=== PATIENT | female | born 1955 | race Two or more races ===

== ENCOUNTER → 2016-10-26 | Day surgery (SDC) | payer OTHER ==
[~2016-10-26] MED LIST: LIDOCAINE 2% INJ (20 MG/ML) 20 ML MDV ONE
== END ==
LOC: WI 07:59
PROVIDERS: ATTEND Surgery
PROC: 0HBT3ZX Excision of Right Breast, Percutaneous Approach, Diagnostic (ICD-10-PCS; principal; 2016-10-26)
PROC: 0HBU3ZX Excision of Left Breast, Percutaneous Approach, Diagnostic (ICD-10-PCS; 2016-10-26)
DX: C50.912 Malignant neoplasm of unspecified site of left female breast (principal); C50.911 Malignant neoplasm of unspecified site of right female breast; C77.3 Secondary and unspecified malignant neoplasm of axilla and upper limb lymph nodes; Z17.0 Estrogen receptor positive status [ER+]
CPT/HCPCS: 88342 ×2; 88341 ×2; 88305 ×2; 19083; 19084; J3490

== ENCOUNTER → 2016-11-01 | Outpatient (CLI) | payer BC, OTHER | LOC: RAD 08:26 | PROVIDERS: ATTEND Specialist | DX: C50.512 Malignant neoplasm of lower-outer quadrant of left female breast (principal) | CPT/HCPCS: 71260; 74177; 82565 ==

== ENCOUNTER → 2016-11-05 | Outpatient (CLI) | payer OTHER | LOC: RAD 08:05 | PROVIDERS: ATTEND Internal Medicine | DX: C50.512 Malignant neoplasm of lower-outer quadrant of left female breast (principal) | CPT/HCPCS: 78306; A9503; Q9969 ==

== ENCOUNTER → 2016-11-08 | Outpatient (CLI) | payer OTHER | LOC: WI 09:05 | PROVIDERS: ATTEND Surgery | DX: C50.911 Malignant neoplasm of unspecified site of right female breast (principal); K76.9 Liver disease, unspecified | CPT/HCPCS: 76705 ==

== ENCOUNTER → 2016-11-11 | Outpatient (CLI) | payer OTHER | LOC: RAD 18:44 | PROVIDERS: ATTEND Surgery | DX: C50.512 Malignant neoplasm of lower-outer quadrant of left female breast (principal) | CPT/HCPCS: 78815; A9552 ==

== ENCOUNTER 2016-11-13 09:13 | Day surgery (SDC) | payer OTHER ==
[2016-11-09 11:18] LABS: HEMATOCRIT 41.1 % (36.0-47.0); HEMOGLOBIN 14.4 g/dL (12.0-15.5); HGB HCT DIFFERENCE 2.1; MEAN CORPUSCULAR HEMOGLOBIN 29.7 pg (27.0-33.4); MEAN CORPUSCULAR HGB CONC 35.1 g/dL (32.0-36.0); MEAN CORPUSCULAR VOLUME 85 fl (80-97); RED BLOOD COUNT 4.85 10^6/uL (3.72-5.28); RED CELL DISTRIBUTION WIDTH 13.5 % (11.5-14.0); WHITE BLOOD COUNT 6.5 10^3/uL (4.0-10.5)
[2016-11-09 11:43] LABS: ANION GAP 14 (5-19); BLOOD UREA NITROGEN 12 mg/dL (7-20); CALCIUM 9.4 mg/dL (8.4-10.2); CARBON DIOXIDE 28 mmol/L (22-30); CHLORIDE 101 mmol/L (98-107); CREATININE RESULT 0.52 mg/dL (0.52-1.25); GLUCOSE 175 mg/dL (75-110); SODIUM 142.9 mmol/L (137-145)
[~2016-11-13 09:13] MED LIST changes: +ACETAMINOPHEN 325 MG TABLET PO PRN; +BUPIVACAINE HCL 0.25 % INJ/PF (2.5 MG/1 ML) 30 ML VIAL ONE; +CLINDAMYCIN 600 MG/D5W RTU 600 MG/50 ML RTUPB IV PRN; +LACTATED RINGERS 1000 ML IV PRN; +LIDOCAINE 0.5% INJ-PF (5 MG/ML) 50 ML SDV SUBCUT PRN; -LIDOCAINE 2% INJ (20 MG/ML) 20 ML MDV ONE
[2016-11-13] MEDS ORDERED: MORPHINE SULFATE 10 MG/ML INJ IV PRN ×3 (10:40→14:29)
[2016-11-13] MEDS ORDERED: MEPERIDINE HCL/PF INJ 25 MG/1 ML DISP.SYRIN IV PRN ×2 (10:40→13:42)
[2016-11-13] MEDS ORDERED: PROMETHAZINE HCL INJ 25 MG/1 ML VIAL IV PRN ×4 (10:40→13:42)
[2016-11-13] MEDS ORDERED: FENTANYL CITRATE INJ/PF 100 MCG/2 ML AMPUL IV PRN ×6 (10:40→13:42)
[2016-11-13] MEDS ORDERED: OXYCODONE-ACETAMINOPHEN 5-325 MG TABLET PO PRN ×4 (10:40→13:42)
[2016-11-13] MEDS ORDERED: DIPHENHYDRAMINE HCL 50 MG/ML VIAL IV PRN ×2 (10:40→13:42)
[2016-11-13 10:42] LABS: ALANINE AMINOTRANSFERASE 35 U/L (9-52); ALBUMIN 4.3 g/dL (3.5-5.0); ALKALINE PHOSPHATASE 79 U/L (38-126); ANION GAP 12 (5-19); ASPARTATE AMINO TRANSFERASE 28 U/L (14-36); BILIRUBIN,DIRECT 0.3 mg/dL (0.0-0.4); BILIRUBIN,TOTAL 0.9 mg/dL (0.2-1.3); BLOOD UREA NITROGEN 12 mg/dL (7-20); CALCIUM 9.3 mg/dL (8.4-10.2); CARBON DIOXIDE 27 mmol/L (22-30); CHLORIDE 105 mmol/L (98-107); CREATININE RESULT 0.47 mg/dL (0.52-1.25); GLUCOSE 146 mg/dL (75-110); POTASSIUM 3.9 mmol/L (3.6-5.0); SODIUM 144.3 mmol/L (137-145); TOTAL PROTEIN 7.6 g/dL (6.3-8.2)
--- NOTE | 2016-11-13 11:09 | EKG REPORT ---
SEVERITY:- ABNORMAL ECG - SINUS RHYTHM PROBABLE LEFT ATRIAL ABNORMALITY ANTERIOR INFARCT, OLD : Confirmed by: Mary Castle 13-Nov-2016 11:08:47
[2016-11-13] MEDS ORDERED: ONDANSETRON HCL INJ/PF 4 MG/2 ML SDV ONE ×2 (12:41→20:06)
[2016-11-13] MEDS ORDERED: MIDAZOLAM 2 MG/2 ML INJ ONE (12:55)
[2016-11-13] MEDS ORDERED: PROPOFOL INJ 200 MG/20 ML VIAL IV ONE (12:55)
[2016-11-13] MEDS ORDERED: FENTANYL CITRATE INJ/PF 100 MCG/2 ML AMPUL ONE (12:55)
--- NOTE | 2016-11-13 14:26 | Operative Report ---
Operative Report DATE OF SURGERY: 11/13/16 PREOPERATIVE DIAGNOSIS: Bilateral breast cancer POSTOPERATIVE DIAGNOSIS: Same OPERATION: Right internal jugular single-lumen power port placement (permanent implanted central venous access placed with ultrasound assistance under fluoroscopic guidance) SURGEON: SHIRA PICKETT ANESTHESIA: LMAC TISSUE REMOVED OR ALTERED: None COMPLICATIONS: None ESTIMATED BLOOD LOSS: minimal INTRAOPERATIVE FINDINGS: None PROCEDURE: Informed consent was obtained. Patient was brought to the operating room placed on the operating table in the supine position. Procedure was done under LMAC. Her right neck and chest were prepped and draped in usual sterile fashion. Local anesthetic was administered. The right internal jugular vein was identified with the ultrasound. Using the ultrasound as a guide the right internal jugular vein was cannulated. Guidewire was placed into the central circulation under fluoroscopic guidance. Local anesthetic was injected at the right upper chest and the along the anticipated path of the catheter in the neck. Subcutaneous pocket was created in the patient's right upper chest. The 2 incisions were connected using a tunneling device tunneling the single- lumen catheter. Introducer catheter was fed through the guidewire. The PowerPort catheter was then the fed through the introducer catheter into the right atrium. The catheter was then pulled back with the tip residing in the superior vena cava right atrial junction. The catheter was then attached to the PowerPort device which was implanted into the subcutaneous pocket. It withdrew blood and flushed easily. Hemostasis appeared excellent. The wounds were closed with deep dermal interrupted Vicryl sutures followed by running subcuticular Monocryl suture.
[2016-11-13] MEDS ORDERED: RINGERS SOLUTION,LACTATED 1,000 ML IV PRN (14:29)
--- NOTE | 2016-11-13 14:29 | PDOC DISCHARGE SUMMARY ---
Discharge Summary (SDC) - Discharge Final Diagnosis: Bilateral breast cancer Date of Surgery: 11/13/16 Discharge Date: 11/13/16 Condition: Good Treatment or Instructions: Right internal jugular single-lumen power port placement. December discharge patient home when met discharge criteria. Follow-up with me in 2 weeks. Prescriptions: Oxycodone HCl/Acetaminophen [Percocet 5-325 mg Tablet] 1 tab PO ASDIR PRN #15 tablet PRN Reason: Discharge Diet: As Tolerated Discharge Activity: Activity As Tolerated Report the Following to Your Physician Immediately: Shortness of Breath, Fever over 101 Degrees, Unusual Bleeding, Redness
[2016-11-13] MEDS ORDERED: ACETAMINOPHEN 100 ML IV ONE (14:33)
[2016-11-13 16:55] VITALS: BP 138/72
[2016-11-13] MEDS ORDERED: LIDOCAINE 2% INJ-PF (20 MG/ML) 10 ML AMPUL ONE (20:06)
[2016-11-13] MEDS ORDERED: GLYCOPYRROLATE INJ 0.4 MG/2 ML VIAL ONE (20:06)
[2016-11-13] MEDS ORDERED: METOCLOPRAMIDE HCL INJ/PF 10 MG/2 ML SDV ONE (20:06)
== END 2016-11-13 16:58 | disposition home or self-care (01) ==
LOC: OROUT 09:13
PROVIDERS: ATTEND Surgery
PROC: 05H533Z Insertion of Infusion Device into Right Subclavian Vein, Percutaneous Approach (ICD-10-PCS; principal; 2016-11-13 11:30)
DX: C50.912 Malignant neoplasm of unspecified site of left female breast (principal); C50.911 Malignant neoplasm of unspecified site of right female breast; M17.10 Unilateral primary osteoarthritis, unspecified knee; I10 Essential (primary) hypertension; E11.9 Type 2 diabetes mellitus without complications; Z88.1 Allergy status to other antibiotic agents; Z88.6 Allergy status to analgesic agent; Z88.0 Allergy status to penicillin; Z85.3 Personal history of malignant neoplasm of breast; Z87.891 Personal history of nicotine dependence; Z79.1 Long term (current) use of non-steroidal anti-inflammatories (NSAID)
CPT/HCPCS: 36415 ×2; 82962; 85027; 80048; 80053; 71010; 77001; 93005; 93010; 36561; C1788; J2250; J3010; J2765; J2550; J2405; J2704; J3490; J1642; J0131; 532

== ENCOUNTER → 2017-04-29 | Outpatient (CLI) | payer OTHER ==
--- NOTE | 2017-04-29 12:38 | RADIOLOGY REPORT (SQ) ---
EXAM DESCRIPTION: VENOUS BILATERAL LOWER COMPLETED DATE/TIME: 04/29/2017 12:26 pm REASON FOR STUDY: BLE SWELLING M79.89 OTHER SPECIFIED SOFT TISSUE DISORDERS COMPARISON: None. TECHNIQUE: Dynamic and static moran scale and color images acquired of both lower extremity venous sy stems. Selected spectral images acquired with additional compression and augmentation maneuvers. Imag es stored on PACS. LIMITATIONS: None. FINDINGS: RIGHT LEG COMMON FEMORAL AND FEMORAL: Normal phasicity, compression and augmentation. No visualized echogenic m aterial on moran scale. No defects on color images. POPLITEAL: Normal compression and augmentation. No visualized echogenic material on moran scale. No de fects on color images. CALF VESSELS: Normal compression and augmentation. No visualized echogenic material on moran scale. No defects on color image. GSV AND SSV: Normal compression. No visualized echogenic material on moran scale. No defects on color images. ANY DEEP VENOUS INSUFFICIENCY: Not evaluated. ANY EVIDENCE OF POPLITEAL CYST: No. OTHER: No other significant finding. LEFT LEG COMMON FEMORAL AND FEMORAL: Normal phasicity, compression and augmentation. No visualized echogenic m aterial on moran scale. No defects on color images. POPLITEAL: Normal compression and augmentation. No visualized echogenic material on moran scale. No de fects on color images. CALF VESSELS: Normal compression and augmentation. No visualized echogenic material on moran scale. No defects on color images. GSV AND SSV: Normal compression. No visualized echogenic material on moran scale. No defects on color images. ANY DEEP VENOUS INSUFFICIENCY: Not evaluated. ANY EVIDENCE POPLITEAL CYST: No. OTHER: No other significant finding. IMPRESSION: NO EVIDENCE DVT OR SVT IN EITHER LEG. TECHNICAL DOCUMENTATION: JOB ID: [id number] [employer]- All Rights Reserved
== END ==
LOC: SP 11:38
PROVIDERS: ATTEND Surgery
DX: M79.605 Pain in left leg (principal); M79.89 Other specified soft tissue disorders
CPT/HCPCS: 93970

== ENCOUNTER 2017-05-07 08:33 | Day surgery (SDC) | payer OTHER ==
[2017-05-03 11:40] LABS: HEMATOCRIT 33.6 % (36.0-47.0); HEMOGLOBIN 11.7 g/dL (12.0-15.5); HGB HCT DIFFERENCE 1.5; MEAN CORPUSCULAR HEMOGLOBIN 31.7 pg (27.0-33.4); MEAN CORPUSCULAR VOLUME 91 fl (80-97); RED CELL DISTRIBUTION WIDTH 15.2 % (11.5-14.0); WHITE BLOOD COUNT 3.2 10^3/uL (4.0-10.5)
[2017-05-03 12:10] LABS: ANION GAP 8 (5-19); BLOOD UREA NITROGEN 12 mg/dL (7-20); CALCIUM 9.1 mg/dL (8.4-10.2); CARBON DIOXIDE 29 mmol/L (22-30); CHLORIDE 102 mmol/L (98-107); CREATININE RESULT 0.47 mg/dL (0.52-1.25); GLUCOSE 193 mg/dL (75-110); POTASSIUM 3.3 mmol/L (3.6-5.0); SODIUM 139.4 mmol/L (137-145)
--- NOTE | 2017-05-03 17:26 | EKG REPORT ---
SEVERITY:- ABNORMAL ECG - SINUS RHYTHM LEFT ATRIAL ABNORMALITY CONSIDER ANTEROSEPTAL INFARCT : Confirmed by: Mary Castle 03-May-2017 17:25:54
[~2017-05-07 08:33] MED LIST changes: -BUPIVACAINE HCL 0.25 % INJ/PF (2.5 MG/1 ML) 30 ML VIAL ONE; -CLINDAMYCIN 600 MG/D5W RTU 600 MG/50 ML RTUPB IV PRN; +DEXAMETHASONE SOD PHOSPHATE INJ 4 MG/1 ML VIAL ONE; +LIDOCAINE 2% INJ-PF (20 MG/ML) 10 ML AMPUL ONE; +ONDANSETRON HCL INJ/PF 4 MG/2 ML SDV ONE; +RINGERS SOLUTION,LACTATED 1,000 ML IV PRN; +SCOPOLAMINE HYDROBROMIDE 1.5 MG PATCH.TD72 TD PRN; +SUCCINYLCHOLINE CHLORIDE INJ 200 MG/10 ML VIAL ONE; +VANCOMYCIN HCL 1,000 MG in DEXTROSE 5%-WATER 250 ML IV PRN
[2017-05-07 10:39] LABS: POTASSIUM 3.3 mmol/L (3.6-5.0)
[2017-05-07] MEDS ORDERED: MIDAZOLAM 2 MG/2 ML INJ ONE (11:39)
[2017-05-07] MEDS ORDERED: FENTANYL CITRATE INJ/PF 100 MCG/2 ML AMPUL ONE ×2 (11:39→16:27)
[2017-05-07] MEDS ORDERED: FENTANYL CITRATE INJ/PF 250 MCG/5 ML AMPULE ONE (11:39)
[2017-05-07] MEDS ORDERED: EPHEDRINE SULFATE INJ 50 MG/1 ML AMPULE ONE (11:40)
[2017-05-07] MEDS ORDERED: PROPOFOL INJ 200 MG/20 ML VIAL IV ONE (11:40)
[2017-05-07] MEDS ORDERED: ACETAMINOPHEN 100 ML IV ONE (11:40)
[2017-05-07] MEDS ORDERED: DIPHENHYDRAMINE HCL 50 MG/ML VIAL IV PRN ×2 (13:27→16:43)
[2017-05-07] MEDS ORDERED: PROMETHAZINE HCL INJ 25 MG/1 ML VIAL IV PRN ×2 (13:27→16:43)
[2017-05-07] MEDS ORDERED: MORPHINE SULFATE 10 MG/ML INJ IV PRN ×4 (13:27→19:55)
[2017-05-07] MEDS ORDERED: FENTANYL CITRATE INJ/PF 100 MCG/2 ML AMPUL IV PRN ×6 (13:27→16:43)
[2017-05-07] MEDS ORDERED: MEPERIDINE HCL/PF INJ 25 MG/1 ML DISP.SYRIN IV PRN (13:27)
[2017-05-07] MEDS ORDERED: MORPHINE SULFATE 10 MG/ML INJ ONE (14:47)
[2017-05-07] MEDS ORDERED: HYDROMORPHONE HCL INJ/PF 2 MG/ML AMPULE ONE (14:55)
[2017-05-07] MEDS ORDERED: OXYCODONE-ACETAMINOPHEN 5-325 MG TABLET PO PRN ×2 (16:05→19:55)
[2017-05-07] MEDS ORDERED: NORMAL SALINE 1000 ML 1,000 ML IV PRN (16:05)
[2017-05-07] MEDS ORDERED: ONDANSETRON HCL INJ/PF 4 MG/2 ML SDV IV PRN (16:05)
--- NOTE | 2017-05-07 16:05 | Operative Report ---
Operative Report DATE OF SURGERY: 05/07/17 PREOPERATIVE DIAGNOSIS: Bilateral breast cancer POSTOPERATIVE DIAGNOSIS: Bilateral breast cancer OPERATION: Right simple mastectomy. Left modified radical mastectomy. SURGEON: SHIRA PICKETT ANESTHESIA: GA TISSUE REMOVED OR ALTERED: Right breast. Left breast and axillary dissection. COMPLICATIONS: None ESTIMATED BLOOD LOSS: 300 cc INTRAOPERATIVE FINDINGS: None PROCEDURE: Informed consent was obtained. Patient was brought to the operating room placed on the operating room table in the supine position. After satisfactory induction of general anesthesia patient's bilateral breasts and axilla were prepped and draped in usual sterile fashion. A ellipse of skin encompassing the nipple areolar complex was taken taking more skin at the lateral mid aspect of the breast to ensure good margins around the cancer. Superior, inferior then finally lateral flaps were raised. The breast was taken off the pectoralis along with the pectoralis fascia. Specimen was oriented with a short stitch marking the superior border long stitch marking the lateral border. Hemostasis appeared excellent. Robert-Mera drain was placed at the mastectomy bed and brought out through separate stab incision in the inferior flap. It was sutured in place. The skin was closed with deep dermal interrupted Vicryl sutures followed by judit. Patient's tumor had laid at the central aspect of the left breast more so at the upper outer region prior to her neoadjuvant therapy. The mass was no longer palpable. Ellipse of skin encompassing the nipple areolar complex taking more skin at the central and upper outer region than normal to ensure good margins around where the cancer used to be was taken. Superior flap followed by inferior flap and lateral flap was raised. The breast was taken off the pectoralis along with the pectoralis fascia. The axillary dissection was taken in continuity with the breast. Critical structures were identified. The axillary vein, long thoracic nerve, and the thoracodorsal nerves were all identified and preserved during the dissection. Complete level 1 and level 2 dissection was performed. Hemostasis appeared excellent. Robert-Mera drain was placed at the axilla and at the mastectomy site and brought out through separate stab incisions at the inferior flap and sutured in place. The operative field was irrigated with sterile water. Hemostasis appeared excellent. The wound was closed with deep dermal interrupted Vicryl sutures followed by staple closure of the skin. Patient tolerated procedure well with no apparent complications and was taken to the recovery area in stable condition.
[2017-05-07] MEDS ORDERED: PROMETHAZINE HCL INJ 25 MG/1 ML VIAL ONE (16:27)
--- NOTE | 2017-05-07 18:42 | PDOC PROGRESS REPORT ---
Subjective Progress Note for:: 05/07/17 Subjective:: Feels okay. Some incision related pain at the right side. Physical Exam Vital Signs: Temp Pulse Resp BP Pulse Ox 97.7 F 80 14 128/65 H 96 05/07/17 18:28 05/07/17 18:28 05/07/17 18:28 05/07/17 18:28 05/07/17 18:28 Intake & Output 05/06/17 05/07/17 05/08/17 06:59 06:59 06:59 Intake Total 3550 Output Total 1305 Balance 2245 General appearance: PRESENT: no acute distress, cooperative Respiratory exam: PRESENT: clear to auscultation reji, other - Wounds are clean dry and intact with no swelling. Drains are blood-tinged output. Cardiovascular exam: PRESENT: RRR Results Laboratory Results: 05/03/17 10:07 05/07/17 10:00 05/07/17 10:00 Potassium 3.3 L Glucose 126 H Assessment & Plan - Diagnosis (1) Bilateral breast cancer Is this a current diagnosis for this admission?: Yes Plan: Status post right simple mastectomy and left modified radical mastectomy. Patient looks good postoperatively. Will likely discharge patient home in the morning.
[2017-05-07] MEDS ORDERED: ACETAMINOPHEN 325 MG TABLET PO PRN (19:55)
--- NOTE | 2017-05-08 09:23 | PDOC DISCHARGE SUMMARY ---
Discharge Summary (SDC) - Discharge Final Diagnosis: Bilateral breast cancer Date of Surgery: 05/07/17 Discharge Date: 05/08/17 Condition: Good Treatment or Instructions: Underwent bilateral mastectomy and left axillary dissection. May discharge patient home. Follow-up with me next week. Stay active. But avoid strenuous activity. Do range of motion exercises of both of her arms. May shower. Change dressings around the drain as needed when it gets wet. Please instruct patient on Robert-Mera drain care at home. Keep left arm elevated when sitting down or laying in bed. Prescriptions: Oxycodone HCl/Acetaminophen [Percocet 5-325 mg Tablet] 1 tab PO ASDIR PRN #25 tablet PRN Reason: Referrals: ANAI SPEARS FNP [Primary Care Provider] - Discharge Diet: As Tolerated Discharge Activity: Activity As Tolerated Report the Following to Your Physician Immediately: Fever over 101 Degrees, Unusual Bleeding, Redness, Drainage-Foul Smelling
--- NOTE | 2017-05-08 09:24 | PDOC PROGRESS REPORT ---
Subjective Progress Note for:: 05/08/17 Subjective:: Feels well. Pain of the good control. Physical Exam Vital Signs: Temp Pulse Resp BP Pulse Ox 98.2 F 72 18 118/45 L 96 05/08/17 07:18 05/08/17 07:18 05/08/17 07:18 05/08/17 07:18 05/08/17 07:18 Intake & Output 05/07/17 05/08/17 05/09/17 06:59 06:59 06:59 Intake Total 4770 Output Total 1965 Balance 2805 Weight 81.2 kg General appearance: PRESENT: no acute distress, cooperative Respiratory exam: PRESENT: clear to auscultation reji, other - Wound clean dry and intact with no swelling. Drain output is serosanguineous. Cardiovascular exam: PRESENT: RRR Extremities exam: PRESENT: other - No swelling. Results Laboratory Results: 05/03/17 10:07 05/07/17 10:00 05/07/17 10:00 Potassium 3.3 L Glucose 126 H Assessment & Plan - Diagnosis (1) Bilateral breast cancer Is this a current diagnosis for this admission?: Yes Plan: Status post right simple mastectomy and left modified radical mastectomy. Patient looks good postoperatively. DC home.
[2017-05-08] MEDS ORDERED: NYSTATIN/TRIAMCIN CREAM 15 GM TOP SCH (10:00)
[2017-05-08] MEDS ORDERED: GABAPENTIN 300 MG CAPSULE PO SCH (10:00)
[2017-05-08 14:39] VITALS: BP 122/65
== END 2017-05-08 15:24 | disposition home or self-care (01) ==
LOC: UNDOADMIN 08:33 → INOR 08:33 → OROUT 08:33 → EDSTATUS 12:00 → INOR 18:28 → 4S 18:28 → OROUT 05-08 15:24 → UNDODISIN 05-08 15:24
PROVIDERS: ATTEND Surgery
PROC: 0HTT0ZZ Resection of Right Breast, Open Approach (ICD-10-PCS; 2017-05-07)
PROC: 0HTU0ZZ Resection of Left Breast, Open Approach (ICD-10-PCS; 2017-05-07)
PROC: 07B60ZX Excision of Left Axillary Lymphatic, Open Approach, Diagnostic (ICD-10-PCS; principal; 2017-05-07 12:00)
DX: C50.812 Malignant neoplasm of overlapping sites of left female breast (principal); D05.91 Unspecified type of carcinoma in situ of right breast; C77.3 Secondary and unspecified malignant neoplasm of axilla and upper limb lymph nodes; Z17.0 Estrogen receptor positive status [ER+]; I10 Essential (primary) hypertension; M17.10 Unilateral primary osteoarthritis, unspecified knee; E11.9 Type 2 diabetes mellitus without complications; Z88.0 Allergy status to penicillin; Z88.6 Allergy status to analgesic agent; Z88.1 Allergy status to other antibiotic agents; Z87.891 Personal history of nicotine dependence
CPT/HCPCS: 19303; 19307; 93005; 36415 ×2; 82962; 82947; 84132; 85027; 80048; 88309 ×2; 93010; J2250; J1100; J3010 ×2; J2270; J1170; J2550; J0330; J2405; J7060; J7030; J2704; J3370; J3490; J0131; 1610

== ENCOUNTER 2017-05-12 18:38 | Emergency (ER) | payer OTHER ==
--- NOTE | 2017-05-12 18:58 | ER Document Report ---
ED Medical Screen (RME) - General Chief Complaint: Fever Stated Complaint: FEVER Time Seen by Provider: 05/12/17 18:52 Mode of Arrival: Ambulatory Information source: Patient Notes: 62-year-old female who had double mastectomy performed on the presents with complaints of fever 102.4 I have greeted and performed a rapid initial assessment of this patient. A comprehensive ED assessment and evaluation of the patient, analysis of test results and completion of the medical decision making process will be conducted by additional ED providers. PHYSICAL EXAMINATION: GENERAL: Well-appearing, well-nourished and in no acute distress. HEAD: Atraumatic, normocephalic. EYES: Pupils equal round extraocular movements intact, conjunctiva are normal. ENT: Nares patent NECK: Normal range of motion LUNGS: No respiratory distress Musculoskeletal: Normal range of motion NEUROLOGICAL: Normal speech, normal gait. PSYCH: Normal mood, normal affect. SKIN: bilateral surgical chest wall incisions with drains TRAVEL OUTSIDE OF THE [place] IN LAST 30 DAYS: No - Related Data Allergies/Adverse Reactions: Penicillins Allergy (Severe, Verified 05/12/17 18:44) rash,photosensitive erythromycin base [From Erythrocin] Allergy (Mild, Verified 05/12/17 18:44) "Rash with sores" aspirin Adverse Reaction (Intermediate, Verified 05/12/17 18:44) "It irritates my stomach" and nausea METAL Allergy (Uncoded 05/12/17 18:44) Past Medical History - Past Medical History Cardiac Medical History: Reports: Hx Hypertension Denies: Hx Atrial Fibrillation, Hx Congestive Heart Failure, Hx Coronary Artery Disease, Hx Heart Attack, Hx Hypercholesterolemia, Hx Peripheral Vascular Disease, Hx Pulmonary Embolism, Hx Heart Murmur Pulmonary Medical History: Reports: Hx Bronchitis Denies: Hx Asthma, Hx COPD, Hx Pneumonia, Hx Respiratory Failure, Hx Sleep Apnea, Hx Tuberculosis Neurological Medical History: Endocrine Medical History: Reports: Hx Diabetes Mellitus Type 2. Denies: Hx Graves' Disease, Hx Hyperthyroidism, Hx Hypothyroidism Renal/ Medical History: Denies: Hx End Stage Renal Disease, Hx Kidney Stones, Hx Ovarian Cysts, Hx Peritoneal Dialysis, Hx Pelvic Inflammatory Disease Malignancy Medical History: Reports: Hx Breast Cancer. Denies: Hx Cervical Cancer, Hx Leukemia, Hx Lung Cancer, Hx Ovarian Cancer GI Medical History: Denies: Hx Crohn's Disease, Hx Gastroesophageal Reflux Disease, Hx Hiatal Hernia, Hx Irritable Bowel, Hx Liver Failure, Hx Ulcer Musculoskeltal Medical History: Reports Hx Arthritis, Denies Hx Fibromyalgia, Denies Hx Muscular Dystrophy Psychiatric Medical History: Denies: Hx Bipolar Disorder, Hx Depression, Hx Post Traumatic Stress Disorder , Hx Schizophrenia Traumatic Medical History: Reports: Hx Fractures Infectious Medical History: Denies: Hx HIV Past Surgical History: Reports: Hx Breast Surgery - Right breast lumpectomy, Hx Cholecystectomy. Denies: Hx Appendectomy, Hx Bowel Surgery, Hx Colostomy, Hx Coronary Artery Bypass Graft, Hx Gastric Bypass Surgery, Hx Herniorrhaphy, Hx Hysterectomy, Hx Mastectomy, Hx Pacemaker, Hx Tonsillectomy, Hx Tubal Ligation - Immunizations Hx Diphtheria, Pertussis, Tetanus Vaccination: Yes - 09/07/13 at [facility] Physical Exam - Vital signs Vitals: Temp Pulse Resp BP Pulse Ox 99.8 F 103 H 20 186/93 H 97 05/12/17 18:43 05/12/17 18:43 05/12/17 18:43 05/12/17 18:43 05/12/17 18:43 Course - Vital Signs Vital signs: Temp Pulse Resp BP Pulse Ox 99.8 F 103 H 20 186/93 H 97 05/12/17 18:43 05/12/17 18:43 05/12/17 18:43 05/12/17 18:43 05/12/17 18:43
--- NOTE | 2017-05-12 20:02 | ER Document Report ---
ED Fever - General Chief Complaint: Fever Stated Complaint: FEVER Time Seen by Provider: 05/12/17 18:52 Mode of Arrival: Ambulatory Notes: Patient is a 62-year-old female that comes emergency department for chief complaint of fever, she is status post double mastectomy on 05/07/[address] Warren , she states she believes she started running a fever yesterday, today she checked her temperature at 102.4. She has a past medical history of type 2 diabetes, cholecystectomy, hypertension. She states that her wounds have been doing great, they are not painful, she denies discolored drainage in her NATE drains, she denies difficulty breathing, abdominal pain, neck stiffness, headache, vomiting, dysuria, flank pain. She had her final chemotherapy dose 2 weeks ago. She does have a port and states it has not been used since 2 weeks ago. The area of the port is not red or inflamed. TRAVEL OUTSIDE OF THE [place] IN LAST 30 DAYS: No - Related Data Allergies/Adverse Reactions: Penicillins Allergy (Severe, Verified 05/12/17 18:44) rash,photosensitive erythromycin base [From Erythrocin] Allergy (Mild, Verified 05/12/17 18:44) "Rash with sores" aspirin Adverse Reaction (Intermediate, Verified 05/12/17 18:44) "It irritates my stomach" and nausea METAL Allergy (Uncoded 05/12/17 18:44) Past Medical History - General Information source: Patient - Social History Smoking Status: Former Smoker Chew tobacco use (# tins/day): No Frequency of alcohol use: Occasional Drug Abuse: None Lives with: Family Family History: Reviewed & Not Pertinent - Past Medical History Cardiac Medical History: Reports: Hx Hypertension Denies: Hx Atrial Fibrillation, Hx Congestive Heart Failure, Hx Coronary Artery Disease, Hx Heart Attack, Hx Hypercholesterolemia, Hx Peripheral Vascular Disease, Hx Pulmonary Embolism, Hx Heart Murmur Pulmonary Medical History: Reports: Hx Bronchitis Denies: Hx Asthma, Hx COPD, Hx Pneumonia, Hx Respiratory Failure, Hx Sleep Apnea, Hx Tuberculosis Neurological Medical History: Endocrine Medical History: Reports: Hx Diabetes Mellitus Type 2. Denies: Hx Graves' Disease, Hx Hyperthyroidism, Hx Hypothyroidism Renal/ Medical History: Denies: Hx End Stage Renal Disease, Hx Kidney Stones, Hx Ovarian Cysts, Hx Peritoneal Dialysis, Hx Pelvic Inflammatory Disease Malignancy Medical History: Reports: Hx Breast Cancer. Denies: Hx Cervical Cancer, Hx Leukemia, Hx Lung Cancer, Hx Ovarian Cancer GI Medical History: Denies: Hx Crohn's Disease, Hx Gastroesophageal Reflux Disease, Hx Hiatal Hernia, Hx Irritable Bowel, Hx Liver Failure, Hx Ulcer Musculoskeltal Medical History: Reports Hx Arthritis, Denies Hx Fibromyalgia, Denies Hx Muscular Dystrophy Psychiatric Medical History: Denies: Hx Bipolar Disorder, Hx Depression, Hx Post Traumatic Stress Disorder , Hx Schizophrenia Traumatic Medical History: Reports: Hx Fractures Infectious Medical History: Denies: Hx HIV Past Surgical History: Reports: Hx Breast Surgery - Right breast lumpectomy, Hx Cholecystectomy. Denies: Hx Appendectomy, Hx Bowel Surgery, Hx Colostomy, Hx Coronary Artery Bypass Graft, Hx Gastric Bypass Surgery, Hx Herniorrhaphy, Hx Hysterectomy, Hx Mastectomy, Hx Pacemaker, Hx Tonsillectomy, Hx Tubal Ligation - Immunizations Hx Diphtheria, Pertussis, Tetanus Vaccination: Yes - 09/07/13 at [facility] Review of Systems - Review of Systems Constitutional: See HPI EENT: No symptoms reported Cardiovascular: No symptoms reported Respiratory: No symptoms reported Gastrointestinal: No symptoms reported Genitourinary: No symptoms reported Female Genitourinary: No symptoms reported Musculoskeletal: No symptoms reported Skin: No symptoms reported Hematologic/Lymphatic: No symptoms reported Neurological/Psychological: No symptoms reported Physical Exam - Vital signs Vitals: Temp Pulse Resp BP Pulse Ox 99.8 F 103 H 20 186/93 H 97 05/12/17 18:43 05/12/17 18:43 05/12/17 18:43 05/12/17 18:43 05/12/17 18:43 Interpretation: Normal - General General appearance: Appears well, Alert In distress: None - Patient alert, smiling, talkative, well-appearing - HEENT Head: Normocephalic, Atraumatic Eyes: Normal Conjunctiva: Normal Extraocular movements intact: Yes Eyelashes: Normal Pupils: PERRL Sinus: Normal Nasal: Normal Mouth/Lips: Normal Mucous membranes: Normal Pharynx: Normal Neck: Normal - Respiratory Respiratory status: No respiratory distress. No: Respiratory distress Chest status: Other - Bilateral mastectomy wounds with clean dressings over the areas, no significant erythema, no induration, no fluctuance. No significant tenderness to the areas. NATE drains in place, 2 on each side, all of the drains have serous and blood fluids mixed. Breath sounds: Normal. No: Decreased air movement, Wheezing Chest palpation: Normal - Cardiovascular Rhythm: Regular. No: Tachycardia - Patient is not tachycardic on my exam Heart sounds: Normal auscultation, S1 appreciated, S2 appreciated Murmur: No - Abdominal Inspection: Normal Distension: No distension Bowel sounds: Normal Tenderness: Nontender Organomegaly: No organomegaly - Back Back: Normal, Nontender - Extremities General upper extremity: Normal inspection, Nontender, Normal color, Normal ROM , Normal temperature General lower extremity: Normal inspection, Nontender, Normal color, Normal ROM , Normal temperature, Normal weight bearing. No: Antonio's sign - Neurological Neuro grossly intact: Yes Cognition: Normal Orientation: AAOx4 Russell Coma Scale Eye Opening: Spontaneous Grant Coma Scale Verbal: Oriented Russell Coma Scale Motor: Obeys Commands Russell Coma Scale Total: 15 Speech: Normal Motor strength normal: LUE, RUE, LLE, RLE Sensory: Normal - Psychological Associated symptoms: Normal affect, Normal mood - Skin Skin Temperature: Warm Skin Moisture: Dry Skin Color: Normal Course - Re-evaluation Re-evalutation: Patient is actually very well-appearing. She has no complaints on my evaluation. Wound does not appear to be infected, although the NATE drains are draining well and have serous and slight blood appearance to them with no purulent abnormalities. Patient's port does not appear to be infected, has not been used recently. Patient is clear lungs, soft abdomen, chest x-ray and urinalysis are unremarkable. Lactic acid is not elevated. Blood cultures pending. Called and spoke with surgeon on-call, Dr. Hudson, he recommends that patient be discharged home on oral antibiotics and close follow-up in the office with return precautions. I did discuss this with Dr. Tijerina as well. Suggests possible clindamycin antibiotic coverage. Discussed this with patient, patient does not want clindamycin because of concerns of her bowel, discussed options for both skin and broad-spectrum coverage, after discussion patient will be placed on Bactrim and doxycycline. Patient is very pleased with going home, however she states that she will return immediately if she worsens in any way. - Vital Signs Vital signs: Temp Pulse Resp BP Pulse Ox 98.4 F 98 16 170/84 H 98 05/12/17 22:38 05/12/17 22:38 05/12/17 22:38 05/12/17 22:38 05/12/17 22:38 - Laboratory Result Diagrams: 05/12/17 20:45 05/12/17 20:45 Laboratory results interpreted by me: 05/12/17 05/12/17 05/12/17 20:15 20:45 20:45 WBC 12.1 H RBC 3.42 L Hgb 10.9 L Hct 30.6 L RDW 14.3 H Seg Neutrophils % 84.6 H Lymphocytes % 5.8 L Absolute Neutrophils 10.3 H VBG pH Sodium 134.8 L Potassium 3.1 L Creatinine 0.48 L Glucose 158 H Total Protein 5.4 L Albumin 3.0 L Urine Glucose (UA) 50 H Urine Urobilinogen 4.0 H 05/12/17 20:45 WBC RBC Hgb Hct RDW Seg Neutrophils % Lymphocytes % Absolute Neutrophils VBG pH 7.45 H Sodium Potassium Creatinine Glucose Total Protein Albumin Urine Glucose (UA) Urine Urobilinogen Discharge - Discharge Clinical Impression: Postoperative fever Condition: Stable Disposition: HOME, SELF-CARE Additional Instructions: The wounds and drains look good. Chest x-ray is negative, urine does not show infection, At this time I am not sure of the source of your fever. Please take the prescribed antibiotics as directed, call tomorrow and follow-up closely in the office for a reevaluation at the surgical clinic. Please return if you worsen in anyway including developing abdominal pain, vomiting, severe headache, shortness of breath, swelling or redness at the wound sites, lack of drainage into the drains or discolored drainage, or any other concerning symptoms. Prescriptions: Doxycycline Hyclate 100 mg PO BID #14 capsule Sulfamethoxazole/Trimethoprim [Bactrim Ds Tablet] 1 each PO BID #14 tablet Forms: Elevated Blood Pressure Referrals: SHIRA PICKETT MD [ACTIVE STAFF] - Follow up tomorrow
--- NOTE | 2017-05-12 20:14 | RADIOLOGY REPORT (SQ) ---
EXAM DESCRIPTION: CHEST PA/LAT COMPLETED DATE/TIME: 05/12/2017 7:56 pm REASON FOR STUDY: fever post op COMPARISON: 11/13/2016 EXAM PARAMETERS: NUMBER OF VIEWS: two views TECHNIQUE: Digital Frontal and Lateral radiographic views of the chest acquired. RADIATION DOSE: NA LIMITATIONS: none FINDINGS: LUNGS AND PLEURA: No opacities, masses or pneumothorax. No pleural effusion. MEDIASTINUM AND HILAR STRUCTURES: No masses or contour abnormalities. HEART AND VASCULAR STRUCTURES: Heart normal size. No evidence for failure. BONES: Scoliosis. HARDWARE: Bilateral surgical drains overlie the chest. Multiple judit across the chest. . Bilate ral axillary clips. Venous access catheter. OTHER: No other significant finding. IMPRESSION: No acute opacities. Postsurgical changes. TECHNICAL DOCUMENTATION: JOB ID: [id number] [employer]- All Rights Reserved
[2017-05-12 20:31] LABS: APPEARANCE,URINE CLEAR; BILIRUBIN,URINE NEGATIVE (NEGATIVE); GLUCOSE, URINE 50 mg/dL (NEGATIVE); KETONES,URINE NEGATIVE (NEGATIVE); LEUKOCYTE ESTERASE,URINE NEGATIVE (NEGATIVE); NITRITE,URINE NEGATIVE (NEGATIVE); PROTEIN,URINE NEGATIVE (NEGATIVE); URINE SPECIFIC GRAVITY 1.019
[2017-05-12 20:59] LABS: ABSOLUTE EOSINOPHILS # (AUTO) 0.1 10^3/uL (0.0-0.6); ABSOLUTE LYMPHOCYTES (AUTO) 0.7 10^3/uL (0.5-4.7); ABSOLUTE NEUT (AUTO) 10.3 10^3/uL (1.7-8.2); BASOPHILS % (AUTO) 0.2 % (0-2); HEMATOCRIT 30.6 % (36.0-47.0); HEMOGLOBIN 10.9 g/dL (12.0-15.5); HGB HCT DIFFERENCE 2.1; LYMPHOCYTES % (AUTO) 5.8 % (13-45); MEAN CORPUSCULAR HEMOGLOBIN 31.8 pg (27.0-33.4); MEAN CORPUSCULAR HGB CONC 35.5 g/dL (32.0-36.0); MEAN CORPUSCULAR VOLUME 90 fl (80-97); MONOCYTES % (AUTO) 8.4 % (3-13); RED BLOOD COUNT 3.42 10^6/uL (3.72-5.28); RED CELL DISTRIBUTION WIDTH 14.3 % (11.5-14.0); SEGMENTED NEUTROPHILS % (AUTO) 84.6 % (42-78); WHITE BLOOD COUNT 12.1 10^3/uL (4.0-10.5)
[2017-05-12 21:08] LABS: VENOUS BLOOD BASE EXCESS 2.2 mmol/L; VENOUS BLOOD HCO3 26.3 mmol/L (20-32); VENOUS BLOOD PCO2 39.2 mmHg (35-63); VENOUS BLOOD PH 7.45 (7.30-7.42)
[2017-05-12 21:17] LABS: PROTHROMBIN TIME 14.5 SEC (11.4-15.4)
[2017-05-12 21:20] LABS: ALANINE AMINOTRANSFERASE 23 U/L (9-52); ALKALINE PHOSPHATASE 48 U/L (38-126); ANION GAP 9 (5-19); ASPARTATE AMINO TRANSFERASE 20 U/L (14-36); BILIRUBIN,DIRECT 0.3 mg/dL (0.0-0.4); BILIRUBIN,TOTAL 1.1 mg/dL (0.2-1.3); BLOOD UREA NITROGEN 9 mg/dL (7-20); CALCIUM 8.7 mg/dL (8.4-10.2); CARBON DIOXIDE 26 mmol/L (22-30); CHLORIDE 100 mmol/L (98-107); CREATININE RESULT 0.48 mg/dL (0.52-1.25); GLUCOSE 158 mg/dL (75-110); POTASSIUM 3.1 mmol/L (3.6-5.0); SODIUM 134.8 mmol/L (137-145); TOTAL PROTEIN 5.4 g/dL (6.3-8.2)
[2017-05-12] MEDS ORDERED: SULFAMETHOXAZOLE/TRIMETHOPRIM 800-160 MG TABLET PO ONE (21:36)
[2017-05-12] MEDS ORDERED: DOXYCYCLINE HYCLATE 100 MG TABLET PO ONE (21:36)
[2017-05-12 22:42] VITALS: BP 170/84
--- NOTE | 2017-05-13 08:06 | EKG REPORT ---
SEVERITY:- BORDERLINE ECG - SINUS RHYTHM PROBABLE LEFT ATRIAL ABNORMALITY BORDERLINE R WAVE PROGRESSION, ANTERIOR LEADS : Confirmed by: Meagan Dominique MD 13-May-2017 08:06:19
== END 2017-05-12 22:42 | disposition home or self-care (01) ==
LOC: ER 18:38
DX: R50.9 Fever, unspecified (principal); I10 Essential (primary) hypertension; E11.9 Type 2 diabetes mellitus without complications; Z90.13 Acquired absence of bilateral breasts and nipples; Z98.890 Other specified postprocedural states; Z88.0 Allergy status to penicillin; Z88.3 Allergy status to other anti-infective agents; Z88.6 Allergy status to analgesic agent; Z87.891 Personal history of nicotine dependence; Z90.49 Acquired absence of other specified parts of digestive tract
CPT/HCPCS: 36415; 36591; 71020; 80053; 81001; 82803; 83605; 85025; 85610; 87040; 87086; 87088; 87186; 93005; 93010; 99284

== ENCOUNTER → 2017-08-30 | Day surgery (SDC) | payer OTHER ==
[~2017-08-30] MED LIST changes: -ACETAMINOPHEN 325 MG TABLET PO PRN; -DEXAMETHASONE SOD PHOSPHATE INJ 4 MG/1 ML VIAL ONE; -LACTATED RINGERS 1000 ML IV PRN; -LIDOCAINE 0.5% INJ-PF (5 MG/ML) 50 ML SDV SUBCUT PRN; +LIDOCAINE 2% INJ (20 MG/ML) 20 ML MDV ONE; -LIDOCAINE 2% INJ-PF (20 MG/ML) 10 ML AMPUL ONE; -ONDANSETRON HCL INJ/PF 4 MG/2 ML SDV ONE; -RINGERS SOLUTION,LACTATED 1,000 ML IV PRN; -SCOPOLAMINE HYDROBROMIDE 1.5 MG PATCH.TD72 TD PRN; -SUCCINYLCHOLINE CHLORIDE INJ 200 MG/10 ML VIAL ONE; -VANCOMYCIN HCL 1,000 MG in DEXTROSE 5%-WATER 250 ML IV PRN
--- NOTE | 2017-09-04 16:11 | WOMENS IMAGING REPORT ---
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 The patient was scanned and the area of interest in the left axilla/anterior chest wall was localized . This correlates with the area of concern on prior imaging studies. This area was targeted for ultr asound-guided core biopsy. After sterile skin prep and 3.5 mL local lidocaine 1% for skin and deep tissue anesthesia, a 14 gauge coaxial core biopsy needle was used to obtain several cores of tissue from the lesion. Under ultras ound guidance, a ribbon clip was placed in the areas sampled. There were no immediate post-procedure complications. MAMMOGRAM: Post procedure mammogram was not obtained Pathology yields a diagnosis of inflamed granulation and fibrous tissue with remote hemorrhage. No c arcinoma identified by special stains. Pathology is concordant. LIMITATIONS: None. FINDINGS: Ultrasound guided breast biopsy as described above. POST PROCEDURE MAMMOGRAMS FOR MARKER PLACEMENT: No IMPRESSION: ULTRASOUND-GUIDED CORE BIOPSY OF THE LEFT AXILLA/CHEST WALL BREAST YIELDS A DIAGNOSIS OF INFLAMED GRANULATION AND FIBROUS TISSUE WITH REMOTE HEMORRHAGE. NO CARCINOMA IDENTIFIED. COMMENT: COMMUNICATION: Findings discussed with the patient 09/03/2017, 0900 hours Patient medication list reviewed: Yes- Quality ID# [id number]:Eligible professional attests to documenting i n the medical record they obtained, updated, or reviewed the patient's current medications. TECHNICAL DOCUMENTATION: JOB ID: [id number] [employer]- All Rights Reserved
== END ==
LOC: RAD 08:12
PROVIDERS: ATTEND Physician Assistant Surgical
PROC: 0HBU3ZX Excision of Left Breast, Percutaneous Approach, Diagnostic (ICD-10-PCS; principal; 2017-08-30)
DX: C50.919 Malignant neoplasm of unspecified site of unspecified female breast (principal)
CPT/HCPCS: 88342 ×2; 88305 ×2; 19083; J3490

== ENCOUNTER 2018-02-20 09:15 | Day surgery (SDC) | payer OTHER ==
[~2018-02-20 09:15] MED LIST changes: +BUPIVACAINE HCL 0.25 % INJ/PF (2.5 MG/1 ML) 30 ML VIAL ONE; +LIDOCAINE 1% INJ-PF (10 MG/ML) 30 ML SDV ONE; -LIDOCAINE 2% INJ (20 MG/ML) 20 ML MDV ONE
[2018-02-20 09:59] LABS: HEMATOCRIT 39.5 % (36.0-47.0); HEMOGLOBIN 13.8 g/dL (12.0-15.5); MEAN CORPUSCULAR HGB CONC 34.8 g/dL (32.0-36.0); MEAN CORPUSCULAR VOLUME 86 fl (80-97); PLATELET COUNT 235 10^3/uL (150-450); RED CELL DISTRIBUTION WIDTH 13.2 % (11.5-14.0); WHITE BLOOD COUNT 5.1 10^3/uL (4.0-10.5)
--- NOTE | 2018-02-20 10:07 | RADIOLOGY REPORT (SQ) ---
EXAM DESCRIPTION: CHEST SINGLE VIEW COMPLETED DATE/TIME: 02/20/2018 9:41 am REASON FOR STUDY: PREOP COMPARISON: Chest films 05/12/2017, 11/13/2016 EXAM PARAMETERS: NUMBER OF VIEWS: One view. TECHNIQUE: Single frontal radiographic view of the chest acquired. RADIATION DOSE: NA LIMITATIONS: None. FINDINGS: LUNGS AND PLEURA: No opacities, masses or pneumothorax. No pleural effusion. MEDIASTINUM AND HILAR STRUCTURES: No masses. Contour normal. HEART AND VASCULAR STRUCTURES: Heart normal in size. Normal vasculature. BONES: No acute findings. HARDWARE: Right jugular central line tip superior vena cava. Post bilateral mastectomies with bilate ral axillary dissection OTHER: No other significant finding. IMPRESSION: NO ACUTE RADIOGRAPHIC FINDING IN THE CHEST. TECHNICAL DOCUMENTATION: JOB ID: [id number] [employer]- All Rights Reserved Reading location - IP/workstation name: [email or web address]
[2018-02-20 10:16] LABS: ANION GAP 10 (5-19); BLOOD UREA NITROGEN 13 mg/dL (7-20); CARBON DIOXIDE 27 mmol/L (22-30); CHLORIDE 107 mmol/L (98-107); GLUCOSE 188 mg/dL (75-110); POTASSIUM 4.3 mmol/L (3.6-5.0)
[2018-02-20] MEDS ORDERED: FENTANYL CITRATE INJ/PF 100 MCG/2 ML AMPUL ONE ×4 (10:54→13:43)
[2018-02-20] MEDS ORDERED: PROPOFOL INJ 200 MG/20 ML VIAL IV ONE ×3 (10:55→12:33)
[2018-02-20] MEDS ORDERED: MIDAZOLAM 2 MG/2 ML INJ ONE ×3 (10:55→12:33)
[2018-02-20] MEDS ORDERED: ACETAMINOPHEN 1,000 MG/100 ML RTUPB IV ONE (12:14)
[2018-02-20] MEDS ORDERED: DEXMEDETOMIDINE INJ 80 MCG/20 ML VIAL IV ONE (12:14)
[2018-02-20] MEDS ORDERED: KETAMINE HCL INJ 500 MG/10 ML VIAL ONE (12:37)
[2018-02-20] MEDS ORDERED: DIPHENHYDRAMINE HCL 50 MG/ML VIAL IV PRN (13:05)
[2018-02-20] MEDS ORDERED: FENTANYL CITRATE INJ/PF 100 MCG/2 ML AMPUL IV PRN ×3 (13:05)
[2018-02-20] MEDS ORDERED: PROMETHAZINE HCL INJ 25 MG/1 ML VIAL IV PRN (13:05)
--- NOTE | 2018-02-20 13:32 | EKG REPORT ---
SEVERITY:- ABNORMAL ECG - SINUS RHYTHM CONSIDER ANTEROSEPTAL INFARCT : Confirmed by: Jerson Barnhart MD 20-Feb-2018 13:31:41
--- NOTE | 2018-02-20 13:49 | Discharge Summary ---
Discharge Summary (SDC) - Discharge Final Diagnosis: Abscess of the left axilla Date of Surgery: 02/20/18 Discharge Date: 02/20/18 Condition: Stable Treatment or Instructions: Damp to dry dressing changes twice daily. Okay to shower. [place] 5/325 mg p.o. every 6 hours as needed pain. Continue oral antibiotics. Referrals: ANAI SPEARS FNP [Primary Care Provider] - Discharge Diet: As Tolerated Respiratory Treatments at Home: Deep Breathing/Coughing, Incentive Spirometer Discharge Activity: Slowly Increase Activity Home Care Assistance: None Needed Report the Following to Your Physician Immediately: Shortness of Breath, Nausea , Vomiting, Increase in Pain, Fever over 101 Degrees, Swelling, Warmth
[2018-02-20] MEDS ORDERED: KETOROLAC TROMETHAMINE INJ/PF 30 MG/1 ML SDV ONE (14:00)
--- NOTE | 2018-02-20 14:00 | Operative Report ---
Nonrecallable Operative Report DATE OF SURGERY: 02/20/18 PREOPERATIVE DIAGNOSIS: Left axillary abscess POSTOPERATIVE DIAGNOSIS: Same as above OPERATION: 1. Incision and drainage of a left axillary abscess. 2. Sharp, excisional debridement of necrotic/infected left axillary tissue including skin and fatty subcutaneous tissue. SURGEON: AYSHA SELLERS ANESTHESIA: LMAC TISSUE REMOVED OR ALTERED: Wound culture COMPLICATIONS: None apparent ESTIMATED BLOOD LOSS: Minimal PROCEDURE: Drains/implants: Kerlix. Procedure in detail: After informed consent was obtained, the patient was laid in the supine position in the operating room. The area of the left axilla was prepped and draped in a normal sterile fashion. There were 2 separate draining wounds. One was at the lateral aspect of the mastectomy scar, and one was at the lateral-most aspect of the axilla, on the underside of the left arm. The wounds were probed with a Kristine clamp. There was a large subcutaneous cavity with a fistulous connection between the 2 wounds. The skin was laid open. This was done with a 15 blade scalpel. The wound was opened completely. Wound cultures were taken. All infected/unhealthy skin and fatty soft tissue were debrided away sharply with a 15 blade scalpel. The wound was then cleaned. Hemostasis was achieved using Bovie electrocautery. The wound was then packed with a Kerlix. The wound measured 10 x 4 x 2 cm. A dressing was fashioned, and the procedure was concluded. All sponge, instrument, and needle counts were correct 2. Condition: Stable.
[2018-02-20 15:31] VITALS: BP 140/71
== END 2018-02-20 15:52 | disposition home or self-care (01) ==
LOC: OROUT 09:15
PROVIDERS: ATTEND Surgery
DX: L02.412 Cutaneous abscess of left axilla (principal); C50.919 Malignant neoplasm of unspecified site of unspecified female breast; E11.9 Type 2 diabetes mellitus without complications; I10 Essential (primary) hypertension; Z01.818 Encounter for other preprocedural examination; Z88.0 Allergy status to penicillin; Z88.1 Allergy status to other antibiotic agents; Z88.6 Allergy status to analgesic agent; Z87.891 Personal history of nicotine dependence; M17.10 Unilateral primary osteoarthritis, unspecified knee; Z85.3 Personal history of malignant neoplasm of breast; Z79.899 Other long term (current) drug therapy
CPT/HCPCS: 36415; 87070; 87205; 85027; 87075; 87077; 80048; 87186; 71045; 93005; 93010; 11042; 11045; J2250; J3010; J3490 ×2; J1885; J2704; J0131; 400

== ENCOUNTER 2018-08-11 23:21 | Emergency (ER) | payer OTHER ==
[2018-08-11] MEDS ORDERED: NORMAL SALINE 1000 ML 1,000 ML IV ONE (23:41)
[2018-08-11] MEDS ORDERED: KETOROLAC TROMETHAMINE INJ/PF 30 MG/1 ML SDV IV ONE (23:42)
[2018-08-11] MEDS ORDERED: ONDANSETRON HCL INJ/PF 4 MG/2 ML SDV IV ONE (23:42)
[2018-08-12 00:44] LABS: ABSOLUTE LYMPHOCYTES (AUTO) 0.6 10^3/uL (0.5-4.7); ABSOLUTE MONOCYTES (AUTO) 0.6 10^3/uL (0.1-1.4); ABSOLUTE NEUT (AUTO) 9.4 10^3/uL (1.7-8.2); BASOPHILS % (AUTO) 0.1 % (0-2); EOSINOPHILS % (AUTO) 0.4 % (0-6); HEMATOCRIT 43.4 % (36.0-47.0); HEMOGLOBIN 15.2 g/dL (12.0-15.5); LYMPHOCYTES % (AUTO) 5.4 % (13-45); MEAN CORPUSCULAR HEMOGLOBIN 30.1 pg (27.0-33.4); MEAN CORPUSCULAR VOLUME 86 fl (80-97); MONOCYTES % (AUTO) 5.8 % (3-13); PLATELET COUNT 141 10^3/uL (150-450); RED BLOOD COUNT 5.04 10^6/uL (3.72-5.28); RED CELL DISTRIBUTION WIDTH 13.8 % (11.5-14.0); SEGMENTED NEUTROPHILS % (AUTO) 88.3 % (42-78); TOTAL CELLS COUNTED % (AUTO) 100 %; WHITE BLOOD COUNT 10.7 10^3/uL (4.0-10.5)
[2018-08-12 00:50] LABS: ALANINE AMINOTRANSFERASE 37 U/L (9-52); ALBUMIN 4.2 g/dL (3.5-5.0); ALKALINE PHOSPHATASE 65 U/L (38-126); ANION GAP 8 (5-19); ASPARTATE AMINO TRANSFERASE 32 U/L (14-36); BILIRUBIN,DIRECT 0.3 mg/dL (0.0-0.4); BILIRUBIN,TOTAL 1.1 mg/dL (0.2-1.3); BLOOD UREA NITROGEN 14 mg/dL (7-20); CALCIUM 9.7 mg/dL (8.4-10.2); CARBON DIOXIDE 27 mmol/L (22-30); CHLORIDE 103 mmol/L (98-107); GLUCOSE 294 mg/dL (75-110); LIPASE 166.1 U/L (23-300); POTASSIUM 3.8 mmol/L (3.6-5.0); SODIUM 137.9 mmol/L (137-145); TOTAL PROTEIN 7.5 g/dL (6.3-8.2)
[2018-08-12 00:50] LABS: APPEARANCE,URINE CLOUDY; BILIRUBIN,URINE NEGATIVE (NEGATIVE); GLUCOSE, URINE >=500 mg/dL (NEGATIVE); KETONES,URINE 20 mg/dL (NEGATIVE); LEUKOCYTE ESTERASE,URINE MODERATE (NEGATIVE); NITRITE,URINE POSITIVE (NEGATIVE); PROTEIN,URINE 100 mg/dL (NEGATIVE); UROBILINOGEN,URINE NEGATIVE mg/dL (<2.0)
[2018-08-12 00:52] LABS: COLOR,URINE DARK YELLOW
[2018-08-12] MEDS ORDERED: CEFTRIAXONE 1 GM/D5W RTU 1 GM/50 ML RTUPB IV ONE (01:33)
--- NOTE | 2018-08-12 01:50 | RADIOLOGY REPORT (SQ) ---
EXAM DESCRIPTION: CT ABDOMEN WITHOUT IV CONTRAST COMPLETED DATE/TME: 08/11/2018 23:41 CLINICAL HISTORY: 63 years, Female, right flank pain COMPARISON: None. TECHNIQUE: [id number] Images stored on PACS. All CT scanners at this facility use dose modulation, iterative reconstruction, and/or weight based dosing when appropriate to reduce radiation dose to as low as reasonably achievable (ALARA). [facility]: Dose Right [facility]: CareDose [facility]: Dose Right [facility]: Teradose 4D [facility]: Manas [employer] LIMITATIONS: None. FINDINGS: Limited evaluation of the lung bases is unremarkable. Osseous structures are grossly intact. Fatty infiltrative change to the liver. Status post cholecystectomy. The spleen, adrenal glands, pancreas, left kidney are unremarkable. Mild right-sided hydronephrosis and hydroureter with surrounding inflammatory change, however no discrete obstructing calculus. Findings could reflect a recently passed stone. Superimposed infectious or inflammatory process not excluded based on this exam. Urinary bladder is not distended, limiting its evaluation. Abundant stool in the colon. Normal appendix. No gross evidence for bowel obstruction. Sigmoid diverticulosis without CT evidence for diverticulitis. IMPRESSION: Mild right-sided hydronephrosis and hydroureter with minor surrounding inflammation. However no discrete obstructing calculus. Findings could reflect a recently passed stone. Infectious or inflammatory process is not excluded. Fatty infiltrative change to the liver. Sigmoid diverticulosis without CT evidence for diverticulitis. TECHNICAL DOCUMENTATION: Quality ID # [id number]: Final reports with documentation of one or more dose reduction techniques (e.g., Automated exposure control, adjustment of the mA and/or kV according to patient size, use of iterative reconstruction technique) copyright 2010 [employer]- All Rights Reserved
[2018-08-12] MEDS ORDERED: CIPROFLOXACIN HCL 500 MG TABLET PO ONE ×2 (01:59→02:32)
[2018-08-12] MEDS ORDERED: ONDANSETRON ODT 4 MG TAB (6 TAB/ER DISP) PO PRN (02:32)
[2018-08-12] MEDS ORDERED: METOCLOPRAMIDE HCL 10 MG TABLET PO ONE (02:32)
--- NOTE | 2018-08-12 02:40 | ER Document Report ---
ED General - General Chief Complaint: Nausea/Vomiting Stated Complaint: VOMITING Time Seen by Provider: 08/11/18 23:33 TRAVEL OUTSIDE OF THE [place] IN LAST 30 DAYS: No - HPI Patient complains to provider of: Right flank pain Notes: Patient coming in for right flank pain nausea vomiting dysuria ongoing since earlier this she denies a history kidney stones. Patient states early this morning burning sensation when she urinated think that she had a urinary tract infection however the pain now has increased to the right flank. Patient states also multiple episodes of nausea vomiting. Denies any fevers or chills patient otherwise resting comfortably upon my evaluation. A brief review of the patient's medical records available in [employer] was performed - Related Data Allergies/Adverse Reactions: Penicillins Allergy (Severe, Verified 05/12/17 18:44) rash,photosensitive erythromycin base [From Erythrocin] Allergy (Mild, Verified 05/12/17 18:44) "Rash with sores" aspirin Adverse Reaction (Intermediate, Verified 05/12/17 18:44) "It irritates my stomach" and nausea METAL Allergy (Severe, Uncoded 02/18/18 16:05) Cellulitis Past Medical History - Social History Smoking Status: Former Smoker Frequency of alcohol use: Occasional Family History: Reviewed & Not Pertinent Patient has suicidal ideation: No Patient has homicidal ideation: No - Past Medical History Cardiac Medical History: Reports: Hx Hypertension Denies: Hx Atrial Fibrillation, Hx Congestive Heart Failure, Hx Coronary Artery Disease, Hx Heart Attack, Hx Hypercholesterolemia, Hx Peripheral Vascular Disease, Hx Pulmonary Embolism, Hx Heart Murmur Pulmonary Medical History: Reports: Hx Bronchitis Denies: Hx Asthma, Hx COPD, Hx Pneumonia, Hx Respiratory Failure, Hx Sleep Apnea, Hx Tuberculosis Neurological Medical History: Denies: Hx Cerebrovascular Accident, Hx Seizures Endocrine Medical History: Reports: Hx Diabetes Mellitus Type 2. Denies: Hx Graves' Disease, Hx Hyperthyroidism, Hx Hypothyroidism Renal/ Medical History: Denies: Hx End Stage Renal Disease, Hx Kidney Stones, Hx Ovarian Cysts, Hx Peritoneal Dialysis, Hx Pelvic Inflammatory Disease Malignancy Medical History: Reports: Hx Breast Cancer. Denies: Hx Cervical Cancer, Hx Leukemia, Hx Lung Cancer, Hx Ovarian Cancer GI Medical History: Denies: Hx Crohn's Disease, Hx Gastroesophageal Reflux Disease, Hx Hiatal Hernia, Hx Irritable Bowel, Hx Liver Failure, Hx Pancreatitis, Hx Ulcer Musculoskeletal Medical History: Reports Hx Arthritis - KNEE, Denies Hx Fibromyalgia, Denies Hx Muscular Dystrophy Psychiatric Medical History: Denies: Hx Bipolar Disorder, Hx Depression, Hx Post Traumatic Stress Disorder, Hx Schizophrenia Traumatic Medical History: Reports: Hx Fractures Infectious Medical History: Denies: Hx HIV Past Surgical History: Reports: Hx Breast Surgery - double mastectomy, Hx Cholecystectomy. Denies: Hx Appendectomy, Hx Bowel Surgery, Hx Colostomy, Hx Coronary Artery Bypass Graft, Hx Gastric Bypass Surgery, Hx Herniorrhaphy, Hx Hysterectomy, Hx Mastectomy, Hx Pacemaker, Hx Tonsillectomy, Hx Tubal Ligation - Immunizations Hx Diphtheria, Pertussis, Tetanus Vaccination: Yes - 09/07/13 at [facility] Review of Systems - Review of Systems Constitutional: No symptoms reported EENT: No symptoms reported Cardiovascular: No symptoms reported Respiratory: No symptoms reported Gastrointestinal: Nausea, Vomiting Genitourinary: Dysuria, Flank pain Female Genitourinary: No symptoms reported Musculoskeletal: No symptoms reported Skin: No symptoms reported Hematologic/Lymphatic: No symptoms reported Neurological/Psychological: No symptoms reported -: Yes All other systems reviewed and negative Physical Exam - Vital signs Vitals: Temp Pulse Resp BP Pulse Ox 98.7 F 92 24 H 187/100 H 99 08/11/18 23:27 08/11/18 23:27 08/11/18 23:27 08/11/18 23:27 08/11/18 23:27 Interpretation: Normal - General General appearance: Appears well, Alert - HEENT Head: Normocephalic, Atraumatic Eyes: Normal Pupils: PERRL - Respiratory Respiratory status: No respiratory distress Chest status: Nontender Breath sounds: Normal Chest palpation: Normal - Cardiovascular Rhythm: Regular Heart sounds: Normal auscultation Murmur: No - Abdominal Inspection: Normal Distension: No distension Bowel sounds: Normal Tenderness: Nontender Organomegaly: No organomegaly - Back Back: Normal, Nontender, CVA tenderness - Mild right-sided - Extremities General upper extremity: Normal inspection, Nontender, Normal color, Normal ROM, Normal temperature General lower extremity: Normal inspection, Nontender, Normal color, Normal ROM, Normal temperature, Normal weight bearing. No: Antonio's sign - Neurological Neuro grossly intact: Yes Cognition: Normal Orientation: AAOx4 Grant Coma Scale Eye Opening: Spontaneous Grant Coma Scale Verbal: Oriented Grant Coma Scale Motor: Obeys Commands Grant Coma Scale Total: 15 Speech: Normal Motor strength normal: LUE, RUE, LLE, RLE Sensory: Normal - Psychological Associated symptoms: Normal affect, Normal mood - Skin Skin Temperature: Warm Skin Moisture: Dry Skin Color: Normal Course - Re-evaluation Re-evalutation: 08/12/18 02:57 CT scans not reveal any obstructive uropathy but does show some hydronephrosis and stranding around the kidney consistent with possible pyelonephritis which is consistent with the patient's urinalysis. Patient's urine will be sent for culture we did receive a dose of Rocephin here in the ER and a dose of ciprofloxacin. Will discharge patient home with a ciprofloxacin and Reglan for her nausea and vomiting. Did recommend continue with Tylenol and anti- inflammatory medications for her pain. Patient agrees with this plan will be discharged home follow-up or return to ER if symptoms worsen. - Vital Signs Vital signs: Temp Pulse Resp BP Pulse Ox 98.7 F 92 24 H 187/100 H 99 08/11/18 23:27 08/11/18 23:27 08/11/18 23:27 08/11/18 23:27 08/11/18 23:27 - Laboratory Result Diagrams: 08/12/18 00:28 08/12/18 00:28 Laboratory results interpreted by me: 08/12/18 08/12/18 08/12/18 00:28 00:28 00:34 WBC 10.7 H Plt Count 141 L Seg Neutrophils % 88.3 H Lymphocytes % 5.4 L Absolute Neutrophils 9.4 H Creatinine 0.47 L Glucose 294 H Urine Protein 100 H Urine Glucose (UA) >=500 H Urine Ketones 20 H Urine Blood LARGE H Urine Nitrite POSITIVE H Ur Leukocyte Esterase MODERATE H Discharge - Discharge Clinical Impression: Nausea & vomiting Qualifiers: Vomiting type: unspecified Vomiting Intractability: non-intractable Qualified Code(s): R11.2 - Nausea with vomiting, unspecified Urinary tract infection Qualifiers: Urinary tract infection type: acute pyelonephritis Qualified Code(s): N10 - Acute pyelonephritis Disposition: HOME, SELF-CARE Instructions: Urinary Tract Infection ([facility]), Ciprofloxacin ([facility]), Pyelonephritis ([facility]) Additional Instructions: Your evaluation today shows signs of tract infection concern for possible pyelonephritis. This is a urinary tract infection that has gone into your kidneys. I would recommend treatment course of antibiotics with ciprofloxacin. He may take the Zofran given to you here in ER for nausea I would recommend prescription for Reglan for nausea at home. Return to ER if symptoms worsen. Prescriptions: Ciprofloxacin HCl [Cipro 500 mg Tablet] 500 mg PO BID #20 tablet Metoclopramide HCl [Reglan] 5 mg PO Q6 #30 tablet Referrals: ANAI SPEARS FNP [Primary Care Provider] - Follow up in 3-5 days
[2018-08-12 03:53] VITALS: BP 141/65
== END 2018-08-12 04:00 | disposition home or self-care (01) ==
LOC: ER 23:21
DX: N10 Acute pyelonephritis (principal); R11.2 Nausea with vomiting, unspecified; K57.30 Diverticulosis of large intestine without perforation or abscess without bleeding; N13.30 Unspecified hydronephrosis; R10.9 Unspecified abdominal pain; I10 Essential (primary) hypertension; I25.10 Atherosclerotic heart disease of native coronary artery without angina pectoris; E11.9 Type 2 diabetes mellitus without complications; K76.0 Fatty (change of) liver, not elsewhere classified; Z85.3 Personal history of malignant neoplasm of breast; Z88.6 Allergy status to analgesic agent; Z88.3 Allergy status to other anti-infective agents; Z88.0 Allergy status to penicillin; Z91.048 Other nonmedicinal substance allergy status; Z87.891 Personal history of nicotine dependence; M13.869 Other specified arthritis, unspecified knee; Z90.13 Acquired absence of bilateral breasts and nipples
CPT/HCPCS: 99284; 96361; 96375; 96365; 36415; 87086; 83690; 85025; 87088; 80053; 81001; 87186; 76380; J1885; J2405; J7030; J0696

== ENCOUNTER → 2019-01-18 | Outpatient (CLI) | payer OTHER ==
--- NOTE | 2019-01-19 09:43 | RADIOLOGY REPORT (SQ) ---
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 TECHNIQUE: Blood glucose level was verified. Above dose of FDG was injected intravenously. 2-D seg mented attenuation correction images were obtained from the base of the skull to the midthighs. Nonc ontrast CT images were obtained for attenuation correction and fusion with emission images. CT image s were performed without oral or intravenous contrast and are not sensitive for parenchymal lesions. A series of overlapping emission PET images were obtained. Images reviewed and manipulated at [facility] work station by the radiologist. Images stored on PACS. LIMITATIONS: None. FINDINGS: HEAD AND NECK: No areas of abnormal metabolic activity in the soft tissues of the head and neck. CHEST: No significant areas of abnormal metabolic activity in the chest. Low level uptake anterior c hest wall in the surgical bed. ABDOMEN AND PELVIS: No areas of abnormal metabolic activity in the abdomen or pelvis. Expected physi ologic activity is present in the genitourinary system and bowel. PROXIMAL LOWER EXTREMITIES: No areas of abnormal metabolic activity in the soft tissues of the lower extremities. BONES: No abnormal metabolic activity in the visualized skeleton. ADDITIONAL CT FINDINGS: No additional significant findings on the noncontrast CT images. OTHER: No other significant findings. IMPRESSION: No evidence of local recurrence or metastatic disease. TECHNICAL DOCUMENTATION: JOB ID: [id number] [employer]- All Rights Reserved Reading location - IP/workstation name: [email or web address]
== END ==
LOC: RAD 15:59
PROVIDERS: ATTEND Internal Medicine
DX: C50.512 Malignant neoplasm of lower-outer quadrant of left female breast (principal)
CPT/HCPCS: 78815; A9552

== ENCOUNTER → 2019-04-26 | Outpatient (CLI) | payer OTHER ==
--- NOTE | 2019-04-27 09:04 | RADIOLOGY REPORT (SQ) ---
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 TECHNIQUE: Blood glucose level was verified. Above dose of FDG was injected intravenously. 2-D seg mented attenuation correction images were obtained from the base of the skull to the midthighs. Nonc ontrast CT images were obtained for attenuation correction and fusion with emission images. CT image s were performed without oral or intravenous contrast and are not sensitive for parenchymal lesions. A series of overlapping emission PET images were obtained. Images reviewed and manipulated at [facility] work station by the radiologist. Images stored on PACS. LIMITATIONS: None. FINDINGS: HEAD AND NECK: No areas of abnormal metabolic activity in the soft tissues of the head and neck. CHEST: Patient is post bilateral mastectomies and radiation therapy to the anterior chest wall. Ther e is diffuse anterior chest wall skin thickening, and stranding of the subcutaneous fat. Asymmetric thickening of the right pectoralis muscle is present. Morphologically, these changes are similar com pared to previous studies, with low level activity along the anterior chest wall on today's PET image s with SUV of 1.8 to 2.0 (blood pool activity 1.8 SUV, liver background activity 2.2 SUV). There are multiple surgical clips in the right and left axilla. No metabolically active soft tissue in the right axilla. On the left side, a small skin defect is present adjacent to several clips, whi ch could represent a chronic healing wound. This is best shown on axial image 65 with SUV of 2.9. N o discernible measurable mass. There is bandlike scarring in the anterior aspect of the left upper lobe from prior radiation therapy , non metabolic, with SUV 1.1. ABDOMEN AND PELVIS: No areas of abnormal metabolic activity in the abdomen or pelvis. Expected physi ologic activity is present in the genitourinary system and bowel. PROXIMAL LOWER EXTREMITIES: No areas of abnormal metabolic activity in the soft tissues of the lower extremities. BONES: No abnormal metabolic activity in the visualized skeleton. ADDITIONAL CT FINDINGS: Post cholecystectomy and hysterectomy. Colonic diverticuli are present OTHER: Liver background activity 2.2 SUV. Blood pool background activity 1.8 SUV. IMPRESSION: Single punctate focus of increased activity, left anterior axilla along a skin wound adj acent to surgical clips. This could be related to chronic infection rather than tumor. Mild diffuse increased uptake anterior chest wall along an area of prior radiation therapy. SUV valu es are at, and slightly above, background blood pool activity. TECHNICAL DOCUMENTATION: JOB ID: [id number] [employer]- All Rights Reserved Reading location - IP/workstation name: [email or web address]
== END ==
LOC: RAD 14:24
PROVIDERS: ATTEND Physician Assistant Medical
DX: C50.512 Malignant neoplasm of lower-outer quadrant of left female breast (principal)
CPT/HCPCS: 78815; A9552

== ENCOUNTER → 2019-07-07 | Outpatient (CLI) | payer OTHER ==
--- NOTE | 2019-07-08 12:17 | RADIOLOGY REPORT (SQ) ---
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 RADIONUCLIDE AND DOSE: 6.43 mCi F18 FDG The route of agent administration: Intravenous FASTING BLOOD SUGAR: 232 mg/dl CONTRAST TYPE AND DOSE: No CT contrast given. TECHNIQUE: Blood glucose level was verified. Above dose of FDG was injected intravenously. 2-D seg mented attenuation correction images were obtained from the base of the skull to the midthighs. Nonc ontrast CT images were obtained for attenuation correction and fusion with emission images. CT image s were performed without oral or intravenous contrast and are not sensitive for parenchymal lesions. A series of overlapping emission PET images were obtained. [facility] by the radiologist. Images stored on PACS. LIMITATIONS: None. FINDINGS: HEAD AND NECK: No areas of abnormal metabolic activity in the soft tissues of the head and neck. CHEST: The patient is status post bilateral mastectomies and axillary lymph node dissection ; the dif fuse skin thickening, stranding of the subcutaneous fat, and mild low level FDG uptake (that equals t hat of the blood pool) in the anterior thorax is unchanged from the prior PET. The skin defect in th e left axilla adjacent to the surgical clips (image 75 of series 3) is also unchanged from the prior PET and could represent a chronic wound. There are no areas of abnormal metabolic activity in the ch est. ABDOMEN AND PELVIS: The liver demonstrates heterogeneous non focal FDG uptake with an average SUV of 2.4. There is a focus of increased FDG uptake (maximum SUV of 8.3) in the right lower quadrant at th e tip of the appendix that on the CT corresponds to an area of abnormal fat stranding. No other area s of abnormal metabolic activity are identified in the soft tissues of the abdomen and pelvis. PROXIMAL LOWER EXTREMITIES: No areas of abnormal metabolic activity in the soft tissues of the lower extremities. BONES: No areas of abnormal metabolic activity in the imaged axial and appendicular skeleton. ADDITIONAL CT FINDINGS: There is no enlarged cervical, supraclavicular or mediastinal adenopathy. Ev aluation of the ju for adenopathy is limited due to the absence of intravenous contrast. The left ventricle is enlarged. There is no pericardial effusion. There is an area of postradiation pneumoni tis in the anterior aspect of the left upper lobe. There is no consolidation, pleural effusion or di screte nodule. The diffuse low attenuation of the hepatic parenchyma is consistent with hepatic stea tosis. The gallbladder surgically absent. The spleen is normal in size. There is no abnormality of the kidneys or adrenal glands. There is no hydronephrosis, nephrolithiasis, hydroureter or ureterol ithiasis. The urinary bladder is partially distended. There is no abnormality of the uterus and adn exa that is apparent on CT. There is colonic diverticulosis without diverticulitis. There is no chris e intraperitoneal fluid. OTHER: No other findings. IMPRESSION: 1. No metabolic evidence of recurrent or metastatic disease. 2. Focal uptake in the right lower quadrant at the tip of the appendix. Correlate with clinical find ings to exclude an acute appendicitis. 3. Unchanged postoperative and post treatment findings in the anterior thorax including diffuse skin thickening, stranding of the subcutaneous fat, and mild low level FDG uptake. 4. Unchanged skin defect in the left axilla adjacent to the surgical clips (image 75 of series 3) th at could represent a chronic bone. TECHNICAL DOCUMENTATION: JOB ID: [id number] [employer]- All Rights Reserved Reading location - IP/workstation name: [email or web address]
== END ==
LOC: RAD 09:42
PROVIDERS: ATTEND Physician Assistant Medical
DX: C50.512 Malignant neoplasm of lower-outer quadrant of left female breast (principal)
CPT/HCPCS: 78815; A9552

== ENCOUNTER 2019-07-08 14:16 | Observation (INO) | payer MEDICARE, OTHER ==
[~2019-07-08 14:16] MED LIST changes: -BUPIVACAINE HCL 0.25 % INJ/PF (2.5 MG/1 ML) 30 ML VIAL ONE; +GLYCOPYRROLATE 1 MG/5 ML VIAL ONE; -LIDOCAINE 1% INJ-PF (10 MG/ML) 30 ML SDV ONE; +NEOSTIGMINE METHYLSULFATE 10 MG/10 ML VIAL ONE
[2019-07-08] MEDS ORDERED: CEFTRIAXONE 1 GM/D5W RTU 1 GM/50 ML RTUPB IV ONE (15:08)
[2019-07-08] MEDS ORDERED: NORMAL SALINE 1000 ML 1,000 ML IV ONE (15:08)
--- NOTE | 2019-07-08 15:09 | ER Document Report ---
ED Medical Screen (RME) - General Chief Complaint: Abdominal Pain Stated Complaint: ABDOMINAL PAIN Time Seen by Provider: 07/08/19 15:01 Primary Care Provider: JADON PRAKASH PA-C [Primary Care Provider] - Follow up as needed Notes: Patient is a 64-year-old female who presents to the emergency department with right lower quadrant abdominal pain. Patient is a breast cancer patient and she was sent in for a PET scan yesterday. The PET scan showed that she had appendicitis. Patient states that she did not think anything of it, but 3 days ago she ended up having left lower quadrant pain. She also had some back pain. She thought it was possibly her cancer and was sent for the PET scan. Exam: Tender right lower quadrant abdomen. I have greeted and performed a rapid initial assessment of this patient. A comprehensive ED assessment and evaluation of the patient, analysis of test results and completion of medical decision making process will be conducted by an additional ED providers. TRAVEL OUTSIDE OF THE [place] IN LAST 30 DAYS: No - Related Data Allergies/Adverse Reactions: Penicillins Allergy (Severe, Verified 07/08/19 15:00) rash,photosensitive erythromycin base [From Erythrocin] Allergy (Mild, Verified 07/08/19 15:00) "Rash with sores" aspirin Adverse Reaction (Intermediate, Verified 07/08/19 15:00) "It irritates my stomach" and nausea METAL Allergy (Severe, Uncoded 02/18/18 16:05) Cellulitis Past Medical History - Social History Frequency of alcohol use: Rare Drug Abuse: None - Past Medical History Cardiac Medical History: Reports: Hx Hypertension Denies: Hx Atrial Fibrillation, Hx Congestive Heart Failure, Hx Coronary Artery Disease, Hx Heart Attack, Hx Hypercholesterolemia, Hx Peripheral Vascular Disease, Hx Pulmonary Embolism, Hx Heart Murmur Pulmonary Medical History: Reports: Hx Bronchitis Denies: Hx Asthma, Hx COPD, Hx Pneumonia, Hx Respiratory Failure, Hx Sleep Apnea, Hx Tuberculosis Neurological Medical History: Denies: Hx Cerebrovascular Accident, Hx Seizures Endocrine Medical History: Reports: Hx Diabetes Mellitus Type 2. Denies: Hx Graves' Disease, Hx Hyperthyroidism, Hx Hypothyroidism Renal/ Medical History: Denies: Hx End Stage Renal Disease, Hx Kidney Stones, Hx Ovarian Cysts, Hx Peritoneal Dialysis, Hx Pelvic Inflammatory Disease Malignancy Medical History: Reports: Hx Breast Cancer. Denies: Hx Cervical Cancer, Hx Leukemia, Hx Lung Cancer, Hx Ovarian Cancer GI Medical History: Denies: Hx Crohn's Disease, Hx Gastroesophageal Reflux Disease, Hx Hiatal Hernia, Hx Irritable Bowel, Hx Liver Failure, Hx Pancreatitis, Hx Ulcer Musculoskeltal Medical History: Reports Hx Arthritis - KNEE, Denies Hx Fibromyalgia, Denies Hx Muscular Dystrophy, Denies Hx Systemic Lupus Erythematosus Psychiatric Medical History: Denies: Hx Bipolar Disorder, Hx Depression, Hx Post Traumatic Stress Disorder, Hx Schizophrenia Traumatic Medical History: Reports: Hx Fractures Infectious Medical History: Denies: Hx HIV Past Surgical History: Reports: Hx Breast Surgery - double mastectomy, Hx Cholecystectomy. Denies: Hx Appendectomy, Hx Bowel Surgery, Hx Colostomy, Hx Coronary Artery Bypass Graft, Hx Gastric Bypass Surgery, Hx Herniorrhaphy, Hx Hysterectomy, Hx Mastectomy, Hx Pacemaker, Hx Tonsillectomy, Hx Tubal Ligation - Immunizations Hx Diphtheria, Pertussis, Tetanus Vaccination: Yes - 09/07/13 at [facility] Physical Exam - Vital signs Vitals: Temp Pulse Resp BP Pulse Ox 98.3 F 96 18 138/75 H 93 07/08/19 14:26 07/08/19 14:26 07/08/19 14:26 07/08/19 14:26 07/08/19 14:26 Course - Vital Signs Vital signs: Temp Pulse Resp BP Pulse Ox 98.3 F 96 18 138/75 H 93 07/08/19 14:26 07/08/19 14:26 07/08/19 14:26 07/08/19 14:26 07/08/19 14:26 Doctor's Discharge - Discharge Referrals: JADON PRAKASH PA-C [Primary Care Provider] - Follow up as needed
[2019-07-08 15:48] LABS: ABSOLUTE EOSINOPHILS # (AUTO) 0.1 10^3/uL (0.0-0.6); ABSOLUTE LYMPHOCYTES (AUTO) 0.7 10^3/uL (0.5-4.7); ABSOLUTE MONOCYTES (AUTO) 0.2 10^3/uL (0.1-1.4); ABSOLUTE NEUT (AUTO) 2.8 10^3/uL (1.7-8.2); EOSINOPHILS % (AUTO) 2.9 % (0-6); HEMATOCRIT 40.1 % (36.0-47.0); HEMOGLOBIN 14.4 g/dL (12.0-15.5); LYMPHOCYTES % (AUTO) 18.5 % (13-45); MEAN CORPUSCULAR HEMOGLOBIN 33.7 pg (27.0-33.4); MEAN CORPUSCULAR HGB CONC 35.8 g/dL (32.0-36.0); MEAN CORPUSCULAR VOLUME 94 fl (80-97); MONOCYTES % (AUTO) 5.8 % (3-13); PLATELET COUNT 202 10^3/uL (150-450); RED BLOOD COUNT 4.26 10^6/uL (3.72-5.28); RED CELL DISTRIBUTION WIDTH 14.7 % (11.5-14.0); SEGMENTED NEUTROPHILS % (AUTO) 71.8 % (42-78); TOTAL CELLS COUNTED % (AUTO) 100 %; WHITE BLOOD COUNT 3.9 10^3/uL (4.0-10.5)
[2019-07-08 16:02] LABS: APPEARANCE,URINE SLIGHTLY-CLOUDY; BILIRUBIN,URINE NEGATIVE (NEGATIVE); COLOR,URINE AMBER; GLUCOSE, URINE >=500 mg/dL (NEGATIVE); KETONES,URINE TRACE mg/dL (NEGATIVE); PROTEIN,URINE 30 mg/dL (NEGATIVE); URINE SPECIFIC GRAVITY 1.033
[2019-07-08 16:09] LABS: ALKALINE PHOSPHATASE 45 U/L (38-126); ANION GAP 11 (5-19); ASPARTATE AMINO TRANSFERASE 38 U/L (14-36); BILIRUBIN,DIRECT 0.2 mg/dL (0.0-0.4); BILIRUBIN,TOTAL 1.1 mg/dL (0.2-1.3); BLOOD UREA NITROGEN 13 mg/dL (7-20); CARBON DIOXIDE 26 mmol/L (22-30); CHLORIDE 102 mmol/L (98-107); GLUCOSE 252 mg/dL (75-110); POTASSIUM 3.8 mmol/L (3.6-5.0); TOTAL PROTEIN 7.6 g/dL (6.3-8.2)
--- NOTE | 2019-07-08 16:20 | ER Document Report ---
ED GI/ - General Chief Complaint: Abdominal Pain Stated Complaint: ABDOMINAL PAIN Time Seen by Provider: 07/08/19 15:01 Mode of Arrival: Ambulatory Information source: Patient Notes: Patient presents with complaint of right lower quadrant pain for the past 10 days. Patient states she has had fever at home. Patient had a CT PET scan as an outpatient for further evaluation as she is currently being treated for stage IV breast cancer. Patient states that her oncologist advised her that i ncidentally on her PET scan she was found to have appendicitis. Patient states she has had pain in this location. Patient has already been evaluated by the surgeon who plans to admit her at this time. Patient is agreeable with this plan of care. TRAVEL OUTSIDE OF THE [place] IN LAST 30 DAYS: No - HPI Patient complains to provider of: Abdominal pain. No: Vomiting Onset: Other - 10 days Timing/Duration: Persistent Quality of pain: Achy, Sharp Pain Level: 3 Location: RLQ Vaginal bleeding (Compared to normal period): None Associated symptoms: Nausea. denies: Urinary hesitancy, Urinary frequency, Urinary retention, Urinary urgency, Vaginal discharge Exacerbated by: Denies Relieved by: Denies Similar symptoms previously: No Recently seen / treated by doctor: Yes - Related Data Allergies/Adverse Reactions: Penicillins Allergy (Severe, Verified 07/08/19 15:00) rash,photosensitive erythromycin base [From Erythrocin] Allergy (Mild, Verified 07/08/19 15:00) "Rash with sores" aspirin Adverse Reaction (Intermediate, Verified 07/08/19 15:00) "It irritates my stomach" and nausea METAL Allergy (Severe, Uncoded 02/18/18 16:05) Cellulitis Past Medical History - General Information source: Patient - Social History Smoking Status: Former Smoker Frequency of alcohol use: Rare Drug Abuse: None Occupation: None Family History: Reviewed & Not Pertinent Patient has suicidal ideation: No Patient has homicidal ideation: No - Past Medical History Cardiac Medical History: Reports: Hx Hypertension Pulmonary Medical History: Reports: Hx Bronchitis Neurological Medical History: Endocrine Medical History: Reports: Hx Diabetes Mellitus Type 2 Malignancy Medical History: Reports: Hx Breast Cancer Musculoskeletal Medical History: Reports Hx Arthritis - KNEE Psychiatric Medical History: Traumatic Medical History: Reports: Hx Fractures Past Surgical History: Reports: Hx Breast Surgery - double mastectomy, Hx Cholecystectomy - Immunizations Hx Diphtheria, Pertussis, Tetanus Vaccination: Yes - 09/07/13 at [facility] Review of Systems - Review of Systems Constitutional: Fever. denies: Recent illness EENT: No symptoms reported Cardiovascular: No symptoms reported. denies: Chest pain Respiratory: No symptoms reported. denies: Cough, Short of breath Gastrointestinal: Abdominal pain, Nausea, Poor appetite. denies: Diarrhea, Vomiting Genitourinary: No symptoms reported. denies: Dysuria, Flank pain Female Genitourinary: No symptoms reported Musculoskeletal: No symptoms reported. denies: Back pain Skin: No symptoms reported Hematologic/Lymphatic: No symptoms reported Neurological/Psychological: No symptoms reported Physical Exam - Vital signs Vitals: Temp Pulse Resp BP Pulse Ox 98.3 F 96 18 138/75 H 93 07/08/19 14:26 07/08/19 14:26 07/08/19 14:26 07/08/19 14:26 07/08/19 14:26 - General General appearance: Alert In distress: None - HEENT Head: Normocephalic, Atraumatic Eyes: Normal Conjunctiva: Normal Nasal: Normal Mouth/Lips: Normal Mucous membranes: Normal Neck: Normal, Supple. No: Lymphadenopathy - Respiratory Respiratory status: No respiratory distress Breath sounds: Normal - Cardiovascular Rhythm: Regular Heart sounds: S1 appreciated, S2 appreciated Murmur: No - Abdominal Inspection: Obese Distension: No distension Bowel sounds: Normal Tenderness: Tender - RLQ - Back Back: Normal, Nontender. No: CVA tenderness - Extremities General upper extremity: Normal inspection, Normal strength General lower extremity: Normal inspection, Normal strength - Neurological Neuro grossly intact: Yes Cognition: Normal [place] Coma Scale Eye Opening: Spontaneous [place] Coma Scale Verbal: Oriented [place] Coma Scale Motor: Obeys Commands [place] Coma Scale Total: 15 - Psychological Associated symptoms: Normal affect, Normal mood - Skin Skin Temperature: Warm Skin Moisture: Dry Skin Color: Normal Course - Re-evaluation Re-evalutation: 07/08/19 16:00 Dr Bhakta to ER and states that patient's oncologist had called him notifying him of patient's status. Dr. Bhakta states that patient will receive IV Flagyl and that she is on the surgical schedule although they are very busy at this time. Dr. Bhakta feels that patient is stable to be admitted to a medical floor at this time. 07/08/19 16:21 Patient updated regarding plan of care. Patient advised of need to remain n.p.o. at this time. Patient is requesting pain medication for her right lower quadrant tenderness. - Vital Signs Vital signs: Temp Pulse Resp BP Pulse Ox 98.3 F 76 18 131/63 H 97 07/08/19 18:30 07/08/19 18:30 07/08/19 14:26 07/08/19 18:30 07/08/19 18:30 - Laboratory Result Diagrams: 07/08/19 15:25 07/08/19 15:25 Laboratory results interpreted by me: 07/08/19 07/08/19 07/08/19 15:25 15:25 15:25 WBC 3.9 L MCH 33.7 H RDW 14.7 H Glucose 252 H AST 38 H Urine Protein 30 H Urine Glucose (UA) >=500 H Urine Ketones TRACE H Urine Blood SMALL H Urine Urobilinogen 2.0 H Leukocyte Esterase Rfl MODERATE H 07/08/19 23:12 Labs- Entire Visit 07/08/19 07/08/19 07/08/19 15:25 15:25 15:25 WBC 3.9 L RBC 4.26 Hgb 14.4 Hct 40.1 MCV 94 MCH 33.7 H MCHC 35.8 RDW 14.7 H Plt Count 202 Lymph % (Auto) 18.5 [place] % (Auto) 5.8 Eos % (Auto) 2.9 Baso % (Auto) 1.0 Absolute Neuts (auto) 2.8 Absolute Lymphs (auto) 0.7 Absolute Monos (auto) 0.2 Absolute Eos (auto) 0.1 Absolute Basos (auto) 0.0 Seg Neutrophils % 71.8 Sodium 139.4 Potassium 3.8 Chloride 102 Carbon Dioxide 26 Anion Gap 11 BUN 13 Creatinine 0.54 Est GFR ( Amer) > 60 Est GFR (MDRD) Non-Af > 60 Glucose 252 H Calcium 9.0 Total Bilirubin 1.1 Direct Bilirubin 0.2 Neonat Total Bilirubin Not Reportable Neonat Direct Bilirubin Not Reportable Neonat Indirect Bili Not Reportable AST 38 H ALT 28 Alkaline Phosphatase 45 Total Protein 7.6 Albumin 4.0 Urine Color CASSIDY Urine Appearance SLIGHTLY-CLOUDY Urine pH 6.0 Ur Specific [place] 1.033 Urine Protein 30 H Urine Glucose (UA) >=500 H Urine Ketones TRACE H Urine Blood SMALL H Urine Nitrite (Reflex) NEGATIVE Urine Bilirubin NEGATIVE Urine Urobilinogen 2.0 H Leukocyte Esterase Rfl MODERATE H Urine RBC (Auto) 15 Urine Bacteria (Auto) TRACE Urine WBC (Reflex) 5 Squamous Epi Cells Auto 8 Urine Mucus (Auto) OCC Urine Ascorbic Acid NEGATIVE Discharge - Discharge Clinical Impression: Bilateral breast cancer, Abdominal pain Appendicitis Qualifiers: Appendicitis type: acute appendicitis Acute appendicitis type: with localized peritonitis Appendicitis gangrene presence: unspecified whether gangrene present Appendicitis perforation presence: unspecified whether perforation present Appendicitis abscess presence: without abscess Qualified Code(s): K35.30 - Acute appendicitis with localized peritonitis, without perforation or gangrene Condition: Fair Disposition: ADMITTED INPATIENT Admitting Provider: Surgicalist Unit Admitted: Medical Floor
[2019-07-08] MEDS ORDERED: FENTANYL CITRATE INJ/PF 100 MCG/2 ML AMPUL IV ONE (16:21)
[2019-07-08] MEDS ORDERED: METRONIDAZOLE 500 MG/NS RTU 500 MG/100 ML RTUPB IV ONE (17:00)
[2019-07-08] MEDS ORDERED: NORMAL SALINE 1000 ML 1,000 ML IV PRN (17:11)
[2019-07-08] MEDS ORDERED: ONDANSETRON HCL INJ/PF 4 MG/2 ML SDV IV PRN (17:11)
[2019-07-08] MEDS ORDERED: DEXTROSE 50%-WATER 25 GM/50 ML DISP.SYRIN IV PRN ×2 (17:11)
[2019-07-08] MEDS ORDERED: DEXTROSE 40% GEL 15 GM TUBE PO PRN ×2 (17:11)
[2019-07-08] MEDS ORDERED: GLUCAGON,HUMAN RECOMB 1 MG INJ SUBCUT PRN (17:11)
[2019-07-08] MEDS ORDERED: MORPHINE SULFATE 10 MG/ML INJ IV PRN (17:11)
--- NOTE | 2019-07-08 20:29 | EKG REPORT ---
SEVERITY:- ABNORMAL ECG - SINUS RHYTHM PROBABLE LEFT ATRIAL ABNORMALITY PROBABLE ANTEROSEPTAL INFARCT, AGE INDETERM : Confirmed by: Jerson Barnhart MD 08-Jul-2019 20:28:49
[2019-07-08] MEDS ORDERED: MIDAZOLAM 2 MG/2 ML INJ ONE (20:32)
[2019-07-08] MEDS ORDERED: DEXAMETHASONE SOD PHOSPHATE INJ 4 MG/1 ML VIAL ONE (20:32)
[2019-07-08] MEDS ORDERED: ONDANSETRON HCL INJ/PF 4 MG/2 ML SDV ONE (20:32)
[2019-07-08] MEDS ORDERED: PROPOFOL INJ 200 MG/20 ML VIAL IV ONE (20:32)
[2019-07-08] MEDS ORDERED: KETOROLAC TROMETHAMINE 60 MG/2 ML SDV ONE (20:32)
[2019-07-08] MEDS ORDERED: FENTANYL CITRATE INJ/PF 100 MCG/2 ML AMPUL ONE (20:32)
--- NOTE | 2019-07-08 20:57 | PDOC H&P ---
History of Present Illness Admission Date/PCP: 07/08/19 16:31 SKINNY DE SANTIAGO Patient complains of: Right lower quadrant pain, fevers, chills History of Present Illness: ELIAN MAXWELL is a 64 year old female with a 2 to 3-day history of right lower quadrant pain, fevers, and chills. Her pain is sharp and stabbing. It started out as a dull ache, and has intensified significantly. The patient was seen by her oncologist, who ordered a PET CT for oncologic purposes. On the PET CT, she was found to have acute appendicitis. The patient was sent to the emergency department for further work-up. Patient is currently neutropenic, likely related to her chemotherapy. She reports abdominal pain, fevers, nausea, malaise, and fatigue. She denies vomiting, melena, hematochezia, dizziness, orthostasis, blurry vision. Past Medical History Cardiac Medical History: Reports: Hypertension Denies: Atrial Fibrillation, Congestive Heart Failure, Coronary Artery Disease, Myocardial Infarction, Hyperlipidema, Peripheral Vascular Disease, Pulmonary Embolism, Heart Murmur Pulmonary Medical History: Reports: Bronchitis Denies: Asthma, Chronic Obstructive Pulmonary Disease (COPD), Pneumonia, Respiratory Failure, Sleep Apnea, Tuberculosis Neurological Medical History: Denies: Seizures Endocrine Medical History: Reports: Diabetes Mellitus Type 2 Denies: Hyperthyroidism, Hypothyroidism Renal/ Medical History: Denies: End Stage Renal Disease Malignancy Medical History: Reports: Breast Cancer Denies: Cervical Cancer, Leukemia, Lung Cancer, Ovarian Cancer GI Medical History: Denies: Crohn's Disease, Gastroesophageal Reflux Disease, Hiatal Hernia Musculoskeltal Medical History: Reports: Arthritis - KNEE Denies: Fibromyalgia Psychiatric Medical History: Denies: Bipolar Disorder, Depression, Post Traumatic Stress Disorder Hematology: Reports: Anemia Denies: Hemophilia, Sickle Cell Disease Infectious Medical History: Denies: HIV Past Surgical History Past Surgical History: Reports: Cholecystectomy Denies: Amputation, Appendectomy, Colostomy, Coronary Artery Bypass Graft, Gastric Bypass Surgery, Herniorrhaphy, Hysterectomy, Mastectomy, Pacemaker, Tonsillectomy, Tubal Ligation Social History Smoking Status: Former Smoker Hx Recreational Drug Use: No Hx Prescription Drug Abuse: No - Advance Directive Resuscitation Status: Full Code Family History Family History: Reviewed & Not Pertinent Parental Family History Reviewed: Yes Children Family History Reviewed: Yes Sibling(s) Family History Reviewed.: Yes Medication/Allergy Allergies/Adverse Reactions: Penicillins Allergy (Severe, Verified 07/08/19 15:00) rash,photosensitive erythromycin base [From Erythrocin] Allergy (Mild, Verified 07/08/19 15:00) "Rash with sores" aspirin Adverse Reaction (Intermediate, Verified 07/08/19 15:00) "It irritates my stomach" and nausea METAL Allergy (Severe, Uncoded 02/18/18 16:05) Cellulitis Review of Systems Constitutional: PRESENT: chills, fatigue, fever(s). ABSENT: anorexia, headache(s), weakness Eyes: ABSENT: visual disturbances Ears: ABSENT: hearing changes Nose, Mouth, and Throat: ABSENT: headache(s), sore throat Cardiovascular: ABSENT: chest pain Respiratory: ABSENT: cough, dyspnea Gastrointestinal: PRESENT: abdominal pain, bloating, nausea. ABSENT: hematochezia, melena, vomiting Genitourinary: ABSENT: dysuria Musculoskeletal: ABSENT: back pain Integumentary: ABSENT: pruritus, rash Neurological: ABSENT: confusion, convulsions, dizziness, numbness, paresthesias Psychiatric: ABSENT: anxiety, depression Endocrine: ABSENT: cold intolerance, heat intolerance Hematologic/Lymphatic: ABSENT: easy bleeding, easy bruising Physical Exam Vital Signs: Temp Pulse Resp BP Pulse Ox 98.3 F 96 18 138/75 H 93 07/08/19 14:26 07/08/19 14:26 07/08/19 14:26 07/08/19 14:26 07/08/19 14:26 Intake & Output 07/07/19 07/08/19 07/09/19 06:59 06:59 06:59 Intake Total 50 Balance 50 Weight 83.6 kg General appearance: PRESENT: mild distress - abdominal pain Head exam: PRESENT: atraumatic, normocephalic Eye exam: PRESENT: EOMI, PERRLA. ABSENT: scleral icterus Mouth exam: PRESENT: moist, neck supple Neck exam: ABSENT: meningismus, tenderness, thyromegaly, tracheal deviation Respiratory exam: PRESENT: clear to auscultation reji, unlabored. ABSENT: chest wall tenderness, tachypnea, wheezes Cardiovascular exam: PRESENT: RRR Pulses: PRESENT: normal radial pulses GI/Abdominal exam: PRESENT: guarding - right lower quadrant, soft, tenderness - right lower quadrant. ABSENT: distended, firm Rectal exam: PRESENT: deferred Extremities exam: ABSENT: clubbing Musculoskeletal exam: ABSENT: deformity Neurological exam: PRESENT: alert, awake, oriented to person, oriented to place, oriented to time, oriented to situation Psychiatric exam: ABSENT: agitated, anxious, depressed Focused psych exam: ABSENT: delusional Skin exam: ABSENT: cyanosis, erythema, jaundice Results Laboratory Results: 07/08/19 15:25 07/08/19 15:25 07/08/19 07/08/19 07/08/19 15:25 15:25 15:25 WBC 3.9 L RBC 4.26 Hgb 14.4 Hct 40.1 MCV 94 MCH 33.7 H MCHC 35.8 RDW 14.7 H Plt Count 202 Seg Neutrophils % 71.8 Sodium 139.4 Potassium 3.8 Chloride 102 Carbon Dioxide 26 Anion Gap 11 BUN 13 Creatinine 0.54 Est GFR ( Amer) > 60 Glucose 252 H Calcium 9.0 Total Bilirubin 1.1 AST 38 H Alkaline Phosphatase 45 Total Protein 7.6 Albumin 4.0 Urine Color CASSIDY Urine Appearance SLIGHTLY-CLOUDY Urine pH 6.0 Ur Specific [place] 1.033 Urine Protein 30 H Urine Glucose (UA) >=500 H Urine Ketones TRACE H Urine Blood SMALL H Urine RBC (Auto) 15 Assessment & Plan - Diagnosis (1) Appendicitis Qualifiers: Appendicitis type: acute appendicitis Acute appendicitis type: with localized peritonitis Appendicitis gangrene presence: unspecified whether gangrene present Appendicitis perforation presence: unspecified whether perforation present Appendicitis abscess presence: without abscess Qualified Code(s): K35.30 - Acute appendicitis with localized peritonitis, without perforation or gangrene Is this a current diagnosis for this admission?: Yes - Plan Summary Plan Summary: This is a 64-year-old female with a 2 to 3-day history of sharp right lower quadrant pain. It has worsened significantly over the last few days. The patient underwent PET CT scanning at her oncologist, and was found to have acute appendicitis. The patient was sent to the emergency department for evaluation. She is neutropenic. I have reviewed her CT scan, which shows no obvious signs of perforation. The patient's physical exam is also consistent with acute appendicitis. Plan to take the patient to the operating room for definitive surgical treatment. The plan has been discussed at length with the patient, and she is in agreement. Risks/benefits discussed, informed consent obtained, and all questions answered.
[2019-07-08] MEDS ORDERED: BUPIVACAINE HCL 0.25 % INJ/PF (2.5 MG/1 ML) 30 ML VIAL ONE (21:13)
[2019-07-08] MEDS ORDERED: BUPIVACAINE HCL 0.25 % INJ/PF (2.5 MG/1 ML) 30 ML VIAL INJ ONE (21:28)
[2019-07-08] MEDS ORDERED: HYDROCODONE/ACETAMINOPHEN 10-325 MG TABLET PO PRN (22:25)
--- NOTE | 2019-07-08 23:31 | Operative Report ---
Nonrecallable Operative Report DATE OF SURGERY: 07/08/19 PREOPERATIVE DIAGNOSIS: Acute appendicitis POSTOPERATIVE DIAGNOSIS: Acute, nonperforated appendicitis OPERATION: Laparoscopic appendectomy SURGEON: AYSHA SELLERS ANESTHESIA: GA TISSUE REMOVED OR ALTERED: Appendix COMPLICATIONS: None apparent ESTIMATED BLOOD LOSS: Minimal PROCEDURE: Drains/implants: None. Procedure in detail: After informed consent was obtained, the patient was brought to the operating room and laid in the supine position. The area of the abdomen was prepped and draped in a normal sterile fashion. A supraumbilical incision was created with a 15 blade scalpel. Dissection was carried through the subcutaneous tissues using sharp and blunt dissection. The linea alba fascia was incised sharply, the abdomen was entered sharply. The balloon trocar was inserted, and pneumoperitoneum was achieved. A suprapubic 5 mm port was placed under direct laparoscopic visualization. Another left lower quadrant 5 mm port was placed also under direct laparoscopic visualization. Atraumatic graspers were placed through the 5 mm ports. The navjot endix was identified and found to be in a retrocecal location. The right colon was mobilized somewhat. The appendix was freed from the surrounding tissues very carefully. There was a large amount of inflammation surrounding the appendix. Due to the excessive inflammation, it was felt prudent to use an Endo ENID stapler to secure and divide the base of the appendix. After the appendix was ligated and divided, it was placed into an Endo Catch bag and pulled out through the umbilicus. The camera was reinserted. The right lower quadrant was inspected. There was no active bleeding. The staple line appeared in good order. A small amount of blood was suctioned from the right lower quadrant. No irrigation was used. Next, the 5 mm trochars were removed under direct laparoscopic visualization. The 12 mm trocar was removed, and pneumoperitoneum was relieved. The supraumbilical fascia was closed using 0 Vicryl suture in [id number] fashion. The overlying skin was closed using 4-0 Vicryl Rapide suture in subcuticular fashion. Dressings were placed, and the procedure was concluded. All sponge, instrument, and needle counts were correct x2. Condition: Stable.
[2019-07-09] MEDS: METRONIDAZOLE 500 MG/NS RTU 500 MG/100 ML RTUPB IV SCH ×3 (01:55→17:18)
[2019-07-09 06:46] LABS: ABSOLUTE LYMPHOCYTES (AUTO) 0.5 10^3/uL (0.5-4.7); ABSOLUTE MONOCYTES (AUTO) 0.2 10^3/uL (0.1-1.4); ABSOLUTE NEUT (AUTO) 4.9 10^3/uL (1.7-8.2); BASOPHILS % (AUTO) 0.2 % (0-2); EOSINOPHILS % (AUTO) 0.1 % (0-6); HEMOGLOBIN 13.5 g/dL (12.0-15.5); LYMPHOCYTES % (AUTO) 8.9 % (13-45); MEAN CORPUSCULAR HEMOGLOBIN 33.9 pg (27.0-33.4); MEAN CORPUSCULAR HGB CONC 36.5 g/dL (32.0-36.0); MEAN CORPUSCULAR VOLUME 93 fl (80-97); PLATELET COUNT 178 10^3/uL (150-450); RED BLOOD COUNT 3.98 10^6/uL (3.72-5.28); RED CELL DISTRIBUTION WIDTH 14.5 % (11.5-14.0); SEGMENTED NEUTROPHILS % (AUTO) 87.8 % (42-78); TOTAL CELLS COUNTED % (AUTO) 100 %; WHITE BLOOD COUNT 5.6 10^3/uL (4.0-10.5)
[2019-07-09 07:10] LABS: ANION GAP 11 (5-19); BLOOD UREA NITROGEN 12 mg/dL (7-20); CARBON DIOXIDE 23 mmol/L (22-30); CHLORIDE 106 mmol/L (98-107); GLUCOSE 230 mg/dL (75-110); POTASSIUM 3.9 mmol/L (3.6-5.0)
--- NOTE | 2019-07-09 13:06 | PDOC PROGRESS REPORT ---
Subjective Progress Note for:: 07/09/19 Reason For Visit: ACUTE APPENDICITIS Physical Exam Vital Signs: Temp Pulse Resp BP Pulse Ox 98.4 F 85 20 122/66 96 07/09/19 08:21 07/09/19 08:21 07/09/19 08:21 07/09/19 08:21 07/09/19 08:21 Intake & Output 07/08/19 07/09/19 07/10/19 06:59 06:59 06:59 Intake Total 3550 Balance 3550 Weight 86.7 kg Results Laboratory Results: 07/09/19 06:24 07/09/19 06:24 07/08/19 07/08/19 07/08/19 15:25 15:25 15:25 WBC 3.9 L RBC 4.26 Hgb 14.4 Hct 40.1 MCV 94 MCH 33.7 H MCHC 35.8 RDW 14.7 H Plt Count 202 Seg Neutrophils % 71.8 Sodium 139.4 Potassium 3.8 Chloride 102 Carbon Dioxide 26 Anion Gap 11 BUN 13 Creatinine 0.54 Est GFR ( Amer) > 60 Glucose 252 H Calcium 9.0 Total Bilirubin 1.1 AST 38 H Alkaline Phosphatase 45 Total Protein 7.6 Albumin 4.0 Urine Color CASSIDY Urine Appearance SLIGHTLY-CLOUDY Urine pH 6.0 Ur Specific [place] 1.033 Urine Protein 30 H Urine Glucose (UA) >=500 H Urine Ketones TRACE H Urine Blood SMALL H Urine RBC (Auto) 15 07/09/19 07/09/19 06:24 06:24 WBC 5.6 RBC 3.98 Hgb 13.5 Hct 37.0 MCV 93 MCH 33.9 H MCHC 36.5 H RDW 14.5 H Plt Count 178 Seg Neutrophils % 87.8 H Sodium 139.5 Potassium 3.9 Chloride 106 Carbon Dioxide 23 Anion Gap 11 BUN 12 Creatinine 0.44 L Est GFR ( Amer) > 60 Glucose 230 H Calcium 8.0 L Total Bilirubin AST Alkaline Phosphatase Total Protein Albumin Urine Color Urine Appearance Urine pH Ur Specific [place] Urine Protein Urine Glucose (UA) Urine Ketones Urine Blood Urine RBC (Auto) Assessment & Plan - Diagnosis (1) Appendicitis Qualifiers: Appendicitis type: acute appendicitis Acute appendicitis type: with localized peritonitis Appendicitis gangrene presence: unspecified whether gangrene present Appendicitis perforation presence: unspecified whether perforation present Appendicitis abscess presence: without abscess Qualified Code(s): K35.30 - Acute appendicitis with localized peritonitis, without perforation or gangrene Is this a current diagnosis for this admission?: Yes - Time Time Spent with patient: Less than 15 minutes - Plan Summary Plan Summary: This is a 64-year-old female with acute appendicitis status post laparoscopic appendectomy. The patient reports significant pain in the right lower quadrant, even after surgery. She denies fevers or chills. She denies chest pain or shortness of breath. Her lab work is normal today. I will keep her in the hospital today, and monitor her pain response. At present she is not febrile or tachycardic. Continue with current pain medications. Continue antibiotics. If her pain improves, likely discharge tomorrow.
[2019-07-09] MEDS ORDERED: CEFTRIAXONE 1 GM/D5W RTU 1 GM/50 ML RTUPB IV ONE (16:51)
[2019-07-09] MEDS: CEFTRIAXONE 1 GM/D5W RTU 1 GM/50 ML RTUPB IV SCH (17:11)
[2019-07-10] MEDS: METRONIDAZOLE 500 MG/NS RTU 500 MG/100 ML RTUPB IV SCH ×3 (01:36→10:17)
--- NOTE | 2019-07-10 08:48 | PDOC CONSULTATION ---
Consultation Consult Date: 07/10/19 Attending physician:: AYSHA BHAKTA Provider Consulted: DALILA ZULETA Consult reason:: Patient with recent acute appendicitis with known history of stage IV breast cancer History of Present Illness Admission Date/PCP: 07/08/19 16:31 SKINNY DE SANTIAGO Patient complains of: Stage IV breast cancer History of Present Illness: ELIAN MAXWELL is a 64 year old female with known history of stage IV breast cancer, presented with acute appendicitis. She recently had a PET/CT for restaging of her breast cancer, this indicated that the chest wall disease that we know about is stable in appearance however there was a new finding of stranding and inflammation around the appendix. We called her at home with this information, and she told us that since this past Saturday she was having increasing right lower quadrant pain and she was starting to have fevers. We instructed her to go to the ED, she came to the ED and I called Dr. Bhakta to let them know of the results of the PET/CT. She was taken a few hours later for laparoscopic appendectomy, this went uncomplicated, there was a lot of inflammat ion in the appendix. Pathology is pending but I would expect that to be only appendicitis, as this would be an unlikely location for metastatic spread. She is doing better now. Past Medical History Cardiac Medical History: Reports: Hypertension Denies: Atrial Fibrillation, Congestive Heart Failure, Coronary Artery Disease, Myocardial Infarction, Hyperlipidema, Peripheral Vascular Disease, Pulmonary Embolism, Heart Murmur Pulmonary Medical History: Reports: Bronchitis Denies: Asthma, Chronic Obstructive Pulmonary Disease (COPD), Pneumonia, Respiratory Failure, Sleep Apnea, Tuberculosis Neurological Medical History: Denies: Seizures Endocrine Medical History: Reports: Diabetes Mellitus Type 2 Denies: Hyperthyroidism, Hypothyroidism Renal/ Medical History: Denies: End Stage Renal Disease Malignancy Medical History: Reports: Breast Cancer Denies: Cervical Cancer, Leukemia, Lung Cancer, Ovarian Cancer GI Medical History: Denies: Crohn's Disease, Gastroesophageal Reflux Disease, Hiatal Hernia Musculoskeltal Medical History: Reports: Arthritis - KNEE Denies: Fibromyalgia Psychiatric Medical History: Denies: Bipolar Disorder, Depression, Post Traumatic Stress Disorder Hematology: Reports: Anemia Denies: Hemophilia, Sickle Cell Disease Infectious Medical History: Denies: HIV Past Surgical History Past Surgical History: Reports: Cholecystectomy Denies: Amputation, Appendectomy, Colostomy, Coronary Artery Bypass Graft, Gastric Bypass Surgery, Herniorrhaphy, Hysterectomy, Mastectomy, Pacemaker, Tonsillectomy, Tubal Ligation Social History Information Source: Patient Smoking Status: Former Smoker Hx Recreational Drug Use: No Drugs: None Hx Prescription Drug Abuse: No - Advance Directive Resuscitation Status: Full Code Family History Family History: Reviewed & Not Pertinent Parental Family History Reviewed: Yes Children Family History Reviewed: Yes Sibling(s) Family History Reviewed.: Yes Medication/Allergy Home Medications: Hydrocodone/Acetaminophen [[place] 5-325 mg Tablet] 1 tab PO Q6HP PRN 07/09/19 Palbociclib [Ibrance] 125 mg PO .21DAYS 07/09/19 Allergies/Adverse Reactions: Penicillins Allergy (Severe, Verified 07/08/19 15:00) rash,photosensitive erythromycin base [From Erythrocin] Allergy (Mild, Verified 07/08/19 15:00) "Rash with sores" aspirin Adverse Reaction (Intermediate, Verified 07/08/19 15:00) "It irritates my stomach" and nausea METAL Allergy (Severe, Uncoded 02/18/18 16:05) Cellulitis Review of Systems Constitutional: ABSENT: chills, fever(s), headache(s), weight gain, weight loss Eyes: ABSENT: visual disturbances Ears: ABSENT: hearing changes Cardiovascular: ABSENT: chest pain, dyspnea on exertion, edema, orthropnea, palpitations Respiratory: ABSENT: cough, hemoptysis Gastrointestinal: ABSENT: abdominal pain, constipation, diarrhea, hematemesis, hematochezia, nausea, vomiting Genitourinary: ABSENT: dysuria, hematuria Musculoskeletal: ABSENT: joint swelling Integumentary: ABSENT: rash, wounds Neurological: ABSENT: abnormal gait, abnormal speech, confusion, dizziness, focal weakness, syncope Psychiatric: ABSENT: anxiety, depression, homidical ideation, suicidal ideation Endocrine: ABSENT: cold intolerance, heat intolerance, polydipsia, polyuria Hematologic/Lymphatic: ABSENT: easy bleeding, easy bruising Physical Exam Vital Signs: Temp Pulse Resp BP Pulse Ox 98.6 F 88 17 133/50 H 94 07/09/19 23:57 07/09/19 23:57 07/09/19 23:57 07/09/19 23:57 07/09/19 23:57 Intake & Output 07/09/19 07/10/19 07/11/19 06:59 06:59 06:59 Intake Total 3550 1100 Balance 3550 1100 Weight 86.7 kg 87.4 kg General appearance: PRESENT: no acute distress, well-developed, well-nourished Head exam: PRESENT: atraumatic, normocephalic Eye exam: PRESENT: conjunctiva pink, EOMI, PERRLA. ABSENT: scleral icterus Ear exam: PRESENT: normal external ear exam Mouth exam: PRESENT: moist, tongue midline Neck exam: ABSENT: carotid bruit, JVD, lymphadenopathy, thyromegaly Respiratory exam: PRESENT: clear to auscultation reji. ABSENT: rales, rhonchi, wheezes Cardiovascular exam: PRESENT: RRR. ABSENT: diastolic murmur, rubs, systolic murmur Pulses: PRESENT: normal dorsalis pedis pul Vascular exam: PRESENT: normal capillary refill GI/Abdominal exam: PRESENT: normal bowel sounds, soft. ABSENT: distended, guarding, mass, organolmegaly, rebound, tenderness Rectal exam: PRESENT: deferred Extremities exam: PRESENT: full ROM. ABSENT: calf tenderness, clubbing, pedal e moisés Neurological exam: PRESENT: alert, awake, oriented to person, oriented to place, oriented to time, oriented to situation, CN II-XII grossly intact. ABSENT: motor sensory deficit Psychiatric exam: PRESENT: appropriate affect, normal mood. ABSENT: homicidal ideation, suicidal ideation Skin exam: PRESENT: dry, intact, warm. ABSENT: cyanosis, rash Results Laboratory Results: 07/09/19 06:24 07/09/19 06:24 Assessment & Plan - Diagnosis (1) Bilateral breast cancer Qualifiers: Breast location: overlapping sites of breast Estrogen receptor status: positive Patient sex: female Qualified Code(s): C50.811 - Malignant neoplasm of overlapping sites of right female breast; C50.812 - Malignant neoplasm of overlapping sites of left female breast; Z17.0 - Estrogen receptor positive status [ER+] Is this a current diagnosis for this admission?: Yes Plan: Stage IV breast cancer, chest wall metastasis. I told her to hold all of her oral therapy including the ibrance, she will see us back on July 20. I went over the PET results at length with her. I went over next steps of care. - Time Time Spent: Greater than 70 Minutes
[2019-07-10] MEDS ORDERED: METRONIDAZOLE 500 MG TABLET PO SCH (11:30)
[2019-07-10] MEDS ORDERED: CIPROFLOXACIN HCL 500 MG TABLET PO SCH (12:30)
--- NOTE | 2019-07-10 18:56 | PDOC DISCHARGE SUMMARY ---
General - Admit/Disc Date/PCP Admission Date/Primary Care Provider: 07/08/19 16:31 ANAI SPEARSSKINNY Discharge Date: 07/10/19 - Discharge Diagnosis Final Diagnosis: Acute appendicitis - Assessment Summary: This is a 64-year-old female with a several day history of right lower quadrant abdominal pain. She presented to her oncologist where a PET CT was performed. Acute appendicitis was found on the PET/CT. Patient was a [facility] and taken for laparoscopic appendectomy. The patient had a large amount of inflammation in the right lower quadrant. The appendectomy was performed successfully. The patient was taken to the floor in stable condition. On postoperative day #1, the patient had a large amount of right lower quadrant abdominal pain, but her heart rate and temperature were normal. The patient was maintained in the hospital under observation due to her large amount of pain. On postoperative day #2, her pain improved significantly. She remained afeb rile. Her heart rate was normal. By 07/10/2019, the patient was felt to have reached maximal hospital benefit. At this time she is fit for discharge. - Additional Information Resuscitation Status: Full Code Discharge Diet: As Tolerated Discharge Activity: Balance Activity w/Rest, No Lifting Over 10 Pounds, No Lifting/Push/Pulling Referrals: AYSHA SELLERS MD [ACTIVE STAFF] - 07/21/19 10:45 am () Home Medications: Hydrocodone/Acetaminophen [[place] 5-325 mg Tablet] 1 tab PO Q6HP PRN 07/09/19 Palbociclib [Ibrance] 125 mg PO .21DAYS 07/09/19 Additional Information: Discharge home. Diet as tolerated. Activity: No lifting greater than 10 pounds x 2 weeks. Follow-up with me in 7 to 10 days. Cipro 500 mg p.o. twice daily. Flagyl 5 g p.o. 3 times daily. Resume all other home medications. History of Present Illiness History of Present Illness: ELIAN MAXWELL is a 64 year old female with a 2 to 3-day history of right lower quadrant pain, fevers, and chills. Her pain is sharp and stabbing. It started out as a dull ache, and has intensified significantly. The patient was seen by her oncologist, who ordered a PET CT for oncologic purposes. On the PET CT, she was found to have acute appendicitis. The patient was sent to the emergency department for further work-up. Patient is currently neutropenic, likely related to her chemotherapy. She reports abdominal pain, fevers, nausea, malaise, and fatigue. She denies vomiting, melena, hematochezia, dizziness, orthostasis, blurry vision. Physical Exam Vital Signs: Temp Pulse Resp BP Pulse Ox 98.8 F 80 20 120/50 L 96 07/10/19 17:03 07/10/19 17:03 07/10/19 17:03 07/10/19 17:03 07/10/19 17:03 Intake & Output 07/09/19 07/10/19 07/11/19 06:59 06:59 06:59 Intake Total 3550 1100 360 Balance 3550 1100 360 Weight 86.7 kg 87.4 kg Results Laboratory Results: WBC 5.6 10^3/uL (4.0-10.5) 07/09/19 06:24 RBC 3.98 10^6/uL (3.72-5.28) 07/09/19 06:24 Hgb 13.5 g/dL (12.0-15.5) 07/09/19 06:24 Hct 37.0 % (36.0-47.0) 07/09/19 06:24 MCV 93 fl (80-97) 07/09/19 06:24 MCH 33.9 pg (27.0-33.4) H 07/09/19 06:24 MCHC 36.5 g/dL (32.0-36.0) H 07/09/19 06:24 RDW 14.5 % (11.5-14.0) H 07/09/19 06:24 Plt Count 178 10^3/uL (150-450) 07/09/19 06:24 Lymph % (Auto) 8.9 % (13-45) L 07/09/19 06:24 Payne % (Auto) 3.0 % (3-13) 07/09/19 06:24 Eos % (Auto) 0.1 % (0-6) 07/09/19 06:24 Baso % (Auto) 0.2 % (0-2) 07/09/19 06:24 Absolute Neuts (auto) 4.9 10^3/uL (1.7-8.2) 07/09/19 06:24 Absolute Lymphs (auto) 0.5 10^3/uL (0.5-4.7) 07/09/19 06:24 Absolute Monos (auto) 0.2 10^3/uL (0.1-1.4) 07/09/19 06:24 Absolute Eos (auto) 0.0 10^3/uL (0.0-0.6) 07/09/19 06:24 Absolute Basos (auto) 0.0 10^3/uL (0.0-0.2) 07/09/19 06:24 Seg Neutrophils % 87.8 % (42-78) H 07/09/19 06:24 Sodium 139.5 mmol/L (137-145) 07/09/19 06:24 Potassium 3.9 mmol/L (3.6-5.0) 07/09/19 06:24 Chloride 106 mmol/L (98-107) 07/09/19 06:24 Carbon Dioxide 23 mmol/L (22-30) 07/09/19 06:24 Anion Gap 11 (5-19) 07/09/19 06:24 BUN 12 mg/dL (7-20) 07/09/19 06:24 Creatinine 0.44 mg/dL (0.52-1.25) L 07/09/19 06:24 Est GFR ( Amer) > 60 (>60) 07/09/19 06:24 Est GFR (MDRD) Non-Af > 60 (>60) 07/09/19 06:24 Glucose 230 mg/dL (75-110) H 07/09/19 06:24 Calcium 8.0 mg/dL (8.4-10.2) L 07/09/19 06:24 Total Bilirubin 1.1 mg/dL (0.2-1.3) 07/08/19 15:25 Direct Bilirubin 0.2 mg/dL (0.0-0.4) 07/08/19 15:25 Neonat Total Bilirubin Not Reportable 07/08/19 15:25 Neonat Direct Bilirubin Not Reportable 07/08/19 15:25 Neonat Indirect Bili Not Reportable 07/08/19 15:25 AST 38 U/L (14-36) H 07/08/19 15:25 ALT 28 U/L (<35) 07/08/19 15:25 Alkaline Phosphatase 45 U/L (38-126) 07/08/19 15:25 Total Protein 7.6 g/dL (6.3-8.2) 07/08/19 15:25 Albumin 4.0 g/dL (3.5-5.0) 07/08/19 15:25 Urine Color CASSIDY 07/08/19 15:25 Urine Appearance SLIGHTLY-CLOUDY 07/08/19 15:25 Urine pH 6.0 (5.0-9.0) 07/08/19 15:25 Ur Specific [place] 1.033 07/08/19 15:25 Urine Protein 30 mg/dL (NEGATIVE) H 07/08/19 15:25 Urine Glucose (UA) >=500 mg/dL (NEGATIVE) H 07/08/19 15:25 Urine Ketones TRACE mg/dL (NEGATIVE) H 07/08/19 15:25 Urine Blood SMALL (NEGATIVE) H 07/08/19 15:25 Urine Nitrite (Reflex) NEGATIVE (NEGATIVE) 07/08/19 15:25 Urine Bilirubin NEGATIVE (NEGATIVE) 07/08/19 15:25 Urine Urobilinogen 2.0 mg/dL (<2.0) H 07/08/19 15:25 Leukocyte Esterase Rfl MODERATE (NEGATIVE) H 07/08/19 15:25 Urine RBC (Auto) 15 /HPF 07/08/19 15:25 Urine Bacteria (Auto) TRACE /HPF 07/08/19 15:25 Urine WBC (Reflex) 5 /HPF 07/08/19 15:25 Squamous Epi Cells Auto 8 /HPF 07/08/19 15:25 Urine Mucus (Auto) OCC /LPF 07/08/19 15:25 Urine Ascorbic Acid NEGATIVE (NEGATIVE) 07/08/19 15:25
[2019-07-10] MEDS: CEFTRIAXONE 1 GM/D5W RTU 1 GM/50 ML RTUPB IV SCH (19:03)
[2019-07-10 20:12] VITALS: BP 138/75
== END 2019-07-10 20:49 | disposition home or self-care (01) ==
LOC: OROUT 14:16 → EH 16:31 → INTOOBSV 16:31 → 5 19:07
PROVIDERS: ATTEND Surgery
PROC: 0DTJ4ZZ Resection of Appendix, Percutaneous Endoscopic Approach (ICD-10-PCS; principal; 2019-07-08 21:00)
DX: K35.32 Acute appendicitis with perforation, localized peritonitis, and gangrene, without abscess (principal); G89.18 Other acute postprocedural pain; D70.9 Neutropenia, unspecified; C50.811 Malignant neoplasm of overlapping sites of right female breast; C50.812 Malignant neoplasm of overlapping sites of left female breast; Z17.0 Estrogen receptor positive status [ER+]; C79.89 Secondary malignant neoplasm of other specified sites; E66.9 Obesity, unspecified; M54.9 Dorsalgia, unspecified; Z90.49 Acquired absence of other specified parts of digestive tract; Z79.899 Other long term (current) drug therapy; Z87.891 Personal history of nicotine dependence; Z90.13 Acquired absence of bilateral breasts and nipples
CPT/HCPCS: 93005; 99284; 96374; 36415 ×2; 85025 ×2; 80048; 80053; 81001; 88304 ×2; 93010; 00840; 44970; G0378 ×4; J2250; A9270 ×2; J1100; J1885; J3010; J3490 ×4; J2270; J2710; J2405; J7030; J2704; J0696 ×2; 840

== ENCOUNTER → 2019-11-03 | Outpatient (CLI) | payer MEDICARE, BC ==
--- NOTE | 2019-11-03 16:14 | RADIOLOGY REPORT (SQ) ---
EXAM DESCRIPTION: PET CT SKULL/THIGH COMPLETED DATE/TIME: 11/03/2019 1:48 pm REASON FOR STUDY: (C50.512)MALIG NEOPLASM OF LOWER-OUTER QUADRANT OF LEFT FEMALE BREAST C50.512 MAL IG NEOPLASM OF LOWER-OUTER QUADRANT OF LEFT FEMAL COMPARISON: Prior PET-CT 07/07/2019, 04/26/2019, 01/18/2019 RADIONUCLIDE AND DOSE: 8.98 mCi F18 FDG The route of agent administration: Intravenous FASTING BLOOD SUGAR: 241 mg/dl CONTRAST TYPE AND DOSE: No CT contrast given. TECHNIQUE: Blood glucose level was verified. Above dose of FDG was injected intravenously. 2-D seg mented attenuation correction images were obtained from the base of the skull to the midthighs. Nonc ontrast CT images were obtained for attenuation correction and fusion with emission images. CT image s were performed without oral or intravenous contrast and are not sensitive for parenchymal lesions. A series of overlapping emission PET images were obtained. Images reviewed and manipulated at [facility] work station by the radiologist. Images stored on PACS. LIMITATIONS: None. FINDINGS: HEAD AND NECK: No areas of abnormal metabolic activity in the soft tissues of the head and neck. CHEST: No areas of abnormal metabolic activity in the chest. Old post radiation manager of change the ante rior chest wall double mastectomy site, with low level activity equal to blood pool. ABDOMEN AND PELVIS: No areas of abnormal metabolic activity in the abdomen or pelvis. Expected physi ologic activity is present in the genitourinary system and bowel. PROXIMAL LOWER EXTREMITIES: No areas of abnormal metabolic activity in the soft tissues of the lower extremities. BONES: No abnormal metabolic activity in the visualized skeleton. ADDITIONAL CT FINDINGS: Post cholecystectomy, hysterectomy, and appendectomy. Small fat containing u mbilical hernia. Old bilateral mastectomies with axillary dissection. Post radiation changes in the bilateral lung apices and anterior left upper lobe. OTHER: No other significant findings. IMPRESSION: No PET-CT evidence of metastatic disease over the skullbase neck chest abdomen or pelvis . TECHNICAL DOCUMENTATION: JOB ID: [id number] [employer]- All Rights Reserved Reading location - IP/workstation name: [email or web address]
== END ==
LOC: RAD 09:53
PROVIDERS: ATTEND Physician Assistant Medical
DX: C50.512 Malignant neoplasm of lower-outer quadrant of left female breast (principal)
CPT/HCPCS: 78815; A9552

== ENCOUNTER → 2019-12-30 | Outpatient (CLI) | payer MEDICARE, BC ==
--- NOTE | 2019-12-30 17:50 | RADIOLOGY REPORT (SQ) ---
EXAM DESCRIPTION: MRI HEAD COMBO IMAGES COMPLETED DATE/TIME: 12/30/2019 2:12 pm REASON FOR STUDY: C50.512 MALIG NEOPLASM OF LOWER-OUTER QUADRANT OF LEFT FEMALE BREAST C50.512 REGI G NEOPLASM OF LOWER-OUTER QUADRANT OF LEFT FEMAL COMPARISON: None. TECHNIQUE: Multiplanar imaging includes noncontrasted T1, T2, FLAIR, and Diffusion with ADC map seq uences. Contrast enhanced T1 images. Images stored on PACS. CONTRAST TYPE AND DOSE: 15 mL Prohance. RENAL FUNCTION: Not indicated. ACR Type II contrast agent associated with few, if any, unconfounded cases of NSF LIMITATIONS: None. FINDINGS: ANATOMY: No anomalies. Normal vascular flow voids. Pituitary fossa normal. CSF SPACES: Normal size and contour. No hemorrhage. CEREBRUM: A few high-signal intensity lesions scattered throughout the white matter on FLAIR imaging with distribution suggesting chronic microvascular ischemic change. Sulci and gyri normal in size and contour. No evidence of hemorrhage, mass or extraaxial fluid collection. No enhancing lesions. POSTERIOR FOSSA: No signal alteration. No hemorrhage. No edema, masses or mass effect. Internal audit ory canals, cerebello-pontine angles, mastoids normal. DIFFUSION: Negative for acute or subacute infarction. ORBITS: No masses. Globes normal. PARANASAL SINUSES: No fluid levels. Mucosa normal. OTHER: No other significant finding. IMPRESSION: No evidence of metastatic disease. EVIDENCE OF ACUTE STROKE: NO. TECHNICAL DOCUMENTATION: JOB ID: [id number] 2010 [employer]- All Rights Reserved Reading location - IP/workstation name: [email or web address]
== END ==
LOC: RAD 12:22
PROVIDERS: ATTEND Physician Assistant Medical
DX: C50.512 Malignant neoplasm of lower-outer quadrant of left female breast (principal)
CPT/HCPCS: 82565; 70553; A9576

== ENCOUNTER 2020-06-15 10:20 | Day surgery (SDC) | payer MEDICARE, BC ==
[~2020-06-15 10:20] MED LIST changes: +CHONDR SU A NA/HYALUR INTRAOC KIT (SURGICARE) ONE; +DORZOLAMIDE HCL 2%/TIMOLOL MALEAT 0.5% OPH SOLN 10 ML OD PRN; +EPINEPHRINE INJ/PF 1 MG/1 ML AMPULE ONE; +FENTANYL CITRATE INJ/PF 100 MCG/2 ML AMPUL ONE; -GLYCOPYRROLATE 1 MG/5 ML VIAL ONE; +KETOROLAC TROMETHAMINE 0.45% 4 DROP/0.4 ML DROPERETTE OD PRN; +LIDOCAINE 1%/PHENYLEPHRINE 1.5% 1 ML VIAL ONE; +MIDAZOLAM 2 MG/2 ML INJ ONE; -NEOSTIGMINE METHYLSULFATE 10 MG/10 ML VIAL ONE; +ONDANSETRON HCL INJ/PF 4 MG/2 ML SDV ONE; +PREDNISOLONE ACETATE 1% OPH SUSP 5 ML OD PRN
[2020-06-15] MEDS: TROPICAMIDE 1% OPH SOLN 15 ML OD PRN ×3 (10:48→11:15)
[2020-06-15] MEDS: TETRACAINE HCL 0.5% OPH SOLN 4 ML OD PRN ×3 (10:48→11:21)
[2020-06-15] MEDS: BESIFLOXACIN HCL 0.6% OPH SUSP 5 ML BOTTLE OD PRN ×3 (10:49→11:42)
[2020-06-15] MEDS: CYCLOPENTOLATE 0.2%/PHENYLEPHRINE 1% OPH SOLN 2 ML OD PRN ×3 (10:49→11:15)
--- NOTE | 2020-06-15 14:29 | Operative Report ---
Operative Report-[facility] Operative Report: DATE OF SURGERY: June 15, 2020 PREOPERATIVE DIAGNOSIS: NUCLEAR CATARACT, RIGHT EYE. POSTOPERATIVE DIAGNOSIS: NUCLEAR CATARACT, RIGHT EYE. PROCEDURE PERFORMED: PHACOEMULSIFICATION WITH POSTERIOR CHAMBER INTRAOCULAR LENS IMPLANT, RIGHT EYE. SURGEON: Bhavesh Pichardo DO MEDICATIONS AND ANESTHESIA: Versed: IV Versed Tetracaine drops: 1 to 2 drops given as needed COMPLICATION: None INDICATIONS FOR SURGERY: Medical necessity: Best corrected visual acuity worse than 20/40 secondary to cataracts with impairment of ability to carry out needs or desired activities, blurred vision, visual distortion, reduced contrast sensitivity and/or glare with association functional impairment and supporting documentation/testing, and cataracts causing symptomatic impairment of visual functions not corrected with tolerable changes in glasses or contact lenses interfering with activities of daily life. PROCEDURE: Consent: The risks, benefits and alternatives of this procedures was discussed with the patient. The patient read and signed the consent forms, was identified and was seated in the exam chair. IOL: MX 60 E 17.0 IOL Diopters: Phacoemulsification with posterior chamber intraocular lens implant: The face was prepped with 5% povidone iodine solution, and a few drops of 5% povidone iodine solution was instilled into the inferior fornix. A non-fenestrated drape was placed over the eye and the lids were parted with the speculum. A paracentesis was made with a 15 degree blade, and 1% lidocaine MPF followed by viscoelastic was injected into the anterior chamber. A 2.4 mm metal micro- keratome was used to create a temporal clear corneal incision. A circular anterior capsulorrhexis was created, followed by hydro-dissection and hydro- delineation. The phacoemulsification hand piece was inserted and the nucleus was removed with the Phaco chop technique. The irrigation-aspiration hand piece was used to remove the residual cortex, and vacuum the posterior capsule. The capsular bag was inflated and viscoelastic and the above-mentioned IOL was injected into the eye with care to insert both leaning and trailing haptics in the capsular bag. The irrigation/aspiration hand piece was reinserted to remove residual viscoelastic from the capsular bag and anterior chamber. The corneal incision was hydrated, and anterior chamber was inflated with sterile BSS via the paracentesis site, and found to be watertight. Postop medication: 1 drop of prednisolone into operative by followed by 1 drop of Cosopt into operative eye followed by 1 drop of Besivance intraoperative by other:
== END 2020-06-15 12:15 | disposition home or self-care (01) ==
LOC: SC 10:20
PROVIDERS: ATTEND Ophthalmology
DX: H25.11 Age-related nuclear cataract, right eye (principal); E11.36 Type 2 diabetes mellitus with diabetic cataract; Z79.84 Long term (current) use of oral hypoglycemic drugs; Z87.891 Personal history of nicotine dependence; I10 Essential (primary) hypertension; M19.90 Unspecified osteoarthritis, unspecified site; D64.9 Anemia, unspecified
CPT/HCPCS: 66984; 82962; V2632; J2250; J3490 ×2; A9270; J0171; J3010; J2405; 142

== ENCOUNTER 2020-06-29 08:38 | Day surgery (SDC) | payer MEDICARE, BC ==
[~2020-06-29 08:38] MED LIST changes: -DORZOLAMIDE HCL 2%/TIMOLOL MALEAT 0.5% OPH SOLN 10 ML OD PRN; -FENTANYL CITRATE INJ/PF 100 MCG/2 ML AMPUL ONE; -KETOROLAC TROMETHAMINE 0.45% 4 DROP/0.4 ML DROPERETTE OD PRN; +KETOROLAC TROMETHAMINE 0.45% 4 DROP/0.4 ML DROPERETTE OS PRN; -MIDAZOLAM 2 MG/2 ML INJ ONE; -ONDANSETRON HCL INJ/PF 4 MG/2 ML SDV ONE; -PREDNISOLONE ACETATE 1% OPH SUSP 5 ML OD PRN
[2020-06-29] MEDS ORDERED: MIDAZOLAM 2 MG/2 ML INJ ONE (08:54)
[2020-06-29] MEDS ORDERED: ONDANSETRON HCL INJ/PF 4 MG/2 ML SDV ONE (08:54)
[2020-06-29] MEDS ORDERED: FENTANYL CITRATE INJ/PF 100 MCG/2 ML AMPUL ONE (08:54)
[2020-06-29] MEDS: TETRACAINE HCL 0.5% OPH SOLN 4 ML OS PRN ×3 (09:17→09:52)
[2020-06-29] MEDS: CYCLOPENTOLATE 0.2%/PHENYLEPHRINE 1% OPH SOLN 2 ML OS PRN ×3 (09:18→09:41)
[2020-06-29] MEDS: BESIFLOXACIN HCL 0.6% OPH SUSP 5 ML BOTTLE OS PRN ×4 (09:18→10:12)
[2020-06-29] MEDS: TROPICAMIDE 1% OPH SOLN 15 ML OS PRN ×3 (09:18→09:41)
[2020-06-29] MEDS: DORZOLAMIDE HCL 2%/TIMOLOL MALEAT 0.5% OPH SOLN 10 ML OS PRN ×2 (10:12)
[2020-06-29] MEDS: PREDNISOLONE ACETATE 1% OPH SUSP 5 ML OS PRN ×2 (10:12)
--- NOTE | 2020-06-29 11:05 | Operative Report ---
Operative Report-[facility] Operative Report: DATE OF SURGERY: June 29, 2020 PREOPERATIVE DIAGNOSIS: NUCLEAR CATARACT, LEFT EYE. POSTOPERATIVE DIAGNOSIS: NUCLEAR CATARACT, LEFT EYE. PROCEDURE PERFORMED: PHACOEMULSIFICATION WITH POSTERIOR CHAMBER INTRAOCULAR LENS IMPLANT, LEFT EYE. SURGEON: Bhavesh Pichardo DO MEDICATIONS AND ANESTHESIA: Versed: IV Versed Tetracaine drops: 1 to 2 drops given as needed COMPLICATION: None INDICATIONS FOR SURGERY: Medical necessity: Best corrected visual acuity worse than 20/40 secondary to cataracts with impairment of ability to carry out needs or desired activities, blurred vision, visual distortion, reduced contrast sensitivity and/or glare with association functional impairment and supporting documentation/testing, and cataracts causing symptomatic impairment of visual functions not corrected with tolerable changes in glasses or contact lenses interfering with activities of daily life. PROCEDURE: Consent: The risks, benefits and alternatives of this procedures was discussed with the patient. The patient read and signed the consent forms, was identified and was seated in the exam chair. IOL: MX 60 E 16.0 IOL Diopters: Phacoemulsification with posterior chamber intraocular lens implant: The face was prepped with 5% povidone iodine solution, and a few drops of 5% povidone iodine solution was instilled into the inferior fornix. A non-fenestrated drape was placed over the eye and the lids were parted with the speculum. A paracentesis was made with a 15 degree blade, and 1% lidocaine MPF followed by viscoelastic was injected into the anterior chamber. A 2.4 mm metal micro- keratome was used to create a temporal clear corneal incision. A circular anterior capsulorrhexis was created, followed by hydro-dissection and hydro- delineation. The phacoemulsification hand piece was inserted and the nucleus was removed with the Phaco chop technique. The irrigation-aspiration hand piece was used to remove the residual cortex, and vacuum the posterior capsule. The capsular bag was inflated and viscoelastic and the above-mentioned IOL was injected into the eye with care to insert both leaning and trailing haptics in the capsular bag. The irrigation/aspiration hand piece was reinserted to remove residual viscoelastic from the capsular bag and anterior chamber. The corneal incision was hydrated, and anterior chamber was inflated with sterile BSS via the paracentesis site, and found to be watertight. Postop medication:1 drop of prednisolone into operative by followed by 1 drop of Cosopt into operative eye followed by 1 drop of Besivance intraoperative by Other:
--- OUTSIDE RECORDS SUMMARY | 2020-06-30 18:06 | XMS REPORT ---
:1955 [facility] [place] [facility] [place] [address] [place] [address] Care Team Providers Name Role Phone Billy Aguilar M.D. Attending Clinician Unavailable Allergies, Adverse Reactions, Alerts Allergy Name Allergy Status Severity Reaction(s) Onset Inactive Treat ing Comments Type Date Date Clinician Erythromycin Allergy Active to Drug (Finding) Penicillins Allergy Active to Drug (Finding) Medications Ordered Filled Start Stop Current Ordering Indication Dosage Frequency Signature Comments Components Medication Medication Date Date Medication? Clinician (SIG) Name Name Denosumab 2020-0 No 60mg Denosumab 9-30 00:00: 00 [place] 2020-0 Yes 1 9-04 00:00: 00 Lynparza 2020-0 Yes 2 8-07 00:00: 00 Dexamethaso 2020-0 No 10mg Dexamethas ne Sodium 7-31 one Sodium Phosphate 00:00: Phosphate 00 Sodium 2020-0 No 40mL Sodium Chloride 7-31 Chloride 00:00: 00 Dexamethaso 2020-0 No 10mg Dexamethas ne Sodium 7-24 one Sodium Phosphate 00:00: Phosphate 00 Sodium 2020-0 No 40mL Sodium Chloride 7-24 Chloride 00:00: 00 Dexamethaso 2020-0 No 10mg Dexamethas ne Sodium 7-10 one Sodium Phosphate 00:00: Phosphate 00 Sodium 2020-0 No 40mL Sodium Chloride 7-10 Chloride 00:00: 00 Reglan 2020-0 Yes 1 7-07 00:00: 00 Leukine 2020-0 No 500 Leukine 6-30 00:00: 00 Leukine 2020-0 No 500 Leukine 6-29 00:00: 00 Dexamethaso 2020-0 No 10mg Dexamethas ne Sodium 6-26 one Sodium Phosphate 00:00: Phosphate 00 Sodium 2020-0 No 40mL Sodium Chloride 6-26 Chloride 00:00: 00 Leukine 2020-0 No 500 Leukine 6-24 00:00: 00 Leukine 2020-0 No 500 Leukine 6-22 00:00: 00 Leukine 2020-0 No 500 Leukine 6-19 00:00: 00 Leukine 2020-0 No 500 Leukine 6-18 00:00: 00 Leukine 2020-0 No 500 Leukine 6-17 00:00: 00 Leukine 2020-0 No 500 Leukine 6-16 00:00: 00 Leukine 2020-0 No 500 Leukine 6-15 00:00: 00 Dexamethaso 2020-0 No 10mg Dexamethas ne Sodium 6-12 one Sodium Phosphate 00:00: Phosphate 00 Sodium 2020-0 No 40mL Sodium Chloride 6-12 Chloride 00:00: 00 Leukine 2020-0 No 500 Leukine 6-10 00:00: 00 Leukine 2020-0 No 500 Leukine 6-09 00:00: 00 Leukine 2020-0 No 500 Leukine 6-08 00:00: 00 Dexamethaso 2020-0 No 10mg Dexamethas ne Sodium 6-05 one Sodium Phosphate 00:00: Phosphate 00 Sodium 2020-0 No 40mL Sodium Chloride 6-05 Chloride 00:00: 00 Leukine 2020-0 No 500 Leukine 6-03 00:00: 00 Leukine 2020-0 No 500 Leukine 6-02 00:00: 00 Leukine 2020-0 No 500 Leukine 6-01 00:00: 00 Leukine 2020-0 No 500 Leukine 5-29 00:00: 00 Leukine 2020-0 No 500 Leukine 5-28 00:00: 00 Leukine 2020-0 No 500 Leukine 5-27 00:00: 00 Dexamethaso 2020-0 No 10mg Dexamethas ne Sodium 5-22 one Sodium Phosphate 00:00: Phosphate 00 Sodium 2020-0 No 40mL Sodium Chloride 5-22 Chloride 00:00: 00 Leukine 2020-0 No 500 Leukine 5-20 00:00: 00 Leukine 2020-0 No 500 Leukine 5-19 00:00: 00 Leukine 2020-0 No 500 Leukine 5-18 00:00: 00 Dexamethaso 2020-0 No 10mg Dexamethas ne Sodium 5-15 one Sodium Phosphate 00:00: Phosphate 00 Sodium 2020-0 No 40mL Sodium Chloride 5-15 Chloride 00:00: 00 Leukine 2020-0 No 500 Leukine 5-06 00:00: 00 Leukine 2020-0 No 500 Leukine 5-05 00:00: 00 Leukine 2020-0 No 500 Leukine 5-04 00:00: 00 Dexamethaso 2020-0 No 10mg Dexamethas ne Sodium 4-24 one Sodium Phosphate 00:00: Phosphate 00 Sodium 2020-0 No 40mL Sodium Chloride 4-24 Chloride 00:00: 00 Leukine 2020-0 No 500 Leukine 4-21 00:00: 00 Leukine 2020-0 2020- No 500 Leukine 4-20 06-30 00:00: 00:00 00 :00 Dexamethaso 2020-0 No 10mg Dexamethas ne Sodium 4-03 one Sodium Phosphate 00:00: Phosphate 00 Denosumab 2020-0 No 60mg Denosumab 4-03 00:00: 00 Sodium 2020-0 No 40mL Sodium Chloride 4-03 Chloride 00:00: 00 [place] 2020-0 2020- No 1.8mg (eribulin 4-03 07-31 mesylate) 00:00: 00:00 00 :00 Gemcitabine 2020-0 No 855mg Gemcitabin HCl 3-20 e HCl 00:00: 00 Sodium 2020-0 No 20mL Sodium Chloride 3-20 Chloride 00:00: 00 Dexamethaso 2020-0 No 5mg Dexamethas ne Sodium 3-13 one Sodium Phosphate 00:00: Phosphate 00 Sodium 2020-0 No 40mL Sodium Chloride 3-13 Chloride 00:00: 00 Gemcitabine 2020-0 No 1710mg Gemcitabin HCl 3-13 e HCl 00:00: 00 Dexamethaso 2020-0 No 10mg Dexamethas ne Sodium 2-28 one Sodium Phosphate 00:00: Phosphate 00 Sodium 2020-0 No 40mL Sodium Chloride 2-28 Chloride 00:00: 00 Gemcitabine 2020-0 No 1700mg Gemcitabin HCl 2-28 e HCl 00:00: 00 Dexamethaso 2020-0 No 10mg Dexamethas ne Sodium 2-21 one Sodium Phosphate 00:00: Phosphate 00 Sodium 2020-0 No 40mL Sodium Chloride 2-21 Chloride 00:00: 00 Gemcitabine 2020-0 No 1720mg Gemcitabin HCl 2-21 e HCl 00:00: 00 hydrOXYzine 2020-0 Yes 1 HCl 2-21 00:00: 00 Dexamethaso 2020-0 No 10mg Dexamethas ne Sodium 2-07 one Sodium Phosphate 00:00: Phosphate 00 Sodium 2020-0 No 40mL Sodium Chloride 2-07 Chloride 00:00: 00 Gemcitabine 2020-0 No 1720mg Gemcitabin HCl 2-07 e HCl 00:00: 00 Ondansetron 2020-0 No 16mg Ondansetro HCl 2-06 n HCl 00:00: 00 Dexamethaso 2020-0 No 10mg Dexamethas ne Sodium 1-31 one Sodium Phosphate 00:00: Phosphate 00 Sodium 2020-0 No 50mL Sodium Chloride 1-31 Chloride 00:00: 00 Gemcitabine 2020-0 No 1720mg Gemcitabin HCl 1-31 e HCl 00:00: 00 Dexamethaso 2020-0 No 10mg Dexamethas ne Sodium 1-17 one Sodium Phosphate 00:00: Phosphate 00 Sodium 2020-0 No 40mL Sodium Chloride 1-17 Chloride 00:00: 00 Gemcitabine 2020-0 No 1720mg Gemcitabin HCl 1-17 e HCl 00:00: 00 Dexamethaso 2020-0 No 10mg Dexamethas ne Sodium 1-10 one Sodium Phosphate 00:00: Phosphate 00 Sodium 2020-0 No 20mL Sodium Chloride 1-10 Chloride 00:00: 00 Gemcitabine 2020-0 No 1710mg Gemcitabin HCl 1-10 e HCl 00:00: 00 Dexamethaso 2019-1 No 10mg Dexamethas ne Sodium 2-27 one Sodium Phosphate 00:00: Phosphate 00 Sodium 2019-1 No 50mL Sodium Chloride 2-27 Chloride 00:00: 00 Gemcitabine 2019-1 No 1730mg Gemcitabin HCl 2-27 e HCl 00:00: 00 Dexamethaso 2019-1 No 10mg Dexamethas ne Sodium 2-18 one Sodium Phosphate 00:00: Phosphate 00 Sodium 2019-1 No 40mL Sodium Chloride 2-18 Chloride 00:00: 00 Fulvestrant 2019-1 No 500mg Fulvestran 2-18 t 00:00: 00 Gemcitabine 2019-1 2020- No 1720mg Gemcitabin HCl 2-18 03-20 e HCl 00:00: 00:00 00 :00 Fulvestrant 2019-1 No 500mg Fulvestran 1-05 t 00:00: 00 HYDROcodone 2019-1 2020- No 1 -Acetaminop 0-08 02-21 hen 00:00: 12:34 00 :30 Fulvestrant 2019-1 2019- No 500mg Fulvestran 0-08 12-18 t 00:00: 00:00 00 :00 Denosumab 2019-0 No 60mg Denosumab 9 00:00: 00 Faslodex 2019-0 No 500mg Faslodex 9- 00:00: 00 Potassium 2019-0 2020- No 20meq Chloride ER 9-10 04-03 00:00: 11:44 00 :16 Faslodex 2019-0 No 500mg Faslodex 8-13 00:00: 00 Ibrance 2019-0 2019- No 1 8-07 12- 00:00: 11:41 00 :40 Faslodex 2019-0 No 500mg Faslodex 7-16 00:00: 00 Faslodex 2019-0 No 500mg Faslodex 7- 00:00: 00 Faslodex 2019-0 2019- No 500mg Faslodex 618 09- 00:00: 00:00 00 :00 Ondansetron 2019-0 Yes 1 HCl 6-14 00:00: 00 Denosumab 2019-0 No 60mg Denosumab 3 00:00: 00 Denosumab 2018-0 2020- No 60mg Denosumab 05-12 00:00: 00:00 00 :00 TraMADol 2018-0 2020- No 1 HCl 05-12 00:00: 12:34 00 :30 Venlafaxine 2018-0 2020- No HCl 05-12 00:00: 12:34 00 :30 Keflex 2018-0 2018- No 1 6 07- 00:00: 00:00 00 :00 Femara 2018-0 2019- No 1 12-13 06-05 00:00: 17:40 00 :38 Nystatin 2017-0 2018- No 9-15 04-27 00:00: 10:07 00 :40 Ondansetron 2017-0 No 16mg Ondansetro HCl 9-06 n HCl 00:00: 00 Dexamethaso 2017-0 No 10mg Dexamethas ne Sodium 9-06 one Sodium Phosphate 00:00: Phosphate 00 Famotidine 2016-0 No 20mg Famotidine 04-24 00:00: 00 Sodium 2017-0 No 50mL Sodium Chloride 9-06 Chloride 00:00: 00 Furosemide 2017-0 2017- No 1 04-24 09-29 00:00: 00:00 00 :00 Ondansetron 2017-0 No 16mg Ondansetro HCl 8-30 n HCl 00:00: 00 Dexamethaso 2017-0 No 10mg Dexamethas ne Sodium 8-30 one Sodium Phosphate 00:00: Phosphate 00 Famotidine 2017-0 No 20mg Famotidine 8-30 00:00: 00 Sodium 2017-0 No 60mL Sodium Chloride 8-30 Chloride 00:00: 00 Ondansetron 2017-0 No 16mg Ondansetro HCl 8-23 n HCl 00:00: 00 Dexamethaso 2017-0 No 10mg Dexamethas ne Sodium 8-23 one Sodium Phosphate 00:00: Phosphate 00 Famotidine 2017-0 No 20mg Famotidine 8-23 00:00: 00 Sodium 2017-0 No 50mL Sodium Chloride 8-23 Chloride 00:00: 00 Ondansetron 2017-0 No 16mg Ondansetro HCl 8-16 n HCl 00:00: 00 Dexamethaso 2017-0 No 10mg Dexamethas ne Sodium 8-16 one Sodium Phosphate 00:00: Phosphate 00 Famotidine 2017-0 No 20mg Famotidine 8-16 00:00: 00 Sodium 2017-0 No 50mL Sodium Chloride 8-16 Chloride 00:00: 00 Dexamethaso 2017-0 No 10mg Dexamethas ne Sodium 8-09 one Sodium Phosphate 00:00: Phosphate 00 Ondansetron 2017-0 No 16mg Ondansetro HCl 8-09 n HCl 00:00: 00 Famotidine 2017-0 No 20mg Famotidine 8-09 00:00: 00 Sodium 2017-0 No 50mL Sodium Chloride 8-09 Chloride 00:00: 00 Gabapentin 2017-0 2018- No 8-09 04-27 00:00: 10:07 00 :40 Ondansetron 2017-0 No 16mg Ondansetro HCl 8-02 n HCl 00:00: 00 Dexamethaso 2017-0 No 10mg Dexamethas ne Sodium 8-02 one Sodium Phosphate 00:00: Phosphate 00 Famotidine 2017-0 No 20mg Famotidine 8-02 00:00: 00 Sodium 2017-0 No 50mL Sodium Chloride 8-02 Chloride 00:00: 00 Dexamethaso 2017-0 No 10mg Dexamethas ne Sodium 7-26 one Sodium Phosphate 00:00: Phosphate 00 Famotidine 2017-0 No 20mg Famotidine 7-26 00:00: 00 Ondansetron 2017-0 No 16mg Ondansetro HCl 7-26 n HCl 00:00: 00 Sodium 2017-0 No 50mL Sodium Chloride 7-26 Chloride 00:00: 00 Dexamethaso 2017-0 No 10mg Dexamethas ne Sodium 7-19 one Sodium Phosphate 00:00: Phosphate 00 Ondansetron 2017-0 No 16mg Ondansetro HCl 7-19 n HCl 00:00: 00 Famotidine 2017-0 No 20mg Famotidine 7-19 00:00: 00 Sodium 2017-0 No 60mL Sodium Chloride 7-19 Chloride 00:00: 00 Dexamethaso 2017-0 No 10mg Dexamethas ne Sodium 7-12 one Sodium Phosphate 00:00: Phosphate 00 Ondansetron 2017-0 No 16mg Ondansetro HCl 7-12 n HCl 00:00: 00 Famotidine 2017-0 No 20mg Famotidine 7-12 00:00: 00 Sodium 2017-0 No 60mL Sodium Chloride 7-12 Chloride 00:00: 00 Ondansetron 2017-0 No 16mg Ondansetro HCl 7-05 n HCl 00:00: 00 Dexamethaso 2017-0 No 10mg Dexamethas ne Sodium 7-05 one Sodium Phosphate 00:00: Phosphate 00 Famotidine 2017-0 No 20mg Famotidine 7-05 00:00: 00 Sodium 2017-0 No 60mL Sodium Chloride 7-05 Chloride 00:00: 00 Ondansetron 2017-0 No 16mg Ondansetro HCl 6-28 n HCl 00:00: 00 Dexamethaso 2017-0 No 10mg Dexamethas ne Sodium 6-28 one Sodium Phosphate 00:00: Phosphate 00 Famotidine 2017-0 No 20mg Famotidine 6-28 00:00: 00 Sodium 2017-0 No 60mL Sodium Chloride 6-28 Chloride 00:00: 00 Dexamethaso 2017-0 No 10mg Dexamethas ne Sodium 6-21 one Sodium Phosphate 00:00: Phosphate 00 Sodium 2017-0 2020- No 60mL Sodium Chloride 6-21 07-31 Chloride 00:00: 00:00 00 :00 Ondansetron 2017-0 2020- No 16mg Ondansetro HCl 02-06 02-06 n HCl 00:00: 00:00 00 :00 DiphenhydrA 2016-0 2017- No 50mg MINE HCl 02-06 00:00: 00:00 00 :00 Famotidine 2017-0 2017- No 20mg Famotidine 02-06 00:00: 00:00 00 :00 Paclitaxel 2017-0 2017- No 90mg 02-06 00:00: 00:00 00 :00 Palonosetro 2017-0 No .25mg Palonosetr n HCl 5-31 on HCl 00:00: 00 Dexamethaso 2017-0 No 10mg Dexamethas ne Sodium 5-31 one Sodium Phosphate 00:00: Phosphate 00 DOXOrubicin 2016-0 No 90mg DOXOrubici HCl 5-31 n HCl 00:00: 00 Dexamethaso 2017-0 2018- No ne 5-31 04-27 00:00: 10:07 00 :40 Palonosetro 2017-0 No .25mg Palonosetr n HCl 5-10 on HCl 00:00: 00 Dexamethaso 2017-0 No 10mg Dexamethas ne Sodium 5-10 one Sodium Phosphate 00:00: Phosphate 00 DOXOrubicin 2017-0 No 99mg DOXOrubici HCl 5-10 n HCl 00:00: 00 Palonosetro 2017-0 No .25mg Palonosetr n HCl 4-19 on HCl 00:00: 00 Dexamethaso 2017-0 No 10mg Dexamethas ne Sodium 4-19 one Sodium Phosphate 00:00: Phosphate 00 DOXOrubicin 2017-0 No 100mg DOXOrubici HCl 4-19 n HCl 00:00: 00 Dexamethaso 2017-0 No 8mg Dexamethas ne Sodium 4-05 one Sodium Phosphate 00:00: Phosphate 00 Hydration 2017-0 2020- No 1000mL 1000mL NS 4-05 07-07 00:00: 00:00 00 :00 Levaquin 2017-0 2017- No 500mg 4-05 05-29 00:00: 00:00 00 :00 Dexamethaso 2017-0 2020- No 10mg Dexamethas ne Sodium 3-29 07-31 one Sodium Phosphate 00:00: 00:00 Phosphate 00 :00 Cytoxan 2017-0 2017- No 560mg 11-14 00:00: 00:00 00 :00 DOXOrubicin 2017- No 107mg DOXOrubici HCl 11-14 n HCl 00:00: 00:00 00 :00 Emend IV 2016- No 150mg 11-14 00:00: 00:00 00 :00 Hydration 2016- No 500mL 500mL NS 11-14 00:00: 00:00 00 :00 Palonosetro 2017- No .25mg Palonosetr n HCl 11-14 on HCl 00:00: 00:00 00 :00 Pegfilgrast 2016- No 6mg in On-Body 11-14 Injector 00:00: 00:00 Kit 00 :00 Promethazin Yes 1 e HCl 11-06 00:00: 00 Zofran 2018- No 1 11-06 00:00: 10:07 00 :40 Aleve Yes 1 Glimepiride Yes 1 Glucotrol Yes 1 Problems Condition Condition Condition Status Onset Resolution Last Treatin g Comments Name Details Category Date Date Treatment Clinician Date Vertigo Vertigo Diagnosis active 02-22 00:00: 00 Dysuria Dysuria Diagnosis active 02-22 00:00: 00 Vertigo Vertigo Diagnosis active 12-24 00:00: 00 Headache Headache Diagnosis active 12-24 00:00: 00 Flushing Flushing Diagnosis active 03-31 00:00: 00 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 00:00: 00 Osteopenia Osteopenia Diagnosis active 03-19 00:00: 00 Drug Drug Diagnosis active therapy therapy 12-13 finding finding 00:00: 00 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 00:00: 00 Dehydration Dehydration Diagnosis active 11-21 00:00: 00 Nausea Nausea Diagnosis active 11-21 00:00: 00 Chemotherap Chemotherap 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 00:00: 00 Patient Patient Diagnosis active encounter encounter 3-29 status status 00:00: 00 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 Procedures Procedure Date / Time Performed Performing Clinician Abad poole mastectomy 2017-05-07 00:00:00 Right Lumpectomy Gallbladder surgery Results Test Description Test Time Test Comments Text Results Atomic Results Result Comments WBC 2020-06-28 10:00:00 Test Item Value Reference Range Comments WBC (test code = WBC) 3.4000 4.0000-10.0000 Lymphocytes % (test code = Lymphocytes %) 24.4000 % 22.400 0-43.6000 MID% (test code = MID%) 6.9000 % 1.2000-11.2000 Neutrophils % (test code = Neutrophils %) 68.7000 % 48.900 0-69.9000 Lymphocytes (test code = Lymphocytes) 0.8000 1.2000-3.2 000 MID (test code = MID) 0.3000 0.1000-1.1000 Neutrophils (test code = Neutrophils) 2.3000 1.5000-6.7 000 RBC (test code = RBC) 4.2200 3.7000-4.9000 HGB (test code = HGB) 13.2000 g/dL 11.2000-18.0000 HCT (test code = HCT) 38.0000 % 34.0000-44.0000 MCV (test code = MCV) 90.1000 fL 80.0000-94.0000 MCH (test code = MCH) 31.3000 pg 27.0000-34.0000 MCHC (test code = MCHC) 34.7000 g/dL 31.5000-36.0000 RDW (test code = RDW) 19.1000 11.0000-18.0000 PLT (test code = PLT) 150.0000 140.0000-440.0000 MPV (test code = MPV) 7.2000 fL 6.8000-10.6000 [id number] 10:00:00 Test Item Value Reference Range Comments Creatinine (test code = Creatinine) 0.5000 mg/dL 0.5000-1.200 0 Cr Clearance (Est) (test code = Cr 143.7000 75.0000-115.0 000 Clearance (Est)) Glucose (test code = Glucose) 176.0000 mg/dL 70.0000-118.0000 BUN (test code = BUN) 12.0000 mg/dL 7.0000-22.0000 Sodium (test code = Sodium) 139.0000 mmol/L 128.0000-145.0000 Potassium (test code = Potassium) 3.6000 mmol/L 3.6000-5.1000 Chloride (test code = Chloride) 102.0000 mmol/L 96.0000-108.0000 CO2 (test code = CO2) 32.0000 mmol/L 18.0000-33.0000 Calcium (test code = Calcium) 8.7500 mg/dL 8.0000-10.3000 Alkaline Phosphatase (test code = Alkaline 43.0000 42.00 00-141.0000 Phosphatase) ALT (SGPT) (test code = ALT (SGPT)) 19.0000 10.0000-47.0 000 AST (SGOT) (test code = AST (SGOT)) 27.0000 11.0000-37.0 000 Bilirubin, Total (test code = Bilirubin, 1.1000 mg/dL 0.0000- 1.6000 Total) Albumin (test code = Albumin) 4.2000 g/dL 3.5000-5.5000 Protein, Total (test code = Protein, 6.9000 g/dL 6.4000-8.10 00 Total) eGFR -Macedonian (test code = eGFR 149.0000 60.0000- 200.0000 -Macedonian) eGFR Xmb-Nhymhec-Tbcwyyze (test code = 123.0000 60.0000-2 00.0000 eGFR Hyr-Guqlqwh-Yoeeuvfq) [id number] 14:32:00 Test Item Value Reference Range Comments WBC (test code = WBC) 4.0000 4.0000-10.0000 Lymphocytes % (test code = Lymphocytes %) 25.3000 % 22.400 0-43.6000 MID% (test code = MID%) 6.9000 % 1.2000-11.2000 Neutrophils % (test code = Neutrophils %) 67.8000 % 48.900 0-69.9000 Lymphocytes (test code = Lymphocytes) 1.0000 1.2000-3.2 000 MID (test code = MID) 0.3000 0.1000-1.1000 Neutrophils (test code = Neutrophils) 2.7000 1.5000-6.7 000 RBC (test code = RBC) 4.3000 3.7000-4.9000 HGB (test code = HGB) 12.6000 g/dL 11.2000-18.0000 HCT (test code = HCT) 37.0000 % 34.0000-44.0000 MCV (test code = MCV) 85.9000 fL 80.0000-94.0000 MCH (test code = MCH) 29.3000 pg 27.0000-34.0000 MCHC (test code = MCHC) 34.1000 g/dL 31.5000-36.0000 RDW (test code = RDW) 17.7000 11.0000-18.0000 PLT (test code = PLT) 181.0000 140.0000-440.0000 MPV (test code = MPV) 8.6000 fL 6.8000-10.6000 [id number] 14:32:00 Test Item Value Reference Range Comments Creatinine (test code = Creatinine) 0.5000 mg/dL 0.5000-1.200 0 Cr Clearance (Est) (test code = Cr 141.6700 75.0000-115.0 000 Clearance (Est)) Glucose (test code = Glucose) 172.0000 mg/dL 70.0000-118.0000 BUN (test code = BUN) 14.0000 mg/dL 7.0000-22.0000 Sodium (test code = Sodium) 138.0000 mmol/L 128.0000-145.0000 Potassium (test code = Potassium) 3.7000 mmol/L 3.6000-5.1000 Chloride (test code = Chloride) 104.0000 mmol/L 96.0000-108.0000 CO2 (test code = CO2) 32.0000 mmol/L 18.0000-33.0000 Calcium (test code = Calcium) 8.5000 mg/dL 8.0000-10.3000 Alkaline Phosphatase (test code = Alkaline 43.0000 42.00 00-141.0000 Phosphatase) ALT (SGPT) (test code = ALT (SGPT)) 17.0000 10.0000-47.0 000 AST (SGOT) (test code = AST (SGOT)) 25.0000 11.0000-37.0 000 Bilirubin, Total (test code = Bilirubin, 0.8000 mg/dL 0.0000- 1.6000 Total) Albumin (test code = Albumin) 4.0000 g/dL 3.5000-5.5000 Protein, Total (test code = Protein, 6.3000 g/dL 6.4000-8.10 00 Total) eGFR -Macedonian (test code = eGFR 149.0000 60.0000- 200.0000 -Macedonian) eGFR Vqk-Jpwuhux-Rfujqrqg (test code = 123.0000 60.0000-2 00.0000 eGFR Owt-Ftupfaw-Auwbrcmt) [id number] 15:10:00 Test Item Value Reference Range Comments Creatinine (test code = Creatinine) 0.5100 mg/dL 0.5700-1.000 0 Cr Clearance (Est) (test code = Cr 134.1400 75.0000-115.0 000 Clearance (Est)) Glucose (test code = Glucose) 102.0000 mg/dL 65.0000-99.0000 BUN (test code = BUN) 10.0000 mg/dL 8.0000-27.0000 eGFR Ltu-Lhjmwsr-Wccwiluc (test code = 100.0000 eGFR Mej-Bmyilma-Nmsxgbnu) eGFR -Macedonian (test code = eGFR 115.0000 -Macedonian) BUN/Creat Ratio (test code = BUN/Creat 20.0000 12.0000-2 8.0000 Ratio) Sodium (test code = Sodium) 141.0000 mmol/L 134.0000-144.0000 Potassium (test code = Potassium) 3.5000 mmol/L 3.5000-5.2000 Chloride (test code = Chloride) 103.0000 mmol/L 96.0000-106.0000 CO2 (test code = CO2) 25.0000 mmol/L 20.0000-29.0000 Calcium (test code = Calcium) 8.6000 mg/dL 8.7000-10.3000 Protein, Total (test code = Protein, 6.7000 g/dL 6.0000-8.50 00 Total) Albumin (test code = Albumin) 3.8000 g/dL 3.8000-4.8000 Globulin (test code = Globulin) 2.9000 g/dL 1.5000-4.5000 A/G Ratio (test code = A/G Ratio) 1.3000 1.2000-2.2000 Bilirubin, Total (test code = Bilirubin, 0.6000 mg/dL 0.0000- 1.2000 Total) Alkaline Phosphatase (test code = Alkaline 43.0000 39.00 00-117.0000 Phosphatase) AST (SGOT) (test code = AST (SGOT)) 27.0000 0.0000-40.00 00 ALT (SGPT) (test code = ALT (SGPT)) 22.0000 0.0000-32.00 00 Hemoglobin [id number] 15:10:00 Test Item Value Reference Range Comments Hemoglobin A1C (test code = Hemoglobin A1C) 8.3000 % 4.80 00-5.6000 [id number] 13:30:00 Test Item Value Reference Range Comments WBC (test code = WBC) 3.5000 4.0000-10.0000 Lymphocytes % (test code = Lymphocytes %) 28.1000 % 22.400 0-43.6000 MID% (test code = MID%) 7.0000 % - Neutrophils % (test code = Neutrophils %) 64.9000 % 48.900 0-69.9000 Lymphocytes (test code = Lymphocytes) 0.9000 1.2000-3.2 000 MID (test code = MID) 0.4000 0.1000-1.1000 Neutrophils (test code = Neutrophils) 2.2000 1.5000-6.7 000 RBC (test code = RBC) 4.5700 3.7000-4.9000 HGB (test code = HGB) 13.0000 g/dL 11.1999-18.0000 HCT (test code = HCT) 38.4000 % 34.0000-44.0000 MCV (test code = MCV) 84.1000 fL 80.0000-94.0000 MCH (test code = MCH) 28.4000 pg 27.0000-34.0000 MCHC (test code = MCHC) 33.8000 g/dL 31.5000-36.0000 RDW (test code = RDW) 16.7000 11.0000-18.0000 PLT (test code = PLT) 153.0000 140.0000-440.0000 MPV (test code = MPV) 7.7000 fL 6.8000-10.6000 [id number] 15:35:00 Test Item Value Reference Range Comments WBC (test code = WBC) 4.8000 4.0000-10.0000 Lymphocytes % (test code = Lymphocytes %) 19.5000 % 22.400 0-43.6000 MID% (test code = MID%) 5.4000 % .1999- Neutrophils % (test code = Neutrophils %) 75.1000 % 48.900 0-69.9000 Lymphocytes (test code = Lymphocytes) 0.9000 1.2000-3.2 000 MID (test code = MID) 0.3000 0.1000-1.1000 Neutrophils (test code = Neutrophils) 3.6000 1.5000-6.7 000 RBC (test code = RBC) 4.7700 3.7000-4.9000 HGB (test code = HGB) 14.0000 g/dL 11.2000-18.0000 HCT (test code = HCT) 40.1000 % 34.0000-44.0000 MCV (test code = MCV) 83.9000 fL 80.0000-94.0000 MCH (test code = MCH) 29.4000 pg 27.0000-34.0000 MCHC (test code = MCHC) 35.0000 g/dL 31.5000-36.0000 RDW (test code = RDW) 15.5000 11.0000-18.0000 PLT (test code = PLT) 169.0000 140.0000-440.0000 MPV (test code = MPV) 7.5000 fL 6.8000-10.6000 [id number] 15:35:00 Test Item Value Reference Range Comments Creatinine (test code = Creatinine) 0.6000 mg/dL 0.5000-1.200 0 Cr Clearance (Est) (test code = Cr 112.4500 75.0000-115.0 000 Clearance (Est)) Glucose (test code = Glucose) 151.0000 mg/dL 70.0000-118.0000 BUN (test code = BUN) 12.0000 mg/dL 7.0000-22.0000 Sodium (test code = Sodium) 136.0000 mmol/L 128.0000-145.0000 Potassium (test code = Potassium) 3.8000 mmol/L 3.6000-5.1000 Chloride (test code = Chloride) 102.0000 mmol/L 96.0000-108.0000 CO2 (test code = CO2) 29.0000 mmol/L 18.0000-33.0000 Calcium (test code = Calcium) 8.9100 mg/dL 8.0000-10.3000 Alkaline Phosphatase (test code = Alkaline 40.0000 42.00 00-141.0000 Phosphatase) ALT (SGPT) (test code = ALT (SGPT)) 31.0000 10.0000-47.0 000 AST (SGOT) (test code = AST (SGOT)) 44.0000 11.0000-37.0 000 Bilirubin, Total (test code = Bilirubin, 0.7000 mg/dL 0.0000- 1.6000 Total) Albumin (test code = Albumin) 3.9000 g/dL 3.5000-5.5000 Protein, Total (test code = Protein, 6.6000 g/dL 6.4000-8.10 00 Total) eGFR -Macedonian (test code = eGFR 121.0000 60.0000- 200.0000 -Macedonian) eGFR Tuf-Nvwlafd-Uiaggmyu (test code = 100.0000 60.0000-2 00.0000 eGFR Ahi-Khmpnql-Qualsusb) [id number] 15:35:00 Test Item Value Reference Range Comments Chloride (test code = Chloride) 102.0000 mmol/L 96.0000-108.0000 CO2 (test code = CO2) 29.0000 mmol/L 18.0000-33.0000 Calcium (test code = Calcium) 8.9100 mg/dL 8.0000-10.3000 Alkaline Phosphatase (test code = Alkaline 40.0000 42.00 00-141.0000 Phosphatase) ALT (SGPT) (test code = ALT (SGPT)) 31.0000 10.0000-47.0 000 AST (SGOT) (test code = AST (SGOT)) 44.0000 11.0000-37.0 000 Bilirubin, Total (test code = Bilirubin, 0.7000 mg/dL 0.0000- 1.6000 Total) Albumin (test code = Albumin) 3.9000 g/dL 3.5000-5.5000 Protein, Total (test code = Protein, 6.6000 g/dL 6.4000-8.10 00 Total) eGFR -Macedonian (test code = eGFR 121.0000 60.0000- 200.0000 -Macedonian) eGFR Vhw-Agwcxcc-Bzdwqxqp (test code = 100.0000 60.0000-2 00.0000 eGFR Fyx-Rrrbjde-Sfweimso) Creatinine (test code = Creatinine) 0.6000 mg/dL 0.5000-1.200 0 Cr Clearance (Est) (test code = Cr 112.4500 75.0000-115.0 000 Clearance (Est)) Glucose (test code = Glucose) 151.0000 mg/dL 70.0000-118.0000 BUN (test code = BUN) 12.0000 mg/dL 7.0000-22.0000 Sodium (test code = Sodium) 136.0000 mmol/L 128.0000-145.0000 Potassium (test code = Potassium) 3.8000 mmol/L 3.6000-5.1000 [id number] 12:58:00 Test Item Value Reference Range Comments WBC (test code = WBC) 1.5000 4.0000-10.0000 Lymphocytes % (test code = Lymphocytes %) 48.2000 % 22.400 0-43.6000 MID% (test code = MID%) 6.4000 % 1.2000-11.2000 Neutrophils % (test code = Neutrophils %) 45.4000 % 48.900 0-69.9000 Lymphocytes (test code = Lymphocytes) 0.7000 1.2000-3.2 000 MID (test code = MID) 0.2000 0.1000-1.1000 Neutrophils (test code = Neutrophils) 0.6000 1.5000-6.7 000 RBC (test code = RBC) 4.3500 3.7000-4.9000 HGB (test code = HGB) 12.9000 g/dL 11.2000-18.0000 HCT (test code = HCT) 37.2000 % 34.0000-44.0000 MCV (test code = MCV) 85.5000 fL 80.0000-94.0000 MCH (test code = MCH) 29.6000 pg 27.0000-34.0000 MCHC (test code = MCHC) 34.6000 g/dL 31.5000-36.0000 RDW (test code = RDW) 15.9000 11.0000-18.0000 PLT (test code = PLT) 142.0000 140.0000-440.0000 MPV (test code = MPV) 8.2000 fL 6.8000-10.6000 [id number] 13:35:00 Test Item Value Reference Range Comments Creatinine (test code = Creatinine) 0.4000 mg/dL 0.5000-1.200 0 Cr Clearance (Est) (test code = Cr 165.8400 75.0000-115.0 000 Clearance (Est)) Glucose (test code = Glucose) 351.0000 mg/dL 70.0000-118.0000 BUN (test code = BUN) 11.0000 mg/dL 7.0000-22.0000 Sodium (test code = Sodium) 132.0000 mmol/L 128.0000-145.0000 Potassium (test code = Potassium) 3.7000 mmol/L 3.6000-5.1000 Chloride (test code = Chloride) 99.0000 mmol/L 96.0000-108.0000 CO2 (test code = CO2) 30.0000 mmol/L 18.0000-33.0000 Calcium (test code = Calcium) 8.5300 mg/dL 8.0000-10.3000 Alkaline Phosphatase (test code = Alkaline 43.0000 42.00 00-141.0000 Phosphatase) ALT (SGPT) (test code = ALT (SGPT)) 64.0000 10.0000-47.0 000 AST (SGOT) (test code = AST (SGOT)) 57.0000 11.0000-37.0 000 Bilirubin, Total (test code = Bilirubin, 0.6000 mg/dL 0.0000- 1.6000 Total) Albumin (test code = Albumin) 3.9000 g/dL 3.5000-5.5000 Protein, Total (test code = Protein, 6.4000 g/dL 6.4000-8.10 00 Total) eGFR -Macedonian (test code = eGFR 193.0000 60.0000- 200.0000 -Macedonian) eGFR Agi-Pkqyubd-Skuyyvvv (test code = 160.0000 60.0000-2 00.0000 eGFR Bun-Xqzsnvn-Xxldefhj) [id number] 13:34:00 Test Item Value Reference Range Comments WBC (test code = WBC) 3.2000 4.0000-10.0000 Lymphocytes % (test code = Lymphocytes %) 28.2000 % 22.400 0-43.6000 MID% (test code = MID%) 6.5000 % 1.2000-11.2000 Neutrophils % (test code = Neutrophils %) 65.3000 % 48.900 0-69.9000 Lymphocytes (test code = Lymphocytes) 0.9000 1.2000-3.2 000 MID (test code = MID) 0.2000 0.1000-1.1000 Neutrophils (test code = Neutrophils) 2.1000 1.5000-6.7 000 RBC (test code = RBC) 4.7600 3.7000-4.9000 HGB (test code = HGB) 13.7000 g/dL 11.2000-18.0000 HCT (test code = HCT) 40.9000 % 34.0000-44.0000 MCV (test code = MCV) 85.9000 fL 80.0000-94.0000 MCH (test code = MCH) 28.7000 pg 27.0000-34.0000 MCHC (test code = MCHC) 33.4000 g/dL 31.5000-36.0000 RDW (test code = RDW) 15.5000 11.0000-18.0000 PLT (test code = PLT) 165.0000 140.0000-440.0000 MPV (test code = MPV) 9.0000 fL 6.8000-10.6000 [id number] 13:34:00 Test Item Value Reference Range Comments WBC (test code = WBC) 2.9000 4.0000-10.0000 Lymphocytes % (test code = Lymphocytes %) 29.0000 % 22.400 0-43.6000 MID% (test code = MID%) 7.0000 % 1.2000-11.1999 Neutrophils % (test code = Neutrophils %) 64.0000 % 48.900 0-69.9000 Lymphocytes (test code = Lymphocytes) 0.8000 1.2000-3.2 000 MID (test code = MID) 0.3000 0.1000-1.1000 Neutrophils (test code = Neutrophils) 1.8000 1.5000-6.7 000 RBC (test code = RBC) 4.6700 3.7000-4.9000 HGB (test code = HGB) 13.6000 g/dL 11.2000-18.0000 HCT (test code = HCT) 39.4000 % 34.0000-44.0000 MCV (test code = MCV) 84.2000 fL 80.0000-94.0000 MCH (test code = MCH) 29.2000 pg 27.0000-34.0000 MCHC (test code = MCHC) 34.7000 g/dL 31.5000-36.0000 RDW (test code = RDW) 15.4000 11.0000-18.0000 PLT (test code = PLT) 154.0000 140.0000-440.0000 MPV (test code = MPV) 9.0000 fL 6.8000-10.6000 [id number] 13:34:00 Test Item Value Reference Range Comments Creatinine (test code = Creatinine) 0.4000 mg/dL 0.5000-1.200 0 Cr Clearance (Est) (test code = Cr 168.0200 75.0000-115.0 000 Clearance (Est)) Glucose (test code = Glucose) 258.0000 mg/dL 70.0000-118.0000 BUN (test code = BUN) 13.0000 mg/dL 7.0000-22.0000 Sodium (test code = Sodium) 134.0000 mmol/L 128.0000-145.0000 Potassium (test code = Potassium) 4.1000 mmol/L 3.6000-5.1000 Chloride (test code = Chloride) 104.0000 mmol/L 96.0000-108.0000 CO2 (test code = CO2) 29.0000 mmol/L 18.0000-33.0000 Calcium (test code = Calcium) 9.4000 mg/dL 8.0000-10.3000 Alkaline Phosphatase (test code = Alkaline 40.0000 42.00 00-141.0000 Phosphatase) ALT (SGPT) (test code = ALT (SGPT)) 52.0000 10.0000-47.0 000 AST (SGOT) (test code = AST (SGOT)) 63.0000 11.0000-37.0 000 Bilirubin, Total (test code = Bilirubin, 0.7000 mg/dL 0.0000- 1.6000 Total) Albumin (test code = Albumin) 3.2000 g/dL 3.5000-5.5000 Protein, Total (test code = Protein, 6.4000 g/dL 6.4000-8.10 00 Total) eGFR -Macedonian (test code = eGFR 193.0000 60.0000- 200.0000 -Macedonian) eGFR Unr-Gifhtfp-Mqpsfaxa (test code = 160.0000 60.0000-2 00.0000 eGFR Had-Dikkziz-Xayjvazt) [id number] 12:51:00 Test Item Value Reference Range Comments WBC (test code = WBC) 4.3000 4.0000-10.0000 Lymphocytes % (test code = Lymphocytes %) 20.4000 % 22.400 0-43.6000 MID% (test code = MID%) 5.2000 % 1.2000-11.2000 Neutrophils % (test code = Neutrophils %) 74.4000 % 48.900 0-69.9000 Lymphocytes (test code = Lymphocytes) 0.8000 1.2000-3.2 000 MID (test code = MID) 0.3000 0.1000-1.1000 Neutrophils (test code = Neutrophils) 3.2000 1.5000-6.7 000 RBC (test code = RBC) 4.5300 3.7000-4.9000 HGB (test code = HGB) 13.2000 g/dL 11.2000-18.0000 HCT (test code = HCT) 38.7000 % 34.0000-44.0000 MCV (test code = MCV) 85.4000 fL 80.0000-94.0000 MCH (test code = MCH) 29.1000 pg 27.0000-34.0000 MCHC (test code = MCHC) 34.1000 g/dL 31.5000-36.0000 RDW (test code = RDW) 15.2000 11.0000-18.0000 PLT (test code = PLT) 127.0000 140.0000-440.0000 MPV (test code = MPV) 9.4000 fL 6.8000-10.6000 [id number] 14:00:00 Test Item Value Reference Range Comments Creatinine (test code = Creatinine) 0.4000 mg/dL 0.5000-1.200 0 Cr Clearance (Est) (test code = Cr 163.8600 75.0000-115.0 000 Clearance (Est)) Glucose (test code = Glucose) 347.0000 mg/dL 70.0000-118.0000 BUN (test code = BUN) 10.0000 mg/dL 7.0000-22.0000 Sodium (test code = Sodium) 135.0000 mmol/L 128.0000-145.0000 Potassium (test code = Potassium) 3.7000 mmol/L 3.6000-5.1000 Chloride (test code = Chloride) 104.0000 mmol/L 96.0000-108.0000 CO2 (test code = CO2) 27.0000 mmol/L 18.0000-33.0000 Calcium (test code = Calcium) 8.4700 mg/dL 8.0000-10.3000 Alkaline Phosphatase (test code = Alkaline 43.0000 42.00 00-141.0000 Phosphatase) ALT (SGPT) (test code = ALT (SGPT)) 54.0000 10.0000-47.0 000 AST (SGOT) (test code = AST (SGOT)) 58.0000 11.0000-37.0 000 Bilirubin, Total (test code = Bilirubin, 0.6000 mg/dL 0.0000- 1.6000 Total) Albumin (test code = Albumin) 3.8000 g/dL 3.5000-5.5000 Protein, Total (test code = Protein, 6.0000 g/dL 6.4000-8.10 00 Total) eGFR -Macedonian (test code = eGFR 193.0000 60.0000- 200.0000 -Macedonian) eGFR Pui-Rbsjpjq-Attvjmyi (test code = 160.0000 60.0000-2 00.0000 eGFR Anv-Vwdvgoa-Iivqqvgl) [id number] 13:59:00 Test Item Value Reference Range Comments WBC (test code = WBC) 3.4000 4.0000-10.0000 Lymphocytes % (test code = Lymphocytes %) 22.4000 % 22.400 0-43.6000 MID% (test code = MID%) 5.9000 % 1.2000-11.2000 Neutrophils % (test code = Neutrophils %) 71.7000 % 48.900 0-69.9000 Lymphocytes (test code = Lymphocytes) 0.7000 1.2000-3.2 000 MID (test code = MID) 0.3000 0.1000-1.1000 Neutrophils (test code = Neutrophils) 2.4000 1.5000-6.7 000 RBC (test code = RBC) 4.8200 3.7000-4.9000 HGB (test code = HGB) 14.1000 g/dL 11.2000-18.0000 HCT (test code = HCT) 41.1000 % 34.0000-44.0000 MCV (test code = MCV) 85.1000 fL 80.0000-94.0000 MCH (test code = MCH) 29.3000 pg 27.0000-34.0000 MCHC (test code = MCHC) 34.4000 g/dL 31.5000-36.0000 RDW (test code = RDW) 15.5000 11.0000-18.0000 PLT (test code = PLT) 189.0000 140.0000-440.0000 MPV (test code = MPV) 8.0000 fL 6.8000-10.6000 U [id number] 09:45:00 Test Item Value Reference Range Comments U Color (test code = U Color) Dark yello U Urobilinogen (test code = U Urobilinogen) 0.2 U Specific [place] (test code = U Specific 1.0250 [place]) U Appearance (test code = U Appearance) Cloudy U Glucose (test code = U Glucose) 250 U Bilirubin (test code = U Bilirubin) Negative U Ketones (test code = U Ketones) Negative U Blood (test code = U Blood) Negative U pH (test code = U pH) 5.0000 5.0000-8.0000 U Protein (test code = U Protein) Negative U Nitrite (test code = U Nitrite) Negative U Leuk Esterase (test code = U Leuk Esterase) Trace [id number] 08:54:00 Test Item Value Reference Range Comments WBC (test code = WBC) 3.1000 4.0000-10.0000 Lymphocytes % (test code = Lymphocytes %) 21.1000 % 22.400 0-43.6000 MID% (test code = MID%) 4.8000 % 1.2000-11.2000 Neutrophils % (test code = Neutrophils %) 74.1000 % 48.900 0-69.9000 Lymphocytes (test code = Lymphocytes) 0.6000 1.2000-3.2 000 MID (test code = MID) 0.2000 0.1000-1.1000 Neutrophils (test code = Neutrophils) 2.3000 1.5000-6.7 000 RBC (test code = RBC) 4.7400 3.7000-4.9000 HGB (test code = HGB) 13.8000 g/dL 11.2000-18.0000 HCT (test code = HCT) 40.5000 % 34.0000-44.0000 MCV (test code = MCV) 85.2000 fL 80.0000-94.0000 MCH (test code = MCH) 29.0000 pg 27.0000-34.0000 MCHC (test code = MCHC) 34.0000 g/dL 31.5000-36.0000 RDW (test code = RDW) 16.0000 11.0000-18.0000 PLT (test code = PLT) 169.0000 140.0000-440.0000 MPV (test code = MPV) 7.8000 fL 6.8000-10.6000 [id number] 08:54:00 Test Item Value Reference Range Comments Creatinine (test code = Creatinine) 0.4000 mg/dL 0.5000-1.200 0 Cr Clearance (Est) (test code = Cr 164.4500 75.0000-115.0 000 Clearance (Est)) Glucose (test code = Glucose) 257.0000 mg/dL 70.0000-118.0000 BUN (test code = BUN) 12.0000 mg/dL 7.0000-22.0000 Sodium (test code = Sodium) 134.0000 mmol/L 128.0000-145.0000 Potassium (test code = Potassium) 3.9000 mmol/L 3.6000-5.1000 Chloride (test code = Chloride) 102.0000 mmol/L 96.0000-108.0000 CO2 (test code = CO2) 28.0000 mmol/L 18.0000-33.0000 Calcium (test code = Calcium) 8.8300 mg/dL 8.0000-10.3000 Alkaline Phosphatase (test code = Alkaline 38.0000 42.00 00-141.0000 Phosphatase) ALT (SGPT) (test code = ALT (SGPT)) 59.0000 10.0000-47.0 000 AST (SGOT) (test code = AST (SGOT)) 59.0000 11.0000-37.0 000 Bilirubin, Total (test code = Bilirubin, 0.8000 mg/dL 0.0000- 1.6000 Total) Albumin (test code = Albumin) 3.8000 g/dL 3.5000-5.5000 Protein, Total (test code = Protein, 6.0000 g/dL 6.4000-8.10 00 Total) eGFR -Macedonian (test code = eGFR 193.0000 60.0000- 200.0000 -Macedonian) eGFR Piw-Wuygtpy-Phghkjsi (test code = 160.0000 60.0000-2 00.0000 eGFR Ihf-Dmqhmim-Glsbxevi) Urine Culture [id number] 00:00:00 Test Item Value Reference Range Comments Urine Culture Status (test Final report code = Urine Culture Status) Urine Culture Result 1 (test Comment Mixed urogenital marisabel code = Urine Culture Result 10,000-25,000 colony forming 1) units per mL [id number] 15:06:00 Test Item Value Reference Range Comments Creatinine (test code = Creatinine) 0.4000 mg/dL 0.5000-1.200 0 Cr Clearance (Est) (test code = Cr 163.6600 75.0000-115.0 000 Clearance (Est)) Glucose (test code = Glucose) 410.0000 mg/dL 70.0000-118.0000 BUN (test code = BUN) 11.0000 mg/dL 7.0000-22.0000 Sodium (test code = Sodium) 131.0000 mmol/L 128.0000-145.0000 Potassium (test code = Potassium) 3.5000 mmol/L 3.6000-5.1000 Chloride (test code = Chloride) 100.0000 mmol/L 96.0000-108.0000 CO2 (test code = CO2) 31.0000 mmol/L 18.0000-33.0000 Calcium (test code = Calcium) 8.3100 mg/dL 8.0000-10.3000 Alkaline Phosphatase (test code = Alkaline 46.0000 42.00 00-141.0000 Phosphatase) ALT (SGPT) (test code = ALT (SGPT)) 51.0000 10.0000-47.0 000 AST (SGOT) (test code = AST (SGOT)) 42.0000 11.0000-37.0 000 Bilirubin, Total (test code = Bilirubin, 0.8000 mg/dL 0.0000- 1.6000 Total) Albumin (test code = Albumin) 3.7000 g/dL 3.5000-5.5000 Protein, Total (test code = Protein, 6.1000 g/dL 6.4000-8.10 00 Total) eGFR -Maced[place] (test code = eGFR 193.0000 60.0000- 200.0000 -Macedonian) eGFR Dkg-Xkpibhr-Erzaakbv (test code = 160.0000 60.0000-2 00.0000 eGFR Cdu-Pfjhyie-Ruosszow) [id number] 14:26:00 Test Item Value Reference Range Comments WBC (test code = WBC) 10.4000 4.0000-10.0000 Lymphocytes % (test code = Lymphocytes %) 9.9000 % 22.400 0-43.6000 MID% (test code = MID%) 3.4000 % 1.2000-11.2000 Neutrophils % (test code = Neutrophils %) 86.7000 % 48.900 0-69.9000 Lymphocytes (test code = Lymphocytes) 1.0000 1.2000-3.2 000 MID (test code = MID) 0.4000 0.1000-1.1000 Neutrophils (test code = Neutrophils) 9.0000 1.5000-6.7 000 RBC (test code = RBC) 4.5900 3.7000-4.9000 HGB (test code = HGB) 13.4000 g/dL 11.2000-18.0000 HCT (test code = HCT) 39.6000 % 34.0000-44.0000 MCV (test code = MCV) 86.1000 fL 80.0000-94.0000 MCH (test code = MCH) 29.3000 pg 27.0000-34.0000 MCHC (test code = MCHC) 34.0000 g/dL 31.5000-36.0000 RDW (test code = RDW) 15.3000 11.0000-18.0000 PLT (test code = PLT) 107.0000 140.0000-440.0000 MPV (test code = MPV) 8.7000 fL 6.8000-10.6000 [id number] 13:11:00 Test Item Value Reference Range Comments WBC (test code = WBC) 4.3000 4.0000-10.0000 Lymphocytes % (test code = Lymphocytes %) 22.0000 % 22.400 0-43.6000 MID% (test code = MID%) 5.8000 % 1.2000-11.2000 Neutrophils % (test code = Neutrophils %) 72.2000 % 48.900 0-69.9000 Lymphocytes (test code = Lymphocytes) 0.9000 1.2000-3.2 000 MID (test code = MID) 0.3000 0.1000-1.1000 Neutrophils (test code = Neutrophils) 3.1000 1.5000-6.7 000 RBC (test code = RBC) 4.7000 3.7000-4.9000 HGB (test code = HGB) 13.9000 g/dL 11.2000-18.0000 HCT (test code = HCT) 42.0000 % 34.0000-44.0000 MCV (test code = MCV) 89.4000 fL 80.0000-94.0000 MCH (test code = MCH) 29.6000 pg 27.0000-34.0000 MCHC (test code = MCHC) 33.2000 g/dL 31.5000-36.0000 RDW (test code = RDW) 16.0000 11.0000-18.0000 PLT (test code = PLT) 165.0000 140.0000-440.0000 MPV (test code = MPV) 8.8000 fL 6.8000-10.6000 [id number] 13:11:00 Test Item Value Reference Range Comments Creatinine (test code = Creatinine) 0.4000 mg/dL 0.5000-1.200 0 Cr Clearance (Est) (test code = Cr 165.6400 75.0000-115.0 000 Clearance (Est)) Glucose (test code = Glucose) 285.0000 mg/dL 70.0000-118.0000 BUN (test code = BUN) 10.0000 mg/dL 7.0000-22.0000 Sodium (test code = Sodium) 135.0000 mmol/L 128.0000-145.0000 Potassium (test code = Potassium) 3.3000 mmol/L 3.6000-5.1000 Chloride (test code = Chloride) 103.0000 mmol/L 96.0000-108.0000 CO2 (test code = CO2) 29.0000 mmol/L 18.0000-33.0000 Calcium (test code = Calcium) 8.9900 mg/dL 8.0000-10.3000 Alkaline Phosphatase (test code = Alkaline 42.0000 42.00 00-141.0000 Phosphatase) ALT (SGPT) (test code = ALT (SGPT)) 31.0000 10.0000-47.0 000 AST (SGOT) (test code = AST (SGOT)) 34.0000 11.0000-37.0 000 Bilirubin, Total (test code = Bilirubin, 0.6000 mg/dL 0.0000- 1.6000 Total) Albumin (test code = Albumin) 3.6000 g/dL 3.5000-5.5000 Protein, Total (test code = Protein, 5.6000 g/dL 6.4000-8.10 00 Total) eGFR -[place]aced[place] (test code = eGFR 193.0000 60.0000- 200.0000 -Maced[place]) eGFR Iib-Fizfpqt-Yofueupa (test code = 160.0000 60.0000-2 00.0000 eGFR Fls-Beuzrnp-Eoohxqxa) [id number] 14:42:00 Test Item Value Reference Range Comments WBC (test code = WBC) 3.1000 4.0000-10.0000 Lymphocytes % (test code = Lymphocytes %) 27.6000 % 22.400 0-43.6000 MID% (test code = MID%) 8.0000 % 1.2000-11.2000 Neutrophils % (test code = Neutrophils %) 64.4000 % 48.900 0-69.9000 Lymphocytes (test code = Lymphocytes) 0.8000 1.2000-3.2 000 MID (test code = MID) 0.3000 0.1000-1.1000 Neutrophils (test code = Neutrophils) 2.0000 1.5000-6.7 000 RBC (test code = RBC) 4.1200 3.7000-4.9000 HGB (test code = HGB) 12.3000 g/dL 11.2000-18.0000 HCT (test code = HCT) 36.6000 % 34.0000-44.0000 MCV (test code = MCV) 88.8000 fL 80.0000-94.0000 MCH (test code = MCH) 29.9000 pg 27.0000-34.0000 MCHC (test code = MCHC) 33.7000 g/dL 31.5000-36.0000 RDW (test code = RDW) 15.4000 11.0000-18.0000 PLT (test code = PLT) 155.0000 140.0000-440.0000 MPV (test code = MPV) 9.0000 fL 6.8000-10.6000 [id number] 14:11:00 Test Item Value Reference Range Comments WBC (test code = WBC) 2.4000 4.0000-10.0000 Lymphocytes % (test code = Lymphocytes %) 33.4000 % 22.400 0-43.6000 MID% (test code = MID%) 9.8000 % 1.2000-11.1999 Neutrophils % (test code = Neutrophils %) 56.8000 % 48.900 0-69.9000 Lymphocytes (test code = Lymphocytes) 0.8000 1.2000-3.2 000 MID (test code = MID) 0.3000 0.1000-1.1000 Neutrophils (test code = Neutrophils) 1.3000 1.5000-6.7 000 RBC (test code = RBC) 4.3700 3.7000-4.9000 HGB (test code = HGB) 13.0000 g/dL 11.2000-18.0000 HCT (test code = HCT) 38.2000 % 34.0000-44.0000 MCV (test code = MCV) 87.4000 fL 80.0000-94.0000 MCH (test code = MCH) 29.9000 pg 27.0000-34.0000 MCHC (test code = MCHC) 34.2000 g/dL 31.5000-36.0000 RDW (test code = RDW) 15.4000 11.0000-18.0000 PLT (test code = PLT) 141.0000 140.0000-440.0000 MPV (test code = MPV) 8.4000 fL 6.8000-10.6000 [id number] 13:22:00 Test Item Value Reference Range Comments WBC (test code = WBC) 1.9000 4.0000-10.0000 Lymphocytes % (test code = Lymphocytes %) 38.9000 % 22.400 0-43.6000 MID% (test code = MID%) 7.3000 % 1.1999-11.1999 Neutrophils % (test code = Neutrophils %) 53.8000 % 48.900 0-69.9000 Lymphocytes (test code = Lymphocytes) 0.7000 1.2000-3.2 000 MID (test code = MID) 0.2000 0.1000-1.1000 Neutrophils (test code = Neutrophils) 1.0000 1.5000-6.7 000 RBC (test code = RBC) 4.3000 3.7000-4.9000 HGB (test code = HGB) 12.9000 g/dL 11.2000-18.0000 HCT (test code = HCT) 38.0000 % 34.0000-44.0000 MCV (test code = MCV) 88.3000 fL 80.0000-94.0000 MCH (test code = MCH) 30.2000 pg 27.0000-34.0000 MCHC (test code = MCHC) 34.1000 g/dL 31.5000-36.0000 RDW (test code = RDW) 15.1000 11.0000-18.0000 PLT (test code = PLT) 132.0000 140.0000-440.0000 MPV (test code = MPV) 9.7000 fL 6.8000-10.6000 [id number] 14:32:00 Test Item Value Reference Range Comments Creatinine (test code = Creatinine) 0.5200 mg/dL 0.5700-1.000 0 Cr Clearance (Est) (test code = Cr 127.4200 75.0000-115.0 000 Clearance (Est)) Glucose (test code = Glucose) 350.0000 mg/dL 65.0000-99.0000 BUN (test code = BUN) 11.0000 mg/dL 8.0000-27.0000 eGFR Okc-Ohkqrcp-Rwdvhkgy (test code = 100.0000 eGFR Neq-Fkkwwjc-Wjrtclxj) eGFR -Macedonian (test code = eGFR 115.0000 -[place]aced[place]) BUN/Creat Ratio (test code = BUN/Creat 21.0000 12.0000-2 8.0000 Ratio) Sodium (test code = Sodium) 136.0000 mmol/L 134.0000-144.0000 Potassium (test code = Potassium) 3.6000 mmol/L 3.5000-5.2000 Chloride (test code = Chloride) 97.0000 mmol/L 96.0000-106.0000 CO2 (test code = CO2) 25.0000 mmol/L 20.0000-29.0000 Calcium (test code = Calcium) 9.3000 mg/dL 8.7000-10.3000 Protein, Total (test code = Protein, 6.0000 g/dL 6.0000-8.50 00 Total) Albumin (test code = Albumin) 3.6000 g/dL 3.8000-4.8000 Globulin (test code = Globulin) 2.4000 g/dL 1.5000-4.5000 A/G Ratio (test code = A/G Ratio) 1.5000 1.2000-2.2000 Bilirubin, Total (test code = Bilirubin, 0.6000 mg/dL 0.0000- 1.2000 Total) Alkaline Phosphatase (test code = Alkaline 42.0000 39.00 00-117.0000 Phosphatase) AST (SGOT) (test code = AST (SGOT)) 43.0000 0.0000-40.00 00 ALT (SGPT) (test code = ALT (SGPT)) 50.0000 0.0000-32.00 00 Cholesterol, Total (test code = 93.0000 mg/dL 100.0000-199.000 0 Cholesterol, Total) Triglycerides (test code = Triglycerides) 127.0000 mg/dL 0.0000 -149.0000 HDL Cholesterol (test code = HDL 42.0000 mg/dL Cholesterol) VLDL Cholesterol (test code = VLDL 25.0000 mg/dL 5.0000-40.000 0 Cholesterol) LDL Cholesterol (test code = LDL 26.0000 mg/dL 0.0000-99.0000 Cholesterol) U Creatinine (test code = U Creatinine) 82.6000 mg/dL U Microalbumin (test code = U 5.3000 Microalbumin) TSH (test code = TSH) 2.5000 0.4500-4.5000 Hemoglobin [id number] 14:32:00 Test Item Value Reference Range Comments Hemoglobin A1C (test code = Hemoglobin A1C) 11.5000 % 4.80 00-5.6000 [id number] 13:34:00 Test Item Value Reference Range Comments WBC (test code = WBC) 2.2000 4.0000-10.0000 Lymphocytes % (test code = Lymphocytes %) 25.7000 % 22.400 0-43.6000 MID% (test code = MID%) 5.1000 % 1.2000-11.1999 Neutrophils % (test code = Neutrophils %) 69.2000 % 48.900 0-69.9000 Lymphocytes (test code = Lymphocytes) 0.5000 1.2000-3.2 000 MID (test code = MID) 0.2000 0.1000-1.1000 Neutrophils (test code = Neutrophils) 1.5000 1.5000-6.7 000 RBC (test code = RBC) 4.5900 3.7000-4.9000 HGB (test code = HGB) 13.5000 g/dL 11.2000-18.0000 HCT (test code = HCT) 40.4000 % 34.0000-44.0000 MCV (test code = MCV) 88.0000 fL 80.0000-94.0000 MCH (test code = MCH) 29.4000 pg 27.0000-34.0000 MCHC (test code = MCHC) 33.4000 g/dL 31.5000-36.0000 RDW (test code = RDW) 15.1000 11.0000-18.0000 PLT (test code = PLT) 113.0000 140.0000-440.0000 MPV (test code = MPV) 8.3000 fL 6.8000-10.6000 [id number] 12:55:00 Test Item Value Reference Range Comments WBC (test code = WBC) 3.9000 4.0000-10.0000 Lymphocytes % (test code = Lymphocytes %) 19.9000 % 22.400 0-43.6000 MID% (test code = MID%) 4.2000 % 1.2000-11.2000 Neutrophils % (test code = Neutrophils %) 75.9000 % 48.900 0-69.9000 Lymphocytes (test code = Lymphocytes) 0.7000 1.2000-3.2 000 MID (test code = MID) 0.2000 0.1000-1.1000 Neutrophils (test code = Neutrophils) 3.0000 1.5000-6.7 000 RBC (test code = RBC) 4.5700 3.7000-4.9000 HGB (test code = HGB) 13.8000 g/dL 11.2000-18.0000 HCT (test code = HCT) 40.6000 % 34.0000-44.0000 MCV (test code = MCV) 88.8000 fL 80.0000-94.0000 MCH (test code = MCH) 30.1000 pg 27.0000-34.0000 MCHC (test code = MCHC) 33.9000 g/dL 31.5000-36.0000 RDW (test code = RDW) 15.1000 11.0000-18.0000 PLT (test code = PLT) 123.0000 140.0000-440.0000 MPV (test code = MPV) 8.5000 fL 6.8000-10.6000 [id number] 12:55:00 Test Item Value Reference Range Comments Creatinine (test code = Creatinine) 0.3000 mg/dL 0.5000-1.200 0 Cr Clearance (Est) (test code = Cr 222.4400 75.0000-115.0 000 Clearance (Est)) Glucose (test code = Glucose) 376.0000 mg/dL 70.0000-118.0000 BUN (test code = BUN) 8.0000 mg/dL 7.0000-22.0000 Sodium (test code = Sodium) 133.0000 mmol/L 128.0000-145.0000 Potassium (test code = Potassium) 3.3000 mmol/L 3.6000-5.1000 Chloride (test code = Chloride) 101.0000 mmol/L 96.0000-108.0000 CO2 (test code = CO2) 28.0000 mmol/L 18.0000-33.0000 Calcium (test code = Calcium) 8.5000 mg/dL 8.0000-10.3000 Alkaline Phosphatase (test code = Alkaline 43.0000 42.00 00-141.0000 Phosphatase) ALT (SGPT) (test code = ALT (SGPT)) 51.0000 10.0000-47.0 000 AST (SGOT) (test code = AST (SGOT)) 50.0000 11.0000-37.0 000 Bilirubin, Total (test code = Bilirubin, 0.9000 mg/dL 0.0000- 1.6000 Total) Albumin (test code = Albumin) 3.7000 g/dL 3.5000-5.5000 Protein, Total (test code = Protein, 5.8000 g/dL 6.4000-8.10 00 Total) eGFR -Macedonian (test code = eGFR 269.0000 60.0000- 200.0000 -Macedonian) eGFR Awb-Spfbbuy-Ulcxrvlb (test code = 223.0000 60.0000-2 00.0000 eGFR Bsx-Vxcnyzv-Cbymygqk) [id number] 13:22:00 Test Item Value Reference Range Comments WBC (test code = WBC) 3.3000 4.0000-10.0000 Lymphocytes % (test code = Lymphocytes %) 26.9000 % 22.400 0-43.6000 MID% (test code = MID%) 7.0000 % 1.2000-11.1999 Neutrophils % (test code = Neutrophils %) 66.1000 % 48.900 0-69.9000 Lymphocytes (test code = Lymphocytes) 0.8000 1.2000-3.2 000 MID (test code = MID) 0.4000 0.1000-1.1000 Neutrophils (test code = Neutrophils) 2.1000 1.5000-6.7 000 RBC (test code = RBC) 4.8900 3.7000-4.9000 HGB (test code = HGB) 14.6000 g/dL 11.2000-18.0000 HCT (test code = HCT) 43.6000 % 34.0000-44.0000 MCV (test code = MCV) 89.2000 fL 80.0000-94.0000 MCH (test code = MCH) 29.9000 pg 27.0000-34.0000 MCHC (test code = MCHC) 33.6000 g/dL 31.5000-36.0000 RDW (test code = RDW) 15.7000 11.0000-18.0000 PLT (test code = PLT) 147.0000 140.0000-440.0000 MPV (test code = MPV) 7.8000 fL 6.8000-10.6000 [id number] 13:22:00 Test Item Value Reference Range Comments Creatinine (test code = Creatinine) 0.3000 mg/dL 0.5000-1.200 0 Cr Clearance (Est) (test code = Cr 222.9700 75.0000-115.0 000 Clearance (Est)) Glucose (test code = Glucose) 302.0000 mg/dL 70.0000-118.0000 BUN (test code = BUN) 12.0000 mg/dL 7.0000-22.0000 Sodium (test code = Sodium) 134.0000 mmol/L 128.0000-145.0000 Potassium (test code = Potassium) 3.3000 mmol/L 3.6000-5.1000 Chloride (test code = Chloride) 105.0000 mmol/L 96.0000-108.0000 CO2 (test code = CO2) 27.0000 mmol/L 18.0000-33.0000 Calcium (test code = Calcium) 8.2100 mg/dL 8.0000-10.3000 Alkaline Phosphatase (test code = Alkaline 42.0000 42.00 00-141.0000 Phosphatase) ALT (SGPT) (test code = ALT (SGPT)) 33.0000 10.0000-47.0 000 AST (SGOT) (test code = AST (SGOT)) 36.0000 11.0000-37.0 000 Bilirubin, Total (test code = Bilirubin, 0.8000 mg/dL 0.0000- 1.6000 Total) Albumin (test code = Albumin) 3.7000 g/dL 3.5000-5.5000 Protein, Total (test code = Protein, 5.7000 g/dL 6.4000-8.10 00 Total) eGFR -Macedonian (test code = eGFR 269.0000 60.0000- 200.0000 -Macedonian) eGFR Zex-Qwilfdq-Pqzujaqg (test code = 223.0000 60.0000-2 00.0000 eGFR Sbc-Ksjfwob-Ydlqcmfy) [id number] 14:47:00 Test Item Value Reference Range Comments WBC (test code = WBC) 3.6000 4.0000-10.0000 Lymphocytes % (test code = Lymphocytes %) 25.7000 % 22.400 0-43.6000 MID% (test code = MID%) 5.6000 % 1.2000-11.2000 Neutrophils % (test code = Neutrophils %) 68.7000 % 48.900 0-69.9000 Lymphocytes (test code = Lymphocytes) 0.9000 1.2000-3.2 000 MID (test code = MID) 0.2000 0.1000-1.1000 Neutrophils (test code = Neutrophils) 2.5000 1.5000-6.7 000 RBC (test code = RBC) 4.7400 3.7000-4.9000 HGB (test code = HGB) 14.1000 g/dL 11.2000-18.0000 HCT (test code = HCT) 42.3000 % 34.0000-44.0000 MCV (test code = MCV) 89.1000 fL 80.0000-94.0000 MCH (test code = MCH) 29.7000 pg 27.0000-34.0000 MCHC (test code = MCHC) 33.4000 g/dL 31.5000-36.0000 RDW (test code = RDW) 15.4000 11.0000-18.0000 PLT (test code = PLT) 134.0000 140.0000-440.0000 MPV (test code = MPV) 8.4000 fL 6.8000-10.6000 [id number] 14:56:00 Test Item Value Reference Range Comments WBC (test code = WBC) 2.3000 4.0000-10.0000 Lymphocytes % (test code = Lymphocytes %) 33.6000 % 22.400 0-43.6000 MID% (test code = MID%) 8.7000 % 1.2000-11.2000 Neutrophils % (test code = Neutrophils %) 57.7000 % 48.900 0-69.9000 Lymphocytes (test code = Lymphocytes) 0.7000 1.2000-3.2 000 MID (test code = MID) 0.3000 0.1000-1.1000 Neutrophils (test code = Neutrophils) 1.3000 1.5000-6.7 000 RBC (test code = RBC) 4.2500 3.7000-4.9000 HGB (test code = HGB) 13.2000 g/dL 11.2000-18.0000 HCT (test code = HCT) 37.8000 % 34.0000-44.0000 MCV (test code = MCV) 88.8000 fL 80.0000-94.0000 MCH (test code = MCH) 31.0000 pg 27.0000-34.0000 MCHC (test code = MCHC) 34.9000 g/dL 31.5000-36.0000 RDW (test code = RDW) 15.1000 11.0000-18.0000 PLT (test code = PLT) 127.0000 140.0000-440.0000 MPV (test code = MPV) 8.6000 fL 6.8000-10.6000 [id number] 13:25:00 Test Item Value Reference Range Comments Creatinine (test code = Creatinine) 0.4000 mg/dL 0.5000-1.200 0 Cr Clearance (Est) (test code = Cr 167.1300 75.0000-115.0 000 Clearance (Est)) Glucose (test code = Glucose) 366.0000 mg/dL 70.0000-118.0000 BUN (test code = BUN) 7.0000 mg/dL 7.0000-22.0000 Sodium (test code = Sodium) 131.0000 mmol/L 128.0000-145.0000 Potassium (test code = Potassium) 3.4000 mmol/L 3.6000-5.1000 Chloride (test code = Chloride) 98.0000 mmol/L 96.0000-108.0000 CO2 (test code = CO2) 28.0000 mmol/L 18.0000-33.0000 Calcium (test code = Calcium) 8.8800 mg/dL 8.0000-10.3000 Alkaline Phosphatase (test code = Alkaline 48.0000 42.00 00-141.0000 Phosphatase) ALT (SGPT) (test code = ALT (SGPT)) 39.0000 10.0000-47.0 000 AST (SGOT) (test code = AST (SGOT)) 45.0000 11.0000-37.0 000 Bilirubin, Total (test code = Bilirubin, 0.6000 mg/dL 0.0000- 1.6000 Total) Albumin (test code = Albumin) 3.9000 g/dL 3.5000-5.5000 Protein, Total (test code = Protein, 6.1000 g/dL 6.4000-8.10 00 Total) eGFR -[place]aced[place] (test code = eGFR 193.0000 60.0000- 200.0000 -Macedonian) eGFR Kid-Kpzapzv-Sdhtxxml (test code = 160.0000 60.0000-2 00.0000 eGFR Bks-Vkejfpn-Uaagachg) [id number] 13:24:00 Test Item Value Reference Range Comments WBC (test code = WBC) 3.2000 4.0000-10.0000 Lymphocytes % (test code = Lymphocytes %) 25.8000 % 22.400 0-43.6000 MID% (test code = MID%) 6.3000 % 1.2000-11.2000 Neutrophils % (test code = Neutrophils %) 67.9000 % 48.900 0-69.9000 Lymphocytes (test code = Lymphocytes) 0.8000 1.2000-3.2 000 MID (test code = MID) 0.2000 0.1000-1.1000 Neutrophils (test code = Neutrophils) 2.2000 1.5000-6.7 000 RBC (test code = RBC) 4.8700 3.7000-4.9000 HGB (test code = HGB) 14.1000 g/dL 11.2000-18.0000 HCT (test code = HCT) 43.0000 % 34.0000-44.0000 MCV (test code = MCV) 88.4000 fL 80.0000-94.0000 MCH (test code = MCH) 29.1000 pg 27.0000-34.0000 MCHC (test code = MCHC) 32.9000 g/dL 31.5000-36.0000 RDW (test code = RDW) 14.5000 11.0000-18.0000 PLT (test code = PLT) 137.0000 140.0000-440.0000 MPV (test code = MPV) 8.7000 fL 6.8000-10.6000 [id number] 12:54:00 Test Item Value Reference Range Comments WBC (test code = WBC) 4.6000 4.0000-10.0000 Lymphocytes % (test code = Lymphocytes %) 21.3000 % 22.400 0-43.6000 MID% (test code = MID%) 5.2000 % .1999- Neutrophils % (test code = Neutrophils %) 73.5000 % 48.900 0-69.9000 Lymphocytes (test code = Lymphocytes) 0.9000 1.2000-3.2 000 MID (test code = MID) 0.4000 0.1000-1.1000 Neutrophils (test code = Neutrophils) 3.3000 1.5000-6.7 000 RBC (test code = RBC) 5.1000 3.7000-4.9000 HGB (test code = HGB) 14.5000 g/dL 11.1999-18.0000 HCT (test code = HCT) 45.9000 % 34.0000-44.0000 MCV (test code = MCV) 89.9000 fL 80.0000-94.0000 MCH (test code = MCH) 28.4000 pg 27.0000-34.0000 MCHC (test code = MCHC) 31.5000 g/dL 31.5000-36.0000 RDW (test code = RDW) 14.4000 11.0000-18.0000 PLT (test code = PLT) 144.0000 140.0000-440.0000 MPV (test code = MPV) 9.1000 fL 6.8000-10.6000 [id number] 12:49:00 Test Item Value Reference Range Comments WBC (test code = WBC) 5.1999 4.0000-10.0000 Lymphocytes % (test code = Lymphocytes %) 19.9000 % 22.400 0-43.6000 MID% (test code = MID%) 5.1000 % .1999- Neutrophils % (test code = Neutrophils %) 75.0000 % 48.900 0-69.9000 Lymphocytes (test code = Lymphocytes) 1.0000 1.2000-3.2 000 MID (test code = MID) 0.3000 0.1000-1.1000 Neutrophils (test code = Neutrophils) 3.9000 1.5000-6.7 000 RBC (test code = RBC) 5.2100 3.7000-4.9000 HGB (test code = HGB) 14.8000 g/dL 11.2000-18.0000 HCT (test code = HCT) 46.5000 % 34.0000-44.0000 MCV (test code = MCV) 89.2000 fL 80.0000-94.0000 MCH (test code = MCH) 28.4000 pg 27.0000-34.0000 MCHC (test code = MCHC) 31.9000 g/dL 31.5000-36.0000 RDW (test code = RDW) 15.0000 11.0000-18.0000 PLT (test code = PLT) 161.0000 140.0000-440.0000 MPV (test code = MPV) 8.4000 fL 6.8000-10.6000 [id number] 12:49:00 Test Item Value Reference Range Comments Creatinine (test code = Creatinine) 0.4000 mg/dL 0.5000-1.200 0 Cr Clearance (Est) (test code = Cr 168.4100 75.0000-115.0 000 Clearance (Est)) Glucose (test code = Glucose) 408.0000 mg/dL 70.0000-118.0000 BUN (test code = BUN) 9.0000 mg/dL 7.0000-22.0000 Sodium (test code = Sodium) 133.0000 mmol/L 128.0000-145.0000 Potassium (test code = Potassium) 3.9000 mmol/L 3.6000-5.1000 Chloride (test code = Chloride) 101.0000 mmol/L 96.0000-108.0000 CO2 (test code = CO2) 28.0000 mmol/L 18.0000-33.0000 Calcium (test code = Calcium) 8.6100 mg/dL 8.0000-10.3000 Alkaline Phosphatase (test code = Alkaline 54.0000 42.00 00-141.0000 Phosphatase) ALT (SGPT) (test code = ALT (SGPT)) 50.0000 10.0000-47.0 000 AST (SGOT) (test code = AST (SGOT)) 49.0000 11.0000-37.0 000 Bilirubin, Total (test code = Bilirubin, 0.9000 mg/dL 0.0000- 1.6000 Total) Albumin (test code = Albumin) 3.8000 g/dL 3.5000-5.5000 Protein, Total (test code = Protein, 6.3000 g/dL 6.4000-8.10 00 Total) eGFR -[place]aced[place] (test code = eGFR 193.0000 60.0000- 200.0000 -Macedonian) eGFR Ags-Ztyvfdl-Hyqwctmz (test code = 160.0000 60.0000-2 00.0000 eGFR Tdw-Vwazztt-Wpjnnmog) [id number] 13:14:00 Test Item Value Reference Range Comments WBC (test code = WBC) 2.5000 4.0000-10.0000 Lymphocytes % (test code = Lymphocytes %) 26.6000 % 22.400 0-43.6000 MID% (test code = MID%) 6.6000 % 1.2000-11.2000 Neutrophils % (test code = Neutrophils %) 66.8000 % 48.900 0-69.9000 Lymphocytes (test code = Lymphocytes) 0.6000 1.2000-3.2 000 MID (test code = MID) 0.3000 0.1000-1.1000 Neutrophils (test code = Neutrophils) 1.6000 1.5000-6.7 000 RBC (test code = RBC) 5.4100 3.7000-4.9000 HGB (test code = HGB) 16.2000 g/dL 11.2000-18.0000 HCT (test code = HCT) 48.7000 % 34.0000-44.0000 MCV (test code = MCV) 90.0000 fL 80.0000-94.0000 MCH (test code = MCH) 30.0000 pg 27.0000-34.0000 MCHC (test code = MCHC) 33.3000 g/dL 31.5000-36.0000 RDW (test code = RDW) 14.7000 11.0000-18.0000 PLT (test code = PLT) 179.0000 140.0000-440.0000 MPV (test code = MPV) 9.0000 fL 6.8000-10.6000 [id number] 13:14:00 Test Item Value Reference Range Comments Creatinine (test code = Creatinine) 0.3000 mg/dL 0.5000-1.200 0 Cr Clearance (Est) (test code = Cr 221.9100 75.0000-115.0 000 Clearance (Est)) Glucose (test code = Glucose) 293.0000 mg/dL 70.0000-118.0000 BUN (test code = BUN) 9.0000 mg/dL 7.0000-22.0000 Sodium (test code = Sodium) 135.0000 mmol/L 128.0000-145.0000 Potassium (test code = Potassium) 3.6000 mmol/L 3.6000-5.1000 Chloride (test code = Chloride) 104.0000 mmol/L 96.0000-108.0000 CO2 (test code = CO2) 28.0000 mmol/L 18.0000-33.0000 Calcium (test code = Calcium) 8.6900 mg/dL 8.0000-10.3000 Alkaline Phosphatase (test code = Alkaline 54.0000 42.00 00-141.0000 Phosphatase) ALT (SGPT) (test code = ALT (SGPT)) 30.0000 10.0000-47.0 000 AST (SGOT) (test code = AST (SGOT)) 28.0000 11.0000-37.0 000 Bilirubin, Total (test code = Bilirubin, 1.0000 mg/dL 0.0000- 1.6000 Total) Albumin (test code = Albumin) 4.0000 g/dL 3.5000-5.5000 Protein, Total (test code = Protein, 6.6000 g/dL 6.4000-8.10 00 Total) eGFR -[place]aced[place] (test code = eGFR 269.0000 60.0000- 200.0000 -Maced[place]) eGFR Uzo-Kpgdhku-Tmvyrsqb (test code = 223.0000 60.0000-2 00.0000 eGFR Cbk-Kehkuyw-Yvalqsye) [id number] 13:12:00 Test Item Value Reference Range Comments WBC (test code = WBC) 4.0000 4.0000-10.0000 Lymphocytes % (test code = Lymphocytes %) 20.4000 % 22.400 0-43.6000 MID% (test code = MID%) 5.7000 % 1.2000-11.2000 Neutrophils % (test code = Neutrophils %) 73.9000 % 48.900 0-69.9000 Lymphocytes (test code = Lymphocytes) 0.8000 1.2000-3.2 000 MID (test code = MID) 0.3000 0.1000-1.1000 Neutrophils (test code = Neutrophils) 2.9000 1.5000-6.7 000 RBC (test code = RBC) 4.5200 3.7000-4.9000 HGB (test code = HGB) 13.8000 g/dL 11.2000-18.0000 HCT (test code = HCT) 41.0000 % 34.0000-44.0000 MCV (test code = MCV) 90.7000 fL 80.0000-94.0000 MCH (test code = MCH) 30.6000 pg 27.0000-34.0000 MCHC (test code = MCHC) 33.7000 g/dL 31.5000-36.0000 RDW (test code = RDW) 14.2000 11.0000-18.0000 PLT (test code = PLT) 137.0000 140.0000-440.0000 MPV (test code = MPV) 9.3000 fL 6.8000-10.6000 [id number] 13:14:00 Test Item Value Reference Range Comments WBC (test code = WBC) 3.9000 4.0000-10.0000 Lymphocytes % (test code = Lymphocytes %) 20.7000 % 22.400 0-43.6000 MID% (test code = MID%) 5.3000 % 1.2000-11.2000 Neutrophils % (test code = Neutrophils %) 74.0000 % 48.900 0-69.9000 Lymphocytes (test code = Lymphocytes) 0.8000 1.2000-3.2 000 MID (test code = MID) 0.2000 0.1000-1.1000 Neutrophils (test code = Neutrophils) 2.9000 1.5000-6.7 000 RBC (test code = RBC) 4.8400 3.7000-4.9000 HGB (test code = HGB) 14.1000 g/dL 11.2000-18.0000 HCT (test code = HCT) 43.8000 % 34.0000-44.0000 MCV (test code = MCV) 90.5000 fL 80.0000-94.0000 MCH (test code = MCH) 29.2000 pg 27.0000-34.0000 MCHC (test code = MCHC) 32.3000 g/dL 31.5000-36.0000 RDW (test code = RDW) 14.4000 11.0000-18.0000 PLT (test code = PLT) 178.0000 140.0000-440.0000 MPV (test code = MPV) 9.4000 fL 6.8000-10.6000 [id number] 12:43:00 Test Item Value Reference Range Comments WBC (test code = WBC) 5.1000 4.0000-10.0000 Lymphocytes % (test code = Lymphocytes %) 23.3000 % 22.400 0-43.6000 MID% (test code = MID%) 5.3000 % 1.2000-11.2000 Neutrophils % (test code = Neutrophils %) 71.4000 % 48.900 0-69.9000 Lymphocytes (test code = Lymphocytes) 1.1000 1.2000-3.2 000 MID (test code = MID) 0.4000 0.1000-1.1000 Neutrophils (test code = Neutrophils) 3.6000 1.5000-6.7 000 RBC (test code = RBC) 4.9400 3.7000-4.9000 HGB (test code = HGB) 15.0000 g/dL 11.2000-18.0000 HCT (test code = HCT) 44.9000 % 34.0000-44.0000 MCV (test code = MCV) 90.8000 fL 80.0000-94.0000 MCH (test code = MCH) 30.5000 pg 27.0000-34.0000 MCHC (test code = MCHC) 33.5000 g/dL 31.5000-36.0000 RDW (test code = RDW) 14.2000 11.0000-18.0000 PLT (test code = PLT) 134.0000 140.0000-440.0000 MPV (test code = MPV) 10.0000 fL 6.8000-10.6000 [id number] 12:20:00 Test Item Value Reference Range Comments Creatinine (test code = Creatinine) 0.3000 mg/dL 0.5000-1.200 0 Cr Clearance (Est) (test code = Cr 230.6300 75.0000-115.0 000 Clearance (Est)) Glucose (test code = Glucose) 349.0000 mg/dL 70.0000-118.0000 BUN (test code = BUN) 10.0000 mg/dL 7.0000-22.0000 Sodium (test code = Sodium) 133.0000 mmol/L 128.0000-145.0000 Potassium (test code = Potassium) 3.7000 mmol/L 3.6000-5.1000 Chloride (test code = Chloride) 103.0000 mmol/L 96.0000-108.0000 CO2 (test code = CO2) 25.0000 mmol/L 18.0000-33.0000 Calcium (test code = Calcium) 8.5900 mg/dL 8.0000-10.3000 Alkaline Phosphatase (test code = Alkaline 54.0000 42.00 00-141.0000 Phosphatase) ALT (SGPT) (test code = ALT (SGPT)) 43.0000 10.0000-47.0 000 AST (SGOT) (test code = AST (SGOT)) 49.0000 11.0000-37.0 000 Bilirubin, Total (test code = Bilirubin, 0.7000 mg/dL 0.0000- 1.6000 Total) Albumin (test code = Albumin) 3.8000 g/dL 3.5000-5.5000 Protein, Total (test code = Protein, 6.5000 g/dL 6.4000-8.10 00 Total) eGFR -[place]aced[place] (test code = eGFR 269.0000 60.0000- 200.0000 -Maced[place]) eGFR Pnq-Hmsdeef-Sowsvoen (test code = 223.0000 60.0000-2 00.0000 eGFR Bkp-Gvgcqvc-Dcgwozku) [id number] 12:19:00 Test Item Value Reference Range Comments WBC (test code = WBC) 4.8000 4.0000-10.0000 Lymphocytes % (test code = Lymphocytes %) 20.0000 % 22.400 0-43.6000 MID% (test code = MID%) 5.3000 % 1.2000-11.2000 Neutrophils % (test code = Neutrophils %) 74.7000 % 48.900 0-69.9000 Lymphocytes (test code = Lymphocytes) 0.9000 1.2000-3.2 000 MID (test code = MID) 0.3000 0.1000-1.1000 Neutrophils (test code = Neutrophils) 3.6000 1.5000-6.7 000 RBC (test code = RBC) 5.0400 3.7000-4.9000 HGB (test code = HGB) 15.4000 g/dL 11.2000-18.0000 HCT (test code = HCT) 45.9000 % 34.0000-44.0000 MCV (test code = MCV) 91.0000 fL 80.0000-94.0000 MCH (test code = MCH) 30.6000 pg 27.0000-34.0000 MCHC (test code = MCHC) 33.6000 g/dL 31.5000-36.0000 RDW (test code = RDW) 14.7000 11.0000-18.0000 PLT (test code = PLT) 137.0000 140.0000-440.0000 MPV (test code = MPV) 9.3000 fL 6.8000-10.6000 [id number] 12:17:00 Test Item Value Reference Range Comments WBC (test code = WBC) 12.0000 4.0000-10.0000 Lymphocytes % (test code = Lymphocytes %) 12.3000 % 22.400 0-43.6000 MID% (test code = MID%) 3.7000 % .1999-11.1999 Neutrophils % (test code = Neutrophils %) 84.0000 % 48.900 0-69.9000 Lymphocytes (test code = Lymphocytes) 1.4000 1.2000-3.2 000 MID (test code = MID) 0.5000 0.1000-1.1000 Neutrophils (test code = Neutrophils) 10.1000 1.5000-6.7 000 RBC (test code = RBC) 5.0000 3.7000-4.9000 HGB (test code = HGB) 15.2000 g/dL 11.2000-18.0000 HCT (test code = HCT) 45.9000 % 34.0000-44.0000 MCV (test code = MCV) 91.7000 fL 80.0000-94.0000 MCH (test code = MCH) 30.5000 pg 27.0000-34.0000 MCHC (test code = MCHC) 33.2000 g/dL 31.5000-36.0000 RDW (test code = RDW) 14.6000 11.0000-18.0000 PLT (test code = PLT) 125.0000 140.0000-440.0000 MPV (test code = MPV) 9.7000 fL 6.8000-10.6000 [id number] 12:13:00 Test Item Value Reference Range Comments WBC (test code = WBC) 3.2000 4.0000-10.0000 Lymphocytes % (test code = Lymphocytes %) 29.3000 % 22.400 0-43.6000 MID% (test code = MID%) 14.4000 % .1999-11.1999 Neutrophils % (test code = Neutrophils %) 56.3000 % 48.900 0-69.9000 Lymphocytes (test code = Lymphocytes) 0.9000 1.2000-3.2 000 MID (test code = MID) 0.5000 0.1000-1.1000 Neutrophils (test code = Neutrophils) 1.8000 1.5000-6.7 000 RBC (test code = RBC) 4.4400 3.7000-4.9000 HGB (test code = HGB) 13.8000 g/dL 11.2000-18.0000 HCT (test code = HCT) 40.9000 % 34.0000-44.0000 MCV (test code = MCV) 92.1000 fL 80.0000-94.0000 MCH (test code = MCH) 31.1000 pg 27.0000-34.0000 MCHC (test code = MCHC) 33.7000 g/dL 31.5000-36.0000 RDW (test code = RDW) 14.8000 11.0000-18.0000 PLT (test code = PLT) 122.0000 140.0000-440.0000 MPV (test code = MPV) 10.1000 fL 6.8000-10.6000 [id number] 13:03:00 Test Item Value Reference Range Comments WBC (test code = WBC) 1.7000 4.0000-10.0000 Lymphocytes % (test code = Lymphocytes %) 47.6000 % 22.400 0-43.6000 MID% (test code = MID%) 10.7000 % 1.2000-11.2000 Neutrophils % (test code = Neutrophils %) 41.7000 % 48.900 0-69.9000 Lymphocytes (test code = Lymphocytes) 0.8000 1.2000-3.2 000 MID (test code = MID) 0.2000 0.1000-1.1000 Neutrophils (test code = Neutrophils) 0.7000 1.5000-6.7 000 RBC (test code = RBC) 4.4700 3.7000-4.9000 HGB (test code = HGB) 13.6000 g/dL 11.2000-18.0000 HCT (test code = HCT) 41.5000 % 34.0000-44.0000 MCV (test code = MCV) 92.8000 fL 80.0000-94.0000 MCH (test code = MCH) 30.4000 pg 27.0000-34.0000 MCHC (test code = MCHC) 32.7000 g/dL 31.5000-36.0000 RDW (test code = RDW) 15.2000 11.0000-18.0000 PLT (test code = PLT) 167.0000 140.0000-440.0000 MPV (test code = MPV) 9.2000 fL 6.8000-10.6000 [id number] 11:33:00 Test Item Value Reference Range Comments Creatinine (test code = Creatinine) 0.4000 mg/dL 0.5000-1.200 0 Cr Clearance (Est) (test code = Cr 177.3300 75.0000-115.0 000 Clearance (Est)) Glucose (test code = Glucose) 383.0000 mg/dL 70.0000-118.0000 BUN (test code = BUN) 13.0000 mg/dL 7.0000-22.0000 Sodium (test code = Sodium) 132.0000 mmol/L 128.0000-145.0000 Potassium (test code = Potassium) 3.7000 mmol/L 3.6000-5.1000 Chloride (test code = Chloride) 103.0000 mmol/L 96.0000-108.0000 CO2 (test code = CO2) 26.0000 mmol/L 18.0000-33.0000 Calcium (test code = Calcium) 8.8200 mg/dL 8.0000-10.3000 Alkaline Phosphatase (test code = Alkaline 53.0000 42.00 00-141.0000 Phosphatase) ALT (SGPT) (test code = ALT (SGPT)) 35.0000 10.0000-47.0 000 AST (SGOT) (test code = AST (SGOT)) 31.0000 11.0000-37.0 000 Bilirubin, Total (test code = Bilirubin, 0.8000 mg/dL 0.0000- 1.6000 Total) Albumin (test code = Albumin) 3.9000 g/dL 3.5000-5.5000 Protein, Total (test code = Protein, 6.6000 g/dL 6.4000-8.10 00 Total) eGFR -[place]acedonian (test code = eGFR 193.0000 60.0000- 200.0000 -Macedonian) eGFR Ebh-Vtfzhxu-Zcefgtgw (test code = 160.0000 60.0000-2 00.0000 eGFR Mem-Wdempzm-Aavfqljc) [id number] 11:32:00 Test Item Value Reference Range Comments WBC (test code = WBC) 4.0000 4.0000-10.0000 Lymphocytes % (test code = Lymphocytes %) 20.8000 % 22.400 0-43.6000 MID% (test code = MID%) 7.4000 % 1.2000-11.2000 Neutrophils % (test code = Neutrophils %) 71.8000 % 48.900 0-69.9000 Lymphocytes (test code = Lymphocytes) 0.8000 1.2000-3.2 000 MID (test code = MID) 0.3000 0.1000-1.1000 Neutrophils (test code = Neutrophils) 2.9000 1.5000-6.7 000 RBC (test code = RBC) 4.7000 3.7000-4.9000 HGB (test code = HGB) 13.9000 g/dL 11.2000-18.0000 HCT (test code = HCT) 43.7000 % 34.0000-44.0000 MCV (test code = MCV) 92.9000 fL 80.0000-94.0000 MCH (test code = MCH) 29.7000 pg 27.0000-34.0000 MCHC (test code = MCHC) 31.9000 g/dL 31.5000-36.0000 RDW (test code = RDW) 15.7000 11.0000-18.0000 PLT (test code = PLT) 215.0000 140.0000-440.0000 MPV (test code = MPV) 8.8000 fL 6.8000-10.6000 [id number] 11:34:00 Test Item Value Reference Range Comments Creatinine (test code = Creatinine) 0.5000 mg/dL 0.5000-1.200 0 Cr Clearance (Est) (test code = Cr 140.6000 75.0000-115.0 000 Clearance (Est)) Glucose (test code = Glucose) 355.0000 mg/dL 70.0000-118.0000 BUN (test code = BUN) 9.0000 mg/dL 7.0000-22.0000 Sodium (test code = Sodium) 136.0000 mmol/L 128.0000-145.0000 Potassium (test code = Potassium) 3.5000 mmol/L 3.6000-5.1000 Chloride (test code = Chloride) 99.0000 mmol/L 96.0000-108.0000 CO2 (test code = CO2) 30.0000 mmol/L 18.0000-33.0000 Calcium (test code = Calcium) 9.1200 mg/dL 8.0000-10.3000 Alkaline Phosphatase (test code = Alkaline 50.0000 42.00 00-141.0000 Phosphatase) ALT (SGPT) (test code = ALT (SGPT)) 55.0000 10.0000-47.0 000 AST (SGOT) (test code = AST (SGOT)) 51.0000 11.0000-37.0 000 Bilirubin, Total (test code = Bilirubin, 0.7000 mg/dL 0.0000- 1.6000 Total) Albumin (test code = Albumin) 3.9000 g/dL 3.5000-5.5000 Protein, Total (test code = Protein, 6.5000 g/dL 6.4000-8.10 00 Total) eGFR -[place]aced[place] (test code = eGFR 149.0000 60.0000- 200.0000 -[place]aced[place]) eGFR Jbc-Tabgicj-Aoxzokpv (test code = 123.0000 60.0000-2 00.0000 eGFR Eto-Aurmvyz-Gcgltytf) [id number] 11:33:00 Test Item Value Reference Range Comments WBC (test code = WBC) 2.1000 4.0000-10.0000 Lymphocytes % (test code = Lymphocytes %) 42.9000 % 22.400 0-43.6000 MID% (test code = MID%) 7.6000 % 1.2000-11.2000 Neutrophils % (test code = Neutrophils %) 49.5000 % 48.900 0-69.9000 Lymphocytes (test code = Lymphocytes) 0.9000 1.2000-3.2 000 MID (test code = MID) 0.2000 0.1000-1.1000 Neutrophils (test code = Neutrophils) 1.0000 1.5000-6.7 000 RBC (test code = RBC) 4.5500 3.7000-4.9000 HGB (test code = HGB) 13.1000 g/dL 11.2000-18.0000 HCT (test code = HCT) 41.0000 % 34.0000-44.0000 MCV (test code = MCV) 90.0000 fL 80.0000-94.0000 MCH (test code = MCH) 28.9000 pg 27.0000-34.0000 MCHC (test code = MCHC) 32.0000 g/dL 31.5000-36.0000 RDW (test code = RDW) 16.0000 11.0000-18.0000 PLT (test code = PLT) 203.0000 140.0000-440.0000 MPV (test code = MPV) 7.9000 fL 6.8000-10.6000 [id number] 11:15:00 Test Item Value Reference Range Comments WBC (test code = WBC) 3.5000 4.0000-10.0000 Lymphocytes % (test code = Lymphocytes %) 23.0000 % 22.400 0-43.6000 MID% (test code = MID%) 6.9000 % 1.2000-11.2000 Neutrophils % (test code = Neutrophils %) 70.1000 % 48.900 0-69.9000 Lymphocytes (test code = Lymphocytes) 0.8000 1.2000-3.2 000 MID (test code = MID) 0.3000 0.1000-1.1000 Neutrophils (test code = Neutrophils) 2.4000 1.5000-6.7 000 RBC (test code = RBC) 4.4200 3.7000-4.9000 HGB (test code = HGB) 13.3000 g/dL 11.2000-18.0000 HCT (test code = HCT) 40.5000 % 34.0000-44.0000 MCV (test code = MCV) 91.6000 fL 80.0000-94.0000 MCH (test code = MCH) 30.2000 pg 27.0000-34.0000 MCHC (test code = MCHC) 33.0000 g/dL 31.5000-36.0000 RDW (test code = RDW) 15.6000 11.0000-18.0000 PLT (test code = PLT) 180.0000 140.0000-440.0000 MPV (test code = MPV) 8.1000 fL 6.8000-10.6000 [id number] 11:15:00 Test Item Value Reference Range Comments Creatinine (test code = Creatinine) 0.4000 mg/dL 0.5000-1.200 0 Cr Clearance (Est) (test code = Cr 176.3400 75.0000-115.0 000 Clearance (Est)) Glucose (test code = Glucose) 403.0000 mg/dL 70.0000-118.0000 BUN (test code = BUN) 8.0000 mg/dL 7.0000-22.0000 Sodium (test code = Sodium) 135.0000 mmol/L 128.0000-145.0000 Potassium (test code = Potassium) 3.3000 mmol/L 3.6000-5.1000 Chloride (test code = Chloride) 101.0000 mmol/L 96.0000-108.0000 CO2 (test code = CO2) 27.0000 mmol/L 18.0000-33.0000 Calcium (test code = Calcium) 8.7600 mg/dL 8.0000-10.3000 Alkaline Phosphatase (test code = Alkaline 49.0000 42.00 00-141.0000 Phosphatase) ALT (SGPT) (test code = ALT (SGPT)) 30.0000 10.0000-47.0 000 AST (SGOT) (test code = AST (SGOT)) 28.0000 11.0000-37.0 000 Bilirubin, Total (test code = Bilirubin, 0.7000 mg/dL 0.0000- 1.6000 Total) Albumin (test code = Albumin) 3.9000 g/dL 3.5000-5.5000 Protein, Total (test code = Protein, 5.9000 g/dL 6.4000-8.10 00 Total) eGFR -Macedonian (test code = eGFR 193.0000 60.0000- 200.0000 -Macedonian) eGFR Ctw-Kdkasss-Vzrrlepe (test code = 160.0000 60.0000-2 00.0000 eGFR Cij-Wmfptbj-Mvmejsme) [id number] 14:41:00 Test Item Value Reference Range Comments WBC (test code = WBC) 2.8000 4.0000-10.0000 Lymphocytes % (test code = Lymphocytes %) 26.8000 % 22.400 0-43.6000 MID% (test code = MID%) 5.7000 % 1.2000-11.2000 Neutrophils % (test code = Neutrophils %) 67.5000 % 48.900 0-69.9000 Lymphocytes (test code = Lymphocytes) 0.7000 1.2000-3.2 000 MID (test code = MID) 0.2000 0.1000-1.1000 Neutrophils (test code = Neutrophils) 1.9000 1.5000-6.7 000 RBC (test code = RBC) 4.1800 3.7000-4.9000 HGB (test code = HGB) 12.9000 g/dL 11.2000-18.0000 HCT (test code = HCT) 37.9000 % 34.0000-44.0000 MCV (test code = MCV) 90.8000 fL 80.0000-94.0000 MCH (test code = MCH) 30.9000 pg 27.0000-34.0000 MCHC (test code = MCHC) 34.0000 g/dL 31.5000-36.0000 RDW (test code = RDW) 15.0000 11.0000-18.0000 PLT (test code = PLT) 72.0000 140.0000-440.0000 MPV (test code = MPV) 9.0000 fL 6.8000-10.6000 [id number] 11:47:00 Test Item Value Reference Range Comments WBC (test code = WBC) 2.5000 4.0000-10.0000 Lymphocytes % (test code = Lymphocytes %) 39.7000 % 22.400 0-43.6000 MID% (test code = MID%) 9.9000 % .1999- Neutrophils % (test code = Neutrophils %) 50.4000 % 48.900 0-69.9000 Lymphocytes (test code = Lymphocytes) 1.0000 1.2000-3.2 000 MID (test code = MID) 0.3000 0.1000-1.1000 Neutrophils (test code = Neutrophils) .1999 1.5000-6.7 000 RBC (test code = RBC) 4.8600 3.7000-4.9000 HGB (test code = HGB) 14.5000 g/dL 11.1999-18.0000 HCT (test code = HCT) 43.5000 % 34.0000-44.0000 MCV (test code = MCV) 89.5000 fL 80.0000-94.0000 MCH (test code = MCH) 29.8000 pg 27.0000-34.0000 MCHC (test code = MCHC) 33.3000 g/dL 31.5000-36.0000 RDW (test code = RDW) 15.0000 11.0000-18.0000 PLT (test code = PLT) 207.0000 140.0000-440.0000 MPV (test code = MPV) 8.7000 fL 6.8000-10.6000 [id number] 11:40:00 Test Item Value Reference Range Comments WBC (test code = WBC) 4.0000 4.0000-10.0000 Lymphocytes % (test code = Lymphocytes %) 21.9000 % 22.400 0-43.6000 MID% (test code = MID%) 5.1000 % - Neutrophils % (test code = Neutrophils %) 73.0000 % 48.900 0-69.9000 Lymphocytes (test code = Lymphocytes) 0.8000 1.2000-3.2 000 MID (test code = MID) 0.3000 0.1000-1.1000 Neutrophils (test code = Neutrophils) 2.9000 1.5000-6.7 000 RBC (test code = RBC) 4.7100 3.7000-4.9000 HGB (test code = HGB) 14.1000 g/dL 11.2000-18.0000 HCT (test code = HCT) 43.6000 % 34.0000-44.0000 MCV (test code = MCV) 92.4000 fL 80.0000-94.0000 MCH (test code = MCH) 30.0000 pg 27.0000-34.0000 MCHC (test code = MCHC) 32.4000 g/dL 31.5000-36.0000 RDW (test code = RDW) 15.8000 11.0000-18.0000 PLT (test code = PLT) 202.0000 140.0000-440.0000 MPV (test code = MPV) 7.9000 fL 6.8000-10.6000 [id number] 11:40:00 Test Item Value Reference Range Comments Creatinine (test code = Creatinine) 0.4000 mg/dL 0.5000-1.200 0 Cr Clearance (Est) (test code = Cr 178.5200 75.0000-115.0 000 Clearance (Est)) Glucose (test code = Glucose) 343.0000 mg/dL 70.0000-118.0000 BUN (test code = BUN) 12.0000 mg/dL 7.0000-22.0000 Sodium (test code = Sodium) 135.0000 mmol/L 128.0000-145.0000 Potassium (test code = Potassium) 3.9000 mmol/L 3.6000-5.1000 Chloride (test code = Chloride) 98.0000 mmol/L 96.0000-108.0000 CO2 (test code = CO2) 28.0000 mmol/L 18.0000-33.0000 Calcium (test code = Calcium) 8.8800 mg/dL 8.0000-10.3000 Alkaline Phosphatase (test code = Alkaline 45.0000 42.00 00-141.0000 Phosphatase) ALT (SGPT) (test code = ALT (SGPT)) 36.0000 10.0000-47.0 000 AST (SGOT) (test code = AST (SGOT)) 38.0000 11.0000-37.0 000 Bilirubin, Total (test code = Bilirubin, 1.0000 mg/dL 0.0000- 1.6000 Total) Albumin (test code = Albumin) 4.2000 g/dL 3.5000-5.5000 Protein, Total (test code = Protein, 6.8000 g/dL 6.4000-8.10 00 Total) eGFR -Macedonian (test code = eGFR 193.0000 60.0000- 200.0000 -Macedonian) eGFR Doc-Uxpzhlp-Ujymyuwh (test code = 160.0000 60.0000-2 00.0000 eGFR Fxa-Monqewk-Trrmlapm) [id number] 11:30:00 Test Item Value Reference Range Comments WBC (test code = WBC) 2.7000 4.0000-10.0000 Lymphocytes % (test code = Lymphocytes %) 41.3000 % 22.400 0-43.6000 MID% (test code = MID%) 6.2000 % .1999-.1999 Neutrophils % (test code = Neutrophils %) 52.5000 % 48.900 0-69.9000 Lymphocytes (test code = Lymphocytes) 1.1000 1.2000-3.2 000 MID (test code = MID) 0.2000 0.1000-1.1000 Neutrophils (test code = Neutrophils) 1.4000 1.5000-6.7 000 RBC (test code = RBC) 4.6700 3.7000-4.9000 HGB (test code = HGB) 13.7000 g/dL 11.2000-18.0000 HCT (test code = HCT) 42.4000 % 34.0000-44.0000 MCV (test code = MCV) 90.6000 fL 80.0000-94.0000 MCH (test code = MCH) 29.4000 pg 27.0000-34.0000 MCHC (test code = MCHC) 32.4000 g/dL 31.5000-36.0000 RDW (test code = RDW) 14.9000 11.0000-18.0000 PLT (test code = PLT) 81.0000 140.0000-440.0000 MPV (test code = MPV) 8.5000 fL 6.8000-10.6000 [id number] 12:39:00 Test Item Value Reference Range Comments WBC (test code = WBC) 2.8000 4.0000-10.0000 Lymphocytes % (test code = Lymphocytes %) 27.1000 % 22.400 0-43.6000 MID% (test code = MID%) 6.7000 % .2000-11.1999 Neutrophils % (test code = Neutrophils %) 66.2000 % 48.900 0-69.9000 Lymphocytes (test code = Lymphocytes) 0.7000 1.2000-3.2 000 MID (test code = MID) 0.3000 0.1000-1.1000 Neutrophils (test code = Neutrophils) 1.8000 1.5000-6.7 000 RBC (test code = RBC) 4.0400 3.7000-4.9000 HGB (test code = HGB) 12.7000 g/dL 11.1999-18.0000 HCT (test code = HCT) 36.7000 % 34.0000-44.0000 MCV (test code = MCV) 90.9000 fL 80.0000-94.0000 MCH (test code = MCH) 31.5000 pg 27.0000-34.0000 MCHC (test code = MCHC) 34.6000 g/dL 31.5000-36.0000 RDW (test code = RDW) 14.8000 11.0000-18.0000 PLT (test code = PLT) 165.0000 140.0000-440.0000 MPV (test code = MPV) 8.2000 fL 6.8000-10.6000 [id number] 11:45:00 Test Item Value Reference Range Comments WBC (test code = WBC) 1.3000 4.0000-10.0000 Lymphocytes % (test code = Lymphocytes %) 32.4000 % 22.400 0-43.6000 MID% (test code = MID%) 6.0000 % 1.2000-11 Neutrophils % (test code = Neutrophils %) 61.6000 % 48.900 0-69.9000 Lymphocytes (test code = Lymphocytes) 0.4000 1.2000-3.2 000 MID (test code = MID) 0.1000 0.1000-1.1000 Neutrophils (test code = Neutrophils) 0.8000 1.5000-6.7 000 RBC (test code = RBC) 4.3800 3.7000-4.9000 HGB (test code = HGB) 13.3000 g/dL 11.2000-18.0000 HCT (test code = HCT) 39.5000 % 34.0000-44.0000 MCV (test code = MCV) 90.2000 fL 80.0000-94.0000 MCH (test code = MCH) 30.3000 pg 27.0000-34.0000 MCHC (test code = MCHC) 33.6000 g/dL 31.5000-36.0000 RDW (test code = RDW) 15.1000 11.0000-18.0000 PLT (test code = PLT) 197.0000 140.0000-440.0000 MPV (test code = MPV) 8.2000 fL 6.8000-10.6000 [id number] 11:45:00 Test Item Value Reference Range Comments Creatinine (test code = Creatinine) 0.4000 mg/dL 0.5000-1.200 0 Cr Clearance (Est) (test code = Cr 174.3600 75.0000-115.0 000 Clearance (Est)) Glucose (test code = Glucose) 272.0000 mg/dL 70.0000-118.0000 BUN (test code = BUN) 11.0000 mg/dL 7.0000-22.0000 Sodium (test code = Sodium) 135.0000 mmol/L 128.0000-145.0000 Potassium (test code = Potassium) 3.3000 mmol/L 3.6000-5.1000 Chloride (test code = Chloride) 100.0000 mmol/L 96.0000-108.0000 CO2 (test code = CO2) 29.0000 mmol/L 18.0000-33.0000 Calcium (test code = Calcium) 8.0500 mg/dL 8.0000-10.3000 Alkaline Phosphatase (test code = Alkaline 42.0000 42.00 00-141.0000 Phosphatase) ALT (SGPT) (test code = ALT (SGPT)) 57.0000 10.0000-47.0 000 AST (SGOT) (test code = AST (SGOT)) 49.0000 11.0000-37.0 000 Bilirubin, Total (test code = Bilirubin, 1.1000 mg/dL 0.0000- 1.6000 Total) Albumin (test code = Albumin) 4.0000 g/dL 3.5000-5.5000 Protein, Total (test code = Protein, 6.4000 g/dL 6.4000-8.10 00 Total) eGFR -Macedonian (test code = eGFR 193.0000 60.0000- 200.0000 -Macedonian) eGFR Kkf-Mkudqld-Szcksqrd (test code = 160.0000 60.0000-2 00.0000 eGFR Vua-Ovtnttk-Wipnbjau) [id number] 10:12:00 Test Item Value Reference Range Comments WBC (test code = WBC) 3.1000 4.0000-10.0000 Lymphocytes % (test code = Lymphocytes %) 21.2000 % 22.400 0-43.6000 MID% (test code = MID%) 6.8000 % 1.2000-11.2000 Neutrophils % (test code = Neutrophils %) 72.0000 % 48.900 0-69.9000 Lymphocytes (test code = Lymphocytes) 0.6000 1.2000-3.2 000 MID (test code = MID) 0.3000 0.1000-1.1000 Neutrophils (test code = Neutrophils) 2.2000 1.5000-6.7 000 RBC (test code = RBC) 4.6400 3.7000-4.9000 HGB (test code = HGB) 13.6000 g/dL 11.2000-18.0000 HCT (test code = HCT) 42.6000 % 34.0000-44.0000 MCV (test code = MCV) 91.8000 fL 80.0000-94.0000 MCH (test code = MCH) 29.3000 pg 27.0000-34.0000 MCHC (test code = MCHC) 31.9000 g/dL 31.5000-36.0000 RDW (test code = RDW) 15.2000 11.0000-18.0000 PLT (test code = PLT) 250.0000 140.0000-440.0000 MPV (test code = MPV) 8.2000 fL 6.8000-10.6000 [id number] 10:12:00 Test Item Value Reference Range Comments Creatinine (test code = Creatinine) 0.5000 mg/dL 0.5000-1.200 0 Cr Clearance (Est) (test code = Cr 142.3400 75.0000-115.0 000 Clearance (Est)) Glucose (test code = Glucose) 282.0000 mg/dL 70.0000-118.0000 BUN (test code = BUN) 10.0000 mg/dL 7.0000-22.0000 Sodium (test code = Sodium) 137.0000 mmol/L 128.0000-145.0000 Potassium (test code = Potassium) 3.7000 mmol/L 3.6000-5.1000 Chloride (test code = Chloride) 104.0000 mmol/L 96.0000-108.0000 CO2 (test code = CO2) 27.0000 mmol/L 18.0000-33.0000 Calcium (test code = Calcium) 8.5600 mg/dL 8.0000-10.3000 Alkaline Phosphatase (test code = Alkaline 42.0000 42.00 00-141.0000 Phosphatase) ALT (SGPT) (test code = ALT (SGPT)) 39.0000 10.0000-47.0 000 AST (SGOT) (test code = AST (SGOT)) 43.0000 11.0000-37.0 000 Bilirubin, Total (test code = Bilirubin, 0.8000 mg/dL 0.0000- 1.6000 Total) Albumin (test code = Albumin) 4.0000 g/dL 3.5000-5.5000 Protein, Total (test code = Protein, 6.7000 g/dL 6.4000-8.10 00 Total) eGFR -Macedonian (test code = eGFR 149.0000 60.0000- 200.0000 -Macedonian) eGFR Sui-Sroijkz-Txtmzgev (test code = 123.0000 60.0000-2 00.0000 eGFR Zfv-Jxvvlxf-Dyqaxwsc) [id number] 12:26:00 Test Item Value Reference Range Comments WBC (test code = WBC) 2.6000 4.0000-10.0000 Lymphocytes % (test code = Lymphocytes %) 36.3000 % 22.400 0-43.6000 MID% (test code = MID%) 7.3000 % 1.2000-11.2000 Neutrophils % (test code = Neutrophils %) 56.4000 % 48.900 0-69.9000 Lymphocytes (test code = Lymphocytes) 0.9000 1.2000-3.2 000 MID (test code = MID) 0.3000 0.1000-1.1000 Neutrophils (test code = Neutrophils) 1.4000 1.5000-6.7 000 RBC (test code = RBC) 4.0300 3.7000-4.9000 HGB (test code = HGB) 12.5000 g/dL 11.2000-18.0000 HCT (test code = HCT) 36.7000 % 34.0000-44.0000 MCV (test code = MCV) 91.0000 fL 80.0000-94.0000 MCH (test code = MCH) 31.0000 pg 27.0000-34.0000 MCHC (test code = MCHC) 34.1000 g/dL 31.5000-36.0000 RDW (test code = RDW) 14.3000 11.0000-18.0000 PLT (test code = PLT) 57.0000 140.0000-440.0000 MPV (test code = MPV) 8.7000 fL 6.8000-10.6000 [id number] 10:54:00 Test Item Value Reference Range Comments WBC (test code = WBC) 2.7000 4.0000-10.0000 Lymphocytes % (test code = Lymphocytes %) 29.3000 % 22.400 0-43.6000 MID% (test code = MID%) 5.9000 % 1.2000-11.2000 Neutrophils % (test code = Neutrophils %) 64.8000 % 48.900 0-69.9000 Lymphocytes (test code = Lymphocytes) 0.7000 1.2000-3.2 000 MID (test code = MID) 0.3000 0.1000-1.1000 Neutrophils (test code = Neutrophils) 1.7000 1.5000-6.7 000 RBC (test code = RBC) 4.6500 3.7000-4.9000 HGB (test code = HGB) 13.4000 g/dL 11.2000-18.0000 HCT (test code = HCT) 42.7000 % 34.0000-44.0000 MCV (test code = MCV) 91.8000 fL 80.0000-94.0000 MCH (test code = MCH) 28.9000 pg 27.0000-34.0000 MCHC (test code = MCHC) 31.4000 g/dL 31.5000-36.0000 RDW (test code = RDW) 14.9000 11.0000-18.0000 PLT (test code = PLT) 195.0000 140.0000-440.0000 MPV (test code = MPV) 7.5000 fL 6.8000-10.6000 [id number] 10:54:00 Test Item Value Reference Range Comments Creatinine (test code = Creatinine) 0.5000 mg/dL 0.5000-1.200 0 Cr Clearance (Est) (test code = Cr 142.1800 75.0000-115.0 000 Clearance (Est)) Glucose (test code = Glucose) 369.0000 mg/dL 70.0000-118.0000 BUN (test code = BUN) 10.0000 mg/dL 7.0000-22.0000 Sodium (test code = Sodium) 134.0000 mmol/L 128.0000-145.0000 Potassium (test code = Potassium) 3.6000 mmol/L 3.6000-5.1000 Chloride (test code = Chloride) 99.0000 mmol/L 96.0000-108.0000 CO2 (test code = CO2) 29.0000 mmol/L 18.0000-33.0000 Calcium (test code = Calcium) 8.7400 mg/dL 8.0000-10.3000 Alkaline Phosphatase (test code = Alkaline 44.0000 42.00 00-141.0000 Phosphatase) ALT (SGPT) (test code = ALT (SGPT)) 56.0000 10.0000-47.0 000 AST (SGOT) (test code = AST (SGOT)) 45.0000 11.0000-37.0 000 Bilirubin, Total (test code = Bilirubin, 0.9000 mg/dL 0.0000- 1.6000 Total) Albumin (test code = Albumin) 4.2000 g/dL 3.5000-5.5000 Protein, Total (test code = Protein, 6.9000 g/dL 6.4000-8.10 00 Total) eGFR -Macedonian (test code = eGFR 149.0000 60.0000- 200.0000 -Macedonian) eGFR Udl-Aptioaq-Smeexout (test code = 123.0000 60.0000-2 00.0000 eGFR Lsa-Ehobkmi-Pslmhzay) [id number] 10:31:00 Test Item Value Reference Range Comments WBC (test code = WBC) 3.1000 4.0000-10.0000 Lymphocytes % (test code = Lymphocytes %) 24.0000 % 22.400 0-43.6000 MID% (test code = MID%) 5.9000 % 1.2000-11.2000 Neutrophils % (test code = Neutrophils %) 70.1000 % 48.900 0-69.9000 Lymphocytes (test code = Lymphocytes) 0.7000 1.2000-3.2 000 MID (test code = MID) 0.3000 0.1000-1.1000 Neutrophils (test code = Neutrophils) 2.1000 1.5000-6.7 000 RBC (test code = RBC) 4.4600 3.7000-4.9000 HGB (test code = HGB) 14.0000 g/dL 11.2000-18.0000 HCT (test code = HCT) 40.9000 % 34.0000-44.0000 MCV (test code = MCV) 91.6000 fL 80.0000-94.0000 MCH (test code = MCH) 31.3000 pg 27.0000-34.0000 MCHC (test code = MCHC) 34.2000 g/dL 31.5000-36.0000 RDW (test code = RDW) 15.1000 11.0000-18.0000 PLT (test code = PLT) 199.0000 140.0000-440.0000 MPV (test code = MPV) 7.4000 fL 6.8000-10.6000 [id number] 10:31:00 Test Item Value Reference Range Comments Creatinine (test code = Creatinine) 0.5000 mg/dL 0.5000-1.200 0 Cr Clearance (Est) (test code = Cr 140.4400 75.0000-115.0 000 Clearance (Est)) Glucose (test code = Glucose) 384.0000 mg/dL 70.0000-118.0000 BUN (test code = BUN) 9.0000 mg/dL 7.0000-22.0000 Sodium (test code = Sodium) 136.0000 mmol/L 128.0000-145.0000 Potassium (test code = Potassium) 3.7000 mmol/L 3.6000-5.1000 Chloride (test code = Chloride) 99.0000 mmol/L 96.0000-108.0000 CO2 (test code = CO2) 30.0000 mmol/L 18.0000-33.0000 Calcium (test code = Calcium) 9.2200 mg/dL 8.0000-10.3000 Alkaline Phosphatase (test code = Alkaline 41.0000 42.00 00-141.0000 Phosphatase) ALT (SGPT) (test code = ALT (SGPT)) 35.0000 10.0000-47.0 000 AST (SGOT) (test code = AST (SGOT)) 37.0000 11.0000-37.0 000 Bilirubin, Total (test code = Bilirubin, 0.8000 mg/dL 0.0000- 1.6000 Total) Albumin (test code = Albumin) 4.1000 g/dL 3.5000-5.5000 Protein, Total (test code = Protein, 6.7000 g/dL 6.4000-8.10 00 Total) eGFR -Macedonian (test code = eGFR 149.0000 60.0000- 200.0000 -Macedonian) eGFR Ekj-Wwiacja-Iapeajfg (test code = 123.0000 60.0000-2 00.0000 eGFR Vuh-Qcsglus-Ryvsljns) [id number] 12:52:00 Test Item Value Reference Range Comments WBC (test code = WBC) 3.0000 4.0000-10.0000 Lymphocytes % (test code = Lymphocytes %) 36.8000 % 22.400 0-43.6000 MID% (test code = MID%) 6.0000 % 1.1999-11.1999 Neutrophils % (test code = Neutrophils %) 57.2000 % 48.900 0-69.9000 Lymphocytes (test code = Lymphocytes) 1.1000 1.2000-3.2 000 MID (test code = MID) 0.2000 0.1000-1.1000 Neutrophils (test code = Neutrophils) 1.7000 1.5000-6.7 000 RBC (test code = RBC) 4.3300 3.7000-4.9000 HGB (test code = HGB) 13.4000 g/dL 11.2000-18.0000 HCT (test code = HCT) 39.5000 % 34.0000-44.0000 MCV (test code = MCV) 91.1000 fL 80.0000-94.0000 MCH (test code = MCH) 31.0000 pg 27.0000-34.0000 MCHC (test code = MCHC) 34.0000 g/dL 31.5000-36.0000 RDW (test code = RDW) 14.1000 11.0000-18.0000 PLT (test code = PLT) 70.0000 140.0000-440.0000 MPV (test code = MPV) 8.0000 fL 6.8000-10.6000 [id number] 12:36:00 Test Item Value Reference Range Comments WBC (test code = WBC) 3.9000 4.0000-10.0000 Lymphocytes % (test code = Lymphocytes %) 26.7000 % 22.400 0-43.6000 MID% (test code = MID%) 6.9000 % .1999- Neutrophils % (test code = Neutrophils %) 66.4000 % 48.900 0-69.9000 Lymphocytes (test code = Lymphocytes) 1.0000 1.2000-3.2 000 MID (test code = MID) 0.3000 0.1000-1.1000 Neutrophils (test code = Neutrophils) 2.6000 1.5000-6.7 000 RBC (test code = RBC) 4.7300 3.7000-4.9000 HGB (test code = HGB) 14.0000 g/dL 11.2000-18.0000 HCT (test code = HCT) 44.2000 % 34.0000-44.0000 MCV (test code = MCV) 93.4000 fL 80.0000-94.0000 MCH (test code = MCH) 29.6000 pg 27.0000-34.0000 MCHC (test code = MCHC) 31.7000 g/dL 31.5000-36.0000 RDW (test code = RDW) 15.0000 11.0000-18.0000 PLT (test code = PLT) 140.0000 140.0000-440.0000 MPV (test code = MPV) 8.5000 fL 6.8000-10.6000 [id number] 12:37:00 Test Item Value Reference Range Comments WBC (test code = WBC) 4.4000 4.0000-10.0000 Lymphocytes % (test code = Lymphocytes %) 26.7000 % 22.400 0-43.6000 MID% (test code = MID%) 6.4000 % 1.2000-11.2000 Neutrophils % (test code = Neutrophils %) 66.9000 % 48.900 0-69.9000 Lymphocytes (test code = Lymphocytes) 1.1000 1.2000-3.2 000 MID (test code = MID) 0.3000 0.1000-1.1000 Neutrophils (test code = Neutrophils) 3.0000 1.5000-6.7 000 RBC (test code = RBC) 4.7600 3.7000-4.9000 HGB (test code = HGB) 14.5000 g/dL 11.2000-18.0000 HCT (test code = HCT) 44.3000 % 34.0000-44.0000 MCV (test code = MCV) 93.1000 fL 80.0000-94.0000 MCH (test code = MCH) 30.4000 pg 27.0000-34.0000 MCHC (test code = MCHC) 32.7000 g/dL 31.5000-36.0000 RDW (test code = RDW) 14.4000 11.0000-18.0000 PLT (test code = PLT) 179.0000 140.0000-440.0000 MPV (test code = MPV) 8.4000 fL 6.8000-10.6000 [id number] 12:37:00 Test Item Value Reference Range Comments Creatinine (test code = Creatinine) 0.4000 mg/dL 0.5000-1.200 0 Cr Clearance (Est) (test code = Cr 178.5200 75.0000-115.0 000 Clearance (Est)) Glucose (test code = Glucose) 244.0000 mg/dL 70.0000-118.0000 BUN (test code = BUN) 11.0000 mg/dL 7.0000-22.0000 Sodium (test code = Sodium) 138.0000 mmol/L 128.0000-145.0000 Potassium (test code = Potassium) 3.3000 mmol/L 3.6000-5.1000 Chloride (test code = Chloride) 101.0000 mmol/L 96.0000-108.0000 CO2 (test code = CO2) 23.0000 mmol/L 18.0000-33.0000 Calcium (test code = Calcium) 8.3200 mg/dL 8.0000-10.3000 Alkaline Phosphatase (test code = Alkaline 37.0000 42.00 00-141.0000 Phosphatase) ALT (SGPT) (test code = ALT (SGPT)) 28.0000 10.0000-47.0 000 AST (SGOT) (test code = AST (SGOT)) 37.0000 11.0000-37.0 000 Bilirubin, Total (test code = Bilirubin, 1.1000 mg/dL 0.0000- 1.6000 Total) Albumin (test code = Albumin) 4.2000 g/dL 3.5000-5.5000 Protein, Total (test code = Protein, 6.9000 g/dL 6.4000-8.10 00 Total) eGFR -Macedonian (test code = eGFR 193.0000 60.0000- 200.0000 -Macedonian) eGFR Rdl-Lcykzdm-Nhpmiyfb (test code = 160.0000 60.0000-2 00.0000 eGFR Apk-Rkfdpzb-Xismlrhb) [id number] 12:36:00 Test Item Value Reference Range Comments WBC (test code = WBC) 4.4000 4.0000-10.0000 Lymphocytes % (test code = Lymphocytes %) 21.1000 % 22.400 0-43.6000 MID% (test code = MID%) 6.3000 % 1.2000-11.2000 Neutrophils % (test code = Neutrophils %) 72.6000 % 48.900 0-69.9000 Lymphocytes (test code = Lymphocytes) 0.9000 1.2000-3.2 000 MID (test code = MID) 0.3000 0.1000-1.1000 Neutrophils (test code = Neutrophils) 3.2000 1.5000-6.7 000 RBC (test code = RBC) 4.5200 3.7000-4.9000 HGB (test code = HGB) 14.5000 g/dL 11.2000-18.0000 HCT (test code = HCT) 42.6000 % 34.0000-44.0000 MCV (test code = MCV) 94.2000 fL 80.0000-94.0000 MCH (test code = MCH) 32.1000 pg 27.0000-34.0000 MCHC (test code = MCHC) 34.0000 g/dL 31.5000-36.0000 RDW (test code = RDW) 14.6000 11.0000-18.0000 PLT (test code = PLT) 201.0000 140.0000-440.0000 MPV (test code = MPV) 8.1000 fL 6.8000-10.6000 [id number] 12:36:00 Test Item Value Reference Range Comments Creatinine (test code = Creatinine) 0.5000 mg/dL 0.5000-1.200 0 Cr Clearance (Est) (test code = Cr 139.8000 75.0000-115.0 000 Clearance (Est)) Glucose (test code = Glucose) 254.0000 mg/dL 70.0000-118.0000 BUN (test code = BUN) 9.0000 mg/dL 7.0000-22.0000 Sodium (test code = Sodium) 135.0000 mmol/L 128.0000-145.0000 Potassium (test code = Potassium) 3.2000 mmol/L 3.6000-5.1000 Chloride (test code = Chloride) 98.0000 mmol/L 96.0000-108.0000 CO2 (test code = CO2) 30.0000 mmol/L 18.0000-33.0000 Calcium (test code = Calcium) 7.9700 mg/dL 8.0000-10.3000 Alkaline Phosphatase (test code = Alkaline 33.0000 42.00 00-141.0000 Phosphatase) ALT (SGPT) (test code = ALT (SGPT)) 17.0000 10.0000-47.0 000 AST (SGOT) (test code = AST (SGOT)) 29.0000 11.0000-37.0 000 Bilirubin, Total (test code = Bilirubin, 1.0000 mg/dL 0.0000- 1.6000 Total) Albumin (test code = Albumin) 4.0000 g/dL 3.5000-5.5000 Protein, Total (test code = Protein, 6.8000 g/dL 6.4000-8.10 00 Total) eGFR -[place]acedonian (test code = eGFR 150.0000 60.0000- 200.0000 -Macedonian) eGFR Jis-Joxsnzg-Gkxrjfie (test code = 124.0000 60.0000-2 00.0000 eGFR Bfy-Qgvrlko-Cevrlzvv) [id number] 14:15:00 Test Item Value Reference Range Comments Creatinine (test code = Creatinine) 0.7000 mg/dL 0.5000-1.200 0 Cr Clearance (Est) (test code = Cr 106.5400 75.0000-115.0 000 Clearance (Est)) Glucose (test code = Glucose) 314.0000 mg/dL 70.0000-118.0000 BUN (test code = BUN) 13.0000 mg/dL 7.0000-22.0000 Sodium (test code = Sodium) 139.0000 mmol/L 128.0000-145.0000 Potassium (test code = Potassium) 3.6000 mmol/L 3.6000-5.1000 Chloride (test code = Chloride) 101.0000 mmol/L 96.0000-108.0000 CO2 (test code = CO2) 31.0000 mmol/L 18.0000-33.0000 Calcium (test code = Calcium) 9.9400 mg/dL 8.0000-10.3000 Alkaline Phosphatase (test code = Alkaline 39.0000 42.00 00-141.0000 Phosphatase) ALT (SGPT) (test code = ALT (SGPT)) 22.0000 10.0000-47.0 000 AST (SGOT) (test code = AST (SGOT)) 28.0000 11.0000-37.0 000 Bilirubin, Total (test code = Bilirubin, 0.8000 mg/dL 0.0000- 1.6000 Total) Albumin (test code = Albumin) 4.1000 g/dL 3.5000-5.5000 Protein, Total (test code = Protein, 6.8000 g/dL 6.4000-8.10 00 Total) eGFR -Macedonian (test code = eGFR 102.0000 60.0000- 200.0000 -Macedonian) eGFR Hip-Jrcebaw-Kcfdtxuj (test code = 84.0000 60.0000-2 00.0000 eGFR Ulq-Ajicldd-Hvmphala) [id number] 14:14:00 Test Item Value Reference Range Comments WBC (test code = WBC) 3.0000 4.0000-10.0000 Lymphocytes % (test code = Lymphocytes %) 37.1000 % 22.400 0-43.6000 MID% (test code = MID%) 5.8000 % 1.1999- Neutrophils % (test code = Neutrophils %) 57.1000 % 48.900 0-69.9000 Lymphocytes (test code = Lymphocytes) 1.1000 1.2000-3.2 000 MID (test code = MID) 0.2000 0.1000-1.1000 Neutrophils (test code = Neutrophils) 1.7000 1.5000-6.7 000 RBC (test code = RBC) 4.4300 3.7000-4.9000 HGB (test code = HGB) 13.5000 g/dL 11.2000-18.0000 HCT (test code = HCT) 41.6000 % 34.0000-44.0000 MCV (test code = MCV) 93.9000 fL 80.0000-94.0000 MCH (test code = MCH) 30.6000 pg 27.0000-34.0000 MCHC (test code = MCHC) 32.5000 g/dL 31.5000-36.0000 RDW (test code = RDW) 15.4000 11.0000-18.0000 PLT (test code = PLT) 127.0000 140.0000-440.0000 MPV (test code = MPV) 8.4000 fL 6.8000-10.6000 [id number] 14:01:00 Test Item Value Reference Range Comments WBC (test code = WBC) 2.6000 4.0000-10.0000 Lymphocytes % (test code = Lymphocytes %) 34.7000 % 22.400 0-43.6000 MID% (test code = MID%) 5.6000 % .1999- Neutrophils % (test code = Neutrophils %) 59.7000 % 48.900 0-69.9000 Lymphocytes (test code = Lymphocytes) 0.9000 1.2000-3.2 000 MID (test code = MID) 0.2000 0.1000-1.1000 Neutrophils (test code = Neutrophils) 1.5000 1.5000-6.7 000 RBC (test code = RBC) 4.4300 3.7000-4.9000 HGB (test code = HGB) 13.7000 g/dL 11.2000-18.0000 HCT (test code = HCT) 42.0000 % 34.0000-44.0000 MCV (test code = MCV) 94.8000 fL 80.0000-94.0000 MCH (test code = MCH) 30.9000 pg 27.0000-34.0000 MCHC (test code = MCHC) 32.6000 g/dL 31.5000-36.0000 RDW (test code = RDW) 15.0000 11.0000-18.0000 PLT (test code = PLT) 109.0000 140.0000-440.0000 MPV (test code = MPV) 8.4000 fL 6.8000-10.6000 [id number] 14:01:00 Test Item Value Reference Range Comments Creatinine (test code = Creatinine) 0.6000 mg/dL 0.5000-1.200 0 Cr Clearance (Est) (test code = Cr 123.5000 75.0000-115.0 000 Clearance (Est)) Glucose (test code = Glucose) 299.0000 mg/dL 70.0000-118.0000 BUN (test code = BUN) 12.0000 mg/dL 7.0000-22.0000 Sodium (test code = Sodium) 138.0000 mmol/L 128.0000-145.0000 Potassium (test code = Potassium) 3.5000 mmol/L 3.6000-5.1000 Chloride (test code = Chloride) 103.0000 mmol/L 96.0000-108.0000 CO2 (test code = CO2) 29.0000 mmol/L 18.0000-33.0000 Calcium (test code = Calcium) 8.1400 mg/dL 8.0000-10.3000 Alkaline Phosphatase (test code = Alkaline 40.0000 42.00 00-141.0000 Phosphatase) ALT (SGPT) (test code = ALT (SGPT)) 31.0000 10.0000-47.0 000 AST (SGOT) (test code = AST (SGOT)) 35.0000 11.0000-37.0 000 Bilirubin, Total (test code = Bilirubin, 1.0000 mg/dL 0.0000- 1.6000 Total) Albumin (test code = Albumin) 4.0000 g/dL 3.5000-5.5000 Protein, Total (test code = Protein, 6.8000 g/dL 6.4000-8.10 00 Total) eGFR -Macedonian (test code = eGFR 121.0000 60.0000- 200.0000 -Macedonian) eGFR Vyc-Sepsymb-Jobytcjw (test code = 100.0000 60.0000-2 00.0000 eGFR Vwt-Thxxfpc-Zymogroq) [id number] 09:27:00 Test Item Value Reference Range Comments WBC (test code = WBC) 3.1000 4.0000-10.0000 Lymphocytes % (test code = Lymphocytes %) 25.7000 % 22.400 0-43.6000 MID% (test code = MID%) 5.8000 % 1.2000-11.2000 Neutrophils % (test code = Neutrophils %) 68.5000 % 48.900 0-69.9000 Lymphocytes (test code = Lymphocytes) 0.8000 1.2000-3.2 000 MID (test code = MID) 0.2000 0.1000-1.1000 Neutrophils (test code = Neutrophils) 2.1000 1.5000-6.7 000 RBC (test code = RBC) 4.5900 3.7000-4.9000 HGB (test code = HGB) 13.9000 g/dL 11.2000-18.0000 HCT (test code = HCT) 43.0000 % 34.0000-44.0000 MCV (test code = MCV) 93.6000 fL 80.0000-94.0000 MCH (test code = MCH) 30.4000 pg 27.0000-34.0000 MCHC (test code = MCHC) 32.4000 g/dL 31.5000-36.0000 RDW (test code = RDW) 14.6000 11.0000-18.0000 PLT (test code = PLT) 206.0000 140.0000-440.0000 MPV (test code = MPV) 8.0000 fL 6.8000-10.6000 [id number] 09:27:00 Test Item Value Reference Range Comments Creatinine (test code = Creatinine) 0.6000 mg/dL 0.5000-1.200 0 Cr Clearance (Est) (test code = Cr 124.8300 75.0000-115.0 000 Clearance (Est)) Glucose (test code = Glucose) 373.0000 mg/dL 70.0000-118.0000 BUN (test code = BUN) 8.0000 mg/dL 7.0000-22.0000 Sodium (test code = Sodium) 136.0000 mmol/L 128.0000-145.0000 Potassium (test code = Potassium) 3.4000 mmol/L 3.6000-5.1000 Chloride (test code = Chloride) 103.0000 mmol/L 96.0000-108.0000 CO2 (test code = CO2) 29.0000 mmol/L 18.0000-33.0000 Calcium (test code = Calcium) 8.1600 mg/dL 8.0000-10.3000 Alkaline Phosphatase (test code = Alkaline 41.0000 42.00 00-141.0000 Phosphatase) ALT (SGPT) (test code = ALT (SGPT)) 33.0000 10.0000-47.0 000 AST (SGOT) (test code = AST (SGOT)) 33.0000 11.0000-37.0 000 Bilirubin, Total (test code = Bilirubin, 1.1000 mg/dL 0.0000- 1.6000 Total) Albumin (test code = Albumin) 3.9000 g/dL 3.5000-5.5000 Protein, Total (test code = Protein, 6.7000 g/dL 6.4000-8.10 00 Total) eGFR -[place] (test code = eGFR 121.0000 60.0000- 200.0000 -[place]aced[place]) eGFR Xmt-Izjvtvf-Drphjkcj (test code = 100.0000 60.0000-2 00.0000 eGFR Hjf-Yyfyrwb-Qhaleqem) [id number] 13:03:00 Test Item Value Reference Range Comments WBC (test code = WBC) 2.9000 4.0000-10.0000 Lymphocytes % (test code = Lymphocytes %) 35.2000 % 22.400 0-43.6000 MID% (test code = MID%) 8.8000 % 1.2000-11.2000 Neutrophils % (test code = Neutrophils %) 56.0000 % 48.900 0-69.9000 Lymphocytes (test code = Lymphocytes) 1.0000 1.2000-3.2 000 MID (test code = MID) 0.3000 0.1000-1.1000 Neutrophils (test code = Neutrophils) 1.6000 1.5000-6.7 000 RBC (test code = RBC) 4.1900 3.7000-4.9000 HGB (test code = HGB) 13.5000 g/dL 11.2000-18.0000 HCT (test code = HCT) 39.0000 % 34.0000-44.0000 MCV (test code = MCV) 93.0000 fL 80.0000-94.0000 MCH (test code = MCH) 32.3000 pg 27.0000-34.0000 MCHC (test code = MCHC) 34.7000 g/dL 31.5000-36.0000 RDW (test code = RDW) 16.5000 11.0000-18.0000 PLT (test code = PLT) 142.0000 140.0000-440.0000 MPV (test code = MPV) 8.0000 fL 6.8000-10.6000 [id number] 13:03:00 Test Item Value Reference Range Comments Creatinine (test code = Creatinine) 0.5000 mg/dL 0.5000-1.200 0 Cr Clearance (Est) (test code = Cr 149.4700 75.0000-115.0 000 Clearance (Est)) Glucose (test code = Glucose) 307.0000 mg/dL 70.0000-118.0000 BUN (test code = BUN) 11.0000 mg/dL 7.0000-22.0000 Sodium (test code = Sodium) 136.0000 mmol/L 128.0000-145.0000 Potassium (test code = Potassium) 3.3000 mmol/L 3.6000-5.1000 Chloride (test code = Chloride) 103.0000 mmol/L 96.0000-108.0000 CO2 (test code = CO2) 31.0000 mmol/L 18.0000-33.0000 Calcium (test code = Calcium) 9.0800 mg/dL 8.0000-10.3000 Alkaline Phosphatase (test code = Alkaline 40.0000 42.00 00-141.0000 Phosphatase) ALT (SGPT) (test code = ALT (SGPT)) 30.0000 10.0000-47.0 000 AST (SGOT) (test code = AST (SGOT)) 34.0000 11.0000-37.0 000 Bilirubin, Total (test code = Bilirubin, 1.0000 mg/dL 0.0000- 1.6000 Total) Albumin (test code = Albumin) 4.0000 g/dL 3.5000-5.5000 Protein, Total (test code = Protein, 6.6000 g/dL 6.4000-8.10 00 Total) eGFR -[place]aced[place] (test code = eGFR 149.0000 60.0000- 200.0000 -Macedonian) eGFR Amo-Vigxlqi-Qplpseud (test code = 123.0000 60.0000-2 00.0000 eGFR Mqp-Oafpigx-Qxmdhlhb) [id number] 12:33:00 Test Item Value Reference Range Comments WBC (test code = WBC) 2.9000 4.0000-10.0000 Lymphocytes % (test code = Lymphocytes %) 35.3000 % 22.400 0-43.6000 MID% (test code = MID%) 5.1000 % 1.2000-11.2000 Neutrophils % (test code = Neutrophils %) 59.6000 % 48.900 0-69.9000 Lymphocytes (test code = Lymphocytes) 1.0000 1.2000-3.2 000 MID (test code = MID) 0.2000 0.1000-1.1000 Neutrophils (test code = Neutrophils) 1.7000 1.5000-6.7 000 RBC (test code = RBC) 4.2300 3.7000-4.9000 HGB (test code = HGB) 13.6000 g/dL 11.2000-18.0000 HCT (test code = HCT) 39.9000 % 34.0000-44.0000 MCV (test code = MCV) 94.2000 fL 80.0000-94.0000 MCH (test code = MCH) 32.2000 pg 27.0000-34.0000 MCHC (test code = MCHC) 34.1000 g/dL 31.5000-36.0000 RDW (test code = RDW) 16.1000 11.0000-18.0000 PLT (test code = PLT) 113.0000 140.0000-440.0000 MPV (test code = MPV) 8.4000 fL 6.8000-10.6000 [id number] 13:16:00 Test Item Value Reference Range Comments WBC (test code = WBC) 3.5000 4.0000-10.0000 Lymphocytes % (test code = Lymphocytes %) 29.1000 % 22.400 0-43.6000 MID% (test code = MID%) 6.6000 % .2000-11.1999 Neutrophils % (test code = Neutrophils %) 64.3000 % 48.900 0-69.9000 Lymphocytes (test code = Lymphocytes) 1.0000 1.2000-3.2 000 MID (test code = MID) 0.3000 0.1000-1.1000 Neutrophils (test code = Neutrophils) 2.2000 1.5000-6.7 000 RBC (test code = RBC) 4.6500 3.7000-4.9000 HGB (test code = HGB) 14.3000 g/dL 11.2000-18.0000 HCT (test code = HCT) 42.8000 % 34.0000-44.0000 MCV (test code = MCV) 92.0000 fL 80.0000-94.0000 MCH (test code = MCH) 30.8000 pg 27.0000-34.0000 MCHC (test code = MCHC) 33.5000 g/dL 31.5000-36.0000 RDW (test code = RDW) 16.5000 11.0000-18.0000 PLT (test code = PLT) 191.0000 140.0000-440.0000 MPV (test code = MPV) 8.0000 fL 6.8000-10.6000 [id number] 13:16:00 Test Item Value Reference Range Comments Creatinine (test code = Creatinine) 0.4000 mg/dL 0.5000-1.200 0 Cr Clearance (Est) (test code = Cr 187.2400 75.0000-115.0 000 Clearance (Est)) Glucose (test code = Glucose) 388.0000 mg/dL 70.0000-118.0000 BUN (test code = BUN) 12.0000 mg/dL 7.0000-22.0000 Sodium (test code = Sodium) 136.0000 mmol/L 128.0000-145.0000 Potassium (test code = Potassium) 3.7000 mmol/L 3.6000-5.1000 Chloride (test code = Chloride) 100.0000 mmol/L 96.0000-108.0000 CO2 (test code = CO2) 31.0000 mmol/L 18.0000-33.0000 Calcium (test code = Calcium) 9.1900 mg/dL 8.0000-10.3000 Alkaline Phosphatase (test code = Alkaline 42.0000 42.00 00-141.0000 Phosphatase) ALT (SGPT) (test code = ALT (SGPT)) 33.0000 10.0000-47.0 000 AST (SGOT) (test code = AST (SGOT)) 35.0000 11.0000-37.0 000 Bilirubin, Total (test code = Bilirubin, 0.8000 mg/dL 0.0000- 1.6000 Total) Albumin (test code = Albumin) 4.2000 g/dL 3.5000-5.5000 Protein, Total (test code = Protein, 6.5000 g/dL 6.4000-8.10 00 Total) eGFR -[place]aced[place] (test code = eGFR 193.0000 60.0000- 200.0000 -[place]aced[place]) eGFR Bwy-Bohqggm-Xjtojgzm (test code = 160.0000 60.0000-2 00.0000 eGFR Hsq-Qhhtrwc-Hqfaqsfu) [id number] 14:27:00 Test Item Value Reference Range Comments WBC (test code = WBC) 3.2000 4.0000-10.0000 Lymphocytes % (test code = Lymphocytes %) 31.9000 % 22.400 0-43.6000 MID% (test code = MID%) 6.8000 % 1.2000-11.1999 Neutrophils % (test code = Neutrophils %) 61.3000 % 48.900 0-69.9000 Lymphocytes (test code = Lymphocytes) 1.0000 1.2000-3.2 000 MID (test code = MID) 0.2000 0.1000-1.1000 Neutrophils (test code = Neutrophils) 2.0000 1.5000-6.7 000 RBC (test code = RBC) 4.1600 3.7000-4.9000 HGB (test code = HGB) 13.0000 g/dL 11.2000-18.0000 HCT (test code = HCT) 37.7000 % 34.0000-44.0000 MCV (test code = MCV) 90.7000 fL 80.0000-94.0000 MCH (test code = MCH) 31.3000 pg 27.0000-34.0000 MCHC (test code = MCHC) 34.5000 g/dL 31.5000-36.0000 RDW (test code = RDW) 15.5000 11.0000-18.0000 PLT (test code = PLT) 182.0000 140.0000-440.0000 MPV (test code = MPV) 8.1000 fL 6.8000-10.6000 [id number] 12:29:00 Test Item Value Reference Range Comments WBC (test code = WBC) 3.4000 4.0000-10.0000 Lymphocytes % (test code = Lymphocytes %) 39.0000 % 22.400 0-43.6000 MID% (test code = MID%) 10.2000 % 1.1999-11.1999 Neutrophils % (test code = Neutrophils %) 50.8000 % 48.900 0-69.9000 Lymphocytes (test code = Lymphocytes) 1.3000 1.2000-3.2 000 MID (test code = MID) 0.4000 0.1000-1.1000 Neutrophils (test code = Neutrophils) 1.7000 1.5000-6.7 000 RBC (test code = RBC) 4.8300 3.7000-4.9000 HGB (test code = HGB) 13.7000 g/dL 11.2000-18.0000 HCT (test code = HCT) 43.8000 % 34.0000-44.0000 MCV (test code = MCV) 90.6000 fL 80.0000-94.0000 MCH (test code = MCH) 28.4000 pg 27.0000-34.0000 MCHC (test code = MCHC) 31.3000 g/dL 31.5000-36.0000 RDW (test code = RDW) 16.0000 11.0000-18.0000 PLT (test code = PLT) 133.0000 140.0000-440.0000 MPV (test code = MPV) 8.3000 fL 6.8000-10.6000 [id number] 14:21:00 Test Item Value Reference Range Comments WBC (test code = WBC) 2.9000 4.0000-10.0000 Lymphocytes % (test code = Lymphocytes %) 42.3000 % 22.400 0-43.6000 MID% (test code = MID%) 5.1000 % 1.2000-11.2000 Neutrophils % (test code = Neutrophils %) 52.6000 % 48.900 0-69.9000 Lymphocytes (test code = Lymphocytes) 1.2000 1.2000-3.2 000 MID (test code = MID) 0.2000 0.1000-1.1000 Neutrophils (test code = Neutrophils) 1.5000 1.5000-6.7 000 RBC (test code = RBC) 4.3700 3.7000-4.9000 HGB (test code = HGB) 13.3000 g/dL 11.2000-18.0000 HCT (test code = HCT) 37.9000 % 34.0000-44.0000 MCV (test code = MCV) 86.8000 fL 80.0000-94.0000 MCH (test code = MCH) 30.5000 pg 27.0000-34.0000 MCHC (test code = MCHC) 35.1000 g/dL 31.5000-36.0000 RDW (test code = RDW) 14.5000 11.0000-18.0000 PLT (test code = PLT) 71.0000 140.0000-440.0000 MPV (test code = MPV) 8.0000 fL 6.8000-10.6000 [id number] 14:28:00 Test Item Value Reference Range Comments WBC (test code = WBC) 3.1000 4.0000-10.0000 Lymphocytes % (test code = Lymphocytes %) 34.2000 % 22.400 0-43.6000 MID% (test code = MID%) 5.1000 % 1.2000-11.2000 Neutrophils % (test code = Neutrophils %) 60.7000 % 48.900 0-69.9000 Lymphocytes (test code = Lymphocytes) 1.0000 1.2000-3.2 000 MID (test code = MID) 0.2000 0.1000-1.1000 Neutrophils (test code = Neutrophils) 1.9000 1.5000-6.7 000 RBC (test code = RBC) 4.8300 3.7000-4.9000 HGB (test code = HGB) 14.0000 g/dL 11.2000-18.0000 HCT (test code = HCT) 41.8000 % 34.0000-44.0000 MCV (test code = MCV) 86.6000 fL 80.0000-94.0000 MCH (test code = MCH) 29.0000 pg 27.0000-34.0000 MCHC (test code = MCHC) 33.5000 g/dL 31.5000-36.0000 RDW (test code = RDW) 14.0000 11.0000-18.0000 PLT (test code = PLT) 130.0000 140.0000-440.0000 MPV (test code = MPV) 8.2000 fL 6.8000-10.6000 [id number] 13:55:00 Test Item Value Reference Range Comments Creatinine (test code = Creatinine) 0.5000 mg/dL 0.5000-1.200 0 Cr Clearance (Est) (test code = Cr 153.5800 75.0000-115.0 000 Clearance (Est)) Glucose (test code = Glucose) 279.0000 mg/dL 70.0000-118.0000 BUN (test code = BUN) 15.0000 mg/dL 7.0000-22.0000 Sodium (test code = Sodium) 138.0000 mmol/L 128.0000-145.0000 Potassium (test code = Potassium) 4.1000 mmol/L 3.6000-5.1000 Chloride (test code = Chloride) 101.0000 mmol/L 96.0000-108.0000 CO2 (test code = CO2) 29.0000 mmol/L 18.0000-33.0000 Calcium (test code = Calcium) 8.8000 mg/dL 8.0000-10.3000 Alkaline Phosphatase (test code = Alkaline 38.0000 42.00 00-141.0000 Phosphatase) ALT (SGPT) (test code = ALT (SGPT)) 30.0000 10.0000-47.0 000 AST (SGOT) (test code = AST (SGOT)) 27.0000 11.0000-37.0 000 Bilirubin, Total (test code = Bilirubin, 0.5000 mg/dL 0.0000- 1.6000 Total) Albumin (test code = Albumin) 4.2000 g/dL 3.5000-5.5000 Protein, Total (test code = Protein, 6.9000 g/dL 6.4000-8.10 00 Total) eGFR -[place]aced[place] (test code = eGFR 150.0000 60.0000- 200.0000 -Maced[place]) eGFR Rur-Bfkuewr-Kcozdecy (test code = 124.0000 60.0000-2 00.0000 eGFR Cdp-Fzcpups-Ovvgfxml) [id number] 09:53:00 Test Item Value Reference Range Comments WBC (test code = WBC) 5.2000 4.0000-10.0000 Lymphocytes % (test code = Lymphocytes %) 24.9000 % 22.400 0-43.6000 MID% (test code = MID%) 4.9000 % 1.2000-11.2000 Neutrophils % (test code = Neutrophils %) 70.2000 % 48.900 0-69.9000 Lymphocytes (test code = Lymphocytes) 1.3000 1.2000-3.2 000 MID (test code = MID) 0.3000 0.1000-1.1000 Neutrophils (test code = Neutrophils) 3.6000 1.5000-6.7 000 RBC (test code = RBC) 5.0500 3.7000-4.9000 HGB (test code = HGB) 14.9000 g/dL 11.2000-18.0000 HCT (test code = HCT) 45.1000 % 34.0000-44.0000 MCV (test code = MCV) 89.2000 fL 80.0000-94.0000 MCH (test code = MCH) 29.5000 pg 27.0000-34.0000 MCHC (test code = MCHC) 33.1000 g/dL 31.5000-36.0000 RDW (test code = RDW) 14.0000 11.0000-18.0000 PLT (test code = PLT) 126.0000 140.0000-440.0000 MPV (test code = MPV) 8.9000 fL 6.8000-10.6000 [id number] 13:58:00 Test Item Value Reference Range Comments Creatinine (test code = Creatinine) 0.7000 mg/dL 0.5000-1.200 0 Cr Clearance (Est) (test code = Cr 110.0500 75.0000-115.0 000 Clearance (Est)) Glucose (test code = Glucose) 333.0000 mg/dL 70.0000-118.0000 BUN (test code = BUN) 15.0000 mg/dL 7.0000-22.0000 Sodium (test code = Sodium) 140.0000 mmol/L 128.0000-145.0000 Potassium (test code = Potassium) 3.7000 mmol/L 3.6000-5.1000 Chloride (test code = Chloride) 99.0000 mmol/L 96.0000-108.0000 CO2 (test code = CO2) 29.0000 mmol/L 18.0000-33.0000 Calcium (test code = Calcium) 9.8600 mg/dL 8.0000-10.3000 Alkaline Phosphatase (test code = Alkaline 42.0000 42.00 00-141.0000 Phosphatase) ALT (SGPT) (test code = ALT (SGPT)) 36.0000 10.0000-47.0 000 AST (SGOT) (test code = AST (SGOT)) 28.0000 11.0000-37.0 000 Bilirubin, Total (test code = Bilirubin, 0.6000 mg/dL 0.0000- 1.6000 Total) Albumin (test code = Albumin) 4.2000 g/dL 3.5000-5.5000 Protein, Total (test code = Protein, 6.9000 g/dL 6.4000-8.10 00 Total) eGFR -[place] (test code = eGFR 102.0000 60.0000- 200.0000 -[place]aced[place]) eGFR Vfx-Cscbpmg-Ltvuxpnb (test code = 84.0000 60.0000-2 00.0000 eGFR Uqx-Kluzjsl-Pgrkabqw) [id number] 13:57:00 Test Item Value Reference Range Comments WBC (test code = WBC) 5.1000 4.0000-10.0000 Lymphocytes % (test code = Lymphocytes %) 25.9000 % 22.400 0-43.6000 MID% (test code = MID%) 6.0000 % .1999- Neutrophils % (test code = Neutrophils %) 68.1000 % 48.900 0-69.9000 Lymphocytes (test code = Lymphocytes) 1.3000 1.2000-3.2 000 MID (test code = MID) 0.4000 0.1000-1.1000 Neutrophils (test code = Neutrophils) 3.4000 1.5000-6.7 000 RBC (test code = RBC) 5.0500 3.7000-4.9000 HGB (test code = HGB) 15.0000 g/dL 11.2000-18.0000 HCT (test code = HCT) 43.9000 % 34.0000-44.0000 MCV (test code = MCV) 87.0000 fL 80.0000-94.0000 MCH (test code = MCH) 29.8000 pg 27.0000-34.0000 MCHC (test code = MCHC) 34.3000 g/dL 31.5000-36.0000 RDW (test code = RDW) 13.6000 11.0000-18.0000 PLT (test code = PLT) 144.0000 140.0000-440.0000 MPV (test code = MPV) 7.9000 fL 6.8000-10.6000 [id number] 08:37:00 Test Item Value Reference Range Comments WBC (test code = WBC) 4.0000 4.0000-10.0000 Lymphocytes % (test code = Lymphocytes %) 29.3000 % 22.400 0-43.6000 MID% (test code = MID%) 6.9000 % .1999- Neutrophils % (test code = Neutrophils %) 63.8000 % 48.900 0-69.9000 Lymphocytes (test code = Lymphocytes) 1.1000 1.2000-3.2 000 MID (test code = MID) 0.4000 0.1000-1.1000 Neutrophils (test code = Neutrophils) 2.5000 1.5000-6.7 000 RBC (test code = RBC) 4.7700 3.7000-4.9000 HGB (test code = HGB) 14.6000 g/dL 11.2000-18.0000 HCT (test code = HCT) 41.3000 % 34.0000-44.0000 MCV (test code = MCV) 86.5000 fL 80.0000-94.0000 MCH (test code = MCH) 30.5000 pg 27.0000-34.0000 MCHC (test code = MCHC) 35.3000 g/dL 31.5000-36.0000 RDW (test code = RDW) 13.9000 11.0000-18.0000 PLT (test code = PLT) 118.0000 140.0000-440.0000 MPV (test code = MPV) 8.1000 fL 6.8000-10.6000 [id number] 08:37:00 Test Item Value Reference Range Comments Creatinine (test code = Creatinine) 0.5000 mg/dL 0.5000-1.200 0 Cr Clearance (Est) (test code = Cr 154.8700 75.0000-115.0 000 Clearance (Est)) Glucose (test code = Glucose) 303.0000 mg/dL 70.0000-118.0000 BUN (test code = BUN) 13.0000 mg/dL 7.0000-22.0000 Sodium (test code = Sodium) 139.0000 mmol/L 128.0000-145.0000 Potassium (test code = Potassium) 3.8000 mmol/L 3.6000-5.1000 Chloride (test code = Chloride) 102.0000 mmol/L 96.0000-108.0000 CO2 (test code = CO2) 26.0000 mmol/L 18.0000-33.0000 Calcium (test code = Calcium) 8.6000 mg/dL 8.0000-10.3000 Alkaline Phosphatase (test code = Alkaline 40.0000 42.00 00-141.0000 Phosphatase) ALT (SGPT) (test code = ALT (SGPT)) 26.0000 10.0000-47.0 000 AST (SGOT) (test code = AST (SGOT)) 22.0000 11.0000-37.0 000 Bilirubin, Total (test code = Bilirubin, 0.8000 mg/dL 0.0000- 1.6000 Total) Albumin (test code = Albumin) 4.1000 g/dL 3.5000-5.5000 Protein, Total (test code = Protein, 6.6000 g/dL 6.4000-8.10 00 Total) eGFR -[place]aced[place] (test code = eGFR 150.0000 60.0000- 200.0000 -Maced[place]) eGFR Hzm-Hoyfvsw-Gzaohekz (test code = 124.0000 60.0000-2 00.0000 eGFR Yxn-Yjyxhol-Skhdmnei) [id number] 09:21:00 Test Item Value Reference Range Comments WBC (test code = WBC) 3.9000 4.0000-10.0000 Lymphocytes % (test code = Lymphocytes %) 27.9000 % 22.400 0-43.6000 MID% (test code = MID%) 6.0000 % 1.2000-11.2000 Neutrophils % (test code = Neutrophils %) 66.1000 % 48.900 0-69.9000 Lymphocytes (test code = Lymphocytes) 1.1000 1.2000-3.2 000 MID (test code = MID) 0.2000 0.1000-1.1000 Neutrophils (test code = Neutrophils) 2.6000 1.5000-6.7 000 RBC (test code = RBC) 4.5600 3.7000-4.9000 HGB (test code = HGB) 13.3000 g/dL 11.2000-18.0000 HCT (test code = HCT) 39.5000 % 34.0000-44.0000 MCV (test code = MCV) 86.6000 fL 80.0000-94.0000 MCH (test code = MCH) 29.2000 pg 27.0000-34.0000 MCHC (test code = MCHC) 33.7000 g/dL 31.5000-36.0000 RDW (test code = RDW) 14.1000 11.0000-18.0000 PLT (test code = PLT) 116.0000 140.0000-440.0000 MPV (test code = MPV) 7.7000 fL 6.8000-10.6000 [id number] 09:21:00 Test Item Value Reference Range Comments Creatinine (test code = Creatinine) 0.5000 mg/dL 0.5000-1.200 0 Cr Clearance (Est) (test code = Cr 153.9000 75.0000-115.0 000 Clearance (Est)) Glucose (test code = Glucose) 327.0000 mg/dL 70.0000-118.0000 BUN (test code = BUN) 14.0000 mg/dL 7.0000-22.0000 Sodium (test code = Sodium) 135.0000 mmol/L 128.0000-145.0000 Potassium (test code = Potassium) 3.8000 mmol/L 3.6000-5.1000 Chloride (test code = Chloride) 105.0000 mmol/L 96.0000-108.0000 CO2 (test code = CO2) 27.0000 mmol/L 18.0000-33.0000 Calcium (test code = Calcium) 8.6900 mg/dL 8.0000-10.3000 Alkaline Phosphatase (test code = Alkaline 43.0000 42.00 00-141.0000 Phosphatase) ALT (SGPT) (test code = ALT (SGPT)) 29.0000 10.0000-47.0 000 AST (SGOT) (test code = AST (SGOT)) 27.0000 11.0000-37.0 000 Bilirubin, Total (test code = Bilirubin, 0.8000 mg/dL 0.0000- 1.6000 Total) Albumin (test code = Albumin) 4.0000 g/dL 3.5000-5.5000 Protein, Total (test code = Protein, 6.3000 g/dL 6.4000-8.10 00 Total) eGFR -[place] (test code = eGFR 150.0000 60.0000- 200.0000 -[place]aced[place]) eGFR Kwq-Svjkcya-Wbjumvyo (test code = 124.0000 60.0000-2 00.0000 eGFR Skm-Nugwjzj-Tbqbbeti) [id number] 11:03:00 Test Item Value Reference Range Comments WBC (test code = WBC) 4.9000 4.0000-10.0000 Lymphocytes % (test code = Lymphocytes %) 24.5000 % 22.400 0-43.6000 MID% (test code = MID%) 5.7000 % 1.2000-11.2000 Neutrophils % (test code = Neutrophils %) 69.8000 % 48.900 0-69.9000 Lymphocytes (test code = Lymphocytes) 1.2000 1.2000-3.2 000 MID (test code = MID) 0.3000 0.1000-1.1000 Neutrophils (test code = Neutrophils) 3.4000 1.5000-6.7 000 RBC (test code = RBC) 4.6000 3.7000-4.9000 HGB (test code = HGB) 14.1000 g/dL 11.2000-18.0000 HCT (test code = HCT) 38.4000 % 34.0000-44.0000 MCV (test code = MCV) 83.6000 fL 80.0000-94.0000 MCH (test code = MCH) 30.8000 pg 27.0000-34.0000 MCHC (test code = MCHC) 36.8000 g/dL 31.5000-36.0000 RDW (test code = RDW) 14.3000 11.0000-18.0000 PLT (test code = PLT) 128.0000 140.0000-440.0000 MPV (test code = MPV) 8.5000 fL 6.8000-10.6000 [id number] 11:03:00 Test Item Value Reference Range Comments Creatinine (test code = Creatinine) 0.5000 mg/dL 0.5000-1.200 0 Cr Clearance (Est) (test code = Cr 153.9000 75.0000-115.0 000 Clearance (Est)) Glucose (test code = Glucose) 286.0000 mg/dL 70.0000-118.0000 BUN (test code = BUN) 17.0000 mg/dL 7.0000-22.0000 Sodium (test code = Sodium) 138.0000 mmol/L 128.0000-145.0000 Potassium (test code = Potassium) 4.1000 mmol/L 3.6000-5.1000 Chloride (test code = Chloride) 106.0000 mmol/L 96.0000-108.0000 CO2 (test code = CO2) 23.0000 mmol/L 18.0000-33.0000 Calcium (test code = Calcium) 9.2400 mg/dL 8.0000-10.3000 Alkaline Phosphatase (test code = Alkaline 68.0000 42.00 00-141.0000 Phosphatase) ALT (SGPT) (test code = ALT (SGPT)) 19.0000 10.0000-47.0 000 AST (SGOT) (test code = AST (SGOT)) 24.0000 11.0000-37.0 000 Bilirubin, Total (test code = Bilirubin, 0.6000 mg/dL 0.0000- 1.6000 Total) Albumin (test code = Albumin) 3.6000 g/dL 3.5000-5.5000 Protein, Total (test code = Protein, 6.7000 g/dL 6.4000-8.10 00 Total) eGFR -Macedonian (test code = eGFR 150.0000 60.0000- 200.0000 -Macedonian) eGFR Jqg-Jkjsnmc-Vahuvuyq (test code = 124.0000 60.0000-2 00.0000 eGFR Qky-Ylfhygz-Dbdfceqe) [id number] 13:53:00 Test Item Value Reference Range Comments Creatinine (test code = Creatinine) 0.4200 mg/dL 0.5700-1.000 0 Cr Clearance (Est) (test code = Cr 181.6900 75.0000-115.0 000 Clearance (Est)) Glucose (test code = Glucose) 138.0000 mg/dL 65.0000-99.0000 BUN (test code = BUN) 12.0000 mg/dL 8.0000-27.0000 eGFR Ixa-Mztdjfs-Zblrzmla (test code = 108.0000 eGFR Tjs-Hlgmoew-Isukepyj) eGFR -Macedonian (test code = eGFR 124.0000 -Macedonian) BUN/Creat Ratio (test code = BUN/Creat 29.0000 12.0000-2 8.0000 Ratio) Sodium (test code = Sodium) 139.0000 mmol/L 134.0000-144.0000 Potassium (test code = Potassium) 4.1000 mmol/L 3.5000-5.2000 Chloride (test code = Chloride) 101.0000 mmol/L 96.0000-106.0000 CO2 (test code = CO2) 22.0000 mmol/L 20.0000-29.0000 Calcium (test code = Calcium) 8.5000 mg/dL 8.7000-10.3000 Protein, Total (test code = Protein, 7.2000 g/dL 6.0000-8.50 00 Total) Albumin (test code = Albumin) 4.0000 g/dL 3.6000-4.8000 Globulin (test code = Globulin) 3.2000 g/dL 1.5000-4.5000 A/G Ratio (test code = A/G Ratio) 1.3000 1.2000-2.2000 Bilirubin, Total (test code = Bilirubin, 0.6000 mg/dL 0.0000- 1.2000 Total) Alkaline Phosphatase (test code = Alkaline 91.0000 39.00 00-117.0000 Phosphatase) AST (SGOT) (test code = AST (SGOT)) 21.0000 0.0000-40.00 00 ALT (SGPT) (test code = ALT (SGPT)) 19.0000 0.0000-32.00 00 Hemoglobin [id number] 13:53:00 Test Item Value Reference Range Comments Hemoglobin A1C (test code = Hemoglobin A1C) 8.1000 % 4.80 00-5.6000 Sed Rate (test code = Sed Rate) 11.0000 0.0000-40.0000 C-Reactive [id number] 13:53:00 Test Item Value Reference Range Comments C-Reactive Protein (test code = C-Reactive 2.0000 mg/L 0.000 0-4.9000 Protein) [id number] 10:49:00 Test Item Value Reference Range Comments WBC (test code = WBC) 4.2000 4.0000-10.0000 Lymphocytes % (test code = Lymphocytes %) 31.4000 % 22.400 0-43.6000 MID% (test code = MID%) 5.9000 % 1.1999-.1999 Neutrophils % (test code = Neutrophils %) 62.7000 % 48.900 0-69.9000 Lymphocytes (test code = Lymphocytes) 1.3000 1.2000-3.2 000 MID (test code = MID) 0.3000 0.1000-1.1000 Neutrophils (test code = Neutrophils) 2.6000 1.5000-6.7 000 RBC (test code = RBC) 4.6500 3.7000-4.9000 HGB (test code = HGB) 13.7000 g/dL 11.2000-18.0000 HCT (test code = HCT) 39.1000 % 34.0000-44.0000 MCV (test code = MCV) 84.0000 fL 80.0000-94.0000 MCH (test code = MCH) 29.4000 pg 27.0000-34.0000 MCHC (test code = MCHC) 35.0000 g/dL 31.5000-36.0000 RDW (test code = RDW) 14.8000 11.0000-18.0000 PLT (test code = PLT) 115.0000 140.0000-440.0000 MPV (test code = MPV) 7.5000 fL 6.8000-10.6000 [id number] 08:47:00 Test Item Value Reference Range Comments WBC (test code = WBC) 3.8000 4.0000-10.0000 Lymphocytes % (test code = Lymphocytes %) 24.1000 % 22.400 0-43.6000 MID% (test code = MID%) 7.0000 % .1999- Neutrophils % (test code = Neutrophils %) 68.9000 % 48.900 0-69.9000 Lymphocytes (test code = Lymphocytes) 0.9000 1.2000-3.2 000 MID (test code = MID) 0.3000 0.1000-1.1000 Neutrophils (test code = Neutrophils) 2.6000 1.5000-6.7 000 RBC (test code = RBC) 4.4600 3.7000-4.9000 HGB (test code = HGB) 13.5000 g/dL 11.2000-18.0000 HCT (test code = HCT) 36.9000 % 34.0000-44.0000 MCV (test code = MCV) 82.6000 fL 80.0000-94.0000 MCH (test code = MCH) 30.4000 pg 27.0000-34.0000 MCHC (test code = MCHC) 36.8000 g/dL 31.5000-36.0000 RDW (test code = RDW) 14.2000 11.0000-18.0000 PLT (test code = PLT) 128.0000 140.0000-440.0000 MPV (test code = MPV) 7.4000 fL 6.8000-10.6000 [id number] 08:47:00 Test Item Value Reference Range Comments Creatinine (test code = Creatinine) 0.5000 mg/dL 0.5000-1.200 0 Cr Clearance (Est) (test code = Cr 152.6200 75.0000-115.0 000 Clearance (Est)) Glucose (test code = Glucose) 208.0000 mg/dL 70.0000-118.0000 BUN (test code = BUN) 10.0000 mg/dL 7.0000-22.0000 Sodium (test code = Sodium) 136.0000 mmol/L 128.0000-145.0000 Potassium (test code = Potassium) 3.5000 mmol/L 3.6000-5.1000 Chloride (test code = Chloride) 104.0000 mmol/L 96.0000-108.0000 CO2 (test code = CO2) 28.0000 mmol/L 18.0000-33.0000 Calcium (test code = Calcium) 8.8000 mg/dL 8.0000-10.3000 Alkaline Phosphatase (test code = Alkaline 67.0000 42.00 00-141.0000 Phosphatase) ALT (SGPT) (test code = ALT (SGPT)) 25.0000 10.0000-47.0 000 AST (SGOT) (test code = AST (SGOT)) 30.0000 11.0000-37.0 000 Bilirubin, Total (test code = Bilirubin, 0.6000 mg/dL 0.0000- 1.6000 Total) Albumin (test code = Albumin) 3.3000 g/dL 3.5000-5.5000 Protein, Total (test code = Protein, 7.1000 g/dL 6.4000-8.10 00 Total) eGFR -Macedonian (test code = eGFR 150.0000 60.0000- 200.0000 -Macedonian) eGFR Tiu-Jjcucej-Dszftnii (test code = 124.0000 60.0000-2 00.0000 eGFR Abb-Njlfkvi-Vcegytfu) [id number] 10:12:00 Test Item Value Reference Range Comments WBC (test code = WBC) 4.0000 4.0000-10.0000 Lymphocytes % (test code = Lymphocytes %) 26.9000 % 22.400 0-43.6000 MID% (test code = MID%) 8.2000 % 1.2000-11.2000 Neutrophils % (test code = Neutrophils %) 64.9000 % 48.900 0-69.9000 Lymphocytes (test code = Lymphocytes) 1.0000 1.2000-3.2 000 MID (test code = MID) 0.4000 0.1000-1.1000 Neutrophils (test code = Neutrophils) 2.6000 1.5000-6.7 000 RBC (test code = RBC) 3.9900 3.7000-4.9000 HGB (test code = HGB) 12.7000 g/dL 11.2000-18.0000 HCT (test code = HCT) 32.9000 % 34.0000-44.0000 MCV (test code = MCV) 82.4000 fL 80.0000-94.0000 MCH (test code = MCH) 31.9000 pg 27.0000-34.0000 MCHC (test code = MCHC) 38.6000 g/dL 31.5000-36.0000 RDW (test code = RDW) 13.2000 11.0000-18.0000 PLT (test code = PLT) 132.0000 140.0000-440.0000 MPV (test code = MPV) 7.3000 fL 6.8000-10.6000 [id number] 10:11:00 Test Item Value Reference Range Comments Creatinine (test code = Creatinine) 0.6000 mg/dL 0.5000-1.200 0 Cr Clearance (Est) (test code = Cr 131.7300 75.0000-115.0 000 Clearance (Est)) Glucose (test code = Glucose) 182.0000 mg/dL 70.0000-118.0000 BUN (test code = BUN) 13.0000 mg/dL 7.0000-22.0000 Sodium (test code = Sodium) 140.0000 mmol/L 128.0000-145.0000 Potassium (test code = Potassium) 3.8000 mmol/L 3.6000-5.1000 Chloride (test code = Chloride) 104.0000 mmol/L 96.0000-108.0000 CO2 (test code = CO2) 27.0000 mmol/L 18.0000-33.0000 Calcium (test code = Calcium) 8.2600 mg/dL 8.0000-10.3000 Alkaline Phosphatase (test code = Alkaline 59.0000 42.00 00-141.0000 Phosphatase) ALT (SGPT) (test code = ALT (SGPT)) 15.0000 10.0000-47.0 000 AST (SGOT) (test code = AST (SGOT)) 20.0000 11.0000-37.0 000 Bilirubin, Total (test code = Bilirubin, 0.7000 mg/dL 0.0000- 1.6000 Total) Albumin (test code = Albumin) 3.9000 g/dL 3.5000-5.5000 Protein, Total (test code = Protein, 6.9000 g/dL 6.4000-8.10 00 Total) eGFR -Macedonian (test code = eGFR 122.0000 60.0000- 200.0000 -Macedonian) eGFR Vjh-Vqtjroa-Uegwkrru (test code = 101.0000 60.0000-2 00.0000 eGFR Xdl-Oxvglho-Bsumsaqv) [id number] 08:32:00 Test Item Value Reference Range Comments WBC (test code = WBC) 7.4000 4.0000-10.0000 Lymphocytes % (test code = Lymphocytes %) 11.7000 % 22.400 0-43.6000 MID% (test code = MID%) 3.1000 % 1.2000-11.2000 Neutrophils % (test code = Neutrophils %) 85.2000 % 48.900 0-69.9000 Lymphocytes (test code = Lymphocytes) 0.8000 1.2000-3.2 000 MID (test code = MID) 0.3000 0.1000-1.1000 Neutrophils (test code = Neutrophils) 6.3000 1.5000-6.7 000 RBC (test code = RBC) 3.9900 3.7000-4.9000 HGB (test code = HGB) 12.4000 g/dL 11.2000-18.0000 HCT (test code = HCT) 34.1000 % 34.0000-44.0000 MCV (test code = MCV) 85.4000 fL 80.0000-94.0000 MCH (test code = MCH) 31.0000 pg 27.0000-34.0000 MCHC (test code = MCHC) 36.3000 g/dL 31.5000-36.0000 RDW (test code = RDW) 13.0000 11.0000-18.0000 PLT (test code = PLT) 134.0000 140.0000-440.0000 MPV (test code = MPV) 8.0000 fL 6.8000-10.6000 [id number] 08:31:00 Test Item Value Reference Range Comments Creatinine (test code = Creatinine) 0.6000 mg/dL 0.5000-1.200 0 Cr Clearance (Est) (test code = Cr 133.0800 75.0000-115.0 000 Clearance (Est)) Glucose (test code = Glucose) 264.0000 mg/dL 70.0000-118.0000 BUN (test code = BUN) 12.0000 mg/dL 7.0000-22.0000 Sodium (test code = Sodium) 139.0000 mmol/L 128.0000-145.0000 Potassium (test code = Potassium) 3.1000 mmol/L 3.6000-5.1000 Chloride (test code = Chloride) 99.0000 mmol/L 96.0000-108.0000 CO2 (test code = CO2) 28.0000 mmol/L 18.0000-33.0000 Calcium (test code = Calcium) 8.7300 mg/dL 8.0000-10.3000 Alkaline Phosphatase (test code = Alkaline 63.0000 42.00 00-141.0000 Phosphatase) ALT (SGPT) (test code = ALT (SGPT)) 19.0000 10.0000-47.0 000 AST (SGOT) (test code = AST (SGOT)) 18.0000 11.0000-37.0 000 Bilirubin, Total (test code = Bilirubin, 1.2000 mg/dL 0.0000- 1.6000 Total) Albumin (test code = Albumin) 3.7000 g/dL 3.5000-5.5000 Protein, Total (test code = Protein, 6.4000 g/dL 6.4000-8.10 00 Total) eGFR -Macedonian (test code = eGFR 122.0000 60.0000- 200.0000 -Macedonian) eGFR Usm-Ddozsvp-Iayujhzl (test code = 101.0000 60.0000-2 00.0000 eGFR Iop-Ujzzfsd-Fbvmwlmv) [id number] 09:49:00 Test Item Value Reference Range Comments WBC (test code = WBC) 3.3000 4.0000-10.0000 Lymphocytes % (test code = Lymphocytes %) 23.5000 % 22.400 0-43.6000 MID% (test code = MID%) 8.6000 % 1.2000-11.2000 Neutrophils % (test code = Neutrophils %) 67.9000 % 48.900 0-69.9000 Lymphocytes (test code = Lymphocytes) 0.7000 1.2000-3.2 000 MID (test code = MID) 0.4000 0.1000-1.1000 Neutrophils (test code = Neutrophils) 2.2000 1.5000-6.7 000 RBC (test code = RBC) 3.9200 3.7000-4.9000 HGB (test code = HGB) 12.6000 g/dL 11.2000-18.0000 HCT (test code = HCT) 32.9000 % 34.0000-44.0000 MCV (test code = MCV) 83.9000 fL 80.0000-94.0000 MCH (test code = MCH) 32.1000 pg 27.0000-34.0000 MCHC (test code = MCHC) 38.3000 g/dL 31.5000-36.0000 RDW (test code = RDW) 14.0000 11.0000-18.0000 PLT (test code = PLT) 121.0000 140.0000-440.0000 MPV (test code = MPV) 7.1000 fL 6.8000-10.6000 [id number] 09:49:00 Test Item Value Reference Range Comments Creatinine (test code = Creatinine) 0.4000 mg/dL 0.5000-1.200 0 Cr Clearance (Est) (test code = Cr 196.5700 75.0000-115.0 000 Clearance (Est)) Glucose (test code = Glucose) 251.0000 mg/dL 70.0000-118.0000 BUN (test code = BUN) 12.0000 mg/dL 7.0000-22.0000 Sodium (test code = Sodium) 138.0000 mmol/L 128.0000-145.0000 Potassium (test code = Potassium) 3.4000 mmol/L 3.6000-5.1000 Chloride (test code = Chloride) 108.0000 mmol/L 96.0000-108.0000 CO2 (test code = CO2) 20.0000 mmol/L 18.0000-33.0000 Calcium (test code = Calcium) 8.4000 mg/dL 8.0000-10.3000 Alkaline Phosphatase (test code = Alkaline 52.0000 42.00 00-141.0000 Phosphatase) ALT (SGPT) (test code = ALT (SGPT)) 23.0000 10.0000-47.0 000 AST (SGOT) (test code = AST (SGOT)) 22.0000 11.0000-37.0 000 Bilirubin, Total (test code = Bilirubin, 0.7000 mg/dL 0.0000- 1.6000 Total) Albumin (test code = Albumin) 3.8000 g/dL 3.5000-5.5000 Protein, Total (test code = Protein, 6.2000 g/dL 6.4000-8.10 00 Total) eGFR -Macedonian (test code = eGFR 194.0000 60.0000- 200.0000 -Macedonian) eGFR Kki-Xjdbllo-Ngnluqqn (test code = 161.0000 60.0000-2 00.0000 eGFR Cba-Dfpufuz-Bjcgfral) [id number] 10:31:00 Test Item Value Reference Range Comments WBC (test code = WBC) 4.5000 4.0000-10.0000 Lymphocytes % (test code = Lymphocytes %) 31.3000 % 22.400 0-43.6000 MID% (test code = MID%) 7.0000 % 1.2000-11.2000 Neutrophils % (test code = Neutrophils %) 61.7000 % 48.900 0-69.9000 Lymphocytes (test code = Lymphocytes) 1.4000 1.2000-3.2 000 MID (test code = MID) 0.3000 0.1000-1.1000 Neutrophils (test code = Neutrophils) 2.8000 1.5000-6.7 000 RBC (test code = RBC) 4.7300 3.7000-4.9000 HGB (test code = HGB) 13.2000 g/dL 11.2000-18.0000 HCT (test code = HCT) 40.0000 % 34.0000-44.0000 MCV (test code = MCV) 84.4000 fL 80.0000-94.0000 MCH (test code = MCH) 27.9000 pg 27.0000-34.0000 MCHC (test code = MCHC) 33.1000 g/dL 31.5000-36.0000 RDW (test code = RDW) 15.0000 11.0000-18.0000 PLT (test code = PLT) 110.0000 140.0000-440.0000 MPV (test code = MPV) 8.4000 fL 6.8000-10.6000 Protein, [id number] 15:22:00 Test Item Value Reference Range Comments Protein, Total (test code = Protein, Total) 6.3000 g/dL 6.00 00-8.5000 Albumin (test code = Albumin) 3.8000 g/dL 3.6000-4.8000 Bilirubin, Total (test code = Bilirubin, 0.4000 mg/dL 0.0000- 1.2000 Total) Bilirubin, Direct (test code = Bilirubin, 0.0700 mg/dL 0.0000 -0.4000 Direct) Alkaline Phosphatase (test code = Alkaline 57.0000 39.00 00-117.0000 Phosphatase) AST (SGOT) (test code = AST (SGOT)) 22.0000 0.0000-40.00 00 ALT (SGPT) (test code = ALT (SGPT)) 19.0000 0.0000-32.00 00 [id number] 09:38:00 Test Item Value Reference Range Comments WBC (test code = WBC) 4.3000 4.0000-10.0000 Lymphocytes % (test code = Lymphocytes %) 31.0000 % 22.400 0-43.6000 MID% (test code = MID%) 7.1000 % 1.2000-11.2000 Neutrophils % (test code = Neutrophils %) 61.9000 % 48.900 0-69.9000 Lymphocytes (test code = Lymphocytes) 1.3000 1.2000-3.2 000 MID (test code = MID) 0.3000 0.1000-1.1000 Neutrophils (test code = Neutrophils) 2.7000 1.5000-6.7 000 RBC (test code = RBC) 4.3600 3.7000-4.9000 HGB (test code = HGB) 12.2000 g/dL 11.2000-18.0000 HCT (test code = HCT) 36.8000 % 34.0000-44.0000 MCV (test code = MCV) 84.3000 fL 80.0000-94.0000 MCH (test code = MCH) 28.1000 pg 27.0000-34.0000 MCHC (test code = MCHC) 33.3000 g/dL 31.5000-36.0000 RDW (test code = RDW) 14.2000 11.0000-18.0000 PLT (test code = PLT) 128.0000 140.0000-440.0000 MPV (test code = MPV) 8.0000 fL 6.8000-10.6000 [id number] 13:54:00 Test Item Value Reference Range Comments WBC (test code = WBC) 4.9000 4.0000-10.0000 Lymphocytes % (test code = Lymphocytes %) 27.7000 % 22.400 0-43.6000 MID% (test code = MID%) 7.8000 % 1.2000-11.2000 Neutrophils % (test code = Neutrophils %) 64.5000 % 48.900 0-69.9000 Lymphocytes (test code = Lymphocytes) 1.3000 1.2000-3.2 000 MID (test code = MID) 0.5000 0.1000-1.1000 Neutrophils (test code = Neutrophils) 3.1000 1.5000-6.7 000 RBC (test code = RBC) 3.9900 3.7000-4.9000 HGB (test code = HGB) 11.8000 g/dL 11.2000-18.0000 HCT (test code = HCT) 35.5000 % 34.0000-44.0000 MCV (test code = MCV) 88.8000 fL 80.0000-94.0000 MCH (test code = MCH) 29.5000 pg 27.0000-34.0000 MCHC (test code = MCHC) 33.2000 g/dL 31.5000-36.0000 RDW (test code = RDW) 14.3000 11.0000-18.0000 PLT (test code = PLT) 137.0000 140.0000-440.0000 MPV (test code = MPV) 7.9000 fL 6.8000-10.6000 [id number] 13:54:00 Test Item Value Reference Range Comments Creatinine (test code = Creatinine) 0.4000 mg/dL 0.5000-1.200 0 Cr Clearance (Est) (test code = Cr 189.6500 75.0000-115.0 000 Clearance (Est)) Glucose (test code = Glucose) 130.0000 mg/dL 70.0000-118.0000 BUN (test code = BUN) 15.0000 mg/dL 7.0000-22.0000 Sodium (test code = Sodium) 136.0000 mmol/L 128.0000-145.0000 Potassium (test code = Potassium) 3.5000 mmol/L 3.6000-5.1000 Chloride (test code = Chloride) 109.0000 mmol/L 96.0000-108.0000 CO2 (test code = CO2) 30.0000 mmol/L 18.0000-33.0000 Calcium (test code = Calcium) 8.6500 mg/dL 8.0000-10.3000 Alkaline Phosphatase (test code = Alkaline 49.0000 42.00 00-141.0000 Phosphatase) ALT (SGPT) (test code = ALT (SGPT)) 12.0000 10.0000-47.0 000 AST (SGOT) (test code = AST (SGOT)) 18.0000 11.0000-37.0 000 Bilirubin, Total (test code = Bilirubin, 0.6000 mg/dL 0.0000- 1.6000 Total) Albumin (test code = Albumin) 3.7000 g/dL 3.5000-5.5000 Protein, Total (test code = Protein, 6.2000 g/dL 6.4000-8.10 00 Total) eGFR -Macedonian (test code = eGFR 194.0000 60.0000- 200.0000 -Macedonian) eGFR Sft-Qhyhmmw-Btbpcfxp (test code = 161.0000 60.0000-2 00.0000 eGFR Ulb-Hemnugl-Bqedvrkz) [id number] 11:32:00 Test Item Value Reference Range Comments WBC (test code = WBC) 3.2000 4.0000-10.0000 Lymphocytes % (test code = Lymphocytes %) 10.6000 % 22.400 0-43.6000 MID% (test code = MID%) 4.0000 % 1.2000-11.2000 Neutrophils % (test code = Neutrophils %) 85.4000 % 48.900 0-69.9000 Lymphocytes (test code = Lymphocytes) 0.3000 1.2000-3.2 000 MID (test code = MID) 0.2000 0.1000-1.1000 Neutrophils (test code = Neutrophils) 2.7000 1.5000-6.7 000 RBC (test code = RBC) 3.7300 3.7000-4.9000 HGB (test code = HGB) 11.7000 g/dL 11.1999-18.0000 HCT (test code = HCT) 33.5000 % 34.0000-44.0000 MCV (test code = MCV) 89.8000 fL 80.0000-94.0000 MCH (test code = MCH) 31.3000 pg 27.0000-34.0000 MCHC (test code = MCHC) 34.8000 g/dL 31.5000-36.0000 RDW (test code = RDW) 15.1999 11.0000-18.0000 PLT (test code = PLT) 164.0000 140.0000-440.0000 MPV (test code = MPV) 7.7000 fL 6.8000-10.6000 [id number] 11:32:00 Test Item Value Reference Range Comments Creatinine (test code = Creatinine) 0.5000 mg/dL 0.5000-1.200 0 Cr Clearance (Est) (test code = Cr 151.7200 75.0000-115.0 000 Clearance (Est)) Glucose (test code = Glucose) 361.0000 mg/dL 70.0000-118.0000 BUN (test code = BUN) 15.0000 mg/dL 7.0000-22.0000 Sodium (test code = Sodium) 136.0000 mmol/L 128.0000-145.0000 Potassium (test code = Potassium) 3.7000 mmol/L 3.6000-5.1000 Chloride (test code = Chloride) 108.0000 mmol/L 96.0000-108.0000 CO2 (test code = CO2) 27.0000 mmol/L 18.0000-33.0000 Calcium (test code = Calcium) 9.1200 mg/dL 8.0000-10.3000 Alkaline Phosphatase (test code = Alkaline 44.0000 42.00 00-141.0000 Phosphatase) ALT (SGPT) (test code = ALT (SGPT)) 11.0000 10.0000-47.0 000 AST (SGOT) (test code = AST (SGOT)) 15.0000 11.0000-37.0 000 Bilirubin, Total (test code = Bilirubin, 1.1000 mg/dL 0.0000- 1.6000 Total) Albumin (test code = Albumin) 4.0000 g/dL 3.5000-5.5000 Protein, Total (test code = Protein, 6.1000 g/dL 6.4000-8.10 00 Total) eGFR -Macedonian (test code = eGFR 151.0000 60.0000- 200.0000 -Macedonian) eGFR Qcz-Cgoquph-Tuxueyzj (test code = 125.0000 60.0000-2 00.0000 eGFR Oss-Lcqjlvh-Wqjgtuzt) [id number] 11:04:00 Test Item Value Reference Range Comments WBC (test code = WBC) 3.0000 4.0000-10.0000 Lymphocytes % (test code = Lymphocytes %) 13.8000 % 22.400 0-43.6000 MID% (test code = MID%) 4.5000 % 1.2000-11.1999 Neutrophils % (test code = Neutrophils %) 81.7000 % 48.900 0-69.9000 Lymphocytes (test code = Lymphocytes) 0.4000 1.2000-3.2 000 MID (test code = MID) 0.2000 0.1000-1.1000 Neutrophils (test code = Neutrophils) 2.4000 1.5000-6.7 000 RBC (test code = RBC) 3.9200 3.7000-4.9000 HGB (test code = HGB) 11.8000 g/dL 11.2000-18.0000 HCT (test code = HCT) 35.6000 % 34.0000-44.0000 MCV (test code = MCV) 90.8000 fL 80.0000-94.0000 MCH (test code = MCH) 30.2000 pg 27.0000-34.0000 MCHC (test code = MCHC) 33.2000 g/dL 31.5000-36.0000 RDW (test code = RDW) 15.5000 11.0000-18.0000 PLT (test code = PLT) 179.0000 140.0000-440.0000 MPV (test code = MPV) 8.1000 fL 6.8000-10.6000 [id number] 09:33:00 Test Item Value Reference Range Comments WBC (test code = WBC) 1.8000 4.0000-10.0000 Lymphocytes % (test code = Lymphocytes %) 17.7000 % 22.400 0-43.6000 MID% (test code = MID%) 4.4000 % 1.2000-11.2000 Neutrophils % (test code = Neutrophils %) 77.9000 % 48.900 0-69.9000 Lymphocytes (test code = Lymphocytes) 0.3000 1.2000-3.2 000 MID (test code = MID) 0.1000 0.1000-1.1000 Neutrophils (test code = Neutrophils) 1.4000 1.5000-6.7 000 RBC (test code = RBC) 3.7500 3.7000-4.9000 HGB (test code = HGB) 11.6000 g/dL 11.2000-18.0000 HCT (test code = HCT) 33.3000 % 34.0000-44.0000 MCV (test code = MCV) 88.8000 fL 80.0000-94.0000 MCH (test code = MCH) 31.1000 pg 27.0000-34.0000 MCHC (test code = MCHC) 35.0000 g/dL 31.5000-36.0000 RDW (test code = RDW) 15.0000 11.0000-18.0000 PLT (test code = PLT) 158.0000 140.0000-440.0000 MPV (test code = MPV) 7.5000 fL 6.8000-10.6000 [id number] 09:33:00 Test Item Value Reference Range Comments Creatinine (test code = Creatinine) 0.4000 mg/dL 0.5000-1.200 0 Cr Clearance (Est) (test code = Cr 188.4300 75.0000-115.0 000 Clearance (Est)) Glucose (test code = Glucose) 371.0000 mg/dL 70.0000-118.0000 BUN (test code = BUN) 15.0000 mg/dL 7.0000-22.0000 Sodium (test code = Sodium) 136.0000 mmol/L 128.0000-145.0000 Potassium (test code = Potassium) 3.8000 mmol/L 3.6000-5.1000 Chloride (test code = Chloride) 109.0000 mmol/L 96.0000-108.0000 CO2 (test code = CO2) 25.0000 mmol/L 18.0000-33.0000 Calcium (test code = Calcium) 9.2800 mg/dL 8.0000-10.3000 Alkaline Phosphatase (test code = Alkaline 44.0000 42.00 00-141.0000 Phosphatase) ALT (SGPT) (test code = ALT (SGPT)) 15.0000 10.0000-47.0 000 AST (SGOT) (test code = AST (SGOT)) 17.0000 11.0000-37.0 000 Bilirubin, Total (test code = Bilirubin, 1.1000 mg/dL 0.0000- 1.6000 Total) Albumin (test code = Albumin) 4.0000 g/dL 3.5000-5.5000 Protein, Total (test code = Protein, 6.4000 g/dL 6.4000-8.10 00 Total) eGFR -Macedonian (test code = eGFR 194.0000 60.0000- 200.0000 -Macedonian) eGFR Kqr-Vzwvcci-Ozwvdsfm (test code = 161.0000 60.0000-2 00.0000 eGFR Vsw-Ztpxrer-Xgrnboze) [id number] 10:55:00 Test Item Value Reference Range Comments WBC (test code = WBC) 2.3000 4.0000-10.0000 Lymphocytes % (test code = Lymphocytes %) 16.7000 % 22.400 0-43.6000 MID% (test code = MID%) 3.6000 % 1.2000-11.2000 Neutrophils % (test code = Neutrophils %) 79.7000 % 48.900 0-69.9000 Lymphocytes (test code = Lymphocytes) 0.4000 1.2000-3.2 000 MID (test code = MID) 0.0000 0.1000-1.1000 Neutrophils (test code = Neutrophils) 1.9000 1.5000-6.7 000 RBC (test code = RBC) 3.9300 3.7000-4.9000 HGB (test code = HGB) 12.0000 g/dL 11.2000-18.0000 HCT (test code = HCT) 36.0000 % 34.0000-44.0000 MCV (test code = MCV) 91.5000 fL 80.0000-94.0000 MCH (test code = MCH) 30.6000 pg 27.0000-34.0000 MCHC (test code = MCHC) 33.4000 g/dL 31.5000-36.0000 RDW (test code = RDW) 15.7000 11.0000-18.0000 PLT (test code = PLT) 179.0000 140.0000-440.0000 MPV (test code = MPV) 8.2000 fL 6.8000-10.6000 [id number] 10:19:00 Test Item Value Reference Range Comments Creatinine (test code = Creatinine) 0.5000 mg/dL 0.5000-1.200 0 Cr Clearance (Est) (test code = Cr 149.4400 75.0000-115.0 000 Clearance (Est)) Glucose (test code = Glucose) 457.0000 mg/dL 70.0000-118.0000 BUN (test code = BUN) 10.0000 mg/dL 7.0000-22.0000 Sodium (test code = Sodium) 136.0000 mmol/L 128.0000-145.0000 Potassium (test code = Potassium) 3.8000 mmol/L 3.6000-5.1000 Chloride (test code = Chloride) 107.0000 mmol/L 96.0000-108.0000 CO2 (test code = CO2) 26.0000 mmol/L 18.0000-33.0000 Calcium (test code = Calcium) 8.0700 mg/dL 8.0000-10.3000 Alkaline Phosphatase (test code = Alkaline 48.0000 42.00 00-141.0000 Phosphatase) ALT (SGPT) (test code = ALT (SGPT)) 18.0000 10.0000-47.0 000 AST (SGOT) (test code = AST (SGOT)) 16.0000 11.0000-37.0 000 Bilirubin, Total (test code = Bilirubin, 0.8000 mg/dL 0.0000- 1.6000 Total) Albumin (test code = Albumin) 4.0000 g/dL 3.5000-5.5000 Protein, Total (test code = Protein, 6.5000 g/dL 6.4000-8.10 00 Total) eGFR -Macedonian (test code = eGFR 150.0000 60.0000- 200.0000 -Macedonian) eGFR Ujk-Dkoofus-Licphsws (test code = 124.0000 60.0000-2 00.0000 eGFR Ecb-Gqcgyrv-Sqzcsjek) [id number] 10:18:00 Test Item Value Reference Range Comments WBC (test code = WBC) 2.9000 4.0000-10.0000 Lymphocytes % (test code = Lymphocytes %) 11.8000 % 22.400 0-43.6000 MID% (test code = MID%) 2.8000 % 1.2000-11.2000 Neutrophils % (test code = Neutrophils %) 85.4000 % 48.900 0-69.9000 Lymphocytes (test code = Lymphocytes) 0.3000 1.2000-3.2 000 MID (test code = MID) 0.2000 0.1000-1.1000 Neutrophils (test code = Neutrophils) 2.4000 1.5000-6.7 000 RBC (test code = RBC) 3.8100 3.7000-4.9000 HGB (test code = HGB) 11.6000 g/dL 11.2000-18.0000 HCT (test code = HCT) 33.7000 % 34.0000-44.0000 MCV (test code = MCV) 88.3000 fL 80.0000-94.0000 MCH (test code = MCH) 30.5000 pg 27.0000-34.0000 MCHC (test code = MCHC) 34.6000 g/dL 31.5000-36.0000 RDW (test code = RDW) 14.6000 11.0000-18.0000 PLT (test code = PLT) 167.0000 140.0000-440.0000 MPV (test code = MPV) 8.3000 fL 6.8000-10.6000 [id number] 10:54:00 Test Item Value Reference Range Comments WBC (test code = WBC) 1.8000 4.0000-10.0000 Lymphocytes % (test code = Lymphocytes %) 26.6000 % 22.400 0-43.6000 MID% (test code = MID%) 4.3000 % 1.2000-11.2000 Neutrophils % (test code = Neutrophils %) 69.1000 % 48.900 0-69.9000 Lymphocytes (test code = Lymphocytes) 0.5000 1.2000-3.2 000 MID (test code = MID) 0.0000 0.1000-1.1000 Neutrophils (test code = Neutrophils) 1.3000 1.5000-6.7 000 RBC (test code = RBC) 3.5100 3.7000-4.9000 HGB (test code = HGB) 11.2000 g/dL 11.2000-18.0000 HCT (test code = HCT) 30.8000 % 34.0000-44.0000 MCV (test code = MCV) 87.7000 fL 80.0000-94.0000 MCH (test code = MCH) 31.8000 pg 27.0000-34.0000 MCHC (test code = MCHC) 36.3000 g/dL 31.5000-36.0000 RDW (test code = RDW) 14.5000 11.0000-18.0000 PLT (test code = PLT) 146.0000 140.0000-440.0000 MPV (test code = MPV) 7.5000 fL 6.8000-10.6000 [id number] 10:44:00 Test Item Value Reference Range Comments Creatinine (test code = Creatinine) 0.6000 mg/dL 0.5000-1.200 0 Cr Clearance (Est) (test code = Cr 126.7200 75.0000-115.0 000 Clearance (Est)) Glucose (test code = Glucose) 305.0000 mg/dL 70.0000-118.0000 BUN (test code = BUN) 12.0000 mg/dL 7.0000-22.0000 Sodium (test code = Sodium) 137.0000 mmol/L 128.0000-145.0000 Potassium (test code = Potassium) 3.4000 mmol/L 3.6000-5.1000 Chloride (test code = Chloride) 107.0000 mmol/L 96.0000-108.0000 CO2 (test code = CO2) 30.0000 mmol/L 18.0000-33.0000 Calcium (test code = Calcium) 9.4200 mg/dL 8.0000-10.3000 Alkaline Phosphatase (test code = Alkaline 48.0000 42.00 00-141.0000 Phosphatase) ALT (SGPT) (test code = ALT (SGPT)) 15.0000 10.0000-47.0 000 AST (SGOT) (test code = AST (SGOT)) 15.0000 11.0000-37.0 000 Bilirubin, Total (test code = Bilirubin, 0.8000 mg/dL 0.0000- 1.6000 Total) Albumin (test code = Albumin) 3.8000 g/dL 3.5000-5.5000 Protein, Total (test code = Protein, 6.2000 g/dL 6.4000-8.10 00 Total) eGFR -Macedonian (test code = eGFR 122.0000 60.0000- 200.0000 -Macedonian) eGFR Axm-Bbxhfuh-Ycdrzbde (test code = 101.0000 60.0000-2 00.0000 eGFR Pow-Jaytpjc-Hgcbpwto) [id number] 10:46:00 Test Item Value Reference Range Comments WBC (test code = WBC) 2.7000 4.0000-10.0000 Lymphocytes % (test code = Lymphocytes %) 13.7000 % 22.400 0-43.6000 MID% (test code = MID%) 3.0000 % 1.2000-11.1999 Neutrophils % (test code = Neutrophils %) 83.3000 % 48.900 0-69.9000 Lymphocytes (test code = Lymphocytes) 0.3000 1.2000-3.2 000 MID (test code = MID) 0.2000 0.1000-1.1000 Neutrophils (test code = Neutrophils) 2.2000 1.5000-6.7 000 RBC (test code = RBC) 4.2400 3.7000-4.9000 HGB (test code = HGB) 12.7000 g/dL 11.1999-18.0000 HCT (test code = HCT) 37.3000 % 34.0000-44.0000 MCV (test code = MCV) 87.9000 fL 80.0000-94.0000 MCH (test code = MCH) 29.9000 pg 27.0000-34.0000 MCHC (test code = MCHC) 34.0000 g/dL 31.5000-36.0000 RDW (test code = RDW) 14.7000 11.0000-18.0000 PLT (test code = PLT) 167.0000 140.0000-440.0000 MPV (test code = MPV) 7.5000 fL 6.8000-10.6000 [id number] 11:12:00 Test Item Value Reference Range Comments WBC (test code = WBC) 3.7000 4.0000-10.0000 Lymphocytes % (test code = Lymphocytes %) 11.5000 % 22.400 0-43.6000 MID% (test code = MID%) 2.9000 % 1.1999-11.1999 Neutrophils % (test code = Neutrophils %) 85.6000 % 48.900 0-69.9000 Lymphocytes (test code = Lymphocytes) 0.4000 1.2000-3.2 000 MID (test code = MID) 0.2000 0.1000-1.1000 Neutrophils (test code = Neutrophils) 3.1000 1.5000-6.7 000 RBC (test code = RBC) 4.0100 3.7000-4.9000 HGB (test code = HGB) 12.1000 g/dL 11.2000-18.0000 HCT (test code = HCT) 36.0000 % 34.0000-44.0000 MCV (test code = MCV) 89.6000 fL 80.0000-94.0000 MCH (test code = MCH) 30.2000 pg 27.0000-34.0000 MCHC (test code = MCHC) 33.7000 g/dL 31.5000-36.0000 RDW (test code = RDW) 14.8000 11.0000-18.0000 PLT (test code = PLT) 182.0000 140.0000-440.0000 MPV (test code = MPV) 8.2000 fL 6.8000-10.6000 [id number] 10:59:00 Test Item Value Reference Range Comments WBC (test code = WBC) 1.9000 4.0000-10.0000 Lymphocytes % (test code = Lymphocytes %) 29.1000 % 22.400 0-43.6000 MID% (test code = MID%) 6.1000 % 1.2000-11.2000 Neutrophils % (test code = Neutrophils %) 64.8000 % 48.900 0-69.9000 Lymphocytes (test code = Lymphocytes) 0.5000 1.2000-3.2 000 MID (test code = MID) 0.2000 0.1000-1.1000 Neutrophils (test code = Neutrophils) 1.2000 1.5000-6.7 000 RBC (test code = RBC) 3.8000 3.7000-4.9000 HGB (test code = HGB) 11.6000 g/dL 11.2000-18.0000 HCT (test code = HCT) 33.2000 % 34.0000-44.0000 MCV (test code = MCV) 87.3000 fL 80.0000-94.0000 MCH (test code = MCH) 30.6000 pg 27.0000-34.0000 MCHC (test code = MCHC) 35.0000 g/dL 31.5000-36.0000 RDW (test code = RDW) 14.6000 11.0000-18.0000 PLT (test code = PLT) 150.0000 140.0000-440.0000 MPV (test code = MPV) 7.4000 fL 6.8000-10.6000 [id number] 12:47:00 Test Item Value Reference Range Comments Creatinine (test code = Creatinine) 0.4000 mg/dL 0.5000-1.200 0 Cr Clearance (Est) (test code = Cr 187.4100 75.0000-115.0 000 Clearance (Est)) Glucose (test code = Glucose) 298.0000 mg/dL 70.0000-118.0000 BUN (test code = BUN) 13.0000 mg/dL 7.0000-22.0000 Sodium (test code = Sodium) 135.0000 mmol/L 128.0000-145.0000 Potassium (test code = Potassium) 3.6000 mmol/L 3.6000-5.1000 Chloride (test code = Chloride) 109.0000 mmol/L 96.0000-108.0000 CO2 (test code = CO2) 25.0000 mmol/L 18.0000-33.0000 Calcium (test code = Calcium) 9.6800 mg/dL 8.0000-10.3000 Alkaline Phosphatase (test code = Alkaline 58.0000 42.00 00-141.0000 Phosphatase) ALT (SGPT) (test code = ALT (SGPT)) 18.0000 10.0000-47.0 000 AST (SGOT) (test code = AST (SGOT)) 13.0000 11.0000-37.0 000 Bilirubin, Total (test code = Bilirubin, 0.7000 mg/dL 0.0000- 1.6000 Total) Albumin (test code = Albumin) 4.3000 g/dL 3.5000-5.5000 Protein, Total (test code = Protein, 7.1000 g/dL 6.4000-8.10 00 Total) eGFR -Macedonian (test code = eGFR 195.0000 60.0000- 125.0000 -Macedonian) eGFR Zdr-Hxvpqbp-Bkoonvzi (test code = 161.0000 60.0000-1 25.0000 eGFR Ltn-Awzxspw-Xyyjqlmo) [id number] 12:46:00 Test Item Value Reference Range Comments WBC (test code = WBC) 4.4000 4.0000-10.0000 Lymphocytes % (test code = Lymphocytes %) 12.5000 % 22.400 0-43.6000 MID% (test code = MID%) 3.8000 % 1.2000-11.2000 Neutrophils % (test code = Neutrophils %) 83.7000 % 48.900 0-69.9000 Lymphocytes (test code = Lymphocytes) 0.5000 1.2000-3.2 000 MID (test code = MID) 0.2000 0.1000-1.1000 Neutrophils (test code = Neutrophils) 3.7000 1.5000-6.7 000 RBC (test code = RBC) 4.0000 3.7000-4.9000 HGB (test code = HGB) 12.5000 g/dL 11.2000-18.0000 HCT (test code = HCT) 34.8000 % 34.0000-44.0000 MCV (test code = MCV) 87.1000 fL 80.0000-94.0000 MCH (test code = MCH) 31.2000 pg 27.0000-34.0000 MCHC (test code = MCHC) 35.8000 g/dL 31.5000-36.0000 RDW (test code = RDW) 14.5000 11.0000-18.0000 PLT (test code = PLT) 181.0000 140.0000-440.0000 MPV (test code = MPV) 7.8000 fL 6.8000-10.6000 [id number] 10:42:00 Test Item Value Reference Range Comments WBC (test code = WBC) 7.4000 4.0000-10.0000 Lymphocytes % (test code = Lymphocytes %) 6.5000 % 22.400 0-43.6000 MID% (test code = MID%) 2.1000 % 1.2000-11.2000 Neutrophils % (test code = Neutrophils %) 91.4000 % 48.900 0-69.9000 Lymphocytes (test code = Lymphocytes) 0.4000 1.2000-3.2 000 MID (test code = MID) 0.2000 0.1000-1.1000 Neutrophils (test code = Neutrophils) 6.8000 1.5000-6.7 000 RBC (test code = RBC) 4.1200 3.7000-4.9000 HGB (test code = HGB) 12.2000 g/dL 11.2000-18.0000 HCT (test code = HCT) 36.5000 % 34.0000-44.0000 MCV (test code = MCV) 88.5000 fL 80.0000-94.0000 MCH (test code = MCH) 29.6000 pg 27.0000-34.0000 MCHC (test code = MCHC) 33.4000 g/dL 31.5000-36.0000 RDW (test code = RDW) 14.9000 11.0000-18.0000 PLT (test code = PLT) 187.0000 140.0000-440.0000 MPV (test code = MPV) 8.3000 fL 6.8000-10.6000 [id number] 09:42:00 Test Item Value Reference Range Comments WBC (test code = WBC) 7.4000 4.0000-10.0000 Lymphocytes % (test code = Lymphocytes %) 6.2000 % 22.400 0-43.6000 MID% (test code = MID%) 2.3000 % 1.2000-11.2000 Neutrophils % (test code = Neutrophils %) 91.5000 % 48.900 0-69.9000 Lymphocytes (test code = Lymphocytes) 0.4000 1.2000-3.2 000 MID (test code = MID) 0.2000 0.1000-1.1000 Neutrophils (test code = Neutrophils) 6.8000 1.5000-6.7 000 RBC (test code = RBC) 4.2900 3.7000-4.9000 HGB (test code = HGB) 13.0000 g/dL 11.2000-18.0000 HCT (test code = HCT) 38.4000 % 34.0000-44.0000 MCV (test code = MCV) 89.5000 fL 80.0000-94.0000 MCH (test code = MCH) 30.4000 pg 27.0000-34.0000 MCHC (test code = MCHC) 33.9000 g/dL 31.5000-36.0000 RDW (test code = RDW) 14.9000 11.0000-18.0000 PLT (test code = PLT) 180.0000 140.0000-440.0000 MPV (test code = MPV) 8.0000 fL 6.8000-10.6000 [id number] 09:42:00 Test Item Value Reference Range Comments Creatinine (test code = Creatinine) 0.4000 mg/dL 0.5000-1.200 0 Cr Clearance (Est) (test code = Cr 192.1500 75.0000-115.0 000 Clearance (Est)) Glucose (test code = Glucose) 463.0000 mg/dL 70.0000-118.0000 BUN (test code = BUN) 13.0000 mg/dL 7.0000-22.0000 Sodium (test code = Sodium) 132.0000 mmol/L 128.0000-145.0000 Potassium (test code = Potassium) 3.8000 mmol/L 3.6000-5.1000 Chloride (test code = Chloride) 108.0000 mmol/L 96.0000-108.0000 CO2 (test code = CO2) 24.0000 mmol/L 18.0000-33.0000 Calcium (test code = Calcium) 9.5000 mg/dL 8.0000-10.3000 Alkaline Phosphatase (test code = Alkaline 64.0000 42.00 00-141.0000 Phosphatase) ALT (SGPT) (test code = ALT (SGPT)) 16.0000 10.0000-47.0 000 AST (SGOT) (test code = AST (SGOT)) 18.0000 11.0000-37.0 000 Bilirubin, Total (test code = Bilirubin, 0.8000 mg/dL 0.0000- 1.6000 Total) Albumin (test code = Albumin) 4.2000 g/dL 3.5000-5.5000 Protein, Total (test code = Protein, 7.1000 g/dL 6.4000-8.10 00 Total) [id number] 13:06:00 Test Item Value Reference Range Comments WBC (test code = WBC) 5.9000 4.0000-10.0000 Lymphocytes % (test code = Lymphocytes %) 20.0000 % 22.400 0-43.6000 MID% (test code = MID%) 6.2000 % 1.2000-11.2000 Neutrophils % (test code = Neutrophils %) 73.8000 % 48.900 0-69.9000 Lymphocytes (test code = Lymphocytes) 1.1000 1.2000-3.2 000 MID (test code = MID) 0.4000 0.1000-1.1000 Neutrophils (test code = Neutrophils) 4.4000 1.5000-6.7 000 RBC (test code = RBC) 3.7400 3.7000-4.9000 HGB (test code = HGB) 11.5000 g/dL 11.2000-18.0000 HCT (test code = HCT) 33.4000 % 34.0000-44.0000 MCV (test code = MCV) 89.3000 fL 80.0000-94.0000 MCH (test code = MCH) 30.9000 pg 27.0000-34.0000 MCHC (test code = MCHC) 34.6000 g/dL 31.5000-36.0000 RDW (test code = RDW) 14.9000 11.0000-18.0000 PLT (test code = PLT) 140.0000 140.0000-440.0000 MPV (test code = MPV) 7.7000 fL 6.8000-10.6000 [id number] 14:06:00 Test Item Value Reference Range Comments WBC (test code = WBC) 4.8000 4.0000-10.0000 Lymphocytes % (test code = Lymphocytes %) 18.8000 % 22.400 0-43.6000 MID% (test code = MID%) 4.1000 % 1.1999-11.1999 Neutrophils % (test code = Neutrophils %) 77.1000 % 48.900 0-69.9000 Lymphocytes (test code = Lymphocytes) 0.9000 1.2000-3.2 000 MID (test code = MID) 0.2000 0.1000-1.1000 Neutrophils (test code = Neutrophils) 3.7000 1.5000-6.7 000 RBC (test code = RBC) 3.9400 3.7000-4.9000 HGB (test code = HGB) 12.1000 g/dL 11.1999-18.0000 HCT (test code = HCT) 35.2000 % 34.0000-44.0000 MCV (test code = MCV) 89.5000 fL 80.0000-94.0000 MCH (test code = MCH) 30.7000 pg 27.0000-34.0000 MCHC (test code = MCHC) 34.3000 g/dL 31.5000-36.0000 RDW (test code = RDW) 14.7000 11.0000-18.0000 PLT (test code = PLT) 93.0000 140.0000-440.0000 MPV (test code = MPV) 8.9000 fL 6.8000-10.6000 [id number] 09:34:00 Test Item Value Reference Range Comments WBC (test code = WBC) 2.6000 4.0000-10.0000 Lymphocytes % (test code = Lymphocytes %) 36.3000 % 22.400 0-43.6000 MID% (test code = MID%) 12.0000 % 1.1999-11 Neutrophils % (test code = Neutrophils %) 51.7000 % 48.900 0-69.9000 Lymphocytes (test code = Lymphocytes) 0.9000 1.2000-3.2 000 MID (test code = MID) 0.4000 0.1000-1.1000 Neutrophils (test code = Neutrophils) 1.3000 1.5000-6.7 000 RBC (test code = RBC) 4.1400 3.7000-4.9000 HGB (test code = HGB) 12.0000 g/dL 11.2000-18.0000 HCT (test code = HCT) 36.4000 % 34.0000-44.0000 MCV (test code = MCV) 88.0000 fL 80.0000-94.0000 MCH (test code = MCH) 29.0000 pg 27.0000-34.0000 MCHC (test code = MCHC) 33.0000 g/dL 31.5000-36.0000 RDW (test code = RDW) 14.8000 11.0000-18.0000 PLT (test code = PLT) 133.0000 140.0000-440.0000 MPV (test code = MPV) 7.5000 fL 6.8000-10.6000 [id number] 09:34:00 Test Item Value Reference Range Comments Creatinine (test code = Creatinine) 0.4000 mg/dL 0.5000-1.200 0 Cr Clearance (Est) (test code = Cr 191.5300 75.0000-115.0 000 Clearance (Est)) Glucose (test code = Glucose) 224.0000 mg/dL 70.0000-118.0000 BUN (test code = BUN) 9.0000 mg/dL 7.0000-22.0000 Sodium (test code = Sodium) 137.0000 mmol/L 128.0000-145.0000 Potassium (test code = Potassium) 3.3000 mmol/L 3.6000-5.1000 Chloride (test code = Chloride) 110.0000 mmol/L 96.0000-108.0000 CO2 (test code = CO2) 28.0000 mmol/L 18.0000-33.0000 Calcium (test code = Calcium) 8.6100 mg/dL 8.0000-10.3000 Alkaline Phosphatase (test code = Alkaline 48.0000 42.00 00-141.0000 Phosphatase) ALT (SGPT) (test code = ALT (SGPT)) 11.0000 10.0000-47.0 000 AST (SGOT) (test code = AST (SGOT)) 13.0000 11.0000-37.0 000 Bilirubin, Total (test code = Bilirubin, 0.5000 mg/dL 0.0000- 1.6000 Total) Albumin (test code = Albumin) 3.9000 g/dL 3.5000-5.5000 Protein, Total (test code = Protein, 6.5000 g/dL 6.4000-8.10 00 Total) [id number] 12:53:00 Test Item Value Reference Range Comments WBC (test code = WBC) 1.5000 4.0000-10.0000 Lymphocytes % (test code = Lymphocytes %) 50.3000 % 22.400 0-43.6000 MID% (test code = MID%) 18.0000 % 1.1999-11.1999 Neutrophils % (test code = Neutrophils %) 31.7000 % 48.900 0-69.9000 Lymphocytes (test code = Lymphocytes) 0.7000 1.2000-3.2 000 MID (test code = MID) 0.4000 0.1000-1.1000 Neutrophils (test code = Neutrophils) 0.4000 1.5000-6.7 000 RBC (test code = RBC) 3.7500 3.7000-4.9000 HGB (test code = HGB) 11.5000 g/dL 11.1999-18.0000 HCT (test code = HCT) 33.5000 % 34.0000-44.0000 MCV (test code = MCV) 89.2000 fL 80.0000-94.0000 MCH (test code = MCH) 30.6000 pg 27.0000-34.0000 MCHC (test code = MCHC) 34.3000 g/dL 31.5000-36.0000 RDW (test code = RDW) 15.1000 11.0000-18.0000 PLT (test code = PLT) 112.0000 140.0000-440.0000 MPV (test code = MPV) 8.3000 fL 6.8000-10.6000 [id number] 13:15:00 Test Item Value Reference Range Comments WBC (test code = WBC) 4.0000 4.0000-10.0000 Lymphocytes % (test code = Lymphocytes %) 26.4000 % 22.400 0-43.6000 MID% (test code = MID%) 4.7000 % .1999- Neutrophils % (test code = Neutrophils %) 68.9000 % 48.900 0-69.9000 Lymphocytes (test code = Lymphocytes) 1.0000 1.2000-3.2 000 MID (test code = MID) 0.3000 0.1000-1.1000 Neutrophils (test code = Neutrophils) 2.7000 1.5000-6.7 000 RBC (test code = RBC) 3.7500 3.7000-4.9000 HGB (test code = HGB) 11.3000 g/dL 11.2000-18.0000 HCT (test code = HCT) 33.1000 % 34.0000-44.0000 MCV (test code = MCV) 88.2000 fL 80.0000-94.0000 MCH (test code = MCH) 30.0000 pg 27.0000-34.0000 MCHC (test code = MCHC) 34.0000 g/dL 31.5000-36.0000 RDW (test code = RDW) 14.8000 11.0000-18.0000 PLT (test code = PLT) 121.0000 140.0000-440.0000 MPV (test code = MPV) 8.4000 fL 6.8000-10.6000 [id number] 11:11:00 Test Item Value Reference Range Comments WBC (test code = WBC) 5.5000 4.0000-10.0000 Lymphocytes % (test code = Lymphocytes %) 23.9000 % 22.400 0-43.6000 MID% (test code = MID%) 6.5000 % 1.2000-11.2000 Neutrophils % (test code = Neutrophils %) 69.6000 % 48.900 0-69.9000 Lymphocytes (test code = Lymphocytes) 1.3000 1.2000-3.2 000 MID (test code = MID) 0.4000 0.1000-1.1000 Neutrophils (test code = Neutrophils) 3.8000 1.5000-6.7 000 RBC (test code = RBC) 3.9000 3.7000-4.9000 HGB (test code = HGB) 12.3000 g/dL 11.2000-18.0000 HCT (test code = HCT) 33.7000 % 34.0000-44.0000 MCV (test code = MCV) 86.4000 fL 80.0000-94.0000 MCH (test code = MCH) 31.6000 pg 27.0000-34.0000 MCHC (test code = MCHC) 36.6000 g/dL 31.5000-36.0000 RDW (test code = RDW) 15.1000 11.0000-18.0000 PLT (test code = PLT) 159.0000 140.0000-440.0000 MPV (test code = MPV) 7.5000 fL 6.8000-10.6000 [id number] 11:11:00 Test Item Value Reference Range Comments Creatinine (test code = Creatinine) 0.5000 mg/dL 0.5000-1.200 0 Cr Clearance (Est) (test code = Cr 152.0700 75.0000-115.0 000 Clearance (Est)) Glucose (test code = Glucose) 169.0000 mg/dL 70.0000-118.0000 BUN (test code = BUN) 12.0000 mg/dL 7.0000-22.0000 Sodium (test code = Sodium) 132.0000 mmol/L 128.0000-145.0000 Potassium (test code = Potassium) 3.5000 mmol/L 3.6000-5.1000 Chloride (test code = Chloride) 107.0000 mmol/L 96.0000-108.0000 CO2 (test code = CO2) 29.0000 mmol/L 18.0000-33.0000 Calcium (test code = Calcium) 9.0000 mg/dL 8.0000-10.3000 Alkaline Phosphatase (test code = Alkaline 59.0000 42.00 00-141.0000 Phosphatase) ALT (SGPT) (test code = ALT (SGPT)) 20.0000 10.0000-47.0 000 AST (SGOT) (test code = AST (SGOT)) 20.0000 11.0000-37.0 000 Bilirubin, Total (test code = Bilirubin, 0.7000 mg/dL 0.0000- 1.6000 Total) Albumin (test code = Albumin) 4.0000 g/dL 3.5000-5.5000 Protein, Total (test code = Protein, 6.6000 g/dL 6.4000-8.10 00 Total) [id number] 14:22:00 Test Item Value Reference Range Comments WBC (test code = WBC) 7.2000 4.0000-10.0000 Lymphocytes % (test code = Lymphocytes %) 21.9000 % 22.400 0-43.6000 MID% (test code = MID%) 7.3000 % 1.2000-11.2000 Neutrophils % (test code = Neutrophils %) 70.8000 % 48.900 0-69.9000 Lymphocytes (test code = Lymphocytes) 1.5000 1.2000-3.2 000 MID (test code = MID) 0.6000 0.1000-1.1000 Neutrophils (test code = Neutrophils) 5.1000 1.5000-6.7 000 RBC (test code = RBC) 4.2800 3.7000-4.9000 HGB (test code = HGB) 12.8000 g/dL 11.2000-18.0000 HCT (test code = HCT) 37.7000 % 34.0000-44.0000 MCV (test code = MCV) 88.2000 fL 80.0000-94.0000 MCH (test code = MCH) 29.9000 pg 27.0000-34.0000 MCHC (test code = MCHC) 33.9000 g/dL 31.5000-36.0000 RDW (test code = RDW) 15.6000 11.0000-18.0000 PLT (test code = PLT) 123.0000 140.0000-440.0000 MPV (test code = MPV) 7.8000 fL 6.8000-10.6000 [id number] 14:43:00 Test Item Value Reference Range Comments WBC (test code = WBC) 2.1000 4.0000-10.0000 Lymphocytes % (test code = Lymphocytes %) 49.8000 % 22.400 0-43.6000 MID% (test code = MID%) 6.0000 % 1.2000-11.2000 Neutrophils % (test code = Neutrophils %) 44.2000 % 48.900 0-69.9000 Lymphocytes (test code = Lymphocytes) 1.0000 1.2000-3.2 000 MID (test code = MID) 0.2000 0.1000-1.1000 Neutrophils (test code = Neutrophils) 0.9000 1.5000-6.7 000 RBC (test code = RBC) 3.7400 3.7000-4.9000 HGB (test code = HGB) 11.1000 g/dL 11.2000-18.0000 HCT (test code = HCT) 33.5000 % 34.0000-44.0000 MCV (test code = MCV) 89.6000 fL 80.0000-94.0000 MCH (test code = MCH) 29.8000 pg 27.0000-34.0000 MCHC (test code = MCHC) 33.3000 g/dL 31.5000-36.0000 RDW (test code = RDW) 14.6000 11.0000-18.0000 PLT (test code = PLT) 98.0000 140.0000-440.0000 MPV (test code = MPV) 9.1000 fL 6.8000-10.6000 Blood Culture [id number] 14:09:00 Test Item Value Reference Range Comments Blood Culture Status (test code = Blood Culture Final report Status) Blood Culture Result 1 (test code = Blood Comment Culture Result 1) [id number] 09:16:00 Test Item Value Reference Range Comments Creatinine (test code = Creatinine) 0.4000 mg/dL 0.5000-1.200 0 Cr Clearance (Est) (test code = Cr 195.6500 75.0000-115.0 000 Clearance (Est)) Glucose (test code = Glucose) 299.0000 mg/dL 70.0000-118.0000 BUN (test code = BUN) 13.0000 mg/dL 7.0000-22.0000 Sodium (test code = Sodium) 136.0000 mmol/L 128.0000-145.0000 Potassium (test code = Potassium) 3.4000 mmol/L 3.6000-5.1000 Chloride (test code = Chloride) 107.0000 mmol/L 96.0000-108.0000 CO2 (test code = CO2) 27.0000 mmol/L 18.0000-33.0000 Calcium (test code = Calcium) 9.3200 mg/dL 8.0000-10.3000 Alkaline Phosphatase (test code = Alkaline 58.0000 42.00 00-141.0000 Phosphatase) ALT (SGPT) (test code = ALT (SGPT)) 16.0000 10.0000-47.0 000 AST (SGOT) (test code = AST (SGOT)) 19.0000 11.0000-37.0 000 Bilirubin, Total (test code = Bilirubin, 0.9000 mg/dL 0.0000- 1.6000 Total) Albumin (test code = Albumin) 3.8000 g/dL 3.5000-5.5000 Protein, Total (test code = Protein, 6.4000 g/dL 6.4000-8.10 00 Total) [id number] 09:15:00 Test Item Value Reference Range Comments WBC (test code = WBC) 4.3000 4.0000-10.0000 Lymphocytes % (test code = Lymphocytes %) 28.8000 % 22.400 0-43.6000 MID% (test code = MID%) 9.6000 % 1.2000-11.2000 Neutrophils % (test code = Neutrophils %) 61.6000 % 48.900 0-69.9000 Lymphocytes (test code = Lymphocytes) 1.2000 1.2000-3.2 000 MID (test code = MID) 0.5000 0.1000-1.1000 Neutrophils (test code = Neutrophils) 2.6000 1.5000-6.7 000 RBC (test code = RBC) 3.9600 3.7000-4.9000 HGB (test code = HGB) 12.0000 g/dL 11.2000-18.0000 HCT (test code = HCT) 34.5000 % 34.0000-44.0000 MCV (test code = MCV) 86.9000 fL 80.0000-94.0000 MCH (test code = MCH) 30.4000 pg 27.0000-34.0000 MCHC (test code = MCHC) 34.9000 g/dL 31.5000-36.0000 RDW (test code = RDW) 14.7000 11.0000-18.0000 PLT (test code = PLT) 168.0000 140.0000-440.0000 MPV (test code = MPV) 7.6000 fL 6.8000-10.6000 [id number] 11:05:00 Test Item Value Reference Range Comments WBC (test code = WBC) 6.8000 4.0000-10.0000 Lymphocytes % (test code = Lymphocytes %) 23.1000 % 22.400 0-43.6000 MID% (test code = MID%) 7.0000 % 1.2000-11.2000 Neutrophils % (test code = Neutrophils %) 69.9000 % 48.900 0-69.9000 Lymphocytes (test code = Lymphocytes) 1.5000 1.2000-3.2 000 MID (test code = MID) 0.5000 0.1000-1.1000 Neutrophils (test code = Neutrophils) 4.8000 1.5000-6.7 000 RBC (test code = RBC) 4.3900 3.7000-4.9000 HGB (test code = HGB) 12.8000 g/dL 11.2000-18.0000 HCT (test code = HCT) 38.1000 % 34.0000-44.0000 MCV (test code = MCV) 86.7000 fL 80.0000-94.0000 MCH (test code = MCH) 29.3000 pg 27.0000-34.0000 MCHC (test code = MCHC) 33.7000 g/dL 31.5000-36.0000 RDW (test code = RDW) 14.7000 11.0000-18.0000 PLT (test code = PLT) 118.0000 140.0000-440.0000 MPV (test code = MPV) 8.2000 fL 6.8000-10.6000 Blood Culture [id number] 11:50:00 Test Item Value Reference Range Comments Blood Culture Status (test code = Blood Culture Final report Status) Blood Culture Result 1 (test code = Blood Comment Culture Result 1) Blood Culture Result 2 (test code = Blood Comment Culture Result 2) Blood Culture Susceptibility (test code = Blood Comment Culture Susceptibility) Urine Culture Status (test code = Urine Culture Final report Status) Urine Culture Result 1 (test code = Urine No growth Culture Result 1) Blood Culture [id number] 11:35:00 Test Item Value Reference Range Comments Blood Culture Status (test code = Blood Culture Final report Status) Blood Culture Result 1 (test code = Blood Comment Culture Result 1) [id number] 10:38:00 Test Item Value Reference Range Comments WBC (test code = WBC) 1.4000 4.0000-10.0000 Lymphocytes % (test code = Lymphocytes %) 71.6000 % 22.400 0-43.6000 MID% (test code = MID%) 4.3000 % 1.2000-11.2000 Neutrophils % (test code = Neutrophils %) 24.1000 % 48.900 0-69.9000 Lymphocytes (test code = Lymphocytes) 1.0000 1.2000-3.2 000 MID (test code = MID) 0.1000 0.1000-1.1000 Neutrophils (test code = Neutrophils) 0.3000 1.5000-6.7 000 RBC (test code = RBC) 4.1700 3.7000-4.9000 HGB (test code = HGB) 12.1000 g/dL 11.2000-18.0000 HCT (test code = HCT) 36.2000 % 34.0000-44.0000 MCV (test code = MCV) 86.7000 fL 80.0000-94.0000 MCH (test code = MCH) 29.1000 pg 27.0000-34.0000 MCHC (test code = MCHC) 33.6000 g/dL 31.5000-36.0000 RDW (test code = RDW) 13.9000 11.0000-18.0000 PLT (test code = PLT) 71.0000 140.0000-440.0000 MPV (test code = MPV) 8.9000 fL 6.8000-10.6000 [id number] 09:17:00 Test Item Value Reference Range Comments Creatinine (test code = Creatinine) 0.6000 mg/dL 0.5000-1.200 0 Cr Clearance (Est) (test code = Cr 134.2800 75.0000-115.0 000 Clearance (Est)) Glucose (test code = Glucose) 222.0000 mg/dL 70.0000-118.0000 BUN (test code = BUN) 12.0000 mg/dL 7.0000-22.0000 Sodium (test code = Sodium) 140.0000 mmol/L 128.0000-145.0000 Potassium (test code = Potassium) 3.7000 mmol/L 3.6000-5.1000 Chloride (test code = Chloride) 106.0000 mmol/L 96.0000-108.0000 CO2 (test code = CO2) 33.0000 mmol/L 18.0000-33.0000 Calcium (test code = Calcium) 8.9100 mg/dL 8.0000-10.3000 Alkaline Phosphatase (test code = Alkaline 68.0000 42.00 00-141.0000 Phosphatase) ALT (SGPT) (test code = ALT (SGPT)) 14.0000 10.0000-47.0 000 AST (SGOT) (test code = AST (SGOT)) 15.0000 11.0000-37.0 000 Bilirubin, Total (test code = Bilirubin, 0.5000 mg/dL 0.0000- 1.6000 Total) Albumin (test code = Albumin) 3.9000 g/dL 3.5000-5.5000 Protein, Total (test code = Protein, 6.5000 g/dL 6.4000-8.10 00 Total) [id number] 09:16:00 Test Item Value Reference Range Comments WBC (test code = WBC) 5.6000 4.0000-10.0000 Lymphocytes % (test code = Lymphocytes %) 27.8000 % 22.400 0-43.6000 MID% (test code = MID%) 5.4000 % 1.2000-11.2000 Neutrophils % (test code = Neutrophils %) 66.8000 % 48.900 0-69.9000 Lymphocytes (test code = Lymphocytes) 1.5000 1.2000-3.2 000 MID (test code = MID) 0.4000 0.1000-1.1000 Neutrophils (test code = Neutrophils) 3.7000 1.5000-6.7 000 RBC (test code = RBC) 4.3300 3.7000-4.9000 HGB (test code = HGB) 13.4000 g/dL 11.2000-18.0000 HCT (test code = HCT) 37.1000 % 34.0000-44.0000 MCV (test code = MCV) 85.5000 fL 80.0000-94.0000 MCH (test code = MCH) 31.0000 pg 27.0000-34.0000 MCHC (test code = MCHC) 36.3000 g/dL 31.5000-36.0000 RDW (test code = RDW) 13.7000 11.0000-18.0000 PLT (test code = PLT) 135.0000 140.0000-440.0000 MPV (test code = MPV) 7.6000 fL 6.8000-10.6000 Factor VIII [id number] 15:45:00 Test Item Value Reference Range Comments Factor VIII Activity (test 180.0000 % 57.0000-163.0000 code = Factor VIII Activity) vWF Antigen (test code = 145.0000 % 50.0000-200.0000 vWF Antigen) vWF Activity (test code = 86.0000 % 50.0000-200.0000 vWF Activity) Coag Studies Interp (test Note code = Coag Studies Interp) COAGULATION: [facility] FACTOR ASSESSMENT CURRENT RESULTS ASSESSMENT The VWF:Ag is normal. The VWF:RCo is normal. The FVIII is elevated. [facility] FACTOR ASSESSMENT CURRENT RESULTS INTERPRETATION - Th Coag Studies [id number] 15:45:00 Test Item Value Reference Range Comments Coag Studies Interp (test Note code = Coag Studies Interp) COAGULATION: [facility] FACTOR ASSESSMENT CURRENT RESULTS ASSESSMENT The VWF:Ag is normal. The VWF:RCo is normal. The FVIII is elevated. [facility] [facility] FACTOR ASSESSMENT CURRENT RESULTS INTERPRETATION - Th vWF Activity (test code = 86.0000 % 50.0000-200.0000 vWF Activity) vWF Antigen (test code = 145.0000 % 50.0000-200.0000 vWF Antigen) Factor VIII Activity (test 180.0000 % 57.0000-163.0000 code = Factor VIII Activity) [id number] 15:21:00 Test Item Value Reference Range Comments WBC (test code = WBC) 6.1000 4.0000-10.0000 Lymphocytes % (test code = Lymphocytes %) 31.0000 % 22.400 0-43.6000 MID% (test code = MID%) 7.0000 % 1.2000-11.2000 Neutrophils % (test code = Neutrophils %) 62.0000 % 48.900 0-69.9000 Lymphocytes (test code = Lymphocytes) 1.9000 1.2000-3.2 000 MID (test code = MID) 0.4000 0.1000-1.1000 Neutrophils (test code = Neutrophils) 3.8000 1.5000-6.7 000 RBC (test code = RBC) 4.7600 3.7000-4.9000 HGB (test code = HGB) 13.9000 g/dL 11.2000-18.0000 HCT (test code = HCT) 40.2000 % 34.0000-44.0000 MCV (test code = MCV) 84.4000 fL 80.0000-94.0000 MCH (test code = MCH) 29.3000 pg 27.0000-34.0000 MCHC (test code = MCHC) 34.7000 g/dL 31.5000-36.0000 RDW (test code = RDW) 13.6000 11.0000-18.0000 PLT (test code = PLT) 148.0000 140.0000-440.0000 MPV (test code = MPV) 8.5000 fL 6.8000-10.6000 [id number] 15:21:00 Test Item Value Reference Range Comments Creatinine (test code = Creatinine) 0.7000 mg/dL 0.5000-1.200 0 Cr Clearance (Est) (test code = Cr 111.8000 75.0000-115.0 000 Clearance (Est)) Glucose (test code = Glucose) 202.0000 mg/dL 70.0000-118.0000 BUN (test code = BUN) 14.0000 mg/dL 7.0000-22.0000 Sodium (test code = Sodium) 141.0000 mmol/L 128.0000-145.0000 Potassium (test code = Potassium) 3.7000 mmol/L 3.6000-5.1000 Chloride (test code = Chloride) 104.0000 mmol/L 96.0000-108.0000 CO2 (test code = CO2) 30.0000 mmol/L 18.0000-33.0000 Calcium (test code = Calcium) 9.6600 mg/dL 8.0000-10.3000 Alkaline Phosphatase (test code = Alkaline 79.0000 42.00 00-141.0000 Phosphatase) ALT (SGPT) (test code = ALT (SGPT)) 19.0000 10.0000-47.0 000 AST (SGOT) (test code = AST (SGOT)) 19.0000 11.0000-37.0 000 Bilirubin, Total (test code = Bilirubin, 0.6000 mg/dL 0.0000- 1.6000 Total) Albumin (test code = Albumin) 4.2000 g/dL 3.5000-5.5000 Protein, Total (test code = Protein, 7.3000 g/dL 6.4000-8.10 00 Total) Encounters Start End Encounter Admission Attending Care Care Encounter Date/Time Date/Time Type Type Clinicians Facility Department ID 2020-06-28 2020-06-28 Outpatient [facility] [id number] 00:00:00 00:00:00 [facility] 2020-06-09 2020-06-09 Outpatient [facility] [id number] 00:00:00 00:00:00 [facility] 2020-06-08 2020-06-08 Lauren [facility] [id number] 00:00:00 00:00:00 Dr. Billy rivera [facility] Oncology Oncology [facility] 2020-06-01 2020-06-01 Outpatient [facility] [id number] 00:00:00 00:00:00 [facility] 2020-05-18 2020-05-18 Lauren Aguilar [facility] [id number] 00:00:00 00:00:00 Dr. Billy rivera [facility] Oncology Oncology [facility] 2020-05-06 2020-05-06 Outpatient [facility] n [id number] 00:00:00 00:00:00 [facility] 2020-04-22 2020-04-22 Lauren [facility] [id number] 00:00:00 00:00:00 Dr. Billy rivera [facility] Oncology Oncology [facility] 2020-04-21 2020-04-21 Outpatient [facility] n [id number] 00:00:00 00:00:00 n [facility] 2020-04-12 2020-04-12 Outpatient Wilbertoer Wilbertoer n [id number] 00:00:00 00:00:00 [facility] Oncology [facility] 2020-03-28 2020-03-28 Outpatient [facility] Wilbertoer n [id number] 00:00:00 00:00:00 [facility] 2020-03-25 2020-03-25 Lauren Braswell [facility] [id number] 00:00:00 00:00:00 Megan [facility] Medical Oncology [facility] 2020-03-24 2020-03-24 Outpatient Wilbertoer Wilbertoer n [id number] 00:00:00 00:00:00 [facility] 2020-03-18 2020-03-18 Outpatient Dina Aguilar rn [id number] 00:00:00 00:00:00 [facility] Medical Oncology [facility] 2020-03-14 2020-03-14 Outpatient Dina Wilbertopapito n [id number] 00:00:00 00:00:00 [facility]cology [facility] 2020-03-11 2020-03-11 Lauren Ga [facility] [id number] 00:00:00 00:00:00 Pancho Cervantes [facility] 2020-03-04 2020-03-04 Outpatient Dina Aguilar rn [id number] 00:00:[facility] 2020-03-03 2020-03-03 Outpatient Dina Wilbertopapito n [id number] 00:00:00 00:00:00 [facility]cology [facility] 2020-02-29 2020-02-29 Outpatient Dina Aguilar rn [id number] 00:00:00 00:00:00 [facility]cology [facility] 2020-02-26 2020-02-26 Lauren Aguilar [facility] [id number] 00:00:00 00:00:00 Dr. Billy Cervantes [facility] Oncology [facility] 2020-02-25 2020-02-25 Outpatient Dina Arroyo n [id number] 00:00:00 00:00:00 [facility]cology [facility] 2020-02-23 2020-02-23 JaLauren lim [facility] [id number] 00:00:00 00:00:00 Dr. Billy Cervantes [facility] 2020-02-17 2020-02-17 Outpatient Ketancarina Wilbertopapito Hardin rn [id number] 00:00:00 00:00:00 [facility] Oncology Oncology [facility] 2020-02-16 2020-02-16 Outpatient Dina Laddpapito n [id number] 00:00:00 00:00:00 [facility] 2020-02-15 2020-02-15 Outpatient Dina Aguilar Wil[facility]e rn [id number] 00:00:00 00:00:00 [facility] 2020-02-12 2020-02-12 KetanLauren lim [facility] [id number] 00:00:00 00:00:00 Dr. Billy Cervantes [facility] 2020-02-11 2020-02-11 Outpatient Dina Laddpapito n [id number] 00:00:00 00:00:00 [facility] Medical Oncology [facility] 2020-02-10 2020-02-10 Outpatient KetanDina lim Wilbertoe rn [id number] 00:00:00 00:00:00 [facility] 2020-02-09 2020-02-09 Outpatient Dina Laddpapito n [id number] 00:00:00 00:00:00 [facility] 2020-02-08 2020-02-08 Outpatient KetanDina lim Wilbertoe rn [id number] 00:00:00 00:00:00 [facility] 2020-02-05 2020-02-05 Outpatient KetanDina lim Wilbertoe rn [id number] 00:00:00 00:00:00 [facility] Medical Oncology [facility]cology [facility] 2020-02-04 2020-02-04 Outpatient Dina Laddpapito n [id number] 00:00:00 00:00:00 [facility] 2020-02-03 2020-02-03 Outpatient Ketancarina Wilbertopapito Ladde rn [id number] 00:00:00 00:00:00 [facility] 2020-02-02 2020-02-02 Outpatient Jaydensally Wilbertopapito Hardin rn [id number] 00:00:00 00:00:00 [facility] 2020-02-01 2020-02-01 Outpatient JaDina lime rn [id number] 00:00:00 00:00:00 [facility] Oncology Oncology [facility] 2020-01-29 2020-01-29 Outpatient JaDina lim Wilbertoe rn [id number] 00:00:00 00:00:00 [facility] Oncology Oncology [facility] 2020-01-28 2020-01-28 Outpatient Dina Laddpapito n [id number] 00:00:00 00:00:00 [facility] 2020-01-27 2020-01-27 Outpatient JayasallyDinae rn [id number] 00:00:00 00:00:00 [facility] Oncology Oncology [facility] 2020-01-26 2020-01-26 Outpatient JaDina lim Wilbertoe rn [id number] 00:00:00 00:00:00 [facility] Oncology Oncology [facility] 2020-01-25 2020-01-25 Outpatient Jacarina Dina Wilbertoe rn [id number] 00:00:00 00:00:00 [facility] Medical Oncology [facility] 2020-01-22 2020-01-22 Jadamiensally [facility] [id number] 00:00:00 00:00:00 [facility] Oncology Oncology [facility] 2020-01-21 2020-01-21 Outpatient Dina Laddpapito n [id number] 00:00:00 00:00:00 [facility] 2020-01-20 2020-01-20 Outpatient Dina Ladder n [id number] 00:00:00 00:00:00 [facility] 2020-01-19 2020-01-19 Outpatient Dina Ladder n [id number] 00:00:00 00:00:00 [facility] 2020-01-18 2020-01-18 Outpatient Dina Ladder n [id number] 00:00:00 00:00:00 [facility] 2020-01-15 2020-01-15 Outpatient Jadamiensally Dina Wilbertoe rn [id number] 00:00:00 00:00:00 [facility] Oncology Oncology [facility] 2020-01-14 2020-01-14 Outpatient Dina Aguilare rn [id number] 00:00:00 00:00:00 [facility] Medical Oncology On[facility] 2020-01-13 2020-01-13 Outpatient Dina Aguilare rn [id number] 00:00:00 00:00:00 [facility] Oncology [facility] 2020-01-12 2020-01-12 Outpatient Dina Arroyo n [id number] 00:00:00 00:00:00 [facility] Medical Oncology On[facility] 2020-01-08 2020-01-08 Outpatient Dina Aguilare rn [id number] 00:00:00 00:00:00 [facility] Oncology [facility] 2020-01-06 2020-01-06 Outpatient Dina Aguilare rn [id number] 00:00:00 00:00:00 [facility] 2020-01-05 2020-01-05 Outpatient Dina Aguilare rn [id number] 00:00:00 00:00:00 [facility] Oncology [facility] 2020-01-04 2020-01-04 Outpatient Dina Aguilare rn [id number] 00:00:00 00:00:00 [facility] Oncology [facility] 2020-01-01 2020-01-01 Dina [facility]ilar [facility] [id number] 00:00:00 00:00:00 Dr. Cervantes [facility] Medical Oncology [facility] 2019-12-28 2019-12-28 Outpatient Dina Laddpapito n [id number] 00:00:00 00:00:00 [facility] On[facility] 2019-12-25 2019-12-25 JaLauren lim [facility] [id number] 00:00:00 00:00:00 Dr. Billy Cervantes [facility] Medical Oncology [facility] 2019-12-23 2019-12-23 Outpatient KetanDina lim Wilbertoe rn [id number] 00:00:00 00:00:00 [facility] Oncology [facility] 2019-12-22 2019-12-22 Outpatient JaDina lime rn [id number] 00:00:00 00:00:00 [facility] Oncology [facility] 2019-12-21 2019-12-21 Outpatient Jacarina Wilbertopapito Hardin rn [id number] 00:00:00 00:00:00 [facility] 2019-12-18 2019-12-18 Outpatient Ketancarina Wilbertopapito Hardin rn [id number] 00:00:00 00:00:00 [facility] 2019-12-15 2019-12-15 Outpatient Ketancarina Wilbertopapito Hardin rn [id number] 00:00:00 00:00:00 [facility] 2019-12-14 2019-12-14 Outpatient Jaydensally Wilbertopapito Hardin rn [id number] 00:00:00 00:00:00 [facility] Oncology Oncology [facility] 2019-12-11 2019-12-11 Lauren Gordon [facility] [id number] 00:00:00 00:00:00 [facility] Oncology Oncology [facility] 2019-12-09 2019-12-09 Outpatient JaydensallyDina rn [id number] 00:00:00 00:00:00 [facility] Medical Oncology Oncology [facility] 2019-12-08 2019-12-08 Outpatient Wilbertopapito Laddpapito n [id number] 00:00:00 00:00:00 [facility] On[facility] 2019-12-07 2019-12-07 Outpatient Ketancarina Wilbertopapito Hardin rn [id number] 00:00:00 00:00:00 [facility] 2019-12-04 2019-12-04 Outpatient JaydensallyDina rn [id number] 00:00:00 00:00:00 [facility] 2019-12-02 2019-12-02 Outpatient Dina Wilbertopapito n [id number] 00:00:00 00:00:00 [facility] 2019-11-26 2019-11-26 Outpatient Dina Aguilar rn [id number] 00:00:00 00:00:00 [facility] 2019-11-20 2019-11-20 Lauren Gordon [facility] [id number] 00:00:00 00:00:00 [facility] Oncology Oncology [facility] 2019-11-19 2019-11-19 Outpatient Dina Arroyo n [id number] 00:00:00 00:00:00 [facility] 2019-11-13 2019-11-13 Outpatient Dina Aguilar rn [id number] 00:00:00 00:00:00 [facility] Oncology Oncology [facility] 2019-11-10 2019-11-10 Outpatient JaydensallyDina rn [id number] 00:00:00 00:00:00 [facility] Oncology Oncology [facility] 2019-11-06 2019-11-06 Outpatient JaydensallyDina rn [id number] 00:00:00 00:00:00 [facility] Oncology Oncology [facility] 2019-10-30 2019-10-30 Lauren Gordon [facility] [id number] 00:00:00 00:00:00 [facility] Oncology Oncology [facility] 2019-10-29 2019-10-29 Outpatient Dina Wilbertopapito n [id number] 00:00:00 00:00:00 [facility] 2019-10-28 2019-10-28 Outpatient Dina Wilbertopapito n [id number] 00:00:00 00:00:00 [facility] 2019-10-23 2019-10-23 Outpatient Dina Aguilar rn [id number] 00:00:00 00:00:00 [facility] Oncology Oncology [facility] 2019-10-16 2019-10-16 Outpatient Dina Wiblertopapito n [id number] 00:00:00 00:00:00 [facility] 2019-10-09 2019-10-09 Lauren Gordon [facility] [id number] 00:00:00 00:00:00 [facility] Oncology Oncology [facility] 2019-10-02 2019-10-02 Outpatient Dina Aguilar rn [id number] 00:00:00 00:00:00 [facility] Oncology Oncology [facility] 2019-09-25 2019-09-25 Outpatient Dina Aguilar rn [id number] 00:00:00 00:00:00 [facility] Oncology Oncology [facility] 2019-09-24 2019-09-24 Outpatient Dina Aguilar rn [id number] 00:00:00 00:00:00 [facility] Oncology Oncology [facility] 2019-09-18 2019-09-18 Jayden Carmonasally [facility] [id number] 00:00:00 00:00:00 Toya [facility] Oncology Oncology [facility] 2019-09-11 2019-09-11 Outpatient KetancarinaDina rn [id number] 00:00:00 00:00:00 [facility] Oncology Oncology [facility] 2019-09-04 2019-09-04 Outpatient JaydensallyDina rn [id number] 00:00:00 00:00:00 [facility] Oncology Oncology [facility] 2019-08-28 2019-08-28 Lauren Royal [facility] [id number] 00:00:00 00:00:00 Justyna Jimenez [facility] Oncology Oncology [facility] 2019-08-21 2019-08-21 Outpatient JaydensallyDina rn [id number] 00:00:00 00:00:00 [facility] Oncology Oncology [facility] 2019-08-14 2019-08-14 Outpatient JaydensallyDina rn [id number] 00:00:00 00:00:00 [facility] Oncology Oncology [facility] 2019-08-13 2019-08-13 Outpatient Dina Arroyo n [id number] 00:00:00 00:00:00 [facility] 2019-08-05 2019-08-05 Lauren Gordon [facility] [id number] 00:00:00 00:00:00 Lashonda [facility] Oncology Oncology [facility] 2019-07-21 2019-07-21 Lauren Gordon [facility] [id number] 00:00:00 00:00:00 Lashonda [facility] Oncology Oncology [facility] 2019-07-10 2019-07-10 Outpatient JaydensallyDina rn [id number] 00:00:00 00:00:00 [facility] Oncology Oncology [facility] 2019-07-08 2019-07-08 Outpatient Dina Arroyo n [id number] 00:00:00 00:00:00 [facility] 2019-06-29 2019-06-29 Outpatient Dina Arroyo n [id number] 00:00:00 00:00:00 n [facility] 2019-06-23 2019-06-23 Dina Gordon 2 [id number] 00:00:00 00:00:00 [facility] Oncology Oncology [facility] 2019-06-17 2019-06-17 Outpatient Dina Arroyo n [id number] 00:00:00 00:00:00 [facility] 2019-06-16 2019-06-16 Outpatient Dina Arroyo n [id number] 00:00:00 00:00:00 [facility] 2019-05-26 2019-05-26 Lauren Gordon [facility] [id number] 00:00:00 00:00:00 [facility] Oncology Oncology [facility] 2019-05-11 2019-05-11 Outpatient Dina Aguilar rn [id number] 00:00:00 00:00:00 [facility] Oncology Oncology [facility] 2019-05-09 2019-05-09 Outpatient Dina Aguilar rn [id number] 00:00:00 00:00:00 [facility] 2019-05-04 2019-05-04 Outpatient Dina Arroyo n [id number] 00:00:00 00:00:00 [facility] 2019-04-29 2019-04-29 Outpatient Dina Laddpapito n [id number] 00:00:00 00:00:00 [facility] 2019-04-28 2019-04-28 Lauren Gordon [facility] [id number] 00:00:00 00:00:00 [facility] 2019-04-27 2019-04-27 Outpatient Dina Arroyo n [id number] 00:00:00 00:00:00 [facility] 2019-04-21 2019-04-21 Outpatient Dina Laddpapito n [id number] 00:00:00 00:00:00 [facility] On[facility] 2019-04-14 2019-04-14 Outpatient Dina Aguilar rn [id number] 00:00:00 00:00:00 [facility] Oncology Oncology [facility] 2019-03-31 2019-03-31 Lauren Gordon [facility] [id number] 00:00:00 00:00:00 Lashonda [facility] 2019-03-27 2019-03-27 Outpatient Dina Arroyo n [id number] 00:00:00 00:00:00 [facility] 2019-03-25 2019-03-25 Outpatient Dina Ladder n [id number] 00:00:00 00:00:00 [facility] 2019-03-03 2019-03-03 Outpatient Dina Aguilar rn [id number] 00:00:00 00:00:00 [facility] Oncology Oncology [facility] 2019-02-24 2019-02-24 Outpatient Jaydensally Dina Wilbertoe rn [id number] 00:00:00 00:00:00 [facility] Oncology Oncology [facility] 2019-02-20 2019-02-20 Outpatient Dina Arroyo n [id number] 00:00:00 00:00:00 [facility] 2019-02-17 2019-02-17 Outpatient Dina Aguilar rn [id number] 00:00:00 00:00:00 [facility] Oncology Oncology [facility] 2019-02-13 2019-02-13 Outpatient Dina Ladder n [id number] 00:00:00 00:00:00 [facility] 2019-02-10 2019-02-10 Lauren Mares [facility] [id number] 00:00:00 00:00:00 Esperanza [facility] Oncology Oncology [facility] 2019-02-06 2019-02-06 Outpatient Dina Aguilar rn [id number] 00:00:00 00:00:00 [facility] Oncology Oncology [facility] 2019-02-05 2019-02-05 Outpatient Dina Arroyo n [id number] 00:00:00 00:00:00 [facility] 2019-02-03 2019-02-03 Outpatient Dina Aguilar rn [id number] 00:00:00 00:00:00 [facility] Oncology Oncology [facility] 2019-01-30 2019-01-30 Lauren Cueto [facility] [id number] [facility]:00[facility] 2019-01-22 2019-01-22 Outpatient Dina Arroyo n [id number] 00:00:00 00:00:00 [facility] 2019-01-21 2019-01-21 Ketan Cuetocarina Dina Kai [id number] 00:00:00 [facility] 2019-01-14 2019-01-14 Outpatient Dina Arroyo n [id number] 00:00:00 00:00:00 [facility] 2019-01-13 2019-01-13 Outpatient Dina Arroyo n [id number] 00:00:00 00:00:00 [facility] 2019-01-06 2019-01-06 Jayden Cuetosally Wilbertopapito Quinn [id number] 00:00:00 00:00:00 [facility] Oncology Oncology [facility] 2019-01-02 2019-01-02 Outpatient Jaydensally Dina Lashawn rn [id number] 00:00:00 00:00:00 [facility] Oncology Oncology [facility] 2018-12-31 2018-12-31 Outpatient Dina Arroyo n [id number] 00:00:00 00:00:00 [facility] 2018-12-25 2018-12-25 Outpatient Jaydensally Wilbertopapito Ladde rn [id number] 00:00:00 00:00:00 [facility] Oncology Oncology [facility] 2018-11-10 2018-11-10 Outpatient Jaydenaslly Dina Wilbertoe rn [id number] 00:00:00 00:00:00 [facility] Oncology Oncology [facility] 2018-11-08 2018-11-08 Outpatient Jaydensally Dina Wilbertoe rn [id number] 00:00:00 00:00:00 [facility] 2018-10-30 2018-10-30 Outpatient Dina Arroyo n [id number] 00:00:00 00:00:00 [facility] 2018-10-02 2018-10-02 Lauren Cueto [facility] [id number] 00:00:00 00:00:00 [facility] Oncology Oncology [facility] 2018-10-01 2018-10-01 Outpatient Dina Arroyo n [id number] 00:00:00 00:00:00 [facility] 2018-09-22 2018-09-22 Outpatient Dina Aguilar rn [id number] 00:00:00 00:00:00 [facility] 2018-06-23 2018-06-23 Lauren Mares [facility] [id number] 00:00:00 00:00:00 Esperanza [facility] Oncology Oncology [facility] 2018-06-02 2018-06-02 Outpatient Dina Aguilar rn [id number] 00:00:00 00:00:00 [facility] 2018-05-12 2018-05-12 Lauren Gordon [facility] [id number] 00:00:00 00:00:00 [facility] Oncology Oncology [facility] 2018-04-25 2018-04-25 Outpatient Dina Arroyo n [id number] 00:00:00 00:00:00 [facility] Oncology [facility] 2018-04-23 2018-04-23 Outpatient Dina Arroyo n [id number] 00:00:00 00:00:00 [facility] On[facility] 2018-04-18 2018-04-18 Outpatient Dina Arroyo n [id number] 00:00:00 00:00:00 [facility] On[facility] 2018-04-16 2018-04-16 Outpatient Dina Aguilar rn [id number] 00:00:00 00:00:00 [facility] Oncology Oncology [facility] 2018-03-31 2018-03-31 Outpatient Dina Arroyo n [id number] 00:00:00 00:00:00 [facility] On[facility] 2018-03-17 2018-03-17 Lauren Gordon [facility] [id number] 00:00:00 00:00:00 Lashonda [facility] Oncology Oncology [facility] 2018-02-28 2018-02-28 Outpatient Dina Arroyo n [id number] 00:00:00 00:00:00 [facility] Oncology [facility] 2018-02-24 2018-02-24 Outpatient Dina Arroyo n [id number] 00:00:00 00:00:00 [facility] Oncology [facility] 2018-02-17 2018-02-17 Outpatient Dina Arroyo n [id number] 00:00:00 00:00:00 [facility] 2018-02-11 2018-02-11 Lauren Gordon [facility] [id number] 00:00:00 00:00:00 [facility] 2018-01-16 2018-01-16 Outpatient Dina Aguilar rn [id number] 00:00:00 00:00:00 [facility] 2017-12-13 2017-12-13 OvercLauren bowling [facility] Wilbertopapito n [id number] 00:00:00 00:00[facility]00 [facility] 2017-11-25 2017-11-25 Outpatient Dina Laddpapito n [id number] 00:00:00 00:00:00 [facility] 2017-10-22 2017-10-22 Outpatient Dina Arroyo n [id number] 00:00:00 00:00:00 [facility] On[facility] 2017-10-02 2017-10-02 Outpatient Dina Ladder n [id number] 00:00:00 00:00:00 [facility] 2017-09-23 2017-09-23 Outpatient Dina Ladder n [id number] 00:00:00 00:00:00 [facility] 2017-08-16 2017-08-16 Outpatient Dina Ladder n [id number] 00:00:00 00:00:00 [facility] 2017-07-24 2017-07-24 Outpatient Dina Ladder n [id number] 00:00:00 00:00:00 [facility] 2017-07-15 2017-07-15 Outpatient Dina Ladder n [id number] 00:00:00 00:00:00 [facility] 2017-07-02 2017-07-02 Outpatient Wilbertoer Wilbertoer n [id number] 00:00:00 00:00:00 [facility] 2017-06-12 2017-06-12 Outpatient Dina Ladder n [id number] 00:00:00 00:00:00 [facility] 2017-06-11 2017-06-11 Lauren Gordon [facility] [id number] 00:00:00 00:00:00 [facility] Oncology Oncology [facility] 2017-05-07 2017-05-07 Outpatient Dina Wilbertopapito n [id number] 00:00:00 00:00:00 [facility] Oncology Oncology [facility] 2017-05-03 2017-05-03 Outpatient Dina Wilbertopapito n [id number] 00:00:00 00:00:00 [facility] Oncology [facility] 2017-04-24 2017-04-24 Lauren Mares [facility] [id number] 00:00:00 00:00:00 Esperanza [facility] Oncology Oncology [facility] 2017-04-17 2017-04-17 Outpatient Dina Aguilar rn [id number] 00:00:00 00:00:00 [facility] Oncology Oncology [facility] 2017-04-10 2017-04-10 Lauren Andujar [facility] n [id number] 00:00:00 00:00:00 [facility] Oncology Oncology [facility] 2017-04-05 2017-04-05 Outpatient Dina Arroyo n [id number] 00:00:00 00:00:00 [facility] Oncology Oncology [facility] 2017-04-03 2017-04-03 Outpatient Dina Aguilar rn [id number] 00:00:00 00:00:00 [facility] Oncology Oncology [facility] 2017-03-27 2017-03-27 Dina Gordon 2 [id number] 00:00:00 00:00:00 [facility] Oncology Oncology [facility] 2017-03-20 2017-03-20 Outpatient Dina Aguilar rn [id number] 00:00:00 00:00:00 [facility] Oncology Oncology [facility] 2017-03-13 2017-03-13 Outpatient Dina Aguilar rn [id number] 00:00:00 00:00:00 [facility] Oncology Oncology [facility] 2017-03-06 2017-03-06 Outpatient Dina Aguilar rn [id number] 00:00:00 00:00:00 [facility] Oncology Oncology [facility] 2017-02-27 2017-02-27 Lauren Andujar [facility] n [id number] 00:00:00 00:00:00 [facility] 2017-02-20 2017-02-20 Outpatient Dina Aguilar rn [id number] 00:00:00 [facility] 2017-02-13 2017-02-13 Outpatient Dina Arroyo n [id number] 00:00:00 00:00:00 n [facility] Medical Oncology Oncology [facility] [place] 2017-02-06 2017-02-06 Outpatient Dina Arroyo n [id number] 00:00:00 00:00:00 [facility] Medical Oncology Oncology [facility] [place] 2017-01-30 2017-01-30 Evan Wilbertopapito [facility] 2 [id number] 00:00:00 00:00:00 Lashonda [facility] Oncology Oncology [facility] [place] 2017-01-23 2017-01-23 Outpatient Dina Arroyo n [id number] 00:00:00 00:00:00 [facility] Medical Oncology Oncology [facility] [place] 2017-01-16 2017-01-16 Vishnu Wilbertopapito Kai 2 [id number] 00:00:00 00:00:00 Esperanza n [facility] Medical Oncology Oncology [facility] [place] 2017-01-09 2017-01-09 Outpatient Dina Arroyo n [id number] 00:00:00 00:00:00 [facility] Medical Oncology Oncology [facility] [place] 2017-01-08 2017-01-08 Outpatient Dina Arroyo n [id number] 00:00:00 00:00:00 [facility] Medical Oncology Oncology [facility] [place] 2017-01-02 2017-01-02 Outpatient Dina Arroyo n [id number] 00:00:00 00:00:00 n [facility] Medical Oncology Oncology [facility] [place] 2016-12-27 2016-12-27 Outpatient Dina Arroyo n [id number] 00:00:00 00:00:00 n [facility] Medical Oncology Oncology [facility] [place] 2016-12-26 2016-12-26 Rom Dina Quinn 2 [id number] 00:00:00 00:00:00 Angela n [facility] Medical Oncology Oncology [facility] [place] 2016-12-19 2016-12-19 Outpatient Dina Arroyo n [id number] 00:00:00 00:00:00 n [facility] Medical Oncology Oncology [facility] [place] 2016-12-12 2016-12-12 Outpatient Dina Arroyo n [id number] 00:00:00 00:00:00 [facility] Medical Oncology Oncology [facility] [place] 2016-12-05 2016-12-05 Suzanne Killian Dina Laddvirgilio rn [id number] 00:00:00 00:00:00 n Medical Medical Oncology Oncology [facility] [place] 2016-12-03 2016-12-03 Outpatient Dina Arroyo n [id number] 00:00:00 00:00:00 n Medical Medical Oncology Oncology [facility] [place] 2016-11-28 2016-11-28 Outpatient Dina Arroyo n [id number] 00:00:00 00:00:00 n [facility] Medical Oncology Oncology [facility] [place] 2016-11-23 2016-11-23 Outpatient Dina Arroyo n [id number] 00:00:00 00:00:00 n Medical Medical Oncology Oncology [facility] [place] 2016-11-21 2016-11-21 Outpatient Dina Arroyo n [id number] 00:00:00 00:00:00 n [facility] Medical Oncology Oncology [facility] [place] 2016-11-15 2016-11-15 Outpatient Dina Arroyo n [id number] 00:00:00 00:00:00 n [facility] Medical Oncology Oncology [facility] [place] 2016-11-14 2016-11-14 Outpatient Dina Arroyo n [id number] 00:00:00 00:00:00 n [facility] Medical Oncology Oncology [facility] [place] 2016-11-13 2016-11-13 Outpatient Dina Arroyo n [id number] 00:00:00 00:00:00 n [facility] Medical Oncology Oncology [facility] [place] 2016-11-12 2016-11-12 Outpatient Dina Arroyo n [id number] 00:00:00 00:00:00 n [facility] Medical Oncology Oncology [facility] [place] 2016-11-08 2016-11-08 Outpatient Dina Arroyo n [id number] 00:00:00 00:00:00 n [facility] Medical Oncology Oncology [facility] [place] 2016-11-07 2016-11-07 Outpatient Dina Laddpapito n [id number] 00:00:00 00:00:00 n Medical Medical Oncology Oncology [facility] [place] 2016-11-06 2016-11-06 Dina Gordon 2 [id number] 00:00:00 00:00:00 Lashonda n [facility] Medical Oncology Oncology [facility] [place] 2016-11-02 2016-11-02 Outpatient Dina Laddpapito n [id number] 00:00:00 00:00:00 n [facility] Medical Oncology Oncology [facility] [place] 2016-10-30 2016-10-30 Outpatient Wilbertopapito Wilbertopapito n [id number] 00:00:00 00:00:00 n [facility] Medical Oncology Oncology [facility] [place] 2016-10-26 2016-10-26 Outpatient [facility] n [id number] 00:00:00 00:00:00 n [facility] Oncology Oncology [facility] 2016-10-23 2016-10-23 Outpatient [facility] n [id number] 00:00:00 00:00:00 n [facility] Oncology Oncology [facility] 2016-10-16 2016-10-16 Outpatient [facility] n [id number] 00:00:00 00:00:00 [facility] Oncology Oncology [facility] 2016-10-11 2016-10-11 [facility] 2 [id number] 00:00:00 00:00:00 Lashonda n [facility] Oncology Oncology [facility] 2016-10-10 2016-10-10 Outpatient [facility] n [id number] 00:00:00 00:00:00 [facility] Oncology Oncology [facility] Social History Smoking Status Start Date Stop Date Yes - but quit (former) 2020-06-28 00:00:00 2020-06-28 00:00 :00 Social History Observation Description Sex Female Vital Signs Vital Name Observation Time Observation Value Comments BMI 2020-06-28 10:28:09 28.7900 BP hernandez 2020-06-28 10:28:09 73.0000 mm[Hg] Bdy height 2020-06-28 10:28:09 67.0000 [in_i] SaO2% BldA PulseOx 2020-06-28 10:28:09 99.0000 % Heart rate 2020-06-28 10:28:09 69.0000 /min Resp rate 2020-06-28 10:28:09 18.0000 /min BP sys 2020-06-28 10:28:09 135.0000 mm[Hg] Body temperature 2020-06-28 10:28:09 98.2000 [degF] Weight 2020-06-28 10:28:09 183.8000 [lb_av] BMI 2020-06-08 14:56:57 28.3800 BP hernandez 2020-06-08 14:56:57 72.0000 mm[Hg] Bdy height 2020-06-08 14:56:57 67.0000 [in_i] SaO2% BldA PulseOx 2020-06-08 14:56:57 98.0000 % Heart rate 2020-06-08 14:56:57 75.0000 /min Resp rate 2020-06-08 14:56:57 18.0000 /min BP sys 2020-06-08 14:56:57 151.0000 mm[Hg] Body temperature 2020-06-08 14:56:57 98.4000 [degF] Weight 2020-06-08 14:56:57 181.2000 [lb_av] BMI 2020-05-18 13:44:24 27.4100 BP hernandez 2020-05-18 13:44:24 80.0000 mm[Hg] Bdy height 2020-05-18 13:44:24 67.0000 [in_i] SaO2% BldA PulseOx 2020-05-18 13:44:24 98.0000 % Heart rate 2020-05-18 13:44:24 62.0000 /min Resp rate 2020-05-18 13:44:24 16.0000 /min BP sys 2020-05-18 13:44:24 148.0000 mm[Hg] Body temperature 2020-05-18 13:44:24 98.1000 [degF] Weight 2020-05-18 13:44:24 175.0000 [lb_av] BMI 2020-04-22 14:59:12 27.0300 BP hernandez 2020-04-22 14:59:12 74.0000 mm[Hg] Bdy height 2020-04-22 14:59:12 67.0000 [in_i] SaO2% BldA PulseOx 2020-04-22 14:59:12 98.0000 % Heart rate 2020-04-22 14:59:12 69.0000 /min Resp rate 2020-04-22 14:59:12 20.0000 /min BP sys 2020-04-22 14:59:12 128.0000 mm[Hg] Body temperature 2020-04-22 14:59:12 98.4000 [degF] Weight 2020-04-22 14:59:12 172.6000 [lb_av] BMI 2020-03-25 13:11:44 26.2500 BP hernandez 2020-03-25 13:11:44 64.0000 mm[Hg] Bdy height 2020-03-25 13:11:44 67.0000 [in_i] SaO2% BldA PulseOx 2020-03-25 13:11:44 98.0000 % Heart rate 2020-03-25 13:11:44 81.0000 /min Resp rate 2020-03-25 13:11:44 14.0000 /min BP sys 2020-03-25 13:11:44 111.0000 mm[Hg] Body temperature 2020-03-25 13:11:44 96.9000 [degF] Weight 2020-03-25 13:11:44 167.6000 [lb_av] BMI 2020-03-18 13:44:19 36.2300 BP hernandez 2020-03-18 13:44:19 58.0000 mm[Hg] Bdy height 2020-03-18 13:44:19 57.0000 [in_i] SaO2% BldA PulseOx 2020-03-18 13:44:19 98.0000 % Heart rate 2020-03-18 13:44:19 80.0000 /min Resp rate 2020-03-18 13:44:19 18.0000 /min BP sys 2020-03-18 13:44:19 113.0000 mm[Hg] Body temperature 2020-03-18 13:44:19 97.5000 [degF] Weight 2020-03-18 13:44:19 167.4000 [lb_av] BMI 2020-03-11 13:57:25 36.7000 BP hernandez 2020-03-11 13:57:25 63.0000 mm[Hg] Bdy height 2020-03-11 13:57:25 57.0000 [in_i] SaO2% BldA PulseOx 2020-03-11 13:57:25 98.0000 % Heart rate 2020-03-11 13:57:25 71.0000 /min Resp rate 2020-03-11 13:57:25 20.0000 /min BP sys 2020-03-11 13:57:25 120.0000 mm[Hg] Body temperature 2020-03-11 13:57:25 97.0000 [degF] Weight 2020-03-11 13:57:25 169.6000 [lb_av] Bdy height 2020-03-04 12:57:34 57.0000 [in_i] Body temperature 2020-03-04 12:57:34 98.6000 [degF] BMI 2020-02-26 14:11:49 35.7900 BP hernandez 2020-02-26 14:11:49 68.0000 mm[Hg] Bdy height 2020-02-26 14:11:49 57.0000 [in_i] SaO2% BldA PulseOx 2020-02-26 14:11:49 99.0000 % Heart rate 2020-02-26 14:11:49 77.0000 /min Resp rate 2020-02-26 14:11:49 14.0000 /min BP sys 2020-02-26 14:11:49 131.0000 mm[Hg] Body temperature 2020-02-26 14:11:49 99.0000 [degF] Weight 2020-02-26 14:11:49 165.4000 [lb_av] BMI 2020-02-23 09:24:40 35.9200 BP hernandez 2020-02-23 09:24:40 66.0000 mm[Hg] Bdy height 2020-02-23 09:24:40 57.0000 [in_i] SaO2% BldA PulseOx 2020-02-23 09:24:40 99.0000 % Heart rate 2020-02-23 09:24:40 126.0000 /min Resp rate 2020-02-23 09:24:40 18.0000 /min BP sys 2020-02-23 09:24:40 111.0000 mm[Hg] Body temperature 2020-02-23 09:24:40 98.3000 [degF] Weight 2020-02-23 09:24:40 166.0000 [lb_av] BMI 2020-02-17 14:56:46 35.7500 BP hernandez 2020-02-17 14:56:46 64.0000 mm[Hg] Bdy height 2020-02-17 14:56:46 57.0000 [in_i] SaO2% BldA PulseOx 2020-02-17 14:56:46 98.0000 % Heart rate 2020-02-17 14:56:46 85.0000 /min Resp rate 2020-02-17 14:56:46 16.0000 /min BP sys 2020-02-17 14:56:46 124.0000 mm[Hg] Body temperature 2020-02-17 14:56:46 97.5000 [degF] Weight 2020-02-17 14:56:46 165.2000 [lb_av] BMI 2020-02-16 14:32:32 35.6600 BP hernandez 2020-02-16 14:32:32 68.0000 mm[Hg] Bdy height 2020-02-16 14:32:32 57.0000 [in_i] SaO2% BldA PulseOx 2020-02-16 14:32:32 98.0000 % Heart rate 2020-02-16 14:32:32 74.0000 /min Resp rate 2020-02-16 14:32:32 16.0000 /min BP sys 2020-02-16 14:32:32 126.0000 mm[Hg] Body temperature 2020-02-16 14:32:32 97.0000 [degF] Weight 2020-02-16 14:32:32 164.8000 [lb_av] Bdy height 2020-02-15 15:51:41 57.0000 [in_i] Body temperature 2020-02-15 15:51:41 97.2000 [degF] BMI 2020-02-12 13:25:43 36.1800 BP hernandez 2020-02-12 13:25:43 72.0000 mm[Hg] Bdy height 2020-02-12 13:25:43 57.0000 [in_i] SaO2% BldA PulseOx 2020-02-12 13:25:43 98.0000 % Heart rate 2020-02-12 13:25:43 69.0000 /min Resp rate 2020-02-12 13:25:43 18.0000 /min BP sys 2020-02-12 13:25:43 128.0000 mm[Hg] Body temperature 2020-02-12 13:25:43 97.5000 [degF] Weight 2020-02-12 13:25:43 167.2000 [lb_av] Bdy height 2020-02-10 15:13:25 57.0000 [in_i] Body temperature 2020-02-10 15:13:25 97.3000 [degF] BMI 2020-02-09 09:17:19 36.2300 BP hernandez 2020-02-09 09:17:19 63.0000 mm[Hg] Bdy height 2020-02-09 09:17:19 57.0000 [in_i] SaO2% BldA PulseOx 2020-02-09 09:17:19 98.0000 % Heart rate 2020-02-09 09:17:19 72.0000 /min Resp rate 2020-02-09 09:17:19 20.0000 /min BP sys 2020-02-09 09:17:19 109.0000 mm[Hg] Body temperature 2020-02-09 09:17:19 96.6000 [degF] Weight 2020-02-09 09:17:19 167.4000 [lb_av] BMI 2020-02-08 14:31:52 36.3100 BP hernandez 2020-02-08 14:31:52 61.0000 mm[Hg] Bdy height 2020-02-08 14:31:52 57.0000 [in_i] SaO2% BldA PulseOx 2020-02-08 14:31:52 96.0000 % Heart rate 2020-02-08 14:31:52 61.0000 /min Resp rate 2020-02-08 14:31:52 16.0000 /min BP sys 2020-02-08 14:31:52 127.0000 mm[Hg] Body temperature 2020-02-08 14:31:52 97.2000 [degF] Weight 2020-02-08 14:31:52 167.8000 [lb_av] BMI 2020-02-05 14:42:32 35.6200 BP hernandez 2020-02-05 14:42:32 76.0000 mm[Hg] Bdy height 2020-02-05 14:42:32 57.0000 [in_i] SaO2% BldA PulseOx 2020-02-05 14:42:32 97.0000 % Heart rate 2020-02-05 14:42:32 68.0000 /min Resp rate 2020-02-05 14:42:32 18.0000 /min BP sys 2020-02-05 14:42:32 142.0000 mm[Hg] Body temperature 2020-02-05 14:42:32 98.1000 [degF] Weight 2020-02-05 14:42:32 164.6000 [lb_av] BMI 2020-02-04 14:40:50 35.7100 BP hernandez 2020-02-04 14:40:50 64.0000 mm[Hg] Bdy height 2020-02-04 14:40:50 57.0000 [in_i] SaO2% BldA PulseOx 2020-02-04 14:40:50 98.0000 % Heart rate 2020-02-04 14:40:50 80.0000 /min Resp rate 2020-02-04 14:40:50 16.0000 /min BP sys 2020-02-04 14:40:50 106.0000 mm[Hg] Body temperature 2020-02-04 14:40:50 98.1000 [degF] Weight 2020-02-04 14:40:50 165.0000 [lb_av] BMI 2020-02-03 13:38:06 35.5800 BP hernandez 2020-02-03 13:38:06 74.0000 mm[Hg] Bdy height 2020-02-03 13:38:06 57.0000 [in_i] SaO2% BldA PulseOx 2020-02-03 13:38:06 96.0000 % Heart rate 2020-02-03 13:38:06 73.0000 /min Resp rate 2020-02-03 13:38:06 18.0000 /min BP sys 2020-02-03 13:38:06 113.0000 mm[Hg] Body temperature 2020-02-03 13:38:06 97.3000 [degF] Weight 2020-02-03 13:38:06 164.4000 [lb_av] BMI 2020-02-02 13:25:00 36.0100 BP hernandez 2020-02-02 13:25:00 62.0000 mm[Hg] Bdy height 2020-02-02 13:25:00 57.0000 [in_i] SaO2% BldA PulseOx 2020-02-02 13:25:00 96.0000 % Heart rate 2020-02-02 13:25:00 87.0000 /min Resp rate 2020-02-02 13:25:00 18.0000 /min BP sys 2020-02-02 13:25:00 118.0000 mm[Hg] Body temperature 2020-02-02 13:25:00 97.2000 [degF] Weight 2020-02-02 13:25:00 166.4000 [lb_av] BMI 2020-02-01 14:22:55 36.1800 BP hernandez 2020-02-01 14:22:55 64.0000 mm[Hg] Bdy height 2020-02-01 14:22:55 57.0000 [in_i] SaO2% BldA PulseOx 2020-02-01 14:22:55 98.0000 % Heart rate 2020-02-01 14:22:55 78.0000 /min Resp rate 2020-02-01 14:22:55 16.0000 /min BP sys 2020-02-01 14:22:55 123.0000 mm[Hg] Body temperature 2020-02-01 14:22:55 97.3000 [degF] Weight 2020-02-01 14:22:55 167.2000 [lb_av] BMI 2020-01-29 12:54:26 36.4400 BP hernandez 2020-01-29 12:54:26 64.0000 mm[Hg] Bdy height 2020-01-29 12:54:26 57.0000 [in_i] SaO2% BldA PulseOx 2020-01-29 12:54:26 98.0000 % Heart rate 2020-01-29 12:54:26 78.0000 /min Resp rate 2020-01-29 12:54:26 20.0000 /min BP sys 2020-01-29 12:54:26 118.0000 mm[Hg] Body temperature 2020-01-29 12:54:26 98.0000 [degF] Weight 2020-01-29 12:54:26 168.4000 [lb_av] BMI 2020-01-27 13:55:29 36.0500 BP hernandez 2020-01-27 13:55:29 68.0000 mm[Hg] Bdy height 2020-01-27 13:55:29 57.0000 [in_i] SaO2% BldA PulseOx 2020-01-27 13:55:29 97.0000 % Heart rate 2020-01-27 13:55:29 80.0000 /min Resp rate 2020-01-27 13:55:29 16.0000 /min BP sys 2020-01-27 13:55:29 121.0000 mm[Hg] Body temperature 2020-01-27 13:55:29 97.3000 [degF] Weight 2020-01-27 13:55:29 166.6000 [lb_av] BMI 2020-01-26 14:04:18 35.9200 BP hernandez 2020-01-26 14:04:18 78.0000 mm[Hg] Bdy height 2020-01-26 14:04:18 57.0000 [in_i] SaO2% BldA PulseOx 2020-01-26 14:04:18 98.0000 % Heart rate 2020-01-26 14:04:18 85.0000 /min Resp rate 2020-01-26 14:04:18 14.0000 /min BP sys 2020-01-26 14:04:18 123.0000 mm[Hg] Body temperature 2020-01-26 14:04:18 98.3000 [degF] Weight 2020-01-26 14:04:18 166.0000 [lb_av] BMI 2020-01-25 13:32:51 36.3100 BP hernandez 2020-01-25 13:32:51 69.0000 mm[Hg] Bdy height 2020-01-25 13:32:51 57.0000 [in_i] SaO2% BldA PulseOx 2020-01-25 13:32:51 96.0000 % Heart rate 2020-01-25 13:32:51 79.0000 /min Resp rate 2020-01-25 13:32:51 16.0000 /min BP sys 2020-01-25 13:32:51 141.0000 mm[Hg] Body temperature 2020-01-25 13:32:51 97.9000 [degF] Weight 2020-01-25 13:32:51 167.8000 [lb_av] BMI 2020-01-22 13:21:54 36.5300 BP hernandez 2020-01-22 13:21:54 77.0000 mm[Hg] Bdy height 2020-01-22 13:21:54 57.0000 [in_i] SaO2% BldA PulseOx 2020-01-22 13:21:54 96.0000 % Heart rate 2020-01-22 13:21:54 81.0000 /min Resp rate 2020-01-22 13:21:54 20.0000 /min BP sys 2020-01-22 13:21:54 136.0000 mm[Hg] Body temperature 2020-01-22 13:21:54 97.3000 [degF] Weight 2020-01-22 13:21:54 168.8000 [lb_av] BMI 2020-01-20 14:43:43 36.4800 BP hernandez 2020-01-20 14:43:43 71.0000 mm[Hg] Bdy height 2020-01-20 14:43:43 57.0000 [in_i] SaO2% BldA PulseOx 2020-01-20 14:43:43 96.0000 % Heart rate 2020-01-20 14:43:43 78.0000 /min Resp rate 2020-01-20 14:43:43 18.0000 /min BP sys 2020-01-20 14:43:43 129.0000 mm[Hg] Body temperature 2020-01-20 14:43:43 97.2000 [degF] Weight 2020-01-20 14:43:43 168.6000 [lb_av] BMI 2020-01-19 14:40:33 36.5700 BP hernandez 2020-01-19 14:40:33 65.0000 mm[Hg] Bdy height 2020-01-19 14:40:33 57.0000 [in_i] Heart rate 2020-01-19 14:40:33 71.0000 /min Resp rate 2020-01-19 14:40:33 16.0000 /min BP sys 2020-01-19 14:40:33 137.0000 mm[Hg] Body temperature 2020-01-19 14:40:33 97.2000 [degF] Weight 2020-01-19 14:40:33 169.0000 [lb_av] BMI 2020-01-18 14:39:05 36.9600 BP hernandez 2020-01-18 14:39:05 73.0000 mm[Hg] Bdy height 2020-01-18 14:39:05 57.0000 [in_i] SaO2% BldA PulseOx 2020-01-18 14:39:05 97.0000 % Heart rate 2020-01-18 14:39:05 77.0000 /min Resp rate 2020-01-18 14:39:05 18.0000 /min BP sys 2020-01-18 14:39:05 129.0000 mm[Hg] Body temperature 2020-01-18 14:39:05 97.3000 [degF] Weight 2020-01-18 14:39:05 170.8000 [lb_av] BMI 2020-01-15 14:05:25 36.3100 BP hernandez 2020-01-15 14:05:25 67.0000 mm[Hg] Bdy height 2020-01-15 14:05:25 57.0000 [in_i] SaO2% BldA PulseOx 2020-01-15 14:05:25 96.0000 % Heart rate 2020-01-15 14:05:25 87.0000 /min Resp rate 2020-01-15 14:05:25 18.0000 /min BP sys 2020-01-15 14:05:25 130.0000 mm[Hg] Body temperature 2020-01-15 14:05:25 97.3000 [degF] Weight 2020-01-15 14:05:25 167.8000 [lb_av] BMI 2020-01-14 13:41:36 36.3100 BP hernandez 2020-01-14 13:41:36 69.0000 mm[Hg] Bdy height 2020-01-14 13:41:36 57.0000 [in_i] SaO2% BldA PulseOx 2020-01-14 13:41:36 97.0000 % Heart rate 2020-01-14 13:41:36 84.0000 /min Resp rate 2020-01-14 13:41:36 16.0000 /min BP sys 2020-01-14 13:41:36 118.0000 mm[Hg] Body temperature 2020-01-14 13:41:36 97.5000 [degF] Weight 2020-01-14 13:41:36 167.8000 [lb_av] BMI 2020-01-13 13:41:30 36.3100 BP hernandez 2020-01-13 13:41:30 53.0000 mm[Hg] Bdy height 2020-01-13 13:41:30 57.0000 [in_i] SaO2% BldA PulseOx 2020-01-13 13:41:30 96.0000 % Heart rate 2020-01-13 13:41:30 95.0000 /min Resp rate 2020-01-13 13:41:30 16.0000 /min BP sys 2020-01-13 13:41:30 123.0000 mm[Hg] Body temperature 2020-01-13 13:41:30 97.4000 [degF] Weight 2020-01-13 13:41:30 167.8000 [lb_av] BMI 2020-01-08 13:23:31 36.5100 BP hernandez 2020-01-08 13:23:31 79.0000 mm[Hg] Bdy height 2020-01-08 13:23:31 57.0000 [in_i] SaO2% BldA PulseOx 2020-01-08 13:23:31 97.0000 % Heart rate 2020-01-08 13:23:31 89.0000 /min Resp rate 2020-01-08 13:23:31 18.0000 /min BP sys 2020-01-08 13:23:31 146.0000 mm[Hg] Body temperature 2020-01-08 13:23:31 98.1000 [degF] Weight 2020-01-08 13:23:31 168.7000 [lb_av] BMI 2020-01-06 13:07:17 36.4400 BP hernandez 2020-01-06 13:07:17 62.0000 mm[Hg] Bdy height 2020-01-06 13:07:17 57.0000 [in_i] SaO2% BldA PulseOx 2020-01-06 13:07:17 97.0000 % Heart rate 2020-01-06 13:07:17 86.0000 /min Resp rate 2020-01-06 13:07:17 16.0000 /min BP sys 2020-01-06 13:07:17 124.0000 mm[Hg] Body temperature 2020-01-06 13:07:17 97.5000 [degF] Weight 2020-01-06 13:07:17 168.4000 [lb_av] Bdy height 2020-01-06 13:06:03 57.0000 [in_i] Body temperature 2020-01-06 13:06:03 97.5000 [degF] BP sys 2020-01-05 13:34:25 125.0000 mm[Hg] Body temperature 2020-01-05 13:34:25 97.5000 [degF] Weight 2020-01-05 13:34:25 170.0000 [lb_av] BMI 2020-01-05 13:34:25 36.7900 BP hernandez 2020-01-05 13:34:25 79.0000 mm[Hg] Bdy height 2020-01-05 13:34:25 57.0000 [in_i] SaO2% BldA PulseOx 2020-01-05 13:34:25 97.0000 % Heart rate 2020-01-05 13:34:25 81.0000 /min Resp rate 2020-01-05 13:34:25 16.0000 /min BMI 2020-01-04 12:52:15 37.0900 BP hernandez 2020-01-04 12:52:15 73.0000 mm[Hg] Bdy height 2020-01-04 12:52:15 57.0000 [in_i] SaO2% BldA PulseOx 2020-01-04 12:52:15 96.0000 % Heart rate 2020-01-04 12:52:15 84.0000 /min Resp rate 2020-01-04 12:52:15 16.0000 /min BP sys 2020-01-04 12:52:15 128.0000 mm[Hg] Body temperature 2020-01-04 12:52:15 97.3000 [degF] Weight 2020-01-04 12:52:15 171.4000 [lb_av] BMI 2020-01-01 12:48:39 36.7900 BP hrenandez 2020-01-01 12:48:39 70.0000 mm[Hg] Bdy height 2020-01-01 12:48:39 57.0000 [in_i] SaO2% BldA PulseOx 2020-01-01 12:48:39 97.0000 % Heart rate 2020-01-01 12:48:39 86.0000 /min Resp rate 2020-01-01 12:48:39 18.0000 /min BP sys 2020-01-01 12:48:39 139.0000 mm[Hg] Body temperature 2020-01-01 12:48:39 97.7000 [degF] Weight 2020-01-01 12:48:39 170.0000 [lb_av] BMI 2019-12-25 13:13:54 36.3600 BP hernandez 2019-12-25 13:13:54 84.0000 mm[Hg] Bdy height 2019-12-25 13:13:54 57.0000 [in_i] SaO2% BldA PulseOx 2019-12-25 13:13:54 98.0000 % Heart rate 2019-12-25 13:13:54 74.0000 /min Resp rate 2019-12-25 13:13:54 24.0000 /min BP sys 2019-12-25 13:13:54 137.0000 mm[Hg] Body temperature 2019-12-25 13:13:54 97.2000 [degF] Weight 2019-12-25 13:13:54 168.0000 [lb_av] BMI 2019-12-23 13:20:58 37.4800 BP hernandez 2019-12-23 13:20:58 81.0000 mm[Hg] Bdy height 2019-12-23 13:20:58 57.0000 [in_i] SaO2% BldA PulseOx 2019-12-23 13:20:58 97.0000 % Heart rate 2019-12-23 13:20:58 86.0000 /min Resp rate 2019-12-23 13:20:58 20.0000 /min BP sys 2019-12-23 13:20:58 135.0000 mm[Hg] Body temperature 2019-12-23 13:20:58 98.0000 [degF] Weight 2019-12-23 13:20:58 173.2000 [lb_av] BMI 2019-12-22 13:07:04 37.1300 BP hernandez 2019-12-22 13:07:04 79.0000 mm[Hg] Bdy height 2019-12-22 13:07:04 57.0000 [in_i] SaO2% BldA PulseOx 2019-12-22 13:07:04 96.0000 % Heart rate 2019-12-22 13:07:04 90.0000 /min Resp rate 2019-12-22 13:07:04 16.0000 /min BP sys 2019-12-22 13:07:04 124.0000 mm[Hg] Body temperature 2019-12-22 13:07:04 97.8000 [degF] Weight 2019-12-22 13:07:04 171.6000 [lb_av] BMI 2019-12-21 13:03:36 36.7900 BP hernandez 2019-12-21 13:03:36 79.0000 mm[Hg] Bdy height 2019-12-21 13:03:36 57.0000 [in_i] SaO2% BldA PulseOx 2019-12-21 13:03:36 98.0000 % Heart rate 2019-12-21 13:03:36 87.0000 /min Resp rate 2019-12-21 13:03:36 16.0000 /min BP sys 2019-12-21 13:03:36 142.0000 mm[Hg] Body temperature 2019-12-21 13:03:36 97.7000 [degF] Weight 2019-12-21 13:03:36 170.0000 [lb_av] BMI 2019-12-14 12:46:05 37.4400 BP hernandez 2019-12-14 12:46:05 72.0000 mm[Hg] Bdy height 2019-12-14 12:46:05 57.0000 [in_i] SaO2% BldA PulseOx 2019-12-14 12:46:05 96.0000 % Heart rate 2019-12-14 12:46:05 81.0000 /min Resp rate 2019-12-14 12:46:05 16.0000 /min BP sys 2019-12-14 12:46:05 135.0000 mm[Hg] Body temperature 2019-12-14 12:46:05 97.6000 [degF] Weight 2019-12-14 12:46:05 173.0000 [lb_av] BMI 2019-12-11 12:15:30 37.7800 BP hernandez 2019-12-11 12:15:30 70.0000 mm[Hg] Bdy height 2019-12-11 12:15:30 57.0000 [in_i] SaO2% BldA PulseOx 2019-12-11 12:15:30 96.0000 % Heart rate 2019-12-11 12:15:30 74.0000 /min Resp rate 2019-12-11 12:15:30 16.0000 /min BP sys 2019-12-11 12:15:30 118.0000 mm[Hg] Body temperature 2019-12-11 12:15:30 97.6000 [degF] Weight 2019-12-11 12:15:30 174.6000 [lb_av] BMI 2019-12-09 12:15:49 37.8700 BP hernandez 2019-12-09 12:15:49 73.0000 mm[Hg] Bdy height 2019-12-09 12:15:49 57.0000 [in_i] SaO2% BldA PulseOx 2019-12-09 12:15:49 96.0000 % Heart rate 2019-12-09 12:15:49 79.0000 /min Resp rate 2019-12-09 12:15:49 16.0000 /min BP sys 2019-12-09 12:15:49 126.0000 mm[Hg] Body temperature 2019-12-09 12:15:49 96.8000 [degF] Weight 2019-12-09 12:15:49 175.0000 [lb_av] BMI 2019-12-08 12:10:38 38.0400 BP hernandez 2019-12-08 12:10:38 75.0000 mm[Hg] Bdy height 2019-12-08 12:10:38 57.0000 [in_i] SaO2% BldA PulseOx 2019-12-08 12:10:38 96.0000 % Heart rate 2019-12-08 12:10:38 78.0000 /min Resp rate 2019-12-08 12:10:38 16.0000 /min BP sys 2019-12-08 12:10:38 138.0000 mm[Hg] Body temperature 2019-12-08 12:10:38 97.7000 [degF] Weight 2019-12-08 12:10:38 175.8000 [lb_av] BMI 2019-12-07 11:52:53 38.3000 BP hernandez 2019-12-07 11:52:53 80.0000 mm[Hg] Bdy height 2019-12-07 11:52:53 57.0000 [in_i] SaO2% BldA PulseOx 2019-12-07 11:52:53 98.0000 % Heart rate 2019-12-07 11:52:53 78.0000 /min Resp rate 2019-12-07 11:52:53 17.0000 /min BP sys 2019-12-07 11:52:53 123.0000 mm[Hg] Body temperature 2019-12-07 11:52:53 95.8000 [degF] Weight 2019-12-07 11:52:53 177.0000 [lb_av] BMI 2019-12-04 12:50:27 38.0400 BP hernandez 2019-12-04 12:50:27 75.0000 mm[Hg] Bdy height 2019-12-04 12:50:27 57.0000 [in_i] SaO2% BldA PulseOx 2019-12-04 12:50:27 97.0000 % Heart rate 2019-12-04 12:50:27 81.0000 /min Resp rate 2019-12-04 12:50:27 20.0000 /min BP sys 2019-12-04 12:50:27 139.0000 mm[Hg] Body temperature 2019-12-04 12:50:27 97.9000 [degF] Weight 2019-12-04 12:50:27 175.8000 [lb_av] Heart rate 2019-11-20 11:28:44 81.0000 /min Resp rate 2019-11-20 11:28:44 20.0000 /min BP sys 2019-11-20 11:28:44 136.0000 mm[Hg] Body temperature 2019-11-20 11:28:44 97.8000 [degF] Weight 2019-11-20 11:28:44 179.0000 [lb_av] BMI 2019-11-20 11:28:44 38.7400 BP hernandez 2019-11-20 11:28:44 71.0000 mm[Hg] Bdy height 2019-11-20 11:28:44 57.0000 [in_i] SaO2% BldA PulseOx 2019-11-20 11:28:44 96.0000 % BMI 2019-11-06 11:48:46 38.3900 BP hernandez 2019-11-06 11:48:46 69.0000 mm[Hg] Bdy height 2019-11-06 11:48:46 57.0000 [in_i] SaO2% BldA PulseOx 2019-11-06 11:48:46 98.0000 % Heart rate 2019-11-06 11:48:46 69.0000 /min Resp rate 2019-11-06 11:48:46 16.0000 /min BP sys 2019-11-06 11:48:46 120.0000 mm[Hg] Body temperature 2019-11-06 11:48:46 98.3000 [degF] Weight 2019-11-06 11:48:46 177.4000 [lb_av] BMI 2019-10-30 11:42:08 38.5200 BP hernandez 2019-10-30 11:42:08 68.0000 mm[Hg] Bdy height 2019-10-30 11:42:08 57.0000 [in_i] SaO2% BldA PulseOx 2019-10-30 11:42:08 97.0000 % Heart rate 2019-10-30 11:42:08 83.0000 /min Resp rate 2019-10-30 11:42:08 16.0000 /min BP sys 2019-10-30 11:42:08 123.0000 mm[Hg] Body temperature 2019-10-30 11:42:08 97.9000 [degF] Weight 2019-10-30 11:42:08 178.0000 [lb_av] BMI 2019-10-16 11:49:44 38.0900 BP hernandez 2019-10-16 11:49:44 74.0000 mm[Hg] Bdy height 2019-10-16 11:49:44 57.0000 [in_i] SaO2% BldA PulseOx 2019-10-16 11:49:44 98.0000 % Heart rate 2019-10-16 11:49:44 75.0000 /min Resp rate 2019-10-16 11:49:44 16.0000 /min BP sys 2019-10-16 11:49:44 130.0000 mm[Hg] Body temperature 2019-10-16 11:49:44 97.8000 [degF] Weight 2019-10-16 11:49:44 176.0000 [lb_av] BMI 2019-10-09 11:55:01 39.0000 BP hernandez 2019-10-09 11:55:01 75.0000 mm[Hg] Bdy height 2019-10-09 11:55:01 57.0000 [in_i] SaO2% BldA PulseOx 2019-10-09 11:55:01 98.0000 % Heart rate 2019-10-09 11:55:01 73.0000 /min Resp rate 2019-10-09 11:55:01 18.0000 /min BP sys 2019-10-09 11:55:01 121.0000 mm[Hg] Body temperature 2019-10-09 11:55:01 97.4000 [degF] Weight 2019-10-09 11:55:01 180.2000 [lb_av] BMI 2019-09-25 13:09:20 38.7400 BP hernandez 2019-09-25 13:09:20 82.0000 mm[Hg] Bdy height 2019-09-25 13:09:20 57.0000 [in_i] SaO2% BldA PulseOx 2019-09-25 13:09:20 98.0000 % Heart rate 2019-09-25 13:09:20 75.0000 /min Resp rate 2019-09-25 13:09:20 16.0000 /min BP sys 2019-09-25 13:09:20 141.0000 mm[Hg] Body temperature 2019-09-25 13:09:20 98.1000 [degF] Weight 2019-09-25 13:09:20 179.0000 [lb_av] BMI 2019-09-24 11:30:35 38.0900 BP hernandez 2019-09-24 11:30:35 83.0000 mm[Hg] Bdy height 2019-09-24 11:30:35 57.0000 [in_i] SaO2% BldA PulseOx 2019-09-24 11:30:35 98.0000 % Heart rate 2019-09-24 11:30:35 79.0000 /min Resp rate 2019-09-24 11:30:35 20.0000 /min BP sys 2019-09-24 11:30:35 137.0000 mm[Hg] Body temperature 2019-09-24 11:30:35 97.2000 [degF] Weight 2019-09-24 11:30:35 176.0000 [lb_av] BMI 2019-09-18 10:30:43 38.8700 BP hernandez 2019-09-18 10:30:43 67.0000 mm[Hg] Bdy height 2019-09-18 10:30:43 57.0000 [in_i] SaO2% BldA PulseOx 2019-09-18 10:30:43 97.0000 % Heart rate 2019-09-18 10:30:43 83.0000 /min Resp rate 2019-09-18 10:30:43 16.0000 /min BP sys 2019-09-18 10:30:43 128.0000 mm[Hg] Body temperature 2019-09-18 10:30:43 97.1000 [degF] Weight 2019-09-18 10:30:43 179.6000 [lb_av] BMI 2019-09-04 11:17:54 38.8200 BP hernandez 2019-09-04 11:17:54 70.0000 mm[Hg] Bdy height 2019-09-04 11:17:54 57.0000 [in_i] SaO2% BldA PulseOx 2019-09-04 11:17:54 98.0000 % Heart rate 2019-09-04 11:17:54 82.0000 /min Resp rate 2019-09-04 11:17:54 20.0000 /min BP sys 2019-09-04 11:17:54 124.0000 mm[Hg] Body temperature 2019-09-04 11:17:54 98.4000 [degF] Weight 2019-09-04 11:17:54 179.4000 [lb_av] BMI 2019-08-28 10:44:58 38.3500 BP hernandez 2019-08-28 10:44:58 70.0000 mm[Hg] Bdy height 2019-08-28 10:44:58 57.0000 [in_i] SaO2% BldA PulseOx 2019-08-28 10:44:58 98.0000 % Heart rate 2019-08-28 10:44:58 78.0000 /min Resp rate 2019-08-28 10:44:58 16.0000 /min BP sys 2019-08-28 10:44:58 125.0000 mm[Hg] Body temperature 2019-08-28 10:44:58 96.6000 [degF] Weight 2019-08-28 10:44:58 177.2000 [lb_av] BMI 2019-08-14 12:53:29 39.2500 BP hernandez 2019-08-14 12:53:29 79.0000 mm[Hg] Bdy height 2019-08-14 12:53:29 57.0000 [in_i] SaO2% BldA PulseOx 2019-08-14 12:53:29 98.0000 % Heart rate 2019-08-14 12:53:29 91.0000 /min Resp rate 2019-08-14 12:53:29 18.0000 /min BP sys 2019-08-14 12:53:29 134.0000 mm[Hg] Body temperature 2019-08-14 12:53:29 98.9000 [degF] Weight 2019-08-14 12:53:29 181.4000 [lb_av] BMI 2019-08-05 13:17:51 39.0000 BP hernandez 2019-08-05 13:17:51 70.0000 mm[Hg] Bdy height 2019-08-05 13:17:51 57.0000 [in_i] SaO2% BldA PulseOx 2019-08-05 13:17:51 98.0000 % Heart rate 2019-08-05 13:17:51 83.0000 /min Resp rate 2019-08-05 13:17:51 18.0000 /min BP sys 2019-08-05 13:17:51 125.0000 mm[Hg] Body temperature 2019-08-05 13:17:51 97.1000 [degF] Weight 2019-08-05 13:17:51 180.2000 [lb_av] BMI 2019-07-21 13:22:14 38.1700 BP hernandez 2019-07-21 13:22:14 74.0000 mm[Hg] Bdy height 2019-07-21 13:22:14 57.0000 [in_i] SaO2% BldA PulseOx 2019-07-21 13:22:14 97.0000 % Heart rate 2019-07-21 13:22:14 82.0000 /min Resp rate 2019-07-21 13:22:14 17.0000 /min BP sys 2019-07-21 13:22:14 117.0000 mm[Hg] Body temperature 2019-07-21 13:22:14 97.8000 [degF] Weight 2019-07-21 13:22:14 176.4000 [lb_av] BMI 2019-06-23 14:30:26 40.7300 BP hernandez 2019-06-23 14:30:26 66.0000 mm[Hg] Bdy height 2019-06-23 14:30:26 57.0000 [in_i] SaO2% BldA PulseOx 2019-06-23 14:30:26 99.0000 % Heart rate 2019-06-23 14:30:26 71.0000 /min Resp rate 2019-06-23 14:30:26 18.0000 /min BP sys 2019-06-23 14:30:26 139.0000 mm[Hg] Body temperature 2019-06-23 14:30:26 97.1000 [degF] Weight 2019-06-23 14:30:26 188.2000 [lb_av] BMI 2019-05-26 14:49:01 40.4700 BP hernandez 2019-05-26 14:49:01 65.0000 mm[Hg] Bdy height 2019-05-26 14:49:01 57.0000 [in_i] SaO2% BldA PulseOx 2019-05-26 14:49:01 97.0000 % Heart rate 2019-05-26 14:49:01 75.0000 /min Resp rate 2019-05-26 14:49:01 16.0000 /min BP sys 2019-05-26 14:49:01 137.0000 mm[Hg] Body temperature 2019-05-26 14:49:01 96.8000 [degF] Weight 2019-05-26 14:49:01 187.0000 [lb_av] BMI 2019-05-11 09:46:12 40.9000 BP hernandez 2019-05-11 09:46:12 73.0000 mm[Hg] Bdy height 2019-05-11 09:46:12 57.0000 [in_i] SaO2% BldA PulseOx 2019-05-11 09:46:12 98.0000 % Heart rate 2019-05-11 09:46:12 63.0000 /min Resp rate 2019-05-11 09:46:12 16.0000 /min BP sys 2019-05-11 09:46:12 125.0000 mm[Hg] Body temperature 2019-05-11 09:46:12 98.3000 [degF] Weight 2019-05-11 09:46:12 189.0000 [lb_av] BMI 2019-04-28 13:21:40 40.8100 BP hernandez 2019-04-28 13:21:40 78.0000 mm[Hg] Bdy height 2019-04-28 13:21:40 57.0000 [in_i] Heart rate 2019-04-28 13:21:40 81.0000 /min Resp rate 2019-04-28 13:21:40 16.0000 /min BP sys 2019-04-28 13:21:40 140.0000 mm[Hg] Body temperature 2019-04-28 13:21:40 96.6000 [degF] Weight 2019-04-28 13:21:40 188.6000 [lb_av] BMI 2019-03-31 13:44:54 40.9000 BP hernandez 2019-03-31 13:44:54 73.0000 mm[Hg] Bdy height 2019-03-31 13:44:54 57.0000 [in_i] SaO2% BldA PulseOx 2019-03-31 13:44:54 97.0000 % Heart rate 2019-03-31 13:44:54 74.0000 /min Resp rate 2019-03-31 13:44:54 18.0000 /min BP sys 2019-03-31 13:44:54 130.0000 mm[Hg] Body temperature 2019-03-31 13:44:54 97.4000 [degF] Weight 2019-03-31 13:44:54 189.0000 [lb_av] BMI 2019-03-03 14:37:35 41.5900 BP hernandez 2019-03-03 14:37:35 73.0000 mm[Hg] Bdy height 2019-03-03 14:37:35 57.0000 [in_i] SaO2% BldA PulseOx 2019-03-03 14:37:35 98.0000 % Heart rate 2019-03-03 14:37:35 68.0000 /min Resp rate 2019-03-03 14:37:35 20.0000 /min BP sys 2019-03-03 14:37:35 141.0000 mm[Hg] Body temperature 2019-03-03 14:37:35 98.0000 [degF] Weight 2019-03-03 14:37:35 192.2000 [lb_av] BMI 2019-02-17 14:42:53 41.3800 BP hernandez 2019-02-17 14:42:53 63.0000 mm[Hg] Bdy height 2019-02-17 14:42:53 57.0000 [in_i] SaO2% BldA PulseOx 2019-02-17 14:42:53 98.0000 % Heart rate 2019-02-17 14:42:53 66.0000 /min Resp rate 2019-02-17 14:42:53 18.0000 /min BP sys 2019-02-17 14:42:53 127.0000 mm[Hg] Body temperature 2019-02-17 14:42:53 97.8000 [degF] Weight 2019-02-17 14:42:53 191.2000 [lb_av] BMI 2019-02-10 14:18:29 41.3800 BP hernandez 2019-02-10 14:18:29 64.0000 mm[Hg] Bdy height 2019-02-10 14:18:29 57.0000 [in_i] Heart rate 2019-02-10 14:18:29 71.0000 /min Resp rate 2019-02-10 14:18:29 18.0000 /min BP sys 2019-02-10 14:18:29 118.0000 mm[Hg] Body temperature 2019-02-10 14:18:29 97.6000 [degF] Weight 2019-02-10 14:18:29 191.2000 [lb_av] BMI 2019-02-03 10:19:03 41.5500 BP hernandez 2019-02-03 10:19:03 62.0000 mm[Hg] Bdy height 2019-02-03 10:19:03 57.0000 [in_i] SaO2% BldA PulseOx 2019-02-03 10:19:03 97.0000 % Heart rate 2019-02-03 10:19:03 72.0000 /min Resp rate 2019-02-03 10:19:03 20.0000 /min BP sys 2019-02-03 10:19:03 117.0000 mm[Hg] Body temperature 2019-02-03 10:19:03 97.0000 [degF] Weight 2019-02-03 10:19:03 192.0000 [lb_av] BMI 2019-01-30 13:17:07 41.5100 BP hernandez 2019-01-30 13:17:07 74.0000 mm[Hg] Bdy height 2019-01-30 13:17:07 57.0000 [in_i] Heart rate 2019-01-30 13:17:07 84.0000 /min Resp rate 2019-01-30 13:17:07 16.0000 /min BP sys 2019-01-30 13:17:07 140.0000 mm[Hg] Body temperature 2019-01-30 13:17:07 97.0000 [degF] Weight 2019-01-30 13:17:07 191.8000 [lb_av] BMI 2019-01-21 13:41:25 41.7200 BP hernandez 2019-01-21 13:41:25 80.0000 mm[Hg] Bdy height 2019-01-21 13:41:25 57.0000 [in_i] Heart rate 2019-01-21 13:41:25 76.0000 /min Resp rate 2019-01-21 13:41:25 18.0000 /min BP sys 2019-01-21 13:41:25 157.0000 mm[Hg] Body temperature 2019-01-21 13:41:25 99.0000 [degF] Weight 2019-01-21 13:41:25 192.8000 [lb_av] BMI 2019-01-06 08:18:39 41.7200 BP hernandez 2019-01-06 08:18:39 73.0000 mm[Hg] Bdy height 2019-01-06 08:18:39 57.0000 [in_i] Heart rate 2019-01-06 08:18:39 77.0000 /min Resp rate 2019-01-06 08:18:39 18.0000 /min BP sys 2019-01-06 08:18:39 132.0000 mm[Hg] Body temperature 2019-01-06 08:18:39 97.1000 [degF] Weight 2019-01-06 08:18:39 192.8000 [lb_av] BMI 2018-11-10 09:13:28 41.7200 BP hernandez 2018-11-10 09:13:28 74.0000 mm[Hg] Bdy height 2018-11-10 09:13:28 57.0000 [in_i] SaO2% BldA PulseOx 2018-11-10 09:13:28 96.0000 % Heart rate 2018-11-10 09:13:28 63.0000 /min Resp rate 2018-11-10 09:13:28 18.0000 /min BP sys 2018-11-10 09:13:28 132.0000 mm[Hg] Body temperature 2018-11-10 09:13:28 96.9000 [degF] Weight 2018-11-10 09:13:28 192.8000 [lb_av] BMI 2018-10-02 09:10:16 41.4600 BP hernandez 2018-10-02 09:10:16 70.0000 mm[Hg] Bdy height 2018-10-02 09:10:16 57.0000 [in_i] Heart rate 2018-10-02 09:10:16 81.0000 /min Resp rate 2018-10-02 09:10:16 16.0000 /min BP sys 2018-10-02 09:10:16 129.0000 mm[Hg] Body temperature 2018-10-02 09:10:16 97.7000 [degF] Weight 2018-10-02 09:10:16 191.6000 [lb_av] BMI 2018-06-23 11:34:23 41.4600 BP hernandez 2018-06-23 11:34:23 80.0000 mm[Hg] Bdy height 2018-06-23 11:34:23 57.0000 [in_i] Heart rate 2018-06-23 11:34:23 76.0000 /min Resp rate 2018-06-23 11:34:23 16.0000 /min BP sys 2018-06-23 11:34:23 143.0000 mm[Hg] Body temperature 2018-06-23 11:34:23 98.5000 [degF] Weight 2018-06-23 11:34:23 191.6000 [lb_av] BMI 2018-05-12 09:26:23 41.1200 BP hernandez 2018-05-12 09:26:23 79.0000 mm[Hg] Bdy height 2018-05-12 09:26:23 57.0000 [in_i] SaO2% BldA PulseOx 2018-05-12 09:26:23 98.0000 % Heart rate 2018-05-12 09:26:23 73.0000 /min Resp rate 2018-05-12 09:26:23 16.0000 /min BP sys 2018-05-12 09:26:23 127.0000 mm[Hg] Body temperature 2018-05-12 09:26:23 97.6000 [degF] Weight 2018-05-12 09:26:23 190.0000 [lb_av] BMI 2018-03-17 10:36:36 42.0200 BP hernandez 2018-03-17 10:36:36 78.0000 mm[Hg] Bdy height 2018-03-17 10:36:36 57.0000 [in_i] Heart rate 2018-03-17 10:36:36 79.0000 /min Resp rate 2018-03-17 10:36:36 14.0000 /min BP sys 2018-03-17 10:36:36 143.0000 mm[Hg] Body temperature 2018-03-17 10:36:36 96.9000 [degF] Weight 2018-03-17 10:36:36 194.2000 [lb_av] BMI 2018-02-11 08:55:34 42.4600 BP hernandez 2018-02-11 08:55:34 75.0000 mm[Hg] Bdy height 2018-02-11 08:55:34 57.0000 [in_i] Heart rate 2018-02-11 08:55:34 83.0000 /min Resp rate 2018-02-11 08:55:34 16.0000 /min BP sys 2018-02-11 08:55:34 141.0000 mm[Hg] Body temperature 2018-02-11 08:55:34 97.1000 [degF] Weight 2018-02-11 08:55:34 196.2000 [lb_av] BMI 2017-12-13 10:14:01 41.8100 BP hernandez 2017-12-13 10:14:01 76.0000 mm[Hg] Bdy height 2017-12-13 10:14:01 57.0000 [in_i] SaO2% BldA PulseOx 2017-12-13 10:14:01 97.0000 % Heart rate 2017-12-13 10:14:01 72.0000 /min Resp rate 2017-12-13 10:14:01 16.0000 /min BP sys 2017-12-13 10:14:01 151.0000 mm[Hg] Body temperature 2017-12-13 10:14:01 98.1000 [degF] Weight 2017-12-13 10:14:01 193.2000 [lb_av] BMI 2017-04-24 12:12:40 40.3400 BP hernandez 2017-04-24 12:12:40 74.0000 mm[Hg] Bdy height 2017-04-24 12:12:40 57.0000 [in_i] Heart rate 2017-04-24 12:12:40 94.0000 /min Resp rate 2017-04-24 12:12:40 20.0000 /min BP sys 2017-04-24 12:12:40 136.0000 mm[Hg] Body temperature 2017-04-24 12:12:40 97.0000 [degF] Weight 2017-04-24 12:12:40 186.4000 [lb_av] BMI 2017-04-17 11:26:27 40.6400 BP hernandez 2017-04-17 11:26:27 74.0000 mm[Hg] Bdy height 2017-04-17 11:26:27 57.0000 [in_i] SaO2% BldA PulseOx 2017-04-17 11:26:27 98.0000 % Heart rate 2017-04-17 11:26:27 90.0000 /min Resp rate 2017-04-17 11:26:27 20.0000 /min BP sys 2017-04-17 11:26:27 126.0000 mm[Hg] Body temperature 2017-04-17 11:26:27 96.2000 [degF] Weight 2017-04-17 11:26:27 187.8000 [lb_av] BMI 2017-04-10 10:12:03 40.0800 BP hernandez 2017-04-10 10:12:03 71.0000 mm[Hg] Bdy height 2017-04-10 10:12:03 57.0000 [in_i] Heart rate 2017-04-10 10:12:03 87.0000 /min Resp rate 2017-04-10 10:12:03 18.0000 /min BP sys 2017-04-10 10:12:03 135.0000 mm[Hg] Body temperature 2017-04-10 10:12:03 96.8000 [degF] Weight 2017-04-10 10:12:03 185.2000 [lb_av] BMI 2017-04-03 11:10:27 39.9900 BP hernandez 2017-04-03 11:10:27 71.0000 mm[Hg] Bdy height 2017-04-03 11:10:27 57.0000 [in_i] Heart rate 2017-04-03 11:10:27 96.0000 /min Resp rate 2017-04-03 11:10:27 18.0000 /min BP sys 2017-04-03 11:10:27 118.0000 mm[Hg] Body temperature 2017-04-03 11:10:27 97.6000 [degF] Weight 2017-04-03 11:10:27 184.8000 [lb_av] BMI 2017-03-27 10:53:13 39.7300 BP hernandez 2017-03-27 10:53:13 73.0000 mm[Hg] Bdy height 2017-03-27 10:53:13 57.0000 [in_i] Heart rate 2017-03-27 10:53:13 90.0000 /min Resp rate 2017-03-27 10:53:13 16.0000 /min BP sys 2017-03-27 10:53:13 133.0000 mm[Hg] Body temperature 2017-03-27 10:53:13 96.9000 [degF] Weight 2017-03-27 10:53:13 183.6000 [lb_av] BMI 2017-03-20 11:14:10 39.9000 BP hernandez 2017-03-20 11:14:10 70.0000 mm[Hg] Bdy height 2017-03-20 11:14:10 57.0000 [in_i] Heart rate 2017-03-20 11:14:10 86.0000 /min Resp rate 2017-03-20 11:14:10 22.0000 /min BP sys 2017-03-20 11:14:10 129.0000 mm[Hg] Body temperature 2017-03-20 11:14:10 96.7000 [degF] Weight 2017-03-20 11:14:10 184.4000 [lb_av] BMI 2017-03-13 11:05:24 39.7300 BP hernandez 2017-03-13 11:05:24 62.0000 mm[Hg] Bdy height 2017-03-13 11:05:24 57.0000 [in_i] Heart rate 2017-03-13 11:05:24 103.0000 /min Resp rate 2017-03-13 11:05:24 14.0000 /min BP sys 2017-03-13 11:05:24 146.0000 mm[Hg] Body temperature 2017-03-13 11:05:24 96.5000 [degF] Weight 2017-03-13 11:05:24 183.6000 [lb_av] BMI 2017-03-06 11:38:30 39.5100 BP hernandez 2017-03-06 11:38:30 71.0000 mm[Hg] Bdy height 2017-03-06 11:38:30 57.0000 [in_i] Heart rate 2017-03-06 11:38:30 96.0000 /min Resp rate 2017-03-06 11:38:30 20.0000 /min BP sys 2017-03-06 11:38:30 128.0000 mm[Hg] Body temperature 2017-03-06 11:38:30 96.6000 [degF] Weight 2017-03-06 11:38:30 182.6000 [lb_av] BMI 2017-02-20 12:59:41 39.3400 BP hernandez 2017-02-20 12:59:41 79.0000 mm[Hg] Bdy height 2017-02-20 12:59:41 57.0000 [in_i] Heart rate 2017-02-20 12:59:41 104.0000 /min Resp rate 2017-02-20 12:59:41 20.0000 /min BP sys 2017-02-20 12:59:41 137.0000 mm[Hg] Body temperature 2017-02-20 12:59:41 97.2000 [degF] Weight 2017-02-20 12:59:41 181.8000 [lb_av] BMI 2017-02-13 11:05:35 39.6000 BP hernandez 2017-02-13 11:05:35 83.0000 mm[Hg] Bdy height 2017-02-13 11:05:35 57.0000 [in_i] Heart rate 2017-02-13 11:05:35 113.0000 /min Resp rate 2017-02-13 11:05:35 18.0000 /min BP sys 2017-02-13 11:05:35 141.0000 mm[Hg] Body temperature 2017-02-13 11:05:35 98.1000 [degF] Weight 2017-02-13 11:05:35 183.0000 [lb_av] BMI 2017-02-06 10:03:28 40.3400 BP hernandez 2017-02-06 10:03:28 65.0000 mm[Hg] Bdy height 2017-02-06 10:03:28 57.0000 [in_i] Heart rate 2017-02-06 10:03:28 96.0000 /min Resp rate 2017-02-06 10:03:28 20.0000 /min BP sys 2017-02-06 10:03:28 140.0000 mm[Hg] Body temperature 2017-02-06 10:03:28 98.1000 [degF] Weight 2017-02-06 10:03:28 186.4000 [lb_av] BMI 2017-01-30 13:54:12 39.9000 BP hernandez 2017-01-30 13:54:12 79.0000 mm[Hg] Bdy height 2017-01-30 13:54:12 57.0000 [in_i] Heart rate 2017-01-30 13:54:12 77.0000 /min Resp rate 2017-01-30 13:54:12 20.0000 /min BP sys 2017-01-30 13:54:12 129.0000 mm[Hg] Body temperature 2017-01-30 13:54:12 97.3000 [degF] Weight 2017-01-30 13:54:12 184.4000 [lb_av] BMI 2017-01-16 10:08:48 40.2100 BP hernandez 2017-01-16 10:08:48 54.0000 mm[Hg] Bdy height 2017-01-16 10:08:48 57.0000 [in_i] Heart rate 2017-01-16 10:08:48 77.0000 /min Resp rate 2017-01-16 10:08:48 18.0000 /min BP sys 2017-01-16 10:08:48 136.0000 mm[Hg] Body temperature 2017-01-16 10:08:48 96.8000 [degF] Weight 2017-01-16 10:08:48 185.8000 [lb_av] BMI 2016-12-26 12:16:35 40.1200 BP hernandez 2016-12-26 12:16:35 75.0000 mm[Hg] Bdy height 2016-12-26 12:16:35 57.0000 [in_i] Heart rate 2016-12-26 12:16:35 80.0000 /min Resp rate 2016-12-26 12:16:35 18.0000 /min BP sys 2016-12-26 12:16:35 138.0000 mm[Hg] Body temperature 2016-12-26 12:16:35 96.9000 [degF] Weight 2016-12-26 12:16:35 185.4000 [lb_av] BMI 2016-12-05 09:46:36 41.0700 BP hernandez 2016-12-05 09:46:36 75.0000 mm[Hg] Bdy height 2016-12-05 09:46:36 57.0000 [in_i] Heart rate 2016-12-05 09:46:36 81.0000 /min Resp rate 2016-12-05 09:46:36 18.0000 /min BP sys 2016-12-05 09:46:36 138.0000 mm[Hg] Body temperature 2016-12-05 09:46:36 98.2000 [degF] Weight 2016-12-05 09:46:36 189.8000 [lb_av] BMI 2016-11-14 09:29:00 42.2800 BP hernandez 2016-11-14 09:29:00 68.0000 mm[Hg] Bdy height 2016-11-14 09:29:00 57.0000 [in_i] Heart rate 2016-11-14 09:29:00 81.0000 /min Resp rate 2016-11-14 09:29:00 26.0000 /min BP sys 2016-11-14 09:29:00 149.0000 mm[Hg] Body temperature 2016-11-14 09:29:00 97.2000 [degF] Weight 2016-11-14 09:29:00 195.4000 [lb_av] BMI 2016-11-06 09:11:02 42.1100 BP hernandez 2016-11-06 09:11:02 78.0000 mm[Hg] Bdy height 2016-11-06 09:11:02 57.0000 [in_i] Heart rate 2016-11-06 09:11:02 84.0000 /min Resp rate 2016-11-06 09:11:02 16.0000 /min BP sys 2016-11-06 09:11:02 149.0000 mm[Hg] Body temperature 2016-11-06 09:11:02 97.6000 [degF] Weight 2016-11-06 09:11:02 194.6000 [lb_av] BMI 2016-10-11 14:29:13 41.8100 BP hernandez 2016-10-11 14:29:13 72.0000 mm[Hg] Bdy height 2016-10-11 14:29:13 57.0000 [in_i] Heart rate 2016-10-11 14:29:13 91.0000 /min Resp rate 2016-10-11 14:29:13 20.0000 /min BP sys 2016-10-11 14:29:13 167.0000 mm[Hg] Body temperature 2016-10-11 14:29:13 98.4000 [degF] Weight 2016-10-11 14:29:13 193.2000 [lb_av]
== END 2020-06-29 10:44 | disposition home or self-care (01) ==
LOC: SC 08:38
PROVIDERS: ATTEND Ophthalmology
DX: H25.12 Age-related nuclear cataract, left eye (principal); Z98.41 Cataract extraction status, right eye; E11.36 Type 2 diabetes mellitus with diabetic cataract; Z79.84 Long term (current) use of oral hypoglycemic drugs; Z87.891 Personal history of nicotine dependence; E66.9 Obesity, unspecified
CPT/HCPCS: 66984; 82962; V2632; J2250; J3490 ×2; A9270; J0171; J3010; J2405